=== PATIENT | male | born 1970 | race Hispanic/Latino ===

== ENCOUNTER 2016-12-20 17:57 | Inpatient (IN) | payer MEDICAID ==
--- NOTE | 2016-12-20 19:29 | C.PDOC ---
History Of Present Illness A 46 y/o M who is a heavy alcohol user, is here for ETOH detox. Last drink was a few hours ago. Also c/o blood in stool and chronic right knee pain after a mechanical fall a few weeks prior. Denies fever, chills, chest pain, SOB, lightheadedness, diaphoresis, suicidal ideation, dizziness, or any other complaints. Time Seen by Provider: 12/20/16 19:28 Chief Complaint (Nursing): Substance Abuse History Per: Patient History/Exam Limitations: no limitations Onset/Duration Of Symptoms: Hrs, Persistent (Knee pain) Current Symptoms Are (Timing): Still Present Suicide/Self Injury Attempted (Context): None Modifying Factor(s): Alcohol Severity: Mild Pain Scale Rating Of: 5 Associated Symptoms: Other (Blood in stool). denies: Suicidal Thoughts, Suicidal Plan Involuntary Hold By: None Recent travel outside of the [place]: No Additional History Per: Patient Past Medical History Reviewed: Historical Data, Nursing Documentation, Vital Signs Vital Signs: Last Vital Signs Temp 98.3 F 12/20/16 18:06 Pulse 105 H 12/20/16 18:06 Resp 16 12/20/16 18:06 BP 133/79 12/20/16 18:06 Pulse Ox 99 12/20/16 20:21 - Medical History PMH: Denies: Chronic Kidney Disease - [facility] ALCOHOL DETOXIFICATION (12/31/13) DETOXIFICATION SERVICES FOR SUBSTANCE ABUSE TREATMENT (09/27/15) EXCISION OF STOMACH, ENDO, DIAGN (04/27/15) Family History: States: Unknown Family Hx - Social History Hx Tobacco Use: No Hx Alcohol Use: Yes Hx Substance Use: No - Immunization History Hx Tetanus Toxoid Vaccination: No Hx Influenza Vaccination: Yes Hx Pneumococcal Vaccination: No Review Of Systems Constitutional: Positive for: Other (ETOH intoxicated). Negative for: Fever, Chills, Sweats Cardiovascular: Negative for: Chest Pain, Light Headedness Respiratory: Negative for: Shortness of Breath Gastrointestinal: Positive for: Hematochezia (Blood in stool) Musculoskeletal: Positive for: Leg Pain (Right knee pain) Neurological: Negative for: Dizziness Psych: Negative for: Suicidal ideation Physical Exam - Physical Exam Appears: No Acute Distress Skin: Warm, Dry, Jaundice, Ecchymosis (Numerous ecchymosis all over the body) Head: Atraumatic, Normacephalic Eye(s): bilateral: Other (Sclera is jaundice) Cardiovascular: Rhythm Regular Respiratory: No Rales, No Rhonchi, No Wheezing Gastrointestinal/Abdominal: Soft, Tenderness (Mildly tender to palpation ), Organomegaly (Liver enlarged), Distention, No Guarding, No Rebound Rectal: Other (Dark stool) Extremity: Normal ROM, No Pedal Edema, Capillary Refill (<2secs) Pulses: Left Carotid: Normal, Right Carotid: Normal, Left Radial: Normal, Right Radial: Normal Neurological/Psych: Oriented x3 (Awake and alert), Normal Motor, Normal Sensation, Other (No focal deficit) ED Course And Treatment - Laboratory Results Result Diagrams: 12/20/16 19:29 12/20/16 19:29 O2 Sat by Pulse Oximetry: 99 (RA) Pulse Ox Interpretation: Normal - Radiology CXR: Interpreted by Me, Viewed By Me CXR Interpretation: Yes: Infiltrates, Other (? rll infiltrate). No: Fracture, Pnemothorax Progress Note: spoke with dr hung for icu admission. will come and see the pt Critical Care Time - Critical Care Note Total Time (in mins): 30 Documented critical care: time excludes all time spent performing seperately billable procedures. Disposition Discussed With : Laxmi Lacy Comment: accepted the pt on his service and took over the care at 9:25 PM Doctor Will See Patient In The: ED Counseled Patient/Family Regarding: Studies Performed, Diagnosis - Disposition Disposition: HOSPITALIZED Disposition Time: 19:29 Condition: GUARDED Forms: [facility] (Welsh) - POA Present On Arrival: None - Clinical Impression Clinical Impression: Alcohol dependence, Elevated liver function tests, Abdominal pain, GI bleed, Jaundice, Hyperammonemia - Scribe Statement The provider has reviewed the documentation as recorded by the Yoandyibcoral carreno All medical record entries made by the Yoandyibcoral were at my direction and personally dictated by me. I have reviewed the chart and agree that the record accurately reflects my personal performance of the history, physical exam, medical decision making, and the department course for this patient. I have also personally directed, reviewed, and agree with the discharge instructions and disposition. Decision To Admit - Pt Status Changed To: Hospital Disposition Of: Inpatient - Admit Certification Admit to Inpatient:: After my assessment, the patient will require hospitalization for at least two midnights. This is because of the severity of symptoms shown, intensity of services needed, and/or the medical risk in this patient being treated as an outpatient. - InPatient: Physician Admission Certification: I certify that this patient requires 2 or more midnights of care for the following reason:: After my assessment, the patient will require hospitalization for at least two midnights. This is because of the severity of symptoms shown, intensity of services needed, and/or the medical risk in this patient being treated as an outpatient. - . Bed Request Type: Telemetry Admitting Physician: Laxmi Lacy Patient Diagnosis: Alcohol dependence, Elevated liver function tests, Abdominal pain, GI bleed, Jaundice, Hyperammonemia
[2016-12-20 19:38] LABS: HEMOGLOBIN 8.9 g/dL (12.0-18.0); MEAN CELL VOLUME 100.7 fL (80.0-94.0); MEAN CORPUSCULAR HEMOGLOBIN 35.4 pg (27.0-31.0); MEAN CORPUSCULAR HGB CONC 35.2 g/dL (33.0-37.0); MEAN PLATELET VOLUME 9.7 fL (7.2-11.7); RBC 2.51 Mil/uL (4.40-5.90); RED CELL DISTRIBUTION WIDTH 18.2 % (11.5-14.5); WHITE BLOOD COUNT 7.5 K/uL (4.8-10.8)
[2016-12-20 19:39] LABS: ALBUMIN 3.1 g/dL (3.5-5.0); SQUAMOUS EPITHIAL 2 /hpf (0-5); URINE BACTERIA FEW (<OCC); URINE BILIRUBIN 2+ (NEGATIVE); URINE BLOOD NEGATIVE (NEGATIVE); URINE CLARITY Hazy (Clear); URINE COLOR Amber (YELLOW); URINE GLUCOSE (UA) 1+ mg/dL (Normal); URINE HYALINE CAST 0-2 /lpf (0-2); URINE LEUKOCYTE ESTERASE NEG Leu/uL (Negative); URINE NITRATE NEGATIVE (NEGATIVE); URINE PROTEIN 1+ mg/dL (NEGATIVE)
[2016-12-20 19:42] LABS: GFR AFRICAN-AMERICAN > 60; GFR NON-AFRICAN AMERICAN > 60; PLATELET COUNT 89 K/uL (130-400)
[2016-12-20 19:43] LABS: ALB/GLOB RATIO 0.8 (1.0-2.1); ALT/SGPT 37 U/L (21-72); AST/SGOT 154 U/L (17-59); BLOOD UREA NITROGEN 10 mg/dL (9-20); CALCIUM 8.4 mg/dl (8.6-10.4)
[2016-12-20 19:44] LABS: BARBITURATES, UR NEGATIVE (NEGATIVE)
[2016-12-20 19:45] LABS: BENZODIAZEPINES, UR POSITIVE (NEGATIVE)
[2016-12-20 19:47] LABS: OPIATES, UR NEGATIVE (NEGATIVE)
[2016-12-20 19:48] LABS: PHENCYCLIDINE, UR NEGATIVE (NEGATIVE)
[2016-12-20 20:16] LABS: BANDS 11 % (0-2); BASOPHIL 1 % (0-2); LYMPHOCYTE 11 % (20-40); METAMYELOCYTE 1 % (0-0); MONOCYTE 8 % (0-10); NEUTROPHIL 68 % (50-75); TOTAL CELLS COUNTED 100
[2016-12-20 20:17] LABS: INR 1.3; PROTHROMBIN TIME 15.3 SECONDS (9.7-12.2)
[2016-12-20 20:17] LABS: HYPOCHROMIC SLIGHT; MICROCYTOSIS SLIGHT; PLATELET ESTIMATE DECREASED (NORMAL)
[2016-12-20 20:18] LABS: TARGET CELLS SLIGHT
[2016-12-20] MEDS ORDERED: Multivitamin (MVI) 10 ML, Thiamine 100 MG, Folic Acid 1 MG in Sodium Chloride 0.9% 1,00... IV ONE (20:19)
[2016-12-20 20:39] LABS: VENOUS BLOOD GAS BASE EXCESS 1.3 mmol/L (0.0-2.0); VENOUS BLOOD GAS PCO2 36 mmHg (40-60); VENOUS BLOOD GAS PO2 28 mm/Hg (30-55); VENOUS BLOOD PH 7.45 (7.32-7.43)
--- NOTE | 2016-12-20 21:08 | CP.CCUPN ---
CCU Subjective - Physician Review Events Since Last Encounter (Free Text): 12/21/16 00:45 The Patient was seen and examined at the bedside, Medical records reviewed, and management issues were discussed and formulated. All clinical/lab/hemodynamic/radiographic data were reviewed The Patient is 46 Years old M with PMHx of ETOH abuse who presents to ED requesting alcohol detox, Pt last drink was at 3PM. He also Complaint of dark chaparrita stool for a week, and chronic right knee pain after a mechanical fall a few weeks prior. And start vomiting up with blood clot over the last three days In the ER he was found to be severely jaundiced. Labs with H/H drop 12.2/36 (12/03) 8.9/25 Elevated Jony level to 17 up from 7.9 (12/03), and Bandemia of 11 Denies fever, chills, chest pain, SOB, lightheadedness, diaphoresis, suicidal ideation, dizziness or palpitations H/O upper GI bleeding S/p EGD 04/2015 showing mild gastritis, normal duodenum. No source of active bleeding Ammonia level also elevated MELD score of 20, With estimated 3 month mortality of 19.6 Allergies: NKDA Social hx: Denies smoking, drug history. Heavy drinker for the past 25 years and recently has been drinking a liter of Gin daily, wine occasionally and denies drinking beer H/O detox twice in the past. CCU Objective - Vital Signs / Intake & Output Vital Signs (Last 4 hours): Vital Signs Temp Pulse Resp BP Pulse Ox 12/20/16 20:21 99 12/20/16 18:06 98.3 F 105 H 16 133/79 99 Intake and Output (Last 8hrs): Intake & Output 12/20/16 12/20/16 12/20/16 06:59 14:59 22:59 Weight 190 lb - Physical Exam Physical Exam Limitations: Positive for: Clinical Condition Head: Positive for: Atraumatic, Normocephalic, Ecchymosis. Negative for: Tenderness, Contusion, Swelling, Abrasion, Laceration Pupils: Positive for: PERRL. Negative for: Sluggish, Non-Reactive, Pinpoint Extroacular Muscles: Positive for: EOMI Conjunctiva: Positive for: Normal, Icteric. Negative for: Injected Ears: Positive for: Normal Mouth: Positive for: Dry. Negative for: Drooling Pharnyx: Positive for: Normal Nose (Internal): Positive for: Normal Inspection Neck: Positive for: Normal Range of Motion, Trachea Midline. Negative for: Meningeal Signs, MIDLINE TENDERNESS, Paraspinal Tenderness, JVD, Lymphadenopathy , Bruit, Other Respiratory/Chest: Positive for: Clear to Auscultation, Good Air Exchange. Negative for: Respiratory Distress, Accessory Muscle Use, Wheezes, Decreased Breath Sounds, Rales, Retracting, Rhonchi Cardiovascular: Positive for: Regular Rate and Rhythm, Normal S1, S2, Peripheal Pulses Present. Negative for: Murmurs, Irregular Rhythm, Tachycardic, Bradycardic Abdomen: Positive for: Tenderness, Distention, Normal Bowel Sounds. Negative for: Peritoneal Signs Upper Extremity: Positive for: Normal Inspection, Normal ROM, NORMAL PULSES, Capillary Refill < 2s. Negative for: Cyanosis, Edema, Tenderness Lower Extremity: Positive for: NORMAL PULSES, Swelling (R knee), Capillary Refill < 2 s. Negative for: Edema, CALF TENDERNESS Neurological: Positive for: GCS=15, CN II-XII Intact, Speech Normal, Motor Func Grossly Intact, Normal Sensory Function - Medications Active Medications: Active Medications Generic Name Dose Route Start Last Admin Trade Name Freq PRN Reason Stop Dose Admin Multivitamins/Vitamin C 10 ml/ 1,011.2 mls @ 999 mls/hr 12/20/16 20:19 20:44 Thiamine HCl 100 mg/ Folic IV 12/20/16 21:19 999 mls/hr Acid 1 mg/ Sodium Chloride .Q1H1M ONE Administration - Patient Studies Lab Studies: Lab Studies 12/20/16 12/20/16 12/20/16 Range/Units 20:35 20:12 20:12 WBC (4.8-10.8) K/uL RBC (4.40-5.90) Mil/uL Hgb (12.0-18.0) g/dL Hct (35.0-51.0) % MCV (80.0-94.0) fL MCH (27.0-31.0) pg MCHC (33.0-37.0) g/dL RDW (11.5-14.5) % Plt Count (130-400) K/uL MPV (7.2-11.7) fL Neutrophils % (Manual) (50-75) % Band Neutrophils % (0-2) % Lymphocytes % (Manual) (20-40) % Monocytes % (Manual) (0-10) % Basophils % (Manual) (0-2) % Metamyelocytes % (0-0) % Platelet Estimate (NORMAL) Hypochromasia (manual) Microcytosis (manual) Target Cells PT (9.7-12.2) SECONDS INR pO2 28 L (30-55) mm/Hg VBG pH 7.45 H (7.32-7.43) VBG pCO2 36 L (40-60) mmHg VBG HCO3 24.8 mmol/L VBG Total CO2 26.1 (22-28) mmol/L VBG O2 Sat (Calc) 53.4 (40-65) % VBG Base Excess 1.3 (0.0-2.0) mmol/L VBG Potassium 3.4 L (3.6-5.2) mmol/L Glucose 90 (75-110) mg/dl Lactate 1.6 (0.7-2.1) mmol/L Sodium 142.0 (132-148) mmol/L Potassium (3.6-5.2) mmol/L Chloride 112.0 H (98-107) mmol/L Carbon Dioxide (22-30) mmol/L Anion Gap (10-20) BUN (9-20) mg/dL Creatinine (0.8-1.5) MG/DL Est GFR ( Amer) Est GFR (Non-Af Amer) Random Glucose (75-110) mg/dL Calcium (8.6-10.4) mg/dl Magnesium 1.6 (1.6-2.3) mg/dL Total Bilirubin (0.2-1.3) mg/dL AST (17-59) U/L ALT (21-72) U/L Alkaline Phosphatase (38-126) U/L Ammonia 52 H D (9-33) umol/L Total Protein (6.3-8.3) g/dL Albumin (3.5-5.0) g/dL Globulin (2.2-3.9) gm/dL Albumin/Globulin Ratio (1.0-2.1) Venous Blood Potassium 3.4 L (3.6-5.2) mmol/L Urine Color (YELLOW) Urine Clarity (Clear) Urine pH (5.0-8.0) Ur Specific [place] (1.003-1.030) Urine Protein (NEGATIVE) mg/dL Urine Glucose (UA) (Normal) mg/dL Urine Ketones (NEGATIVE) mg/dL Urine Blood (NEGATIVE) Urine Nitrate (NEGATIVE) Urine Bilirubin (NEGATIVE) Urine Urobilinogen (0.2-1.0) mg/dL Ur Leukocyte Esterase (Negative) Elvis/uL Urine WBC (Auto) (0-5) /hpf Urine RBC (Auto) (0-3) /hpf Ur Squamous Epith Cells (0-5) /hpf Ur Transition Epith Cell (0-3) /hpf Urine Bacteria (<OCC) Hyaline Casts (0-2) /lpf Stool Occult Blood (NEGATIVE) Urine Opiates Screen (NEGATIVE) Urine Methadone Screen (NEGATIVE) Ur Barbiturates Screen (NEGATIVE) Ur Phencyclidine Scrn (NEGATIVE) Ur Amphetamines Screen (NEGATIVE) U Benzodiazepines Scrn (NEGATIVE) U Oth Cocaine Metabols (NEGATIVE) U Cannabinoids Screen (NEGATIVE) Alcohol, Quantitative (0-10) mg/dl 12/20/16 12/20/16 12/20/16 Range/Units 20:09 20:07 19:29 WBC (4.8-10.8) K/uL RBC (4.40-5.90) Mil/uL Hgb (12.0-18.0) g/dL Hct (35.0-51.0) % MCV (80.0-94.0) fL MCH (27.0-31.0) pg MCHC (33.0-37.0) g/dL RDW (11.5-14.5) % Plt Count (130-400) K/uL MPV (7.2-11.7) fL Neutrophils % (Manual) (50-75) % Band Neutrophils % (0-2) % Lymphocytes % (Manual) (20-40) % Monocytes % (Manual) (0-10) % Basophils % (Manual) (0-2) % Metamyelocytes % (0-0) % Platelet Estimate (NORMAL) Hypochromasia (manual) Microcytosis (manual) Target Cells PT 15.3 H (9.7-12.2) SECONDS INR 1.3 pO2 (30-55) mm/Hg VBG pH (7.32-7.43) VBG pCO2 (40-60) mmHg VBG HCO3 mmol/L VBG Total CO2 (22-28) mmol/L VBG O2 Sat (Calc) (40-65) % VBG Base Excess (0.0-2.0) mmol/L VBG Potassium (3.6-5.2) mmol/L Glucose (75-110) mg/dl Lactate (0.7-2.1) mmol/L Sodium (132-148) mmol/L Potassium (3.6-5.2) mmol/L Chloride (98-107) mmol/L Carbon Dioxide (22-30) mmol/L Anion Gap (10-20) BUN (9-20) mg/dL Creatinine (0.8-1.5) MG/DL Est GFR ( Amer) Est GFR (Non-Af Amer) Random Glucose (75-110) mg/dL Calcium (8.6-10.4) mg/dl Magnesium (1.6-2.3) mg/dL Total Bilirubin (0.2-1.3) mg/dL AST (17-59) U/L ALT (21-72) U/L Alkaline Phosphatase (38-126) U/L Ammonia (9-33) umol/L Total Protein (6.3-8.3) g/dL Albumin (3.5-5.0) g/dL Globulin (2.2-3.9) gm/dL Albumin/Globulin Ratio (1.0-2.1) Venous Blood Potassium (3.6-5.2) mmol/L Urine Color (YELLOW) Urine Clarity (Clear) Urine pH (5.0-8.0) Ur Specific [place] (1.003-1.030) Urine Protein (NEGATIVE) mg/dL Urine Glucose (UA) (Normal) mg/dL Urine Ketones (NEGATIVE) mg/dL Urine Blood (NEGATIVE) Urine Nitrate (NEGATIVE) Urine Bilirubin (NEGATIVE) Urine Urobilinogen (0.2-1.0) mg/dL Ur Leukocyte Esterase (Negative) Elvis/uL Urine WBC (Auto) (0-5) /hpf Urine RBC (Auto) (0-3) /hpf Ur Squamous Epith Cells (0-5) /hpf Ur Transition Epith Cell (0-3) /hpf Urine Bacteria (<OCC) Hyaline Casts (0-2) /lpf Stool Occult Blood Positive H (NEGATIVE) Urine Opiates Screen Negative (NEGATIVE) Urine Methadone Screen Negative (NEGATIVE) Ur Barbiturates Screen Negative (NEGATIVE) Ur Phencyclidine Scrn Negative (NEGATIVE) Ur Amphetamines Screen Negative (NEGATIVE) U Benzodiazepines Scrn Positive (NEGATIVE) U Oth Cocaine Metabols Negative (NEGATIVE) U Cannabinoids Screen Negative (NEGATIVE) Alcohol, Quantitative (0-10) mg/dl 12/20/16 12/20/16 12/20/16 Range/Units 19:29 19:29 19:29 WBC 7.5 (4.8-10.8) K/uL RBC 2.51 L (4.40-5.90) Mil/uL Hgb 8.9 L D (12.0-18.0) g/dL Hct 25.3 L (35.0-51.0) % MCV 100.7 H D (80.0-94.0) fL MCH 35.4 H (27.0-31.0) pg MCHC 35.2 (33.0-37.0) g/dL RDW 18.2 H (11.5-14.5) % Plt Count 89 L D (130-400) K/uL MPV 9.7 (7.2-11.7) fL Neutrophils % (Manual) 68 (50-75) % Band Neutrophils % 11 H* (0-2) % Lymphocytes % (Manual) 11 L (20-40) % Monocytes % (Manual) 8 (0-10) % Basophils % (Manual) 1 (0-2) % Metamyelocytes % 1 H (0-0) % Platelet Estimate Decreased L (NORMAL) Hypochromasia (manual) Slight Microcytosis (manual) Slight Target Cells Slight PT (9.7-12.2) SECONDS INR pO2 (30-55) mm/Hg VBG pH (7.32-7.43) VBG pCO2 (40-60) mmHg VBG HCO3 mmol/L VBG Total CO2 (22-28) mmol/L VBG O2 Sat (Calc) (40-65) % VBG Base Excess (0.0-2.0) mmol/L VBG Potassium (3.6-5.2) mmol/L Glucose (75-110) mg/dl Lactate (0.7-2.1) mmol/L Sodium 141 (132-148) mmol/L Potassium 3.5 L (3.6-5.2) mmol/L Chloride 102 (98-107) mmol/L Carbon Dioxide 22 (22-30) mmol/L Anion Gap 21 H (10-20) BUN 10 (9-20) mg/dL Creatinine 0.6 L (0.8-1.5) MG/DL Est GFR ( Amer) > 60 Est GFR (Non-Af Amer) > 60 Random Glucose 94 (75-110) mg/dL Calcium 8.4 L (8.6-10.4) mg/dl Magnesium (1.6-2.3) mg/dL Total Bilirubin 17.1 H (0.2-1.3) mg/dL AST 154 H (17-59) U/L ALT 37 (21-72) U/L Alkaline Phosphatase 333 H D (38-126) U/L Ammonia (9-33) umol/L Total Protein 7.3 (6.3-8.3) g/dL Albumin 3.1 L D (3.5-5.0) g/dL Globulin 4.1 H (2.2-3.9) gm/dL Albumin/Globulin Ratio 0.8 L (1.0-2.1) Venous Blood Potassium (3.6-5.2) mmol/L Urine Color [place] (YELLOW) Urine Clarity Hazy (Clear) Urine pH 5.0 (5.0-8.0) Ur Specific [place] 1.025 (1.003-1.030) Urine Protein 1+ H (NEGATIVE) mg/dL Urine Glucose (UA) 1+ H (Normal) mg/dL Urine Ketones Negative (NEGATIVE) mg/dL Urine Blood Negative (NEGATIVE) Urine Nitrate Negative (NEGATIVE) Urine Bilirubin 2+ H (NEGATIVE) Urine Urobilinogen 4.0 (0.2-1.0) mg/dL Ur Leukocyte Esterase Neg (Negative) Elvis/uL Urine WBC (Auto) 4 (0-5) /hpf Urine RBC (Auto) < 1 (0-3) /hpf Ur Squamous Epith Cells 2 (0-5) /hpf Ur Transition Epith Cell 1 (0-3) /hpf Urine Bacteria Few H (<OCC) Hyaline Casts 0-2 (0-2) /lpf Stool Occult Blood (NEGATIVE) Urine Opiates Screen (NEGATIVE) Urine Methadone Screen (NEGATIVE) Ur Barbiturates Screen (NEGATIVE) Ur Phencyclidine Scrn (NEGATIVE) Ur Amphetamines Screen (NEGATIVE) U Benzodiazepines Scrn (NEGATIVE) U Oth Cocaine Metabols (NEGATIVE) U Cannabinoids Screen (NEGATIVE) Alcohol, Quantitative 225 H (0-10) mg/dl Laboratory Results - last 24 hr 12/20/16 12/20/16 12/20/16 19:29 19:29 19:29 WBC 7.5 RBC 2.51 L Hgb 8.9 L D Hct 25.3 L MCV 100.7 H D MCH 35.4 H MCHC 35.2 RDW 18.2 H Plt Count 89 L D MPV 9.7 Neutrophils % (Manual) 68 Band Neutrophils % 11 H* Lymphocytes % (Manual) 11 L Monocytes % (Manual) 8 Basophils % (Manual) 1 Metamyelocytes % 1 H Platelet Estimate Decreased L Hypochromasia (manual) Slight Microcytosis (manual) Slight Target Cells Slight PT INR pO2 VBG pH VBG pCO2 VBG HCO3 VBG Total CO2 VBG O2 Sat (Calc) VBG Base Excess VBG Potassium Glucose Lactate Sodium 141 Potassium 3.5 L Chloride 102 Carbon Dioxide 22 Anion Gap 21 H BUN 10 Creatinine 0.6 L Est GFR ( Amer) > 60 Est GFR (Non-Af Amer) > 60 Random Glucose 94 Calcium 8.4 L Magnesium Total Bilirubin 17.1 H AST 154 H ALT 37 Alkaline Phosphatase 333 H D Ammonia Total Protein 7.3 Albumin 3.1 L D Globulin 4.1 H Albumin/Globulin Ratio 0.8 L Venous Blood Potassium Urine Color Michelle Urine Clarity Hazy Urine pH 5.0 Ur Specific [place] 1.025 Urine Protein 1+ H Urine Glucose (UA) 1+ H Urine Ketones Negative Urine Blood Negative Urine Nitrate Negative Urine Bilirubin 2+ H Urine Urobilinogen 4.0 Ur Leukocyte Esterase Neg Urine WBC (Auto) 4 Urine RBC (Auto) < 1 Ur Squamous Epith Cells 2 Ur Transition Epith Cell 1 Urine Bacteria Few H Hyaline Casts 0-2 Stool Occult Blood Urine Opiates Screen Urine Methadone Screen Ur Barbiturates Screen Ur Phencyclidine Scrn Ur Amphetamines Screen U Benzodiazepines Scrn U Oth Cocaine Metabols U Cannabinoids Screen Alcohol, Quantitative 225 H 12/20/16 12/20/16 12/20/16 19:29 20:07 20:09 WBC RBC Hgb Hct MCV MCH MCHC RDW Plt Count MPV Neutrophils % (Manual) Band Neutrophils % Lymphocytes % (Manual) Monocytes % (Manual) Basophils % (Manual) Metamyelocytes % Platelet Estimate Hypochromasia (manual) Microcytosis (manual) Target Cells PT 15.3 H INR 1.3 pO2 VBG pH VBG pCO2 VBG HCO3 VBG Total CO2 VBG O2 Sat (Calc) VBG Base Excess VBG Potassium Glucose Lactate Sodium Potassium Chloride Carbon Dioxide Anion Gap BUN Creatinine Est GFR ( Amer) Est GFR (Non-Af Amer) Random Glucose Calcium Magnesium Total Bilirubin AST ALT Alkaline Phosphatase Ammonia Total Protein Albumin Globulin Albumin/Globulin Ratio Venous Blood Potassium Urine Color Urine Clarity Urine pH Ur Specific [place] Urine Protein Urine Glucose (UA) Urine Ketones Urine Blood Urine Nitrate Urine Bilirubin Urine Urobilinogen Ur Leukocyte Esterase Urine WBC (Auto) Urine RBC (Auto) Ur Squamous Epith Cells Ur Transition Epith Cell Urine Bacteria Hyaline Casts Stool Occult Blood Positive H Urine Opiates Screen Negative Urine Methadone Screen Negative Ur Barbiturates Screen Negative Ur Phencyclidine Scrn Negative Ur Amphetamines Screen Negative U Benzodiazepines Scrn Positive U Oth Cocaine Metabols Negative U Cannabinoids Screen Negative Alcohol, Quantitative 12/20/16 12/20/16 12/20/16 20:12 20:12 20:35 WBC RBC Hgb Hct MCV MCH MCHC RDW Plt Count MPV Neutrophils % (Manual) Band Neutrophils % Lymphocytes % (Manual) Monocytes % (Manual) Basophils % (Manual) Metamyelocytes % Platelet Estimate Hypochromasia (manual) Microcytosis (manual) Target Cells PT INR pO2 28 L VBG pH 7.45 H VBG pCO2 36 L VBG HCO3 24.8 VBG Total CO2 26.1 VBG O2 Sat (Calc) 53.4 VBG Base Excess 1.3 VBG Potassium 3.4 L Glucose 90 Lactate 1.6 Sodium 142.0 Potassium Chloride 112.0 H Carbon Dioxide Anion Gap BUN Creatinine Est GFR ( Amer) Est GFR (Non-Af Amer) Random Glucose Calcium Magnesium 1.6 Total Bilirubin AST ALT Alkaline Phosphatase Ammonia 52 H D Total Protein Albumin Globulin Albumin/Globulin Ratio Venous Blood Potassium 3.4 L Urine Color Urine Clarity Urine pH Ur Specific [place] Urine Protein Urine Glucose (UA) Urine Ketones Urine Blood Urine Nitrate Urine Bilirubin Urine Urobilinogen Ur Leukocyte Esterase Urine WBC (Auto) Urine RBC (Auto) Ur Squamous Epith Cells Ur Transition Epith Cell Urine Bacteria Hyaline Casts Stool Occult Blood Urine Opiates Screen Urine Methadone Screen Ur Barbiturates Screen Ur Phencyclidine Scrn Ur Amphetamines Screen U Benzodiazepines Scrn U Oth Cocaine Metabols U Cannabinoids Screen Alcohol, Quantitative Review of Systems - Cardiovascular Cardiovascular: absent: As Per HPI, Acrocyanosis, Chest Pain, Chest Pain at Rest , Chest Pain with Activity, Claudication, Diaphoresis, Dyspnea, Dyspnea on Exertion, Edema, Irregular Heart Rhythm, Pain Radiating to Arm/Neck/Jaw, Leg Edema, Leg Ulcers, Lightheadedness, Orthopnea, Palpitations, Paroxysmal Nocturnal Dyspnea, Pedal Edema, Radiating Pain, Rapid Heart Rate, Slow Heart Rate, Syncope, Other, UNREMARKABLE - Respiratory Respiratory: absent: As Per HPI, Cough, Dyspnea, Hemoptysis, Dyspnea on Exertion , Wheezing, Snoring, Stridor, Pain on Inspiration, Chest Congestion, Excessive Mucous Production, Change in Mucous Color, Pain with Coughing, Other, UNREMARKABLE - Gastrointestinal Gastrointestinal: Abdominal Pain, Bloating, Change in Bowel Habits, Change in Stool Character, Hematemesis, Melena, Vomiting. absent: Hematochezia, Loose Stools, Nausea Critical Care Progress Note - Extremities/Vascular Does the Patient need a Central Venous Catheter?: No Does the Patient have a Rosario Catheter?: No Does the Patient need a Rosario Catheter?: No Assessment/Plan (1) Acute upper gastrointestinal bleeding Current Visit: Yes Status: Acute Comment: - Admit to ICU sec to hemodynamic instability - PANTOPRAZOLE drip - Two large bore peripheral catheters - Suplemental O2 - NPO - Volume resuscitation - Serial CBCs q 8 /HR, RBC transfusions to keep hemoglobin > 7 - Active type and screen sent today - 04/2015: EGD showed mild gastritis and no active bleeding. - GI evaluation called (2) Severe sepsis Current Visit: Yes Status: Acute Comment: Blood C/S sent Will send patient fot ABD CT scan to R/O Acute cholangitis in the sitting for jundice, bilirubin elevated Gi consult, possible need for ERCP IV Zosyn (3) Hyperammonemia Current Visit: Yes Status: Acute Comment: Ammonia level also elevated Start Lactulose MELD score of 20 With estimated 3 month mortality of 19.6 (4) Elevated liver function tests Current Visit: Yes Status: Acute (5) Jaundice Current Visit: Yes Status: Acute Comment: Will send patient fot ABD CT scan to R/O Acute cholangitis in the sitting for jundice, bilirubin elevated (6) Alcoholic fatty liver Current Visit: No Status: Acute (7) Knee injury Current Visit: No Status: Acute (8) Thrombocytopenia Current Visit: No Status: Acute (9) Alcohol withdrawal Current Visit: No Status: Acute Comment: Folic Acid Thiamine IV Hydration Banana bag Librium protocol (10) Prophylactic measure Current Visit: No Status: Acute Comment: SCDs Protonix drip
[2016-12-20] MEDS ORDERED: Piperacillin/Tazobact 3.375 gm 100 ML IVPB STA (21:40)
[2016-12-20] MEDS ORDERED: Oxycodone/Acetaminophen 5/325 mg Tab PO STA (23:34)
[2016-12-20] MEDS ORDERED: Thiamine 100 mg/ml Inj IV ONE (23:35)
[2016-12-20] MEDS ORDERED: Pantoprazole 80 MG in Sodium Chloride 0.9% 100 ML IVP SCH (23:45)
[2016-12-21] MEDS: Dextrose 5%/0.45% NS 1,000 ML IV SCH ×2 (00:19→10:00)
[2016-12-21] MEDS: Piperacill/Tazo 3.375gm in Dex 3.375 GM/50 ML BAG IVPB SCH ×2 (00:26→08:01)
[2016-12-21] MEDS ORDERED: Iohexol 240 (50 ml) PO ONE (00:30)
--- NOTE | 2016-12-21 03:27 | CT ---
EXAM: CT Abdomen and Pelvis With Intravenous Contrast CLINICAL HISTORY: 46 years old, male; Pain; Abdominal pain and other: R/O acute cholangitis; Patient HX: 12-03-16; Additional info: R/O acute cholangitis. R/O acute cholangitis. Gi bleeding , bandemia and jaundice, . oral contrast only TECHNIQUE: Axial computed tomography images of the abdomen and pelvis with intravenous contrast. This CT exam was performed using one or more of the following dose reduction techniques: automated exposure control, adjustment of the mA and/or kV according to patient size, and/or use of iterative reconstruction technique. Coronal and sagittal reformatted images were created and reviewed. CONTRAST: 240 mL of oral administered intravenously. COMPARISON: US - ABDOMEN COMPLETE 04/27/2015 8:15:03 PM FINDINGS: Limitations: Lack of intravenous contrast. Lower thorax: Mild atelectasis/scarring. Mild mural thickening vs underdistention of distal esophagus. ABDOMEN: Liver: Enlarged. Lobulated contour. Fatty infiltration. Gallbladder and bile ducts: Gallstone. No ductal dilation. Pancreas: No ductal dilation. No mass. Spleen: Mild to moderate splenomegaly. Adrenals: No mass. Kidneys and ureters: Mild stranding about kidneys, nonspecific. No renal calculi. No hydronephrosis. Stomach and bowel: Mild mural thickening vs underdistention of ascending colon. No associated inflammatory stranding. No obstruction. Appendix: No findings to suggest acute appendicitis. PELVIS: Bladder: Unremarkable. Reproductive: Calcification of vas deferens. ABDOMEN and PELVIS: Intraperitoneal space: Small free fluid within abdomen. Mild stranding/fascial thickening within abdomen and pelvis. No free air. Bones/joints: No acute fracture. Soft tissues: Unremarkable. Vasculature: Mild varices within upper abdomen. No aneurysm. Lymph nodes: No pathologically enlarged lymph nodes. IMPRESSION: 1. Cirrhosis with portal hypertension. 2. Mild colitis/edema versus underdistention. Clinical correlation is needed. 3. Mild esophagitis versus underdistention. Clinical correlation is needed. 4. Incidental/non-acute findings are described above.
[2016-12-21 06:41] LABS: INR 1.4; PROTHROMBIN TIME 15.3 SECONDS (9.7-12.2)
[2016-12-21 06:46] LABS: ALB/GLOB RATIO 0.8 (1.0-2.1); ALBUMIN 2.7 g/dL (3.5-5.0); ALT/SGPT 32 U/L (21-72); AST/SGOT 148 U/L (17-59); BLOOD UREA NITROGEN 11 mg/dL (9-20); CALCIUM 7.6 mg/dl (8.6-10.4); GFR AFRICAN-AMERICAN > 60; GFR NON-AFRICAN AMERICAN > 60; MAGNESIUM 1.5 mg/dL (1.6-2.3)
[2016-12-21 06:54] LABS: BASO # 0.1 K/uL (0.0-0.2); BASO % 1.6 % (0.0-2.0); EOS # 0.1 K/uL (0.0-0.7); EOS % 1.2 % (0.0-4.0); HEMOGLOBIN 7.5 g/dL (12.0-18.0); LYMPH # 1.2 K/uL (1.0-4.3); MEAN CELL VOLUME 101.9 fL (80.0-94.0); MEAN CORPUSCULAR HEMOGLOBIN 36.1 pg (27.0-31.0); MEAN CORPUSCULAR HGB CONC 35.4 g/dL (33.0-37.0); MONO # 0.6 K/uL (0.0-0.8); MONO % 10.8 % (0.0-10.0); NEUT # 3.4 K/uL (1.8-7.0); NEUT % 63.4 % (50.0-75.0); NRBC % 0.2 % (0.0-2.0); RBC 2.08 Mil/uL (4.40-5.90); RED CELL DISTRIBUTION WIDTH 18.4 % (11.5-14.5); WHITE BLOOD COUNT 5.4 K/uL (4.8-10.8)
--- NOTE | 2016-12-21 08:20 | RAD ---
HISTORY: jaundice COMPARISON: Chest x-ray performed 04/28/15 TECHNIQUE: Chest, one view. FINDINGS: Examination limited by habitus and hypoinflation. LUNGS: Central vascular congestion. No focal consolidation. Please note that chest x-ray has limited sensitivity for the detection of pulmonary masses. PLEURA: No significant pleural effusion identified. No definite pneumothorax . CARDIOVASCULAR: Heart size appears top normal. OSSEOUS STRUCTURES: Degenerative changes. VISUALIZED UPPER ABDOMEN: Unremarkable. OTHER FINDINGS: None. IMPRESSION: Central vascular congestion. Hypoinflation.
[2016-12-21] MEDS ORDERED: Octreotide 500 mcg/ml Inj IV ONE (08:45)
[2016-12-21] MEDS ORDERED: Octreotide 1,250 MCG in Dextrose 5% In Water 250 ML IV PRN (08:45)
[2016-12-21] MEDS ORDERED: Pantoprazole 80 MG in Sodium Chloride 0.9% 100 ML IV SCH (09:45)
[2016-12-21] MEDS ORDERED: Multivitamin (MVI) 10 ML, Thiamine 100 MG, Folic Acid 1 MG in Sodium Chloride 0.9% 1,00... IV ONE (10:50)
--- NOTE | 2016-12-21 10:55 | CP.PCM.PN ---
Subjective - Date & Time of Evaluation Date of Evaluation: 12/21/16 Time of Evaluation: 10:20 - Subjective Subjective: General Surgery Consult- Dr. Morris 46M hx of alcohol dependence initially checked himself to rehab at [facility] and was transferred to [facility] for elevated liver enzymes. Pt fell 10days ago and injured his right leg in which he still complains of pain. Pt states had an episode bright red emesis 2 days ago. Bright red blood in stool one week ago. deneis however no vomiting since being admitted to [facility]. currently denies abdominal N/V F/C CP/SOB. PMH: No relevant PMH PSH: EGD ALL: NKDA SocialHx: 10drinks / day since 2008. No tobacco or illicit drug use Objective - Vital Signs/Intake and Output Vital Signs (last 24 hours): Temp Pulse Resp BP Pulse Ox 98.3 F 88 17 123/74 96 12/21/16 08:00 12/21/16 09:02 12/21/16 09:02 12/21/16 09:02 12/21/16 09:02 Intake and Output: 12/21/16 12/21/16 06:59 18:59 Intake Total 1170 230 Output Total 350 Balance 820 230 - Medications Medications: Current Medications Dextrose/Sodium Chloride (Dextrose 5%/0.45% Ns 1000 Ml) 1,000 mls @ 100 mls/hr IV .Q10H ANTONY Last Admin: 12/21/16 00:19 Dose: 100 mls/hr Folic Acid 1 mg/ Sodium (Chloride) 100.2 mls @ 60 mls/hr IV DAILY ANTONY Last Admin: 12/21/16 10:22 Dose: 60 mls/hr Piperacillin Sod/Tazobactam Sod (Zosyn 3.375 Gm Iv Premix) 3.375 gm in 50 mls @ 100 mls/hr IVPB Q8H ANTONY Last Admin: 12/21/16 08:01 Dose: 100 mls/hr Pantoprazole Sodium 80 mg/ (Sodium Chloride) 100 mls @ 10 mls/hr IV .Q10H ANTONY PRN Reason: 8 MG/HR Last Admin: 12/21/16 10:40 Dose: 10 mls/hr Octreotide Acetate 1,250 mcg/ (Dextrose) 252.5 mls @ 5.05 mls/hr IV .Q24H PRN; Protocol; 25 MCG/HR PRN Reason: TITRATION SCHEDULE Last Admin: 12/21/16 10:21 Dose: 5.05 mls/hr Lactulose (Enulose) 20 gm PO Q8H ANTONY Last Admin: 12/21/16 00:20 Dose: 20 gm Lorazepam (Ativan) 2 mg IVP Q6H PRN PRN Reason: Anxiety Last Admin: 12/21/16 08:02 Dose: 2 mg Ondansetron HCl (Zofran Inj) 4 mg IVP DAILY@ONCE PRN PRN Reason: Nausea/Vomiting Last Admin: 12/21/16 10:26 Dose: 4 mg - Labs Labs: 12/21/16 06:19 12/21/16 06:17 PT 15.3 SECONDS (9.7-12.2) H 12/21/16 06:19 INR 1.4 12/21/16 06:19 APTT 37 SECONDS (21-34) H 12/21/16 06:19 - Constitutional Appears: Well, No Acute Distress - Head Exam Additional comments: Jaundice - Eye Exam Eye Exam: Scleral icterus - ENT Exam Additional comments: sublingual jaundice - Respiratory Exam Respiratory Exam: NORMAL BREATHING PATTERN. absent: Accessory Muscle Use, Rales , Rhonchi, Wheezes - Cardiovascular Exam Cardiovascular Exam: RRR, +S1, +S2 - GI/Abdominal Exam GI & Abdominal Exam: Distended, Soft, Normal Bowel Sounds, Organomegaly. absent : Bruit, Firm, Tenderness, Hernia Additional comments: anterior left bruising. no brad, berman, or diaz-weber signs - Rectal Exam Rectal Exam: absent: Bloody Stool, Hemorrhoids Additional comments: good rectal tone. No signs of external hemorroids, no bright red blood per rectum - Extremities Exam Additional comments: right knee tenderness - Neurological Exam Neurological Exam: Alert, Awake, Oriented x3 - Skin Skin Exam: Normal Color Assessment and Plan - Assessment and Plan (Free Text) Assessment: 46M hx of ETOH dependence consulted for possible cholecystitis Plan: - initial US on 12/03 showed no gallstone or CBD dilitation - repeat US - No acute surgical intervention at this time - c/w Medical management - further recs per Dr. Morris D/W Dr. Arturo Cho PGY1
[2016-12-21 11:23] LABS: AMYLASE 83 U/L (30-110); LIPASE 188 U/L (23-300)
--- NOTE | 2016-12-21 11:44 | US ---
HISTORY: gallstone? jaundice COMPARISON: None. TECHNIQUE: Sonographic evaluation of the right upper quadrant of the abdomen. FINDINGS: LIVER: Measures 25.9 cm in length. Diffuse heterogeneously increased echogenicity of the liver parenchyma. Likely fatty infiltration and hepatocellular disease. No focal mass. No intrahepatic biliary ductal dilatation. Portal venous flow is hepatopetal. However, the duplex Doppler tracing shows pulsatile flow. The Doppler evaluation is limited due to inability of the patient to suspend respiration during the examination. It is possible that the tracing demonstrates hepatic arterial flow. Portal venous pulsatility may be seen with right heart failure. However, this is an atypical pattern for right heart failure. The possibility of cavernous transformation of the portal vein should also be considered. GALLBLADDER: No cholelithiasis. Sludge within gallbladder lumen. Mural thickening up to 9 mm and questionable trace pericholecystic fluid. Negative sonographic Castillo's sign. Findings are nonspecific. COMMON BILE DUCT: Measures 4 mm. No stones. No dilatation. PANCREAS: Limited visualization. Grossly normal. RIGHT KIDNEY: Measures 12.5 cm in length. Normal echogenicity. No calculus, mass, or hydronephrosis. AORTA: No aneurysmal dilatation. IVC: Unremarkable. OTHER FINDINGS: None . IMPRESSION: Marked hepatomegaly with heterogeneously increased echogenicity consistent with fatty infiltration and possible hepatic cellular disease. Thickened gallbladder wall without cholelithiasis. Sludge noted. Trace pericholecystic fluid suspected. No biliary ductal dilatation. Pulsatility noted in portal vein, of uncertain significance. This may reflect registration of arterial and venous signals simultaneously. The possibility of cavernous transformation of the portal vein should be considered on the basis of these images.
[2016-12-21] MEDS ORDERED: Thiamine 100 mg/ml Inj IV ONE ×2 (12:15→14:02)
[2016-12-21] MEDS ORDERED: Magnesium Sulfate 1 gm in D5W 1 GM/100 ML BAG IVPB ONE (12:18)
[2016-12-21] MEDS ORDERED: Propofol 10 mg/ml Inj (20 ML) ONE (12:22)
[2016-12-21] MEDS ORDERED: PrednisoLONE 6 MG/2 ML SYR PO SCH (13:15)
--- NOTE | 2016-12-21 14:07 | CP.PCM.CON ---
<Alejandrina Neville - Last Filed: 12/21/16 14:42> History of Present Illness - History of Present Illness History of Present Illness: Jurgen Mei is a 46M w/ hx of Etoh abuse who presented to the Ed to Detox from EtOh. Pt noted that he was having melena for the past few weeks and reported a few episodes of emesis with blood clots a few days ago. Pt states that he first noticed his eyes and skin becoming yellow about about a few weeks ago and went to [facility] where is was supposedly dischraged and told to follow up with GI. Pt states that he drinks around 8-9 mixed cocktails daily, usually gin and tonic. He reports drinking that quantity for the past 20 + years. Pt states that he observed melena for the past 3 weeks, intermittently. He reports taking x 4 500 naproxen tabs daily for the past 3 weeks. He notes he also has abd pain diffuse, but discribes it as more discomfort. Denies any alleviating or aggravating factors. Pt states other than the few blood clots is saw in his emesis, he never noticed BRB. His last drink was yesterday at 3pm. His hgb on admission was found to be ~ 7.5, which is decreased from ~ 12, 3 weeks ago. Pt was placed in the ICU for acute GI bleed. Pt since admission has had multiple bouts of melena. He is also exhibiting signs of withdrawl and hepatic encephalopathy. Admitted in 2014 for possible upper GI bleed, endoscopy neg for active bleeding or varices PMHx: etoh abuse Allergies: NKDA Social hx: Denies smoking, drug history. Heavy drinker for the past 25 years and recently has been drinking a liter of Gin daily, wine occasionally and denies drinking beer family hx: non-contrib endoscopy hx: 2014 EGD: gastritis, no varices found Past Patient History - Infectious Disease Hx of Infectious Diseases: None - Tetanus Immunizations Tetanus Immunization: Unknown - Past Medical History & Family History Past Medical History?: No - Past Social History Smoking Status: Never Smoked - CARDIAC Hx Cardiac Disorders: No - PULMONARY Hx Respiratory Disorders: No Hx Tuberculosis: No - NEUROLOGICAL Hx Neurological Disorder: No - HEENT Hx HEENT Problems: No - RENAL Hx Chronic Kidney Disease: No - ENDOCRINE/METABOLIC Hx Endocrine Disorders: No - HEMATOLOGICAL/ONCOLOGICAL Hx Blood Disorders: No - INTEGUMENTARY Hx Dermatological Problems: No - MUSCULOSKELETAL/RHEUMATOLOGICAL Hx Falls: No - GASTROINTESTINAL Hx Gastrointestinal Disorders: No - GENITOURINARY/GYNECOLOGICAL Hx Genitourinary Disorders: No - PSYCHIATRIC Hx Substance Use: No - SURGICAL HISTORY Hx Surgeries: No - ANESTHESIA Hx Anesthesia: No Hx Anesthesia Reactions: No Meds Allergies/Adverse Reactions: Allergies Allergy/AdvReac Type Severity Reaction Status Date / Time No Known Allergies Allergy Verified 12/20/16 18:04 - Medications Medications: Current Medications Escitalopram Oxalate (Lexapro) 5 mg PO DAILY ANTONY Dextrose/Sodium Chloride (Dextrose 5%/0.45% Ns 1000 Ml) 1,000 mls @ 100 mls/hr IV .Q10H ANTONY Last Admin: 12/21/16 00:19 Dose: 100 mls/hr Piperacillin Sod/Tazobactam Sod (Zosyn 3.375 Gm Iv Premix) 3.375 gm in 50 mls @ 100 mls/hr IVPB Q8H ANTONY Last Admin: 12/21/16 08:01 Dose: 100 mls/hr Octreotide Acetate 1,250 mcg/ (Dextrose) 252.5 mls @ 5.05 mls/hr IV .Q24H PRN; Protocol; 25 MCG/HR PRN Reason: TITRATION SCHEDULE Last Admin: 12/21/16 10:21 Dose: 5.05 mls/hr Multivitamins/Vitamin C 10 ml/Thiamine HCl 100 mg/ Folic Acid 1 mg/ Sodium Chloride 1,011.2 mls @ 100 mls/hr IV .Q10H7M ONE Stop: 12/22/16 20:06 Sodium Chloride (Sodium Chloride 0.9%) 1,000 mls @ 75 mls/hr IV .[id number] [facility] Ceftriaxone Sodium 2 gm/ (Sodium Chloride) 100 mls @ 100 mls/hr IVPB DAILY [facility] Lactulose (Enulose) 20 gm PO Q8H ANTONY Last Admin: 12/21/16 07:45 Dose: Not Given Lorazepam (Ativan) 1 mg IVP Q3H PRN PRN Reason: Symptoms of alcohol withdrawl Last Admin: 12/21/16 11:36 Dose: 1 mg Lorazepam (Ativan) 2 mg PO .TAPER ANTONY PRN Reason: Taper Stop: 12/25/16 15:59 Ondansetron HCl (Zofran Inj) 4 mg IVP DAILY@ONCE PRN PRN Reason: Nausea/Vomiting Last Admin: 12/21/16 10:26 Dose: 4 mg Pantoprazole Sodium (Protonix Inj) 40 mg IVP Q12H ANTONY Prednisolone (Prednisolone) 40 mg PO DAILY ANTONY Trazodone HCl (Desyrel) 50 mg PO HS PRN PRN Reason: Insomnia Physical Exam - Constitutional Appears: No Acute Distress - Head Exam Head Exam: ATRAUMATIC, NORMOCEPHALIC - Eye Exam Eye Exam: Scleral icterus - ENT Exam ENT Exam: Mucous Membranes Moist, Normal Exam - Respiratory Exam Respiratory Exam: Clear to Auscultation Bilateral, NORMAL BREATHING PATTERN. absent: Rales, Rhonchi, Wheezes - Cardiovascular Exam Cardiovascular Exam: REGULAR RHYTHM, +S1, +S2 - GI/Abdominal Exam GI & Abdominal Exam: Distended, Normal Bowel Sounds, Organomegaly. absent: Firm , Guarding, Rebound, Rigid - Rectal Exam Additional comments: dark stool, melena - Extremities Exam Extremities exam: Positive for: normal inspection - Neurological Exam Neurological exam: Alert, Normal Gait, Oriented x3 - Psychiatric Exam Psychiatric exam: Normal Affect, Normal Mood - Skin Skin Exam: Intact, Warm Additional comments: diaphoretic and juandice Results - Vital Signs Recent Vital Signs: Last Vital Signs Temp 98.3 F 12/21/16 12:30 Pulse 88 12/21/16 12:30 Resp 17 12/21/16 12:30 BP 123/74 12/21/16 12:30 Pulse Ox 96 12/21/16 12:30 - Labs Result Diagrams: 12/21/16 06:19 12/21/16 06:17 Labs: Laboratory Results - last 24 hr 12/21/16 12/21/16 12/21/16 00:52 06:17 06:19 WBC 5.4 RBC 2.08 L Hgb 7.5 L Hct 21.3 L MCV 101.9 H MCH 36.1 H MCHC 35.4 RDW 18.4 H Plt Count 68 L D MPV 10.0 Neut % (Auto) 63.4 Lymph % (Auto) 23.0 Ceiba % (Auto) 10.8 H Eos % (Auto) 1.2 Baso % (Auto) 1.6 Neut # 3.4 Lymph # 1.2 Ceiba # 0.6 Eos # 0.1 Baso # 0.1 ESR 85 H PT INR APTT Sodium 139 Potassium 3.5 L Chloride 104 Carbon Dioxide 22 Anion Gap 17 BUN 11 Creatinine 0.6 L Est GFR ( Amer) > 60 Est GFR (Non-Af Amer) > 60 Random Glucose 84 Calcium 7.6 L Phosphorus 4.4 Magnesium 1.5 L Total Bilirubin 15.5 H AST 148 H ALT 32 Alkaline Phosphatase 257 H D Ammonia 54 H Total Protein 6.3 Albumin 2.7 L Globulin 3.6 Albumin/Globulin Ratio 0.8 L Amylase 83 Lipase 188 Stool Occult Blood 12/21/16 12/21/16 06:19 12:10 WBC RBC Hgb Hct MCV MCH MCHC RDW Plt Count MPV Neut % (Auto) Lymph % (Auto) Ceiba % (Auto) Eos % (Auto) Baso % (Auto) Neut # Lymph # Ceiba # Eos # Baso # ESR PT 15.3 H INR 1.4 APTT 37 H Sodium Potassium Chloride Carbon Dioxide Anion Gap BUN Creatinine Est GFR ( Amer) Est GFR (Non-Af Amer) Random Glucose Calcium Phosphorus Magnesium Total Bilirubin AST ALT Alkaline Phosphatase Ammonia Total Protein Albumin Globulin Albumin/Globulin Ratio Amylase Lipase Stool Occult Blood Positive H Assessment & Plan - Assessment and Plan (Free Text) Assessment: Jurgen Mei is 46M w/ hx of ETOH abuse presents with GI Bleed and hepatitis. His GI bleed is likely 2/2 esophageal and gastric varicies, though no actively bleeding was seen. Pt was also found to have severe distal esophagitis. Pt also presents with acute hepatitis likley Etoh. Acute Alcoholic hepatitis, MELD > 20 DF: 32 Liver cirrohsis 2/2 Etoh GI bleed, likely variceal s/p esophageal banding Severe distal Esophagitis Portal gastropathy ETOh Abuse Plan: _ continue ICU care -started on octreotride 50mcg bolus and 25mcg drip -since DF > 32 started on prednisolone 40mg daily -Continue lactulose, titrate to 2-3 BM daily -Switch PPI to bolus Iv BID 40mg -start ceftriaxone 2g q daily -Advised EtoH cessation -MELD > 20, called [facility] HEP fellow: Shania [phone]. ICU Fellow Edd [phone] for potential transfer, waiting for response -Start clears -Conservative transfusion, transfuse only to keep hgb > 7 or symptomatic Pt has a grave prognosis D/W Dr. Burleson <Sumit Burleson - Last Filed: 12/21/16 16:06> Meds - Medications Medications: Current Medications Escitalopram Oxalate (Lexapro) 5 mg PO DAILY [facility] Last Admin: 12/21/16 14:44 Dose: 5 mg Octreotide Acetate 1,250 mcg/ (Dextrose) 252.5 mls @ 5.05 mls/hr IV .Q24H PRN; Protocol; 25 MCG/HR PRN Reason: TITRATION SCHEDULE Last Admin: 12/21/16 10:21 Dose: 5.05 mls/hr Multivitamins/Vitamin C 10 ml/Thiamine HCl 100 mg/ Folic Acid 1 mg/ Sodium Chloride 1,011.2 mls @ 100 mls/hr IV .Q10H7M ONE Stop: 12/22/16 20:06 Sodium Chloride (Sodium Chloride 0.9%) 1,000 mls @ 75 mls/hr IV .[id number] [facility] Last Admin: 12/21/16 15:53 Dose: 75 mls/hr Ceftriaxone Sodium 2 gm/ (Sodium Chloride) 100 mls @ 200 mls/hr IVPB Q24H [facility] Last Admin: 12/21/16 14:43 Dose: 200 mls/hr Lactulose (Enulose) 20 gm PO Q6 ANTONY Lorazepam (Ativan) 1 mg IVP Q3H PRN PRN Reason: Symptoms of alcohol withdrawl Last Admin: 12/21/16 11:36 Dose: 1 mg Lorazepam (Ativan) 2 mg PO Q6H [facility] PRN Reason: Taper Stop: 12/25/16 15:59 Last Admin: 12/21/16 15:53 Dose: 2 mg Ondansetron HCl (Zofran Inj) 4 mg IVP DAILY@ONCE PRN PRN Reason: Nausea/Vomiting Last Admin: 12/21/16 10:26 Dose: 4 mg Pantoprazole Sodium (Protonix Inj) 40 mg IVP Q12H [facility] Last Admin: 12/21/16 14:44 Dose: 40 mg Prednisolone (Prednisolone) 40 mg PO DAILY ANTONY Trazodone HCl (Desyrel) 50 mg PO HS PRN PRN Reason: Insomnia Results - Vital Signs Recent Vital Signs: Last Vital Signs Temp 98.3 F 12/21/16 12:30 Pulse 88 12/21/16 12:30 Resp 17 12/21/16 12:30 BP 123/74 12/21/16 12:30 Pulse Ox 96 12/21/16 12:30 - Labs Result Diagrams: 12/21/16 06:19 12/21/16 06:17 Labs: Laboratory Results - last 24 hr 12/21/16 12/21/16 12/21/16 00:52 06:17 06:19 WBC 5.4 RBC 2.08 L Hgb 7.5 L Hct 21.3 L MCV 101.9 H MCH 36.1 H MCHC 35.4 RDW 18.4 H Plt Count 68 L D MPV 10.0 Neut % (Auto) 63.4 Lymph % (Auto) 23.0 Ceiba % (Auto) 10.8 H Eos % (Auto) 1.2 Baso % (Auto) 1.6 Neut # 3.4 Lymph # 1.2 Ceiba # 0.6 Eos # 0.1 Baso # 0.1 ESR 85 H PT INR APTT Sodium 139 Potassium 3.5 L Chloride 104 Carbon Dioxide 22 Anion Gap 17 BUN 11 Creatinine 0.6 L Est GFR ( Amer) > 60 Est GFR (Non-Af Amer) > 60 Random Glucose 84 Calcium 7.6 L Phosphorus 4.4 Magnesium 1.5 L Total Bilirubin 15.5 H AST 148 H ALT 32 Alkaline Phosphatase 257 H D Ammonia 54 H Total Protein 6.3 Albumin 2.7 L Globulin 3.6 Albumin/Globulin Ratio 0.8 L Amylase 83 Lipase 188 Stool Occult Blood Hepatitis A IgM Ab Hep Bs Antigen Hep B Core IgM Ab Hepatitis C Antibody 12/21/16 12/21/16 12/21/16 06:19 12:10 14:53 WBC RBC Hgb Hct MCV MCH MCHC RDW Plt Count MPV Neut % (Auto) Lymph % (Auto) Ceiba % (Auto) Eos % (Auto) Baso % (Auto) Neut # Lymph # Ceiba # Eos # Baso # ESR PT 15.3 H INR 1.4 APTT 37 H Sodium Potassium Chloride Carbon Dioxide Anion Gap BUN Creatinine Est GFR ( Amer) Est GFR (Non-Af Amer) Random Glucose Calcium Phosphorus Magnesium Total Bilirubin AST ALT Alkaline Phosphatase Ammonia Total Protein Albumin Globulin Albumin/Globulin Ratio Amylase Lipase Stool Occult Blood Positive H Hepatitis A IgM Ab Negative Hep Bs Antigen Negative Hep B Core IgM Ab Negative Hepatitis C Antibody Negative Attending/Attestation - Attestation I have personally seen and examined this patient.: Yes I have fully participated in the care of the patient.: Yes I have reviewed all pertinent clinical information: Yes Notes (Text): 12/21/16 16:01 46 year old male with h/o ETOH Abuse who presents with melena. 1. Alcoholic hepatitis 2. Esophageal varices 3. Erosive esophagitis 4. Portal hypertensive gastropathy Plan: -s/p urgent EGD with esophageal banding x 2 -continue octreotide -continue PPI BID IV -start abx for SBP proph in the setting of GI bleeding in patient with liver disease -Miguel A DF > 32, consider transfer to transplant center vs initiation of steroids -clear liquid diet -will follow -goal Hgb>7
[2016-12-21] MEDS: cefTRIAXone 2 GM in Sodium Chloride 0.9% 100 ML IVPB SCH (14:43)
--- NOTE | 2016-12-21 15:16 | CP.PCM.CON ---
History of Present Illness - History of Present Illness History of Present Illness: General Surgery Consult- Dr. Morris 46M hx of alcohol dependence initially checked himself to rehab at [facility] and was transferred to [facility] for elevated liver enzymes. Pt fell 10days ago and injured his right leg in which he still complains of pain. Pt states had an episode bright red emesis 2 days ago. Bright red blood in stool one week ago. deneis however no vomiting since being admitted to [facility]. currently denies abdominal N/V F/C CP/SOB. PMH: No relevant PMH PSH: EGD ALL: NKDA SocialHx: 10drinks / day since 2008. No tobacco or illicit drug use Review of Systems - Review of Systems All systems: reviewed and no additional remarkable complaints except Past Patient History - Infectious Disease Hx of Infectious Diseases: None - Tetanus Immunizations Tetanus Immunization: Unknown - Past Medical History & Family History Past Medical History?: No - Past Social History Smoking Status: Never Smoked - CARDIAC Hx Cardiac Disorders: No - PULMONARY Hx Respiratory Disorders: No Hx Tuberculosis: No - NEUROLOGICAL Hx Neurological Disorder: No - HEENT Hx HEENT Problems: No - RENAL Hx Chronic Kidney Disease: No - ENDOCRINE/METABOLIC Hx Endocrine Disorders: No - HEMATOLOGICAL/ONCOLOGICAL Hx Blood Disorders: No - INTEGUMENTARY Hx Dermatological Problems: No - MUSCULOSKELETAL/RHEUMATOLOGICAL Hx Falls: No - GASTROINTESTINAL Hx Gastrointestinal Disorders: No - GENITOURINARY/GYNECOLOGICAL Hx Genitourinary Disorders: No - PSYCHIATRIC Hx Substance Use: No - SURGICAL HISTORY Hx Surgeries: No - ANESTHESIA Hx Anesthesia: No Hx Anesthesia Reactions: No Meds Allergies/Adverse Reactions: Allergies Allergy/AdvReac Type Severity Reaction Status Date / Time No Known Allergies Allergy Verified 12/20/16 18:04 - Medications Medications: Current Medications Escitalopram Oxalate (Lexapro) 5 mg PO DAILY ANTONY Last Admin: 12/21/16 14:44 Dose: 5 mg Octreotide Acetate 1,250 mcg/ (Dextrose) 252.5 mls @ 5.05 mls/hr IV .Q24H PRN; Protocol; 25 MCG/HR PRN Reason: TITRATION SCHEDULE Last Admin: 12/21/16 10:21 Dose: 5.05 mls/hr Multivitamins/Vitamin C 10 ml/Thiamine HCl 100 mg/ Folic Acid 1 mg/ Sodium Chloride 1,011.2 mls @ 100 mls/hr IV .Q10H7M ONE Stop: 12/22/16 20:06 Sodium Chloride (Sodium Chloride 0.9%) 1,000 mls @ 75 mls/hr IV .[id number] [facility] Ceftriaxone Sodium 2 gm/ (Sodium Chloride) 100 mls @ 200 mls/hr IVPB Q24H [facility] Last Admin: 12/21/16 14:43 Dose: 200 mls/hr Lactulose (Enulose) 20 gm PO Q6 [facility] Lorazepam (Ativan) 1 mg IVP Q3H PRN PRN Reason: Symptoms of alcohol withdrawl Last Admin: 12/21/16 11:36 Dose: 1 mg Lorazepam (Ativan) 2 mg PO .TAPER ANTONY PRN Reason: Taper Stop: 12/25/16 15:59 Ondansetron HCl (Zofran Inj) 4 mg IVP DAILY@ONCE PRN PRN Reason: Nausea/Vomiting Last Admin: 12/21/16 10:26 Dose: 4 mg Pantoprazole Sodium (Protonix Inj) 40 mg IVP Q12H [facility] Last Admin: 12/21/16 14:44 Dose: 40 mg Prednisolone (Prednisolone) 40 mg PO DAILY [facility] Trazodone HCl (Desyrel) 50 mg PO HS PRN PRN Reason: Insomnia Physical Exam - Constitutional Appears: Well, No Acute Distress, Agitated - Eye Exam Eye Exam: EOMI, Scleral icterus - ENT Exam Additional comments: Sublingual Jaundice - Respiratory Exam Respiratory Exam: NORMAL BREATHING PATTERN. absent: Accessory Muscle Use, Rales , Rhonchi, Wheezes - Cardiovascular Exam Cardiovascular Exam: REGULAR RHYTHM, +S1, +S2 - GI/Abdominal Exam GI & Abdominal Exam: Distended, Normal Bowel Sounds, Soft. absent: Firm, Rigid , Tenderness Additional comments: bruise on left abdomen. no [place], berman or diaz-weber sign. - Rectal Exam Additional comments: no sign of hemorroids, no bright red blood. abrasion on the right glute - Extremities Exam Extremities exam: Positive for: tenderness. Negative for: pedal edema - Neurological Exam Neurological exam: Alert, Oriented x3 Results - Vital Signs Recent Vital Signs: Last Vital Signs Temp 98.3 F 12/21/16 12:30 Pulse 88 12/21/16 12:30 Resp 17 12/21/16 12:30 BP 123/74 08/04/17 12:30 Pulse Ox 96 12/21/16 12:30 - Labs Result Diagrams: 12/21/16 06:19 12/21/16 06:17 Labs: Laboratory Results - last 24 hr 12/21/16 12/21/16 12/21/16 00:52 06:17 06:19 WBC 5.4 RBC 2.08 L Hgb 7.5 L Hct 21.3 L MCV 101.9 H MCH 36.1 H MCHC 35.4 RDW 18.4 H Plt Count 68 L D MPV 10.0 Neut % (Auto) 63.4 Lymph % (Auto) 23.0 [place] % (Auto) 10.8 H Eos % (Auto) 1.2 Baso % (Auto) 1.6 Neut # 3.4 Lymph # 1.2 [place] # 0.6 Eos # 0.1 Baso # 0.1 ESR 85 H PT INR APTT Sodium 139 Potassium 3.5 L Chloride 104 Carbon Dioxide 22 Anion Gap 17 BUN 11 Creatinine 0.6 L Est GFR ( Amer) > 60 Est GFR (Non-Af Amer) > 60 Random Glucose 84 Calcium 7.6 L Phosphorus 4.4 Magnesium 1.5 L Total Bilirubin 15.5 H AST 148 H ALT 32 Alkaline Phosphatase 257 H D Ammonia 54 H Total Protein 6.3 Albumin 2.7 L Globulin 3.6 Albumin/Globulin Ratio 0.8 L Amylase 83 Lipase 188 Stool Occult Blood 12/21/16 12/21/16 06:19 12:10 WBC RBC Hgb Hct MCV MCH MCHC RDW Plt Count MPV Neut % (Auto) Lymph % (Auto) [place] % (Auto) Eos % (Auto) Baso % (Auto) Neut # Lymph # [place] # Eos # Baso # ESR PT 15.3 H INR 1.4 APTT 37 H Sodium Potassium Chloride Carbon Dioxide Anion Gap BUN Creatinine Est GFR ( Amer) Est GFR (Non-Af Amer) Random Glucose Calcium Phosphorus Magnesium Total Bilirubin AST ALT Alkaline Phosphatase Ammonia Total Protein Albumin Globulin Albumin/Globulin Ratio Amylase Lipase Stool Occult Blood Positive H
--- NOTE | 2016-12-21 15:29 | PCM.PSYCH ---
Addendum entered and electronically signed by Celso Alcaraz 12/21/16 16:08: - Recommended/Plan of Treatment Treatment Recommendations and Plan of Treatment: Lorazepam taper Escitalopram 5mg po daily Trazodone 50mg po hs prn for insomnia As needed meds and vitamins Attend groups and activities MD for abstinence and CBT for relapse prevention Support and psychoeducation Consider and encourage MAT Refer to after care Original Note: Initial Psychiatric Evaluation - Initial Psychiatric Evaluation Chief Complaint (in patient's own words): "I need help with my drinking problem" Patient's Reaction to Hospitalization: cooperative History of Present Illness and Precipitating Events: The patient was seen, the chart was reviewed and the case was discussed. Mr Mei is a 46 year old male who presented to the ED to seek detox for his EtOH abuse with last drink yesterday at 3pm. Pt was seen in ICU as he was transferred there for GI bleed and hepatitis likely 2/2 to EtOh. The patient appeared anxious. He admitted to nausea and vomiting with his last episode of emesis (non-bloody) minutes prior to our arrival. 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 He states he drinks 8-10 glasses of gin/tonic every day and occasionally drinks wine. He stated he drinks immediately upon waking up in the morning to "settle his stomach and suppress my nausea". He's attempted detox 4 times in the past. He's attempted rehab twice, including a stay of 8 weeks and another stay for 4 weeks. He says he was given a naltrexone injection last year but it resulted in adverse effects such as him slurring his words. He was not sure if topamax was administered concurrently with the naltrexone injection. He says his longest period of sobriety was 6 months. He denies a history of delirium tremens, seizures. He admitted to depressive symptoms in the past related to his job loss but has never received treatment. He denies any psychiatric history. He denies any other drug use including tobacco, heroin, cocaine, benzos, lsd, pcp, marijuana. 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 Family Hx: brother with alcohol use disorder Current Medications: Active Medications Generic Name Dose Route Start Last Admin Trade Name Freq PRN Reason Stop Dose Admin Escitalopram Oxalate 5 mg 12/21/16 13:15 12/21/16 14:44 Lexapro PO 5 mg DAILY ANTONY Administration Piperacillin Sod/Tazobactam Sod 3.375 gm in 50 mls @ 100 mls/hr 12/21/16 00: 00 12/21/16 08:01 Zosyn 3.375 Gm Iv Premix IVPB 100 mls/hr Q8H ANTONY Administration Octreotide Acetate 1,250 mcg/ 252.5 mls @ 5.05 mls/hr 12/21/16 08:45 10:21 Dextrose IV 5.05 mls/hr .Q24H PRN Administration TITRATION SCHEDULE Protocol 25 MCG/HR Multivitamins/Vitamin C 10 ml/ 1,011.2 mls @ 100 mls/hr 12/22/16 10:00 Thiamine HCl 100 mg/ Folic IV 12/22/16 20:06 Acid 1 mg/ Sodium Chloride .Q10H7M ONE Sodium Chloride 1,000 mls @ 75 mls/hr 12/21/16 12:30 Sodium Chloride 0.9% IV .[id number] ANTONY Ceftriaxone Sodium 2 gm/ 100 mls @ 200 mls/hr 12/21/16 15:00 12/21/16 14:43 Sodium Chloride IVPB 200 mls/hr Q24H ANTONY Administration Lactulose 20 gm 12/20/16 23:45 12/21/16 07:45 Enulose PO Not Given Q8H ANTONY Lorazepam 1 mg 12/21/16 10:45 12/21/16 11:36 Ativan IVP 1 mg Q3H PRN Administration Symptoms of alcohol withdrawl Lorazepam 2 mg 12/21/16 16:00 Ativan PO 12/25/16 15:59 .TAPER ANTONY Taper Ondansetron HCl 4 mg 12/21/16 10:30 12/21/16 10:26 Zofran Inj IVP 4 mg DAILY@ONCE PRN Administration Nausea/Vomiting Pantoprazole Sodium 40 mg 12/21/16 13:00 12/21/16 14:44 Protonix Inj IVP 40 mg Q12H ANTONY Administration Prednisolone 40 mg 12/21/16 13:15 Prednisolone PO DAILY ANTONY Trazodone HCl 50 mg 12/21/16 12:59 Desyrel PO HS PRN Insomnia Past Psychiatric History - Past Psychiatric History Prior Professional Help: Detox 4x; Rehab 2x History of ETOH/Drug Use: EtOH abuse since 2007 with 8-10 gin/tonics per day. History of Family Illness: Brother with alcohol use disorder Pertinent Medical Hx (Current Medical&Sleep Prob, Allergies): Allergies Allergy/AdvReac Type Severity Reaction Status Date / Time No Known Allergies Allergy Verified 12/20/16 18:04 Gabapentin [Neurontin] 300 mg PO TID #0 cap 10/02/15 Pantoprazole [Protonix EC Tab] 20 mg PO DAILY #0 ect 10/02/15 traZODone [Desyrel] 50 mg PO HS PRN #0 tab 10/02/15 Naproxen [Naprosyn] 500 mg PO Q12 PRN #14 tablet 12/03/16 traMADol [Ultram] 50 mg PO Q8 PRN #6 tab 12/03/16 Review of Systems - Psychiatric Psychiatric: Anxiety, Difficulty Concentrating. absent: Behavioral Changes, Hallucinations Mental Status Examination - Personal Presentation Personal Presentation: Looks stated age - Affect Affect: Constricted - Motor Activity Motor Activity: Calm - Reliability in Providing Information Reliability in Providing Information: Good - Speech Speech: Organized - Mood Mood: Neutral - Formal Thought Process Formal Thought Process: No Impairment - Obsessions/Compulsions Obsessions: No Compulsions: No - Cognitive Functions Orientation: Person, Place, Situation, Time Sensorium: Drowsy Attention/Concentration: Attentive Abstract Thinking: [place] Estimate of Intelligence: Average Judgement: Intact, as evidence by: Insight regarding need for hospitalization Memory: Recent intact, as evidence by: Ability to recall events of the day - Risk Risk: Withdrawal - Strength & Assets Inventory Strength & Assets Inventory: Family support, Education, Cooperative - Limitations Limitations: Other (unemployed) DSM 5 DX - DSM 5 DSM 5 Diagnosis: Alcohol use disorder - severe alcohol withdrawal - Recommended/Plan of Treatment Treatment Recommendations and Plan of Treatment: Lorazepam taper Escitalopram 5mg po daily Trazodone 50mg po hs prn for insomnia As needed meds and vitamins After medical problems resolve: Attend groups and activities MD for abstinence and CBT for relapse prevention Support and psychoeducation Consider and encourage MAT Refer to after care Projected ELOS: currently in ICU for mgmt of GI bleed/cirrohsis/severe distal esophagitis Prognosis: good with treatment - Smoking Cessation Smoking Cessation Initiated: No Reason for not providing: non-smoker
[2016-12-21 15:35] LABS: HEPATITIS B SURFACE AG NEGATIVE (NEGATIVE)
[2016-12-21 15:40] LABS: HEPATITIS A IGM NEGATIVE (NEGATIVE); HEPATITIS B CORE AB NEGATIVE (NEGATIVE)
[2016-12-21 15:52] LABS: HEPATITIS C ANTIBODY NEGATIVE (NEGATIVE)
[2016-12-21] MEDS: Sodium Chloride 0.9% 1,000 ML IV SCH (15:53)
--- NOTE | 2016-12-21 16:48 | CP.CCUPN ---
<Rica HigginsFina - Last Filed: 12/21/16 19:23> CCU Subjective - Physician Review Subjective (Free Text): Patient was seen and examined at bedside in the morning. Patient reports feeling tremors, nauseas, gaseous, and still has right knee pain. He also reports still having dark loose stools. Patient denies having chest pain, abdominal pain, headaches, vomiting, fevers, constipations, and hallucinations. 12/21/16 19:23 CCU Objective - Vital Signs / Intake & Output Vital Signs (Last 4 hours): Vital Signs Pulse Resp BP Pulse Ox 12/21/16 16:06 99 H 16 117/66 98 12/21/16 15:37 98 H 16 133/96 H 12/21/16 14:57 97 H 16 126/84 97 12/21/16 14:28 87 16 136/73 94 L 12/21/16 14:13 137/80 12/21/16 14:00 101 H 20 97 12/21/16 13:58 85 16 124/80 100 12/21/16 13:43 97 H 14 124/85 94 L 12/21/16 13:28 86 17 123/78 100 12/21/16 13:17 90 19 124/76 100 12/21/16 13:09 98 H 128/81 97 Intake and Output (Last 8hrs): Intake & Output 12/21/16 12/21/16 12/21/16 06:59 14:59 22:59 Intake Total 1170 630 Output Total 350 Balance 820 630 Intake: IV 400 Intake, IV Amount 270 230 Left Medial Port Forearm 70 30 Left Proximal Port 200 200 Forearm Oral 900 Output: Urine 350 Urine, Voided 350 Other: # Bowel Movements 1 - Physical Exam Head: Positive for: Atraumatic, Normocephalic. Negative for: Tenderness, Contusion, Swelling, Abrasion, Laceration Pupils: Positive for: PERRL. Negative for: Sluggish, Non-Reactive, Pinpoint Extroacular Muscles: Positive for: EOMI Conjunctiva: Positive for: Icteric. Negative for: Injected Mouth: Positive for: Dry. Negative for: Drooling Neck: Positive for: Normal Range of Motion, Meningeal Signs. Negative for: Lymphadenopathy Respiratory/Chest: Positive for: Clear to Auscultation. Negative for: Respiratory Distress, Accessory Muscle Use, Wheezes, Decreased Breath Sounds, Rales, Retracting, Rhonchi Cardiovascular: Positive for: Regular Rate and Rhythm, Normal S1, S2, Peripheal Pulses Present. Negative for: Murmurs, Tachycardic, Bradycardic Abdomen: Positive for: Distention, Normal Bowel Sounds, Other (Ecchymosis on left abdomen from previous injury) Upper Extremity: Positive for: Normal Inspection, Cyanosis, Normal ROM, NORMAL PULSES. Negative for: Edema, Tenderness Lower Extremity: Positive for: NORMAL PULSES, Swelling (R knee). Negative for: Edema, CALF TENDERNESS Neurological: Positive for: GCS=15, Speech Normal, Motor Func Grossly Intact, Normal Sensory Function, Other (Tremors) Skin: Positive for: Warm, Normal Color Psychiatric: Positive for: Alert, Oriented x 3 - Medications Active Medications: Active Medications Generic Name Dose Route Start Last Admin Trade Name Freq PRN Reason Stop Dose Admin Escitalopram Oxalate 5 mg 12/21/16 13:15 12/21/16 14:44 Lexapro PO 5 mg DAILY ANTONY Administration Octreotide Acetate 1,250 mcg/ 252.5 mls @ 5.05 mls/hr 12/21/16 08:45 10:21 Dextrose IV 5.05 mls/hr .Q24H PRN Administration TITRATION SCHEDULE Protocol 25 MCG/HR Multivitamins/Vitamin C 10 ml/ 1,011.2 mls @ 100 mls/hr 12/22/16 10:00 Thiamine HCl 100 mg/ Folic IV 12/22/16 20:06 Acid 1 mg/ Sodium Chloride .Q10H7M ONE Sodium Chloride 1,000 mls @ 75 mls/hr 12/21/16 12:30 12/21/16 15:53 Sodium Chloride 0.9% IV 75 mls/hr .[id number] ANTONY Administration Ceftriaxone Sodium 2 gm/ 100 mls @ 200 mls/hr 12/21/16 15:00 12/21/16 14:43 Sodium Chloride IVPB 200 mls/hr Q24H ANTONY Administration Lactulose 20 gm 12/21/16 18:00 Enulose PO Q6 ANTONY Lorazepam 1 mg 12/21/16 10:45 12/21/16 11:36 Ativan IVP 1 mg Q3H PRN Administration Symptoms of alcohol withdrawl Lorazepam 2 mg 12/21/16 16:00 12/21/16 15:53 Ativan PO 12/25/16 15:59 2 mg Q6H ANTONY Administration Taper Ondansetron HCl 4 mg 12/21/16 10:30 12/21/16 10:26 Zofran Inj IVP 4 mg DAILY@ONCE PRN Administration Nausea/Vomiting Pantoprazole Sodium 40 mg 12/21/16 13:00 12/21/16 14:44 Protonix Inj IVP 40 mg Q12H ANTONY Administration Prednisolone 40 mg 12/21/16 13:15 Prednisolone PO DAILY ANTONY Trazodone HCl 50 mg 12/21/16 12:59 Desyrel PO HS PRN Insomnia - Patient Studies Lab Studies: Lab Studies 12/21/16 12/21/16 12/21/16 Range/Units 14:53 12:10 06:19 WBC (4.8-10.8) K/uL RBC (4.40-5.90) Mil/uL Hgb (12.0-18.0) g/dL Hct (35.0-51.0) % MCV (80.0-94.0) fL MCH (27.0-31.0) pg MCHC (33.0-37.0) g/dL RDW (11.5-14.5) % Plt Count (130-400) K/uL MPV (7.2-11.7) fL Neut % (Auto) (50.0-75.0) % Lymph % (Auto) (20.0-40.0) % [place] % (Auto) (0.0-10.0) % Eos % (Auto) (0.0-4.0) % Baso % (Auto) (0.0-2.0) % Neut # (1.8-7.0) K/uL Lymph # (1.0-4.3) K/uL [place] # (0.0-0.8) K/uL Eos # (0.0-0.7) K/uL Baso # (0.0-0.2) K/uL ESR (0-15) mm/hr PT 15.3 H (9.7-12.2) SECONDS INR 1.4 APTT 37 H (21-34) SECONDS Sodium (132-148) mmol/L Potassium (3.6-5.2) mmol/L Chloride (98-107) mmol/L Carbon Dioxide (22-30) mmol/L Anion Gap (10-20) BUN (9-20) mg/dL Creatinine (0.8-1.5) MG/DL Est GFR ( Amer) Est GFR (Non-Af Amer) Random Glucose (75-110) mg/dL Calcium (8.6-10.4) mg/dl Phosphorus (2.5-4.5) mg/dL Magnesium (1.6-2.3) mg/dL Total Bilirubin (0.2-1.3) mg/dL AST (17-59) U/L ALT (21-72) U/L Alkaline Phosphatase (38-126) U/L Ammonia (9-33) umol/L Total Protein (6.3-8.3) g/dL Albumin (3.5-5.0) g/dL Globulin (2.2-3.9) gm/dL Albumin/Globulin Ratio (1.0-2.1) Amylase (30-110) U/L Lipase (23-300) U/L Stool Occult Blood Positive H (NEGATIVE) Hepatitis A IgM Ab Negative (NEGATIVE) Hep Bs Antigen Negative (NEGATIVE) Hep B Core IgM Ab Negative (NEGATIVE) Hepatitis C Antibody Negative (NEGATIVE) 12/21/16 12/21/16 12/21/16 Range/Units 06:19 06:17 00:52 WBC 5.4 (4.8-10.8) K/uL RBC 2.08 L (4.40-5.90) Mil/uL Hgb 7.5 L (12.0-18.0) g/dL Hct 21.3 L (35.0-51.0) % MCV 101.9 H (80.0-94.0) fL MCH 36.1 H (27.0-31.0) pg MCHC 35.4 (33.0-37.0) g/dL RDW 18.4 H (11.5-14.5) % Plt Count 68 L D (130-400) K/uL MPV 10.0 (7.2-11.7) fL Neut % (Auto) 63.4 (50.0-75.0) % Lymph % (Auto) 23.0 (20.0-40.0) % [place] % (Auto) 10.8 H (0.0-10.0) % Eos % (Auto) 1.2 (0.0-4.0) % Baso % (Auto) 1.6 (0.0-2.0) % Neut # 3.4 (1.8-7.0) K/uL Lymph # 1.2 (1.0-4.3) K/uL [place] # 0.6 (0.0-0.8) K/uL Eos # 0.1 (0.0-0.7) K/uL Baso # 0.1 (0.0-0.2) K/uL ESR 85 H (0-15) mm/hr PT (9.7-12.2) SECONDS INR APTT (21-34) SECONDS Sodium 139 (132-148) mmol/L Potassium 3.5 L (3.6-5.2) mmol/L Chloride 104 (98-107) mmol/L Carbon Dioxide 22 (22-30) mmol/L Anion Gap 17 (10-20) BUN 11 (9-20) mg/dL Creatinine 0.6 L (0.8-1.5) MG/DL Est GFR ( Amer) > 60 Est GFR (Non-Af Amer) > 60 Random Glucose 84 (75-110) mg/dL Calcium 7.6 L (8.6-10.4) mg/dl Phosphorus 4.4 (2.5-4.5) mg/dL Magnesium 1.5 L (1.6-2.3) mg/dL Total Bilirubin 15.5 H (0.2-1.3) mg/dL AST 148 H (17-59) U/L ALT 32 (21-72) U/L Alkaline Phosphatase 257 H D (38-126) U/L Ammonia 54 H (9-33) umol/L Total Protein 6.3 (6.3-8.3) g/dL Albumin 2.7 L (3.5-5.0) g/dL Globulin 3.6 (2.2-3.9) gm/dL Albumin/Globulin Ratio 0.8 L (1.0-2.1) Amylase 83 (30-110) U/L Lipase 188 (23-300) U/L Stool Occult Blood (NEGATIVE) Hepatitis A IgM Ab (NEGATIVE) Hep Bs Antigen (NEGATIVE) Hep B Core IgM Ab (NEGATIVE) Hepatitis C Antibody (NEGATIVE) Laboratory Results - last 24 hr 12/21/16 12/21/16 12/21/16 00:52 06:17 06:19 WBC 5.4 RBC 2.08 L Hgb 7.5 L Hct 21.3 L MCV 101.9 H MCH 36.1 H MCHC 35.4 RDW 18.4 H Plt Count 68 L D MPV 10.0 Neut % (Auto) 63.4 Lymph % (Auto) 23.0 [place] % (Auto) 10.8 H Eos % (Auto) 1.2 Baso % (Auto) 1.6 Neut # 3.4 Lymph # 1.2 [place] # 0.6 Eos # 0.1 Baso # 0.1 ESR 85 H PT INR APTT Sodium 139 Potassium 3.5 L Chloride 104 Carbon Dioxide 22 Anion Gap 17 BUN 11 Creatinine 0.6 L Est GFR ( Amer) > 60 Est GFR (Non-Af Amer) > 60 Random Glucose 84 Calcium 7.6 L Phosphorus 4.4 Magnesium 1.5 L Total Bilirubin 15.5 H AST 148 H ALT 32 Alkaline Phosphatase 257 H D Ammonia 54 H Total Protein 6.3 Albumin 2.7 L Globulin 3.6 Albumin/Globulin Ratio 0.8 L Amylase 83 Lipase 188 Stool Occult Blood Hepatitis A IgM Ab Hep Bs Antigen Hep B Core IgM Ab Hepatitis C Antibody 12/21/16 12/21/16 12/21/16 06:19 12:10 14:53 WBC RBC Hgb Hct MCV MCH MCHC RDW Plt Count MPV Neut % (Auto) Lymph % (Auto) [place] % (Auto) Eos % (Auto) Baso % (Auto) Neut # Lymph # [place] # Eos # Baso # ESR PT 15.3 H INR 1.4 APTT 37 H Sodium Potassium Chloride Carbon Dioxide Anion Gap BUN Creatinine Est GFR ( Amer) Est GFR (Non-Af Amer) Random Glucose Calcium Phosphorus Magnesium Total Bilirubin AST ALT Alkaline Phosphatase Ammonia Total Protein Albumin Globulin Albumin/Globulin Ratio Amylase Lipase Stool Occult Blood Positive H Hepatitis A IgM Ab Negative Hep Bs Antigen Negative Hep B Core IgM Ab Negative Hepatitis C Antibody Negative EKG/Cardiology Studies: Cardiology / EKG Studies 12/21/16 11:51 EKG [ELECTROCARDIOGRAM] Routine Comment: Mode Of Transportation: PORTABLE Reason For Exam: pre egd Review of Systems - Constitutional Constitutional: absent: Fever - Cardiovascular Cardiovascular: absent: Chest Pain, Dyspnea, Leg Edema, Palpitations - Respiratory Respiratory: absent: Cough, Dyspnea - Gastrointestinal Gastrointestinal: Abdominal Pain, Diarrhea, Loose Stools, Nausea. absent: Constipation, Vomiting - Genitourinary Genitourinary: absent: Dysuria - Integumentary Integumentary: Swelling (right knee) - Neurological Neurological: Tremor. absent: Headaches - Psychiatric Psychiatric: absent: Auditory Hallucinations, Hallucinations, Visual Hallucinations, Tactile Hallucinations Critical Care Progress Note - Nutrition Nutrition: Nutrition Category Date Time Status Liquid Diet [DIET] Diets 12/21/16 Lunch Active Assessment/Plan - Assessment and Plan (Free Text) Assessment: 46 year old male with medical history of alcohol abuse, GI bleed in 2014, and gastritis, was admitted to Psych for alcohol detox. Patient is consulted for bloody dark loose stools. Patient is jaundiced and eyes are icteric. Abdomen/ pelvic CT (12/21/16) showed cirrhosis, portal HTN, colitis, and esophagitis. EGD showed distal esophageal varices, s/p banding, gastritis, portal HTN, and severe esophagitis. Neuro: - Alert, oriented x3 Pulm: - no acute issues - CXR: central venous congestion CV: - EKG: nsr, inferior infarct at unknown age, prolonged QT Endo: - no acute issues GI: - GI consulted: Dr. Burleson, help appreciated - EDG: distal esophageal varices, s/p banding, gastritis, portal HTN, and severe esophagitis - Management as per GI: - Clear liquid diet - Protonix 40mg IV daily - Ceftriaxone IV- prophylaxis for GI bleed + Liver disease - IV bolus of 50mcg Octreotide, followed by infusion of 50mcg per hour for 3 days - Miguel A DF >32, consider transfer to transplant center vs. initiation of steroids - Zofran for nausea Renal: - Monitor electrolytes - Hypomagnesemia- repleated MSK: - right knee pain from previous injury - no acute issues ID: - no acute issues - Blood cx: f/u Psych: - Management as per psychiatrist for alcohol detox - Ativan - Multivitamin and Banana bag Prophylaxis: - DVT: SCDs - GI: protonix 40mg IV daily <Yassine Mace - Last Filed: 12/22/16 14:19> CCU Objective - Vital Signs / Intake & Output Intake and Output (Last 8hrs): Intake & Output 12/21/16 12/22/16 12/22/16 22:59 06:59 14:59 Intake Total 1340 880 80 Output Total 1700 950 Balance -360 -70 80 Intake: Intake, IV Amount 640 640 80 Left Distal Port Forearm 25 Left Forearm 15 40 5 Left Forearm #2 225 600 75 Left Medial Port Forearm 0 Left Proximal Port 375 Forearm Oral 700 240 Output: Urine 1400 900 Urine, Voided 1400 900 Stool 50 Urine/Stool Mix 300 Other: # Voids Urine, Voided 1 1 # Bowel Movements 1 1 - Medications Active Medications: Active Medications Generic Name Dose Route Start Last Admin Trade Name Freq PRN Reason Stop Dose Admin Escitalopram Oxalate 5 mg 12/21/16 13:15 12/22/16 10:05 Lexapro PO 5 mg DAILY ANTONY Administration Octreotide Acetate 1,250 mcg/ 252.5 mls @ 5.05 mls/hr 12/21/16 08:45 10:21 Dextrose IV 5.05 mls/hr .Q24H PRN Administration TITRATION SCHEDULE Protocol 25 MCG/HR Multivitamins/Vitamin C 10 ml/ 1,011.2 mls @ 100 mls/hr 12/22/16 10:00 10:03 Thiamine HCl 100 mg/ Folic IV 12/22/16 20:06 100 mls/hr Acid 1 mg/ Sodium Chloride .Q10H7M ONE Administration Sodium Chloride 1,000 mls @ 75 mls/hr 12/21/16 12:30 12/22/16 05:05 Sodium Chloride 0.9% IV 75 mls/hr .[id number] ANTONY Administration Ceftriaxone Sodium 2 gm/ 100 mls @ 200 mls/hr 12/21/16 15:00 12/21/16 14:43 Sodium Chloride IVPB 200 mls/hr Q24H ANTONY Administration Lactulose 20 gm 12/23/16 10:00 Enulose PO DAILY ANTONY Lorazepam 1 mg 12/21/16 10:45 12/21/16 11:36 Ativan IVP 1 mg Q3H PRN Administration Symptoms of alcohol withdrawl Lorazepam 2 mg 12/21/16 16:00 12/22/16 10:04 Ativan PO 12/25/16 15:59 2 mg Q6H ANTONY Administration Taper Ondansetron HCl 4 mg 12/21/16 10:30 12/22/16 05:20 Zofran Inj IVP 4 mg DAILY@ONCE PRN Administration Nausea/Vomiting Pantoprazole Sodium 40 mg 12/21/16 13:00 12/22/16 12:02 Protonix Inj IVP 40 mg Q12H ANTONY Administration Prednisolone 40 mg 12/22/16 11:00 12/22/16 12:29 Prednisolone PO 40 mg DAILY ANTONY Administration Rifaximin 550 mg 12/22/16 10:00 12/22/16 11:50 Xifaxan PO 550 mg BID ANTONY Administration Trazodone HCl 50 mg 12/21/16 12:59 Desyrel PO HS PRN Insomnia - Patient Studies Lab Studies: Microbiology Studies 12/20/16 23:50 Blood Culture - Preliminary Blood NO GROWTH AFTER 24 HOURS 12/20/16 23:50 Blood Culture - Preliminary Blood NO GROWTH AFTER 24 HOURS Lab Studies 12/22/16 12/22/16 12/22/16 Range/Units 06:19 06:19 06:14 WBC 5.8 (4.8-10.8) K/uL RBC 2.30 L (4.40-5.90) Mil/uL Hgb 8.2 L (12.0-18.0) g/dL Hct 23.6 L (35.0-51.0) % MCV 102.6 H (80.0-94.0) fL MCH 35.8 H (27.0-31.0) pg MCHC 34.9 (33.0-37.0) g/dL RDW 18.3 H (11.5-14.5) % Plt Count 67 L (130-400) K/uL MPV 10.9 (7.2-11.7) fL Neut % (Auto) 61.5 (50.0-75.0) % Lymph % (Auto) 30.9 (20.0-40.0) % [place] % (Auto) 6.3 (0.0-10.0) % Eos % (Auto) 0.1 (0.0-4.0) % Baso % (Auto) 1.1 (0.0-2.0) % Neut # 3.6 (1.8-7.0) K/uL Lymph # 1.8 (1.0-4.3) K/uL [place] # 0.4 (0.0-0.8) K/uL Eos # 0.0 (0.0-0.7) K/uL Baso # 0.1 (0.0-0.2) K/uL PT 15.6 H (9.7-12.2) SECONDS INR 1.4 Sodium 138 (132-148) mmol/L Potassium 3.8 (3.6-5.2) mmol/L Chloride 99 (98-107) mmol/L Carbon Dioxide 25 (22-30) mmol/L Anion Gap 17 (10-20) BUN 8 L (9-20) mg/dL Creatinine 0.6 L (0.8-1.5) MG/DL Est GFR ( Amer) > 60 Est GFR (Non-Af Amer) > 60 Random Glucose 128 H (75-110) mg/dL Calcium 7.9 L (8.6-10.4) mg/dl Phosphorus 3.5 (2.5-4.5) mg/dL Magnesium 1.5 L (1.6-2.3) mg/dL Total Bilirubin 17.3 H (0.2-1.3) mg/dL Direct Bilirubin 14.9 H (0.0-0.4) mg/dL AST 156 H (17-59) U/L ALT 28 (21-72) U/L Alkaline Phosphatase 289 H (38-126) U/L Total Protein 7.2 (6.3-8.3) g/dL Albumin 2.9 L (3.5-5.0) g/dL Globulin 4.2 H (2.2-3.9) gm/dL Albumin/Globulin Ratio 0.7 L (1.0-2.1) Hepatitis A IgM Ab (NEGATIVE) Hep Bs Antigen (NEGATIVE) Hep B Core IgM Ab (NEGATIVE) Hepatitis C Antibody (NEGATIVE) 12/21/16 Range/Units 14:53 WBC (4.8-10.8) K/uL RBC (4.40-5.90) Mil/uL Hgb (12.0-18.0) g/dL Hct (35.0-51.0) % MCV (80.0-94.0) fL MCH (27.0-31.0) pg MCHC (33.0-37.0) g/dL RDW (11.5-14.5) % Plt Count (130-400) K/uL MPV (7.2-11.7) fL Neut % (Auto) (50.0-75.0) % Lymph % (Auto) (20.0-40.0) % [place] % (Auto) (0.0-10.0) % Eos % (Auto) (0.0-4.0) % Baso % (Auto) (0.0-2.0) % Neut # (1.8-7.0) K/uL Lymph # (1.0-4.3) K/uL [place] # (0.0-0.8) K/uL Eos # (0.0-0.7) K/uL Baso # (0.0-0.2) K/uL PT (9.7-12.2) SECONDS INR Sodium (132-148) mmol/L Potassium (3.6-5.2) mmol/L Chloride (98-107) mmol/L Carbon Dioxide (22-30) mmol/L Anion Gap (10-20) BUN (9-20) mg/dL Creatinine (0.8-1.5) MG/DL Est GFR ( Amer) Est GFR (Non-Af Amer) Random Glucose (75-110) mg/dL Calcium (8.6-10.4) mg/dl Phosphorus (2.5-4.5) mg/dL Magnesium (1.6-2.3) mg/dL Total Bilirubin (0.2-1.3) mg/dL Direct Bilirubin (0.0-0.4) mg/dL AST (17-59) U/L ALT (21-72) U/L Alkaline Phosphatase (38-126) U/L Total Protein (6.3-8.3) g/dL Albumin (3.5-5.0) g/dL Globulin (2.2-3.9) gm/dL Albumin/Globulin Ratio (1.0-2.1) Hepatitis A IgM Ab Negative (NEGATIVE) Hep Bs Antigen Negative (NEGATIVE) Hep B Core IgM Ab Negative (NEGATIVE) Hepatitis C Antibody Negative (NEGATIVE) Laboratory Results - last 24 hr 12/21/16 12/22/16 12/22/16 14:53 06:14 06:19 WBC RBC Hgb Hct MCV MCH MCHC RDW Plt Count MPV Neut % (Auto) Lymph % (Auto) [place] % (Auto) Eos % (Auto) Baso % (Auto) Neut # Lymph # [place] # Eos # Baso # PT 15.6 H INR 1.4 Sodium 138 Potassium 3.8 Chloride 99 Carbon Dioxide 25 Anion Gap 17 BUN 8 L Creatinine 0.6 L Est GFR ( Amer) > 60 Est GFR (Non-Af Amer) > 60 Random Glucose 128 H Calcium 7.9 L Phosphorus 3.5 Magnesium 1.5 L Total Bilirubin 17.3 H Direct Bilirubin 14.9 H AST 156 H ALT 28 Alkaline Phosphatase 289 H Total Protein 7.2 Albumin 2.9 L Globulin 4.2 H Albumin/Globulin Ratio 0.7 L Hepatitis A IgM Ab Negative Hep Bs Antigen Negative Hep B Core IgM Ab Negative Hepatitis C Antibody Negative 12/22/16 06:19 WBC 5.8 RBC 2.30 L Hgb 8.2 L Hct 23.6 L MCV 102.6 H MCH 35.8 H MCHC 34.9 RDW 18.3 H Plt Count 67 L MPV 10.9 Neut % (Auto) 61.5 Lymph % (Auto) 30.9 [place] % (Auto) 6.3 Eos % (Auto) 0.1 Baso % (Auto) 1.1 Neut # 3.6 Lymph # 1.8 [place] # 0.4 Eos # 0.0 Baso # 0.1 PT INR Sodium Potassium Chloride Carbon Dioxide Anion Gap BUN Creatinine Est GFR ( Amer) Est GFR (Non-Af Amer) Random Glucose Calcium Phosphorus Magnesium Total Bilirubin Direct Bilirubin AST ALT Alkaline Phosphatase Total Protein Albumin Globulin Albumin/Globulin Ratio Hepatitis A IgM Ab Hep Bs Antigen Hep B Core IgM Ab Hepatitis C Antibody Critical Care Progress Note - Nutrition Nutrition: Nutrition Category Date Time Status Liquid Diet [DIET] Diets 12/21/16 Lunch Active Attending/Attestation - Attestation I have personally seen and examined this patient.: Yes I have fully participated in the care of the patient.: Yes I have reviewed all pertinent clinical information: Yes Notes (Text): 12/22/16 14:17 I have seen and examined the patient. Medical records, lab studies, and imaging were reviewed by me and a management plan was formulated on multidisciplinary rounds with resident Dr. Higgins. I agree with their above documented assessment and plan. Patient is clinically improved. EGD showed esophageal varices with evidence of portal gastropathy. GI consulted and following. Lactulose started. 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 Critical Care Time 35 minutes. Multi-disciplinary rounds were performed with house staff, nursing, speech therapy, respiratory therapy, pharmacy and nutrition with integrated input from the primary team/attending and other consulting services. The documented time is cumulative and includes review of patient data/exams/labs/chart review and examination of the patient on rounds and throughout the day; time is exclusive of any procedures or teaching time.
--- NOTE | 2016-12-21 19:05 | CARD ---
APPROVED REPORT EKG Measurement Heart [id number] <Conclusion> Normal sinus rhythm Inferior infarct, age undetermined Prolonged QT Abnormal ECG
[2016-12-22] MEDS: Sodium Chloride 0.9% 1,000 ML IV SCH ×3 (05:05→22:05)
[2016-12-22 06:32] LABS: INR 1.4; PROTHROMBIN TIME 15.6 SECONDS (9.7-12.2)
[2016-12-22 06:48] LABS: ALBUMIN 2.9 g/dL (3.5-5.0)
[2016-12-22 06:51] LABS: ALB/GLOB RATIO 0.7 (1.0-2.1); ALT/SGPT 28 U/L (21-72); AST/SGOT 156 U/L (17-59); BILIRUBIN,DIRECT 14.9 mg/dL (0.0-0.4); BLOOD UREA NITROGEN 8 mg/dL (9-20); GFR AFRICAN-AMERICAN > 60; GFR NON-AFRICAN AMERICAN > 60
[2016-12-22 06:52] LABS: CALCIUM 7.9 mg/dl (8.6-10.4); MAGNESIUM 1.5 mg/dL (1.6-2.3)
[2016-12-22 07:01] LABS: HEMOGLOBIN 8.2 g/dL (12.0-18.0); MEAN CELL VOLUME 102.6 fL (80.0-94.0); MEAN CORPUSCULAR HEMOGLOBIN 35.8 pg (27.0-31.0); MEAN CORPUSCULAR HGB CONC 34.9 g/dL (33.0-37.0); MEAN PLATELET VOLUME 10.9 fL (7.2-11.7); RBC 2.3 Mil/uL (4.40-5.90); RED CELL DISTRIBUTION WIDTH 18.3 % (11.5-14.5); WHITE BLOOD COUNT 5.8 K/uL (4.8-10.8)
[2016-12-22 09:27] LABS: BASO % 1.1 % (0.0-2.0); EOS % 0.1 % (0.0-4.0); LYMPH # 1.8 K/uL (1.0-4.3); LYMPH % 30.9 % (20.0-40.0); MONO % 6.3 % (0.0-10.0); NEUT # 3.6 K/uL (1.8-7.0); NEUT % 61.5 % (50.0-75.0); NRBC % 0.3 % (0.0-2.0)
[2016-12-22 09:28] LABS: BASO # 0.1 K/uL (0.0-0.2); MONO # 0.4 K/uL (0.0-0.8)
[2016-12-22] MEDS ORDERED: Multivitamin (MVI) 10 ML, Thiamine 100 MG, Folic Acid 1 MG in Sodium Chloride 0.9% 1,00... IV ONE (10:00)
--- NOTE | 2016-12-22 10:27 | CP.PCM.PN ---
<Efraín Sky - Last Filed: 12/22/16 11:01> Subjective - Date & Time of Evaluation Date of Evaluation: 12/22/16 Time of Evaluation: 07:30 - Subjective Subjective: PGY5 GI Fellow Progress Note Patient seen and examined bedside this morning. He states that he now has some low back discomfort. Continues to have loose stool, 1-2 episodes of melena. Notes he is having 4-5BM/day at present. Patient eager to eat. No nausea, vomiting, hematemesis overnight. 12 system ROS performed and negative except where stated. Objective - Vital Signs/Intake and Output Vital Signs (last 24 hours): Temp Pulse Resp BP Pulse Ox 98.9 F 93 H 14 131/80 97 12/22/16 04:00 12/22/16 07:01 12/22/16 07:01 12/22/16 07:01 12/22/16 07:01 Intake and Output: 12/22/16 12/22/16 06:59 18:59 Intake Total 1200 80 Output Total 1500 Balance -300 80 - Medications Medications: Current Medications Escitalopram Oxalate (Lexapro) 5 mg PO DAILY [facility] Last Admin: 12/22/16 10:05 Dose: 5 mg Octreotide Acetate 1,250 mcg/ (Dextrose) 252.5 mls @ 5.05 mls/hr IV .Q24H PRN; Protocol; 25 MCG/HR PRN Reason: TITRATION SCHEDULE Last Admin: 12/21/16 10:21 Dose: 5.05 mls/hr Multivitamins/Vitamin C 10 ml/Thiamine HCl 100 mg/ Folic Acid 1 mg/ Sodium Chloride 1,011.2 mls @ 100 mls/hr IV .Q10H7M ONE Stop: 12/22/16 20:06 Last Admin: 12/22/16 10:03 Dose: 100 mls/hr Sodium Chloride (Sodium Chloride 0.9%) 1,000 mls @ 75 mls/hr IV .[id number] [facility] Last Admin: 12/22/16 05:05 Dose: 75 mls/hr Ceftriaxone Sodium 2 gm/ (Sodium Chloride) 100 mls @ 200 mls/hr IVPB Q24H [facility] Last Admin: 12/21/16 14:43 Dose: 200 mls/hr Lactulose (Enulose) 20 gm PO DAILY [facility] Lorazepam (Ativan) 1 mg IVP Q3H PRN PRN Reason: Symptoms of alcohol withdrawl Last Admin: 12/21/16 11:36 Dose: 1 mg Lorazepam (Ativan) 2 mg PO Q6H [facility] PRN Reason: Taper Stop: 12/25/16 15:59 Last Admin: 12/22/16 10:04 Dose: 2 mg Ondansetron HCl (Zofran Inj) 4 mg IVP DAILY@ONCE PRN PRN Reason: Nausea/Vomiting Last Admin: 12/22/16 05:20 Dose: 4 mg Pantoprazole Sodium (Protonix Inj) 40 mg IVP Q12H [facility] Last Admin: 12/22/16 00:00 Dose: 40 mg Rifaximin (Xifaxan) 550 mg PO BID [facility] Trazodone HCl (Desyrel) 50 mg PO HS PRN PRN Reason: Insomnia - Labs Labs: 12/22/16 06:19 12/22/16 06:14 PT 15.6 SECONDS (9.7-12.2) H 12/22/16 06:19 INR 1.4 12/22/16 06:19 APTT 37 SECONDS (21-34) H 12/21/16 06:19 - Constitutional Appears: No Acute Distress, Chronically Ill - Eye Exam Eye Exam: EOMI, PERRL, Scleral icterus - ENT Exam ENT Exam: Mucous Membranes Dry - Respiratory Exam Respiratory Exam: Clear to Ausculation Bilateral. absent: Rales, Rhonchi, Wheezes - Cardiovascular Exam Cardiovascular Exam: RRR, +S1, +S2 - GI/Abdominal Exam GI & Abdominal Exam: Soft, Normal Bowel Sounds. absent: Distended, Firm, Guarding, Rigid, Tenderness, Organomegaly - Extremities Exam Extremities Exam: Normal Inspection. absent: Pedal Edema - Neurological Exam Neurological Exam: Alert, Awake, Oriented x3 Additional comments: mild asterixis - Psychiatric Exam Psychiatric exam: Normal Affect, Normal Mood - Skin Skin Exam: Dry, Warm Assessment and Plan - Assessment and Plan (Free Text) Assessment: Patient is a 46yo male with PMHx significant for EtOH abuse who presented to [facility] for EtOH detox and was noted to have melena and new onset jaundice -Acute alcoholic hepatitis -Acute EtOH intoxication -Acute EtOH withdrawal -Chronic liver disease - EtOH cirrhosis -Esophageal varices s/p band ligation therapy -Low grade hepatic encephalopathy Plan: -S/P EGD with esophageal variceal band ligation -Continue octreotide gtt for another 24H -Decrease lactulose to 20g PO QD - titrate to 2-3BM/day -Initiate Rifaximin 550mg PO BID -Advance to full liquid diet, 2g low Na -No evidence of ascites on imaging -Continue Prednisolone 40mg PO QD; discussed with Hepatology fellow at [facility] - this will not preclude patient from RIAZ trial if he meets remaining criteria for trial -Treat EtOH withdrawal as needed; avoid over-sedation -Continue to monitor CBC, LFTs, INR -Recommend transfer to [facility] for ongoing care, liver transplant evaluation - discussed with hepatology fellow and patient has been accepted under Dr Burnett -Pt to be stepped down from ICU and does not require ICU bed on transfer *MELD-Na: 22 (7-10% 90-day mortality) *MDF: 43.1 <Sumit Burleson - Last Filed: 12/22/16 11:14> Objective - Vital Signs/Intake and Output Vital Signs (last 24 hours): Temp Pulse Resp BP Pulse Ox 98.9 F 93 H 14 131/80 97 12/22/16 04:00 12/22/16 07:01 12/22/16 07:01 12/22/16 07:01 12/22/16 07:01 Intake and Output: 12/22/16 12/22/16 06:59 18:59 Intake Total 1200 80 Output Total 1500 Balance -300 80 - Medications Medications: Current Medications Escitalopram Oxalate (Lexapro) 5 mg PO DAILY [facility] Last Admin: 12/22/16 10:05 Dose: 5 mg Octreotide Acetate 1,250 mcg/ (Dextrose) 252.5 mls @ 5.05 mls/hr IV .Q24H PRN; Protocol; 25 MCG/HR PRN Reason: TITRATION SCHEDULE Last Admin: 12/21/16 10:21 Dose: 5.05 mls/hr Multivitamins/Vitamin C 10 ml/Thiamine HCl 100 mg/ Folic Acid 1 mg/ Sodium Chloride 1,011.2 mls @ 100 mls/hr IV .Q10H7M ONE Stop: 12/22/16 20:06 Last Admin: 12/22/16 10:03 Dose: 100 mls/hr Sodium Chloride (Sodium Chloride 0.9%) 1,000 mls @ 75 mls/hr IV .[id number] [facility] Last Admin: 12/22/16 05:05 Dose: 75 mls/hr Ceftriaxone Sodium 2 gm/ (Sodium Chloride) 100 mls @ 200 mls/hr IVPB Q24H [facility] Last Admin: 12/21/16 14:43 Dose: 200 mls/hr Lactulose (Enulose) 20 gm PO DAILY [facility] Lorazepam (Ativan) 1 mg IVP Q3H PRN PRN Reason: Symptoms of alcohol withdrawl Last Admin: 12/21/16 11:36 Dose: 1 mg Lorazepam (Ativan) 2 mg PO Q6H [facility] PRN Reason: Taper Stop: 12/25/16 15:59 Last Admin: 12/22/16 10:04 Dose: 2 mg Ondansetron HCl (Zofran Inj) 4 mg IVP DAILY@ONCE PRN PRN Reason: Nausea/Vomiting Last Admin: 12/22/16 05:20 Dose: 4 mg Pantoprazole Sodium (Protonix Inj) 40 mg IVP Q12H [facility] Last Admin: 12/22/16 00:00 Dose: 40 mg Prednisolone (Prednisolone) 40 mg PO DAILY [facility] Rifaximin (Xifaxan) 550 mg PO BID [facility] Trazodone HCl (Desyrel) 50 mg PO HS PRN PRN Reason: Insomnia - Labs Labs: 12/22/16 06:19 12/22/16 06:14 PT 15.6 SECONDS (9.7-12.2) H 12/22/16 06:19 INR 1.4 12/22/16 06:19 APTT 37 SECONDS (21-34) H 12/21/16 06:19 Attending/Attestation - Attestation I have personally seen and examined this patient.: Yes I have fully participated in the care of the patient.: Yes I have reviewed all pertinent clinical information, including history, physical exam and plan: Yes Notes (Text): 12/22/16 11:12 46 year old male with etoh hepatitis admitted with gi bleeding. 1. Alcoholic hepatitis 2. Erosive esophagitis 3. 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
--- NOTE | 2016-12-22 12:12 | PCM.PYCHPN ---
Psychiatric Progress Note - Psychiatric Progress Note Patient seen today, length of contact: 15 min Patient Chief Complaint: "I couldn't sleep" Problems Identified/Issues Discussed: The pt is seen, chart reviewed. Support given, he was also surrounded by his family, ie brother, , sister- inlaws. No new symptoms reported, improving slowly and needs more time No SEs from medications, risks discussed. After care discussed but he will go to [facility] for liver transplant first Medication Change: Yes (detox changes daily) Medical Record Reviewed: Yes Mental Status Examination - Cognitive Function Orientation: Person, Place, Situation, Time Memory: Impaired Attention: Poor Concentration: Poor Association: WNL Fund of Knowledge: WNL - Mood Mood: Depressed - Affect Affect: Constricted - Speech Speech: Appropriate - Formal Thought Process Formal Thought Process: No Impairment - Suicidal Ideation Suicidal Ideation: No - Homicidal Ideation Homicidal Ideation: No Goal/Treatment Plan - Goal/Treatment Plan Need for Continued Stay: Other (medical) Progress Toward Problem(s) and Goals/Treatment Plan: Continue medications Support and psychoeducation daily After care planning is after transfer and possible liver transplant. he may need IOP+AA, plus MAT.
[2016-12-22] MEDS: PrednisoLONE 6 MG/2 ML SYR PO SCH (12:29)
[2016-12-22] MEDS: cefTRIAXone 2 GM in Sodium Chloride 0.9% 100 ML IVPB SCH (14:33)
[2016-12-22 17:52] VITALS: RESP 20
[2016-12-23] MEDS: Sodium Chloride 0.9% 1,000 ML IV SCH (05:25)
[2016-12-23] MEDS: PrednisoLONE 6 MG/2 ML SYR PO SCH (09:58)
[2016-12-23 11:13] LABS: BASO # 0.2 K/uL (0.0-0.2); BASO % 1.5 % (0.0-2.0); EOS # 0.1 K/uL (0.0-0.7); EOS % 0.5 % (0.0-4.0); HEMOGLOBIN 9.3 g/dL (12.0-18.0); LYMPH # 4.5 K/uL (1.0-4.3); LYMPH % 40.4 % (20.0-40.0); MEAN CELL VOLUME 103.9 fL (80.0-94.0); MEAN CORPUSCULAR HEMOGLOBIN 35.4 pg (27.0-31.0); MEAN CORPUSCULAR HGB CONC 34.1 g/dL (33.0-37.0); MEAN PLATELET VOLUME 10.8 fL (7.2-11.7); MONO # 0.4 K/uL (0.0-0.8); MONO % 3.9 % (0.0-10.0); NEUT # 5.9 K/uL (1.8-7.0); NEUT % 53.7 % (50.0-75.0); NRBC % 0.3 % (0.0-2.0); RBC 2.64 Mil/uL (4.40-5.90)
[2016-12-23 11:14] LABS: INR 1.4; PROTHROMBIN TIME 16.3 SECONDS (9.7-12.2)
[2016-12-23 11:18] LABS: ALBUMIN 3.1 g/dL (3.5-5.0)
[2016-12-23 11:21] LABS: ALB/GLOB RATIO 0.7 (1.0-2.1); AST/SGOT 146 U/L (17-59); BLOOD UREA NITROGEN 12 mg/dL (9-20); GFR AFRICAN-AMERICAN > 60; GFR NON-AFRICAN AMERICAN > 60
[2016-12-23 11:22] LABS: ALT/SGPT 37 U/L (21-72)
--- NOTE | 2016-12-23 11:58 | CP.PCM.PN ---
<Efraín Sky - Last Filed: 12/23/16 11:54> Subjective - Date & Time of Evaluation Date of Evaluation: 12/23/16 Time of Evaluation: 08:40 - Subjective Subjective: PGY5 GI fellow Progress Note Patient seen and examined bedside this morning. The patient states that he is feeling better overall. No further episodes of melena/hematochezia per patient. Denies any tremor, anxiety, nausea and does not have any apparent signs of withdrawal at present. He is concerned about his current condition and all questions regarding his liver disease were answered. I spoke at length to his and brother yesterday regarding his condition. 12 system ROS performed and negative except where stated. Objective - Vital Signs/Intake and Output Vital Signs (last 24 hours): Temp Pulse Resp BP Pulse Ox 98.3 F 78 20 132/73 100 12/23/16 08:31 12/23/16 08:31 12/23/16 08:31 12/23/16 08:31 12/23/16 08:31 Intake and Output: 12/23/16 12/23/16 06:59 18:59 Intake Total 740 Output Total 500 Balance 240 - Medications Medications: Current Medications Escitalopram Oxalate (Lexapro) 5 mg PO DAILY [facility] Last Admin: 12/23/16 09:58 Dose: 5 mg Octreotide Acetate 1,250 mcg/ (Dextrose) 252.5 mls @ 5.05 mls/hr IV .Q24H PRN; Protocol; 25 MCG/HR PRN Reason: TITRATION SCHEDULE Last Admin: 12/21/16 10:21 Dose: 5.05 mls/hr Sodium Chloride (Sodium Chloride 0.9%) 1,000 mls @ 75 mls/hr IV .[id number] [facility] Last Admin: 12/23/16 05:25 Dose: 75 mls/hr Ceftriaxone Sodium 2 gm/ (Sodium Chloride) 100 mls @ 200 mls/hr IVPB Q24H [facility] Last Admin: 12/22/16 14:33 Dose: 200 mls/hr Lactulose (Enulose) 20 gm PO DAILY [facility] Last Admin: 12/23/16 09:58 Dose: 20 gm Lorazepam (Ativan) 1 mg IVP Q3H PRN PRN Reason: Symptoms of alcohol withdrawl Last Admin: 12/21/16 11:36 Dose: 1 mg Lorazepam (Ativan) 2 mg PO Q8H [facility] PRN Reason: Taper Stop: 12/25/16 15:59 Last Admin: 12/23/16 08:37 Dose: 2 mg Ondansetron HCl (Zofran Inj) 4 mg IVP DAILY@ONCE PRN PRN Reason: Nausea/Vomiting Last Admin: 12/22/16 05:20 Dose: 4 mg Pantoprazole Sodium (Protonix Inj) 40 mg IVP Q12H [facility] Last Admin: 12/23/16 01:35 Dose: 40 mg Prednisolone (Prednisolone) 40 mg PO DAILY [facility] Last Admin: 12/23/16 09:58 Dose: 40 mg Rifaximin (Xifaxan) 550 mg PO BID [facility] Last Admin: 12/23/16 09:58 Dose: 550 mg Trazodone HCl (Desyrel) 50 mg PO HS PRN PRN Reason: Insomnia Last Admin: 12/23/16 00:50 Dose: 50 mg - Labs Labs: 12/23/16 11:05 12/23/16 11:05 PT 16.3 SECONDS (9.7-12.2) H 12/23/16 11:05 INR 1.4 12/23/16 11:05 APTT 37 SECONDS (21-34) H 12/21/16 06:19 - Constitutional Appears: No Acute Distress, Chronically Ill - Eye Exam Eye Exam: EOMI, PERRL, Scleral icterus - ENT Exam ENT Exam: Mucous Membranes Dry - Respiratory Exam Respiratory Exam: Clear to Ausculation Bilateral. absent: Rales, Rhonchi, Wheezes - Cardiovascular Exam Cardiovascular Exam: RRR, +S1, +S2 - GI/Abdominal Exam GI & Abdominal Exam: Soft, Normal Bowel Sounds. absent: Distended, Firm, Guarding, Rigid, Tenderness, Organomegaly - Extremities Exam Extremities Exam: Normal Inspection. absent: Pedal Edema - Neurological Exam Neurological Exam: Alert, Awake, Oriented x3 - Psychiatric Exam Psychiatric exam: Normal Affect, Normal Mood - Skin Skin Exam: Dry, Warm Additional comments: jaundice Assessment and Plan - Assessment and Plan (Free Text) Assessment: Patient is a 46yo male with PMHx significant for EtOH abuse who presented to [facility] for EtOH detox and was noted to have melena and new onset jaundice -Acute alcoholic hepatitis -Acute EtOH intoxication -Acute EtOH withdrawal -Chronic liver disease - EtOH cirrhosis -Esophageal varices s/p band ligation therapy -Low grade hepatic encephalopathy Plan: -S/P EGD with esophageal variceal band ligation -Discontinue octreotide gtt -Discontinue IVF as ordered -Lactulose 20g PO QD - titrate to 2-3BM/day -Rifaximin 550mg PO BID -Advance diet as tolerated, 2 g low Na -Continue Prednisolone 40mg PO QD -Treat EtOH withdrawal as needed; avoid over-sedation -Continue to monitor CBC, LFTs, INR -Pt to be transferred to [facility] today *MELD-Na: 21 (7-10% 90-day mortality) *MDF > 32 <Sumit Burleson - Last Filed: 12/23/16 13:59> Objective - Vital Signs/Intake and Output Vital Signs (last 24 hours): Temp Pulse Resp BP Pulse Ox 98.3 F 78 20 132/73 100 12/23/16 08:31 12/23/16 08:31 12/23/16 08:31 12/23/16 08:31 12/23/16 08:31 Intake and Output: 12/23/16 12/23/16 06:59 18:59 Intake Total 740 Output Total 500 Balance 240 - Medications Medications: Current Medications Escitalopram Oxalate (Lexapro) 5 mg PO DAILY [facility] Last Admin: 12/23/16 09:58 Dose: 5 mg Ceftriaxone Sodium 2 gm/ (Sodium Chloride) 100 mls @ 200 mls/hr IVPB Q24H [facility] Stop: 12/23/16 23:00 Last Admin: 12/22/16 14:33 Dose: 200 mls/hr Lactulose (Enulose) 20 gm PO DAILY [facility] Last Admin: 12/23/16 09:58 Dose: 20 gm Lorazepam (Ativan) 1 mg IVP Q3H PRN PRN Reason: Symptoms of alcohol withdrawl Last Admin: 12/21/16 11:36 Dose: 1 mg Lorazepam (Ativan) 2 mg PO Q8H [facility] PRN Reason: Taper Stop: 12/25/16 15:59 Last Admin: 12/23/16 08:37 Dose: 2 mg Ondansetron HCl (Zofran Inj) 4 mg IVP DAILY@ONCE PRN PRN Reason: Nausea/Vomiting Last Admin: 12/22/16 05:20 Dose: 4 mg Pantoprazole Sodium (Protonix Inj) 40 mg IVP Q12H [facility] Last Admin: 12/23/16 12:28 Dose: 40 mg Prednisolone (Prednisolone) 40 mg PO DAILY [facility] Last Admin: 12/23/16 09:58 Dose: 40 mg Rifaximin (Xifaxan) 550 mg PO BID [facility] Last Admin: 12/23/16 09:58 Dose: 550 mg Trazodone HCl (Desyrel) 50 mg PO HS PRN PRN Reason: Insomnia Last Admin: 12/23/16 00:50 Dose: 50 mg - Labs Labs: 12/23/16 11:05 12/23/16 11:05 PT 16.3 SECONDS (9.7-12.2) H 12/23/16 11:05 INR 1.4 12/23/16 11:05 APTT 37 SECONDS (21-34) H 12/21/16 06:19 Attending/Attestation - Attestation I have personally seen and examined this patient.: Yes I have fully participated in the care of the patient.: Yes I have reviewed all pertinent clinical information, including history, physical exam and plan: Yes Notes (Text): 12/23/16 13:57 46 year old male with etoh hepatitis admitted with gi bleeding. 1. Alcoholic hepatitis 2. Erosive esophagitis 3. Esophageal varices Plan: -bleeding resolved s/p egd with banding -ok to stop octreotide -transition PPI to oral bid dosing -ok to transfer to transplant hospital -continue steroids for alc hep -continue abx for sbp proph -leukocytosis likely 2/2 steroids -bili decreased slightly -strict etoh abstinence
[2016-12-23] MEDS: cefTRIAXone 2 GM in Sodium Chloride 0.9% 100 ML IVPB SCH (14:18)
--- NOTE | 2016-12-23 14:29 | HP ---
DATE OF SERVICE: 12/21/2016 HISTORY OF PRESENT ILLNESS: A 46-year-old man with history of alcoholic liver disease, chief complaint GI bleeding. The patient has a long history of alcoholism, depression, and . PHYSICAL EXAMINATION: GENERAL: The patient comes from ICU, awake. NECK: Supple. CHEST: Symmetrical. HEART: Regular. ABDOMEN: Distended . IMPRESSION: The patient suffers from gastrointestinal bleeding, hepatic encephalopathy, and alcoholism. At this point, the patient is on Intensive Care Unit monitoring. Venous thromboembolism prophylaxis. Gastroenterology consult. Laxmi Lacy MD
[2016-12-23 17:21] VITALS: BP 116/70; PULSE 74; TEMP 98.5; O2SAT 95
--- NOTE | 2016-12-23 23:37 | DS ---
The patient admitted to the hospital complaining of GI bleeding . The patient has gastrointestinal varices, supportive care. The patient transferred to unit for further management. Laxmi Lacy MD
== END 2016-12-23 18:04 | disposition short-term general hospital (02) | DRG 557 ==
LOC: C.ER 17:57 → C.9I 21:25 → C.3T 12-22 17:36
PROVIDERS: ADMIT Internal Medicine Pulmonary Disease; ATTEND Internal Medicine Pulmonary Disease
PROC: 0W3P8ZZ Control Bleeding in Gastrointestinal Tract, Via Natural or Artificial Opening Endoscopic (ICD-10-PCS; principal; 2016-12-21 12:35)
DX: K70.30 Alcoholic cirrhosis of liver without ascites (principal); I85.11 Secondary esophageal varices with bleeding; A41.9 Sepsis, unspecified organism; K70.10 Alcoholic hepatitis without ascites; R65.20 Severe sepsis without septic shock; K83.0 Cholangitis; D69.59 Other secondary thrombocytopenia; F10.239 Alcohol dependence with withdrawal, unspecified; K76.6 Portal hypertension; K22.10 Ulcer of esophagus without bleeding; E83.42 Hypomagnesemia; K70.40 Alcoholic hepatic failure without coma; F32.9 Major depressive disorder, single episode, unspecified; K29.70 Gastritis, unspecified, without bleeding; K20.8 Other esophagitis; K52.9 Noninfective gastroenteritis and colitis, unspecified; Y90.7 Blood alcohol level of 200-239 mg/100 ml; M25.561 Pain in right knee; G89.21 Chronic pain due to trauma

== ENCOUNTER 2017-01-20 12:50 | Emergency (ER) | payer MEDICAID ==
[2017-01-20 13:00] VITALS: RESP 18; O2SAT 100
[2017-01-20] MEDS ORDERED: Sodium Chloride 0.9% 500 ML IV ONE (13:30)
[2017-01-20 13:59] LABS: BASO % 0.5 % (0.0-2.0); EOS # 0.1 K/uL (0.0-0.7); EOS % 2.5 % (0.0-4.0); HEMATOCRIT 28.3 % (35.0-51.0); LYMPH # 1.3 K/uL (1.0-4.3); LYMPH % 27.6 % (20.0-40.0); MEAN CELL VOLUME 99.3 fL (80.0-94.0); MEAN CORPUSCULAR HGB CONC 33.2 g/dL (33.0-37.0); MEAN PLATELET VOLUME 9.7 fL (7.2-11.7); MONO # 0.4 K/uL (0.0-0.8); MONO % 8.2 % (0.0-10.0); RED CELL DISTRIBUTION WIDTH 15.9 % (11.5-14.5); WHITE BLOOD COUNT 4.8 K/uL (4.8-10.8)
[2017-01-20 14:11] LABS: ALB/GLOB RATIO 0.7 (1.0-2.1); ALKALINE PHOSPHATASE 258 U/L (38-126); ALT/SGPT 47 U/L (21-72); AST/SGOT 103 U/L (17-59); BILIRUBIN,TOTAL 5.8 mg/dL (0.2-1.3); BLOOD UREA NITROGEN 7 mg/dL (9-20); CALCIUM 8.6 mg/dl (8.6-10.4); CARBON DIOXIDE 21 mmol/L (22-30); CHLORIDE 108 mmol/L (98-107); GFR AFRICAN-AMERICAN > 60; GLUCOSE,RANDOM 113 mg/dL (75-110); POTASSIUM 3.9 mmol/L (3.6-5.2); SODIUM 141 mmol/L (132-148)
[2017-01-20 14:25] LABS: INR 1.5
--- NOTE | 2017-01-20 16:08 | C.PDOC ---
History Of Present Illness Pt states he vomited blood last night. Denies any vomiting today. Time Seen by Provider: 01/20/17 13:17 Chief Complaint (Nursing): GI Problem History Per: Patient, Family Onset/Duration Of Symptoms: Hrs (last night) Current Symptoms Are (Timing): Better Number Of Bleeding Episodes: One Amount of Blood Loss: Medium Severity: Moderate Associated Symptoms: Hematemesis Modifying Factors: Other Indicated Below Additional History Per: Prior Records Past Medical History Reviewed: Historical Data, Nursing Documentation, Vital Signs Vital Signs: Last Vital Signs Temp 97.8 F 01/20/17 12:57 Pulse 65 01/20/17 12:57 Resp 18 01/20/17 12:57 BP 107/70 01/20/17 12:57 Pulse Ox 100 01/20/17 12:57 - Medical History PMH: Other PMH: Liver Cirrhosis Surgical History: Endoscopy - [facility] Procedures ALCOHOL DETOXIFICATION (12/31/13) CONTROL BLEEDING IN GASTROINTESTINAL TRACT, ENDO (12/20/16) DETOXIFICATION SERVICES FOR SUBSTANCE ABUSE TREATMENT (09/27/15) EXCISION OF STOMACH, ENDO, DIAGN (04/27/15) Family History: States: Unknown Family Hx - Social History Hx Tobacco Use: No Hx Alcohol Use: Yes Hx Substance Use: No - Immunization History Hx Tetanus Toxoid Vaccination: No Hx Influenza Vaccination: Yes Hx Pneumococcal Vaccination: No Review Of Systems Except As Marked, All Systems Reviewed And Found Negative. Constitutional: Negative for: Fever Cardiovascular: Negative for: Chest Pain Respiratory: Negative for: Shortness of Breath Gastrointestinal: Positive for: Hematemesis. Negative for: Abdominal Pain, Constipation, Melena, Hematochezia Genitourinary: Negative for: Dysuria Musculoskeletal: Negative for: Neck Pain Skin: Positive for: Jaundice Neurological: Negative for: Weakness, Numbness, Seizures Physical Exam - Physical Exam Appears: No Acute Distress, Chronically Ill Skin: Warm, Dry, Jaundice Head: Atraumatic, Normacephalic Eye(s): bilateral: PERRL, EOMI, Scleral Icterus Neck: Normal ROM, Supple Cardiovascular: Rhythm Regular Respiratory: Normal Breath Sounds, No Accessory Muscle Use Gastrointestinal/Abdominal: Soft, No Tenderness Back: No CVA Tenderness Extremity: Normal ROM Neurological/Psych: Oriented x3, Normal Motor, Normal Sensation ED Course And Treatment - Laboratory Results Result Diagrams: 01/20/17 13:50 01/20/17 13:50 O2 Sat by Pulse Oximetry: 100 Pulse Ox Interpretation: Normal Progress Note: I discussed the pt's Case with Dr. Jean-Baptiste from the pt's hepatology team at [facility]. They want pt to be transferred to the Hepatology service at [facility] for further evaluation and treatment. Disposition Counseled Patient/Family Regarding: Studies Performed, Diagnosis - Disposition Disposition: Trans to Other Acute Care Hosp Disposition Time: 16:10 Condition: GUARDED - Clinical Impression Clinical Impression: Hematemesis
[2017-01-20 16:17] VITALS: TEMP 98
[2017-01-20 17:16] VITALS: BP 109/68; PULSE 66
== END 2017-01-20 17:33 | disposition short-term general hospital (02) ==
LOC: C.ER 12:50
DX: K92.0 Hematemesis (principal)
CPT/HCPCS: 80053; 85025; 85610; 85730; 86850; 86900; 96374; 99284; C9113; J7040

== ENCOUNTER 2017-05-01 20:35 | Emergency (ER) | payer MEDICAID ==
[2017-05-01 20:41] VITALS: RESP 18
--- NOTE | 2017-05-01 20:49 | C.PDOC ---
History Of Present Illness The patient presents to the ED stating he has been feeling unwell and has swelling to his bilateral legs after returning from a 17-day trip to [place]. Patient's trip included visits to [place], [place], and [place]. Patient denies fever, chills, chest pain, palpitations, and shortness of breath at this time. Time Seen by Provider: 05/01/17 20:48 Chief Complaint (Nursing): Lower Extremity Problem/Injury History Per: Patient History/Exam Limitations: no limitations Onset/Duration Of Symptoms: Days Current Symptoms Are (Timing): Still Present Severity: Mild Pain Scale Rating Of: 3 Recent travel outside of the [place]: Yes Additional History Per: Patient Past Medical History Reviewed: Historical Data, Nursing Documentation, Vital Signs Vital Signs: Last Vital Signs Temp 98.5 F 05/01/17 20:36 Pulse 85 05/01/17 20:36 Resp 18 05/01/17 20:36 BP 130/75 05/01/17 20:36 Pulse Ox 100 05/01/17 23:36 - Medical History PMH: No Chronic Diseases Surgical History: Endoscopy - [facility] Procedures ALCOHOL DETOXIFICATION (12/31/13) CONTROL BLEEDING IN GASTROINTESTINAL TRACT, ENDO (12/20/16) DETOXIFICATION SERVICES FOR SUBSTANCE ABUSE TREATMENT (09/27/15) EXCISION OF STOMACH, ENDO, DIAGN (04/27/15) Family History: States: Unknown Family Hx - Social History Hx Tobacco Use: No Hx Alcohol Use: Yes Hx Substance Use: No - Immunization History Hx Tetanus Toxoid Vaccination: No Hx Influenza Vaccination: Yes Hx Pneumococcal Vaccination: No Review Of Systems Constitutional: Positive for: Malaise. Negative for: Fever, Chills Cardiovascular: Negative for: Chest Pain, Palpitations Respiratory: Negative for: Cough, Shortness of Breath Gastrointestinal: Negative for: Nausea, Vomiting, Abdominal Pain, Diarrhea, Constipation Musculoskeletal: Positive for: Leg Pain (bilateral ), Other (edema to bilateral lower extremities ) Skin: Negative for: Rash, Lesions, Jaundice, Bruising Neurological: Negative for: Weakness, Numbness Physical Exam - Physical Exam Appears: Non-toxic, No Acute Distress Skin: Warm, Dry, Other (diffuse small insect bites, mostly to bilateral lower extremities. erythematous changes to anterior aspects of bilateral lower extremities ) Head: Normacephalic Eye(s): bilateral: Other (edema to upper eyelids) Oral Mucosa: Moist Neck: Supple Chest: Symmetrical, No Deformity, No Tenderness Cardiovascular: Rhythm Regular Respiratory: No Rales, No Rhonchi, No Wheezing, Other (speaking in complete sentences) Gastrointestinal/Abdominal: Bowel Sounds (normal ), Soft, No Tenderness, No Guarding, No Rebound Extremity: Normal ROM, Capillary Refill (less than 2 seconds ), Other (pitting edema to bilateral lower extremities ) Neurological/Psych: Oriented x3 Gait: Steady ED Course And Treatment - Laboratory Results Result Diagrams: 05/01/17 21:18 05/01/17 21:18 ECG: Interpreted By Me, Viewed By Me ECG Rhythm: Sinus Rhythm (80), Nonspecific Changes O2 Sat by Pulse Oximetry: 100 (on RA) Pulse Ox Interpretation: Normal - Radiology CXR: Interpreted by Me, Viewed By Me CXR Interpretation: Yes: Cardiomegaly, Other (mild chf). No: Infiltrates, Fracture Progress Note: Bloodwork, urinalysis, CXR, EKG ordered. pt does not want hospitalization,. Is aaox3 and competent. at bedside(hipaa compliant)and is aware of all the risks I've explained at length including permanent disability and . Thwy will follow up with their PMD and also look [facility] detox places Disposition Counseled Patient/Family Regarding: Studies Performed, Diagnosis, Need For Followup - Disposition Referrals: [facility] [Outside] [facility] [Outside] Disposition: HOME/ ROUTINE Disposition Time: 20:49 Condition: FAIR Additional Instructions: Please return in am for a doppler study of your legs Instructions: Leg Edema (ED), Alcohol Use Disorder (ED) Forms: [facility] (Georgian) - Clinical Impression Clinical Impression: Alcohol abuse, Leg edema - Scribe Statement The provider has reviewed the documentation as recorded by the Scribe (Tatiana Neville) Provider Attestation: All medical record entries made by the Scribe were at my direction and personally dictated by me. I have reviewed the chart and agree that the record accurately reflects my personal performance of the history, physical exam, medical decision making, and the department course for this patient. I have also personally directed, reviewed, and agree with the discharge instructions and disposition.
[2017-05-01 21:24] LABS: BASO # 0.1 K/uL (0.0-0.2); BASO % 1.2 % (0.0-2.0); EOS # 0.1 K/uL (0.0-0.7); EOS % 2.7 % (0.0-4.0); HEMATOCRIT 29.1 % (35.0-51.0); LYMPH # 1.9 K/uL (1.0-4.3); MEAN CORPUSCULAR HEMOGLOBIN 26.8 pg (27.0-31.0); MEAN CORPUSCULAR HGB CONC 32.3 g/dL (33.0-37.0); MEAN PLATELET VOLUME 7.5 fL (7.2-11.7); MONO # 0.3 K/uL (0.0-0.8); MONO % 7.2 % (0.0-10.0); RED CELL DISTRIBUTION WIDTH 17.1 % (11.5-14.5); WHITE BLOOD COUNT 4.6 K/uL (4.8-10.8)
[2017-05-01 21:36] LABS: ALB/GLOB RATIO 1.3 (1.0-2.1); ALKALINE PHOSPHATASE 182 U/L (38-126); ALT/SGPT 47 U/L (21-72); AST/SGOT 83 U/L (17-59); BILIRUBIN,TOTAL 1.3 mg/dL (0.2-1.3); BLOOD UREA NITROGEN 9 mg/dL (9-20); CARBON DIOXIDE 28 mmol/L (22-30); CHLORIDE 108 mmol/L (98-107); GFR AFRICAN-AMERICAN > 60; GLUCOSE,RANDOM 93 mg/dL (75-110); INR 1.3; MAGNESIUM 1.5 mg/dL (1.6-2.3); POTASSIUM 4.1 mmol/L (3.6-5.2); SODIUM 148 mmol/L (132-148); TOTAL PROTEIN 7.1 g/dL (6.3-8.3)
[2017-05-01] MEDS ORDERED: Enoxaparin 40 mg Syringe SC STA (21:59)
[2017-05-01] MEDS ORDERED: Iodixanol 320 MG/ML 100 ML BOTTLE IV ONE (22:22)
[2017-05-01] MEDS ORDERED: Enoxaparin 100 mg Syringe ONE (22:24)
[2017-05-01 22:41] LABS: PLATELET COUNT 68 K/uL (130-400)
[2017-05-01 22:42] LABS: INTRACELLULAR PARASITE NEGATIVE (NEGATIVE)
--- NOTE | 2017-05-01 23:47 | CT ---
EXAM: CT Angiography Chest With Intravenous Contrast EXAM DATE/TIME: 05/01/2017 9:58 PM CLINICAL HISTORY: 46 years old, male; Signs and symptoms; Other: Elevated d dimer; Additional info: Elevated d dimer. Recent long travel TECHNIQUE: Axial computed tomographic angiography images of the chest with intravenous contrast using pulmonary embolism protocol. All CT scans at this facility use one or more dose reduction techniques, viz.: automated exposure control; ma/kV adjustment per patient size (including targeted exams where dose is matched to indication; i.e. head); or iterative reconstruction technique. MIP reconstructed images were created and reviewed. Coronal and sagittal reformatted images were created and reviewed. CONTRAST: 100 mL of [id number] administered intravenously. COMPARISON: There are no prior studies for comparison. FINDINGS: Artifacts: Motion artifact degrades image quality. Heart, aorta and Pulmonary arteries: Heart size is at the upper limits of normal. There is no pericardial effusion. Aorta is normal in caliber. There is perfusion of the 3 arch vessels. Bolus timing and motion limits evaluation of pulmonary arteries. There is no central pulmonary emboli. Peripheral vessels cannot be adequately evaluated. Lungs and pleural spaces: Trachea and main bronchi are patent.There is no pneumothorax. There asymmetric groundglass opacities bilaterally. There is subsegmental atelectasis in the right lower lobe. There is dependent atelectasis greatest in at the lung bases. There are no effusions. Mediastinum: The esophagus is unremarkable. There is a hiatal hernia. There are multiple small shotty mediastinal nodes. There are no pathologically enlarged mediastinal or hilar nodes. Thyroid: Thyroid is not optimally demonstrated. Bones/joints: There are degenerative changes in the osseus structures. Soft tissues: unremarkable Upper abdomen. There is fatty infiltration of the liver. The liver is incompletely imaged but appears enlarged. Spleen is enlarged. IMPRESSION: Limited by patient motion and bolus timing, no central pulmonary emboli; asymmetric groundglass airspace disease with subsegmental atelectasis and dependent atelectasis at the lung bases, no lobar or segmental consolidation; hepatosplenomegaly; fatty liver Additional findings as described above.
[2017-05-02 00:12] VITALS: BP 116/68; PULSE 102; TEMP 98.4
[2017-05-02 00:13] VITALS: O2SAT 100
--- NOTE | 2017-05-02 08:16 | RAD ---
Chest x-ray single frontal view History: Shortness of breath. Comparison: 12/20/2016 Findings: Mild venous congestion. Right hilar prominence. Patchy increased markings at the left lung base. Mild cardiomegaly. Degenerative changes in the spine. Impression: Mild venous congestion. Right hilar prominence. Patchy increased markings at the left lung base. Mild cardiomegaly.
--- NOTE | 2017-05-02 12:20 | CARD ---
APPROVED REPORT EKG Measurement Heart [id number] <Conclusion> Normal sinus rhythm Normal ECG
== END 2017-05-02 00:19 | disposition home or self-care (01) ==
LOC: C.ER 20:35
DX: R60.0 Localized edema (principal); F10.10 Alcohol abuse, uncomplicated; Y90.8 Blood alcohol level of 240 mg/100 ml or more
CPT/HCPCS: 71010; 71275; 80053; 80320; 82550; 83735; 83880; 84484; 85025; 85378; 85610; 85730; 87040; 87207; 93005; 96372; 96374; 99284; J1650; J2060; Q9967

== ENCOUNTER 2017-05-08 05:39 | Emergency (ER) | payer MEDICAID ==
[2017-05-08 06:13] VITALS: BP 135/81; PULSE 103; RESP 18; TEMP 97.6; O2SAT 96
--- NOTE | 2017-05-08 06:26 | C.PDOC ---
History Of Present Illness 46 year old male with a Hx of chronic ETOH abuse presents to the ER requesting detox from ETOH. Denies physical complaints at this time. Time Seen by Provider: 05/08/17 06:15 Chief Complaint (Nursing): Substance Abuse History Per: Patient History/Exam Limitations: no limitations Onset/Duration Of Symptoms: Days Current Symptoms Are (Timing): Still Present Suicide/Self Injury Attempted (Context): None Modifying Factor(s): None Associated Symptoms: denies: Depression, Suicidal Thoughts, Suicidal Plan Involuntary Hold By: None Recent travel outside of the [place]: No Past Medical History Reviewed: Historical Data, Nursing Documentation, Vital Signs Vital Signs: Last Vital Signs Temp 97.6 F 05/08/17 05:56 Pulse 103 H 05/08/17 05:56 Resp 18 05/08/17 05:56 BP 135/81 05/08/17 05:56 Pulse Ox 96 05/08/17 06:32 - Medical History PMH: No Chronic Diseases Surgical History: Endoscopy - [facility] Procedures ALCOHOL DETOXIFICATION (12/31/13) CONTROL BLEEDING IN GASTROINTESTINAL TRACT, ENDO (12/20/16) DETOXIFICATION SERVICES FOR SUBSTANCE ABUSE TREATMENT (09/27/15) EXCISION OF STOMACH, ENDO, DIAGN (04/27/15) Family History: States: Unknown Family Hx - Social History Hx Tobacco Use: No Hx Alcohol Use: Yes Hx Substance Use: No - Immunization History Hx Tetanus Toxoid Vaccination: No Hx Influenza Vaccination: Yes Hx Pneumococcal Vaccination: No Review Of Systems Constitutional: Negative for: Fever, Chills Gastrointestinal: Negative for: Nausea, Vomiting, Diarrhea Physical Exam - Physical Exam Appears: Non-toxic, No Acute Distress Skin: Warm, Dry Head: Normacephalic, Other (Old area of contusion, and ecchymosis to left facial area with scab and sutured wound to right eyebrow.) Eye(s): bilateral: Normal Inspection, PERRL, EOMI Oral Mucosa: Moist Neck: Supple Chest: Symmetrical Cardiovascular: Rhythm Regular Respiratory: Normal Breath Sounds, No Rales, No Rhonchi, No Wheezing Neurological/Psych: Oriented x3, Normal Speech, Normal Cognition Gait: Steady ED Course And Treatment O2 Sat by Pulse Oximetry: 96 (Room air) Pulse Ox Interpretation: Normal Progress Note: Discussed case with crisis who state there are no detox beds available. Patient left the ER prior to being discharged by nj Disposition - Disposition Disposition: ELOPEMENT - ER ONLY Disposition Time: 06:15 Condition: GOOD Forms: [facility] (Salvadorean) - Clinical Impression Clinical Impression: Alcohol dependence - PA / COGNOS ARCHITECT / Resident Statement MD/DO has reviewed & agrees with the documentation as recorded. - Scribe Statement The provider has reviewed the documentation as recorded by the Scribe Carl Sol All medical record entries made by the Yoandyibe were at my direction and personally dictated by me. I have reviewed the chart and agree that the record accurately reflects my personal performance of the history, physical exam, medical decision making, and the department course for this patient. I have also personally directed, reviewed, and agree with the discharge instructions and disposition.
== END 2017-05-08 06:40 | disposition left against medical advice (07) ==
LOC: C.ER 05:39
DX: F10.20 Alcohol dependence, uncomplicated (principal); Y90.9 Presence of alcohol in blood, level not specified

== ENCOUNTER 2017-05-15 09:56 | Inpatient (IN) | payer MEDICAID ==
--- NOTE | 2017-05-15 10:22 | C.PDOC ---
History Of Present Illness 46-year-old male, PMHx includes Cirrhosis and EtOH abuse, presents to the emergency department requesting detox from alcohol. Patient states that his last drink was last night at 10pm and is feeling very tremulous now. Patient also reports that he has had bilateral lower leg swelling over the past week after coming back from a long flight. Denies trauma, fever, travel, vomiting, diarrhea, Time Seen by Provider: 05/15/17 10:02 Chief Complaint (Nursing): Substance Abuse Past Medical History Reviewed: Historical Data, Nursing Documentation, Vital Signs Vital Signs: Last Vital Signs Temp 98.8 F 05/15/17 14:05 Pulse 104 H 05/15/17 14:05 Resp 20 05/15/17 14:05 BP 120/74 05/15/17 14:05 Pulse Ox 97 05/15/17 14:05 - Medical History PMH: Denies: Chronic Kidney Disease Surgical History: Endoscopy - [facility] Procedures ALCOHOL DETOXIFICATION (12/31/13) CONTROL BLEEDING IN GASTROINTESTINAL TRACT, ENDO (12/20/16) DETOXIFICATION SERVICES FOR SUBSTANCE ABUSE TREATMENT (09/27/15) EXCISION OF STOMACH, ENDO, DIAGN (04/27/15) Family History: States: No Known Family Hx - Social History Hx Tobacco Use: No Hx Alcohol Use: Yes Hx Substance Use: No - Immunization History Hx Tetanus Toxoid Vaccination: No Hx Influenza Vaccination: No Hx Pneumococcal Vaccination: No Physical Exam - Physical Exam Appears: Non-toxic, No Acute Distress ED Course And Treatment - Laboratory Results Result Diagrams: 05/15/17 11:12 05/15/17 11:12 O2 Sat by Pulse Oximetry: 98 Medical Decision Making Medical Decision Making: Venous doppler is negative. Patient was found to have low platelets, anemia, and low WBC, pancytopenia. On re-exam, the patient remains tachycardic and has tremors. Ativan IV continued. . The case was discussed with Dr. Neville (internal medicine oncall) who agrees to admit the patient to his service. Disposition - Disposition Disposition: HOSPITALIZED Disposition Time: 13:19 Condition: GOOD - Clinical Impression Clinical Impression: Alcohol dependence, Alcohol withdrawal, Pancytopenia, Tachycardia - Scribe Statement The provider has reviewed the documentation as recorded by the Scribe (Eulogio Luciano) All medical record entries made by the Scribe were at my direction and personally dictated by me. I have reviewed the chart and agree that the record accurately reflects my personal performance of the history, physical exam, medical decision making, and the department course for this patient. I have also personally directed, reviewed, and agree with the discharge instructions and disposition.
[2017-05-15 11:16] LABS: BASO # 0.1 K/uL (0.0-0.2); EOS # 0.1 K/uL (0.0-0.7); HEMOGLOBIN 8.4 g/dL (12.0-18.0); LYMPH # 0.7 K/uL (1.0-4.3); LYMPH % 25.9 % (20.0-40.0); MEAN CORPUSCULAR HEMOGLOBIN 27.9 pg (27.0-31.0); MONO # 0.4 K/uL (0.0-0.8); NEUT # 1.4 K/uL (1.8-7.0); NRBC % 0.1 % (0.0-2.0); WHITE BLOOD COUNT 2.6 K/uL (4.8-10.8)
[2017-05-15 11:21] LABS: BASO % 2.4 % (0.0-2.0); EOS % 3.8 % (0.0-4.0); MEAN CELL VOLUME 83.7 fL (80.0-94.0); MEAN CORPUSCULAR HGB CONC 33.3 g/dL (33.0-37.0); MEAN PLATELET VOLUME 8.2 fL (7.2-11.7); MONO % 14.3 % (0.0-10.0); NEUT % 53.6 % (50.0-75.0); RBC 3.01 Mil/uL (4.40-5.90); RED CELL DISTRIBUTION WIDTH 17.4 % (11.5-14.5)
[2017-05-15 11:34] LABS: ALBUMIN 3.8 g/dL (3.5-5.0); ALT/SGPT 41 U/L (21-72); AST/SGOT 128 U/L (17-59); BLOOD UREA NITROGEN 9 mg/dL (9-20); CALCIUM 8.1 mg/dl (8.6-10.4); GFR AFRICAN-AMERICAN > 60; GFR NON-AFRICAN AMERICAN > 60
[2017-05-15 12:31] LABS: SQUAMOUS EPITHIAL < 1 /hpf (0-5); URINE BILIRUBIN NEGATIVE (NEGATIVE); URINE BLOOD NEGATIVE (NEGATIVE); URINE CLARITY Clear (Clear); URINE COLOR Amber (YELLOW); URINE GLUCOSE (UA) NORMAL (Normal); URINE LEUKOCYTE ESTERASE NEG Leu/uL (Negative); URINE NITRATE NEGATIVE (NEGATIVE); URINE PROTEIN NEGATIVE (NEGATIVE)
[2017-05-15 12:59] LABS: BARBITURATES, UR NEGATIVE (NEGATIVE); BENZODIAZEPINES, UR NEGATIVE (NEGATIVE); OPIATES, UR NEGATIVE (NEGATIVE); PHENCYCLIDINE, UR NEGATIVE (NEGATIVE)
--- NOTE | 2017-05-15 13:01 | VASCLAB ---
PROCEDURE: Lower Extremity Venous Duplex Exam. HISTORY: swelling and pain to the bilateral legs PRIORS: None. TECHNIQUE: Bilateral common femoral, femoral, popliteal and posterior tibial, peroneal and great saphenous veins were evaluated. Flow was assessed with color Doppler, compressibility, assessment of phasic flow and augmentation response. Report prepared by Carl Milian, RUDDY, RVT FINDINGS: RIGHT: 1. Common Femoral Vein: 1.1. Compressibility - Fully compressible: Thrombus - None : Flow - Phasic: Augmentation -Normal: Reflux - None. 2. Femoral Vein: 2.1. Compressibility - Fully compressible: Thrombus - None : Flow - Phasic: Augmentation -Normal: Reflux - None. 3. Popliteal Vein: 3.1. Compressibility - Fully compressible: Thrombus - None : Flow - Phasic: Augmentation -Normal: Reflux - None. 4. Posterior Tibial Vein: 4.1. Compressibility - Fully compressible: Thrombus - None: Flow - Phasic: Augmentation -Normal: Reflux - None. 5. Peroneal Vein: 5.1. Compressibility - Fully compressible: Thrombus - None: Flow - Phasic: Augmentation -Normal: Reflux - None. 6. Great Saphenous Vein: 6.1. Compressibility - Fully compressible: Thrombus - None: Flow - Phasic: Augmentation - Normal: Reflux - None. LEFT: 1. Common Femoral Vein: 1.1. Compressibility - Fully compressible: Thrombus - None: Flow - Phasic: Augmentation -Normal: Reflux - None. 2. Femoral Vein: 2.1. Compressibility - Fully compressible: Thrombus - None: Flow - Phasic: Augmentation -Normal: Reflux - None. 3. Popliteal Vein: 3.1. Compressibility - Fully compressible: Thrombus - None : Flow - Phasic: Augmentation -Normal: Reflux - None. 4. Posterior Tibial Vein: 4.1. Compressibility - Fully compressible: Thrombus - None: Flow - Phasic: Augmentation -Normal: Reflux - None. 5. Peroneal Vein: 5.1. Compressibility - Fully compressible: Thrombus - None: Flow - Phasic: Augmentation -Normal: Reflux - None. 6. Great Saphenous Vein: 6.1. Compressibility - Fully compressible: Thrombus - None: Flow - Phasic: Augmentation - Normal: Reflux - None. OTHER FINDINGS: Right: None significant. Left: None significant. IMPRESSION: Right: No evidence of deep or superficial vein thrombosis of the right lower extremity. Normal valve function noted of the right side. Left: No evidence of deep or superficial vein thrombosis of the left lower extremity. Normal valve function noted of the left side.
[2017-05-15] MEDS ORDERED: Folic Acid 1 MG, Thiamine 100 MG, Multivitamin (MVI) 10 ML in Dextrose 5% In Water 1,00... IV SCH (14:30)
--- NOTE | 2017-05-15 23:33 | CP.PCM.HP ---
History of Present Illness - History of Present Illness History of Present Illness: CC: shaking HPI: 46-year-old white male, PMHx includes Cirrhosis and EtOH abuse, presents to the emergency department requesting detox from alcohol. He is non complaint drinks daily and came to hospital drunk with shaking, tremmelous and confused Patient states that his last drink was last night at 10pm and is feeling very tremulous now. Patient also reports that he has had bilateral lower leg swelling over the past week after coming back from a long flight. Denies trauma , fever, travel, vomiting, diarrhea, Present on Admission - Present on Admission Any Indicators Present on Admission: Yes Review of Systems - Review of Systems Systems not reviewed;Unavailable: Acuity of Condition, Intoxicated - Constitutional Constitutional: Fatigue, Lethargy, Malaise - EENT Eyes: absent: As Per HPI, Blind Spots, Blurred Vision, Change in Vision, Decreased Night Vision, Diplopia, Discharge, Dry Eye, Exophthalmos, Floaters, Irritation, Itchy Eyes, Loss of Peripheral Vision, Pain, Photophobia, Requires Corrective Lenses, Sees Flashes, Spots in Vision, Tunnel Vision, Other Visual Disturbances, Loss of Vision, Other Nose/Mouth/Throat: Dry Mouth - Cardiovascular Cardiovascular: Rapid Heart Rate. absent: As Per HPI, Acrocyanosis, Chest Pain , Chest Pain at Rest, Chest Pain with Activity, Claudication, Diaphoresis, Dyspnea, Dyspnea on Exertion, Edema, Irregular Heart Rhythm, Pain Radiating to Arm/Neck/Jaw, Leg Edema, Leg Ulcers, Lightheadedness, Orthopnea, Palpitations, Paroxysmal Nocturnal Dyspnea, Pedal Edema, Radiating Pain, Slow Heart Rate, Syncope, Other - Respiratory Respiratory: absent: As Per HPI, Cough, Dyspnea, Hemoptysis, Dyspnea on Exertion , Wheezing, Snoring, Stridor, Pain on Inspiration, Chest Congestion, Excessive Mucous Production, Change in Mucous Color, Pain with Coughing, Other - Gastrointestinal Gastrointestinal: Nausea, Vomiting. absent: As Per HPI, Abdominal Pain, Belching, Bloating, Change in Bowel Habits, Change in Stool Character, Coffee Ground Emesis, Constipation, Cramping, Diarrhea, Dyspepsia, Dysphagia, Early Satiety, Excessive Flatus, Fecal Incontinence, Heartburn, Hematemesis, Hematochezia, Loose Stools, Melena, Odynophagia, Temesmus, Other - Genitourinary Genitourinary: absent: As Per HPI, Change in Urinary Stream, Difficulty Urinating, Dysuria, Flank Pain, Hematuria, Pyuria, Nocturia, Urinary Incontinence, Urinary Frequency, Urinary Hesitance, Urinary Urgency, Voiding Freq/Small Amts, Freq UTI, Hx Renal/Bladder Calculi, Hx /Renal Surgery, Bladder Distension, Other - Neurological Neurological: Behavioral Changes, Lack of Coordination - Psychiatric Psychiatric: Anxiety Additional comments: alcohol abuse Past Patient History - Infectious Disease Hx of Infectious Diseases: None - Tetanus Immunizations Tetanus Immunization: Unknown - Past Medical History & Family History Past Medical History?: No - Past Social History Smoking Status: Never Smoked - PULMONARY Hx Tuberculosis: No - NEUROLOGICAL Hx Neurological Disorder: No - HEENT Hx HEENT Problems: No - RENAL Hx Chronic Kidney Disease: No - ENDOCRINE/METABOLIC Hx Endocrine Disorders: No - HEMATOLOGICAL/ONCOLOGICAL Hx Blood Disorders: No - INTEGUMENTARY Hx Dermatological Problems: No - MUSCULOSKELETAL/RHEUMATOLOGICAL Hx Falls: No - GASTROINTESTINAL Hx Gastrointestinal Disorders: Yes Other/Comment: ESOPHAGEAL VARICES - GENITOURINARY/GYNECOLOGICAL Hx Genitourinary Disorders: No - PSYCHIATRIC Hx Substance Use: No - SURGICAL HISTORY Hx Surgeries: Yes - ANESTHESIA Hx Anesthesia: Yes Hx Anesthesia Reactions: No Hx Malignant Hyperthermia: No Has any member of the family had a problem w/ anesthesia?: No Meds Allergies/Adverse Reactions: Allergies Allergy/AdvReac Type Severity Reaction Status Date / Time No Known Allergies Allergy Verified 05/15/17 10:05 Physical Exam - Constitutional Appears: Toxic, No Acute Distress, Agitated - Eye Exam Eye Exam: EOMI, Normal appearance, PERRL Pupil Exam: NORMAL ACCOMODATION, PERRL - Respiratory Exam Respiratory Exam: Clear to Auscultation Bilateral, NORMAL BREATHING PATTERN - Cardiovascular Exam Cardiovascular Exam: REGULAR RHYTHM - GI/Abdominal Exam GI & Abdominal Exam: Distended, Normal Bowel Sounds, Soft. absent: Tenderness - Extremities Exam Extremities exam: Positive for: pedal edema - Skin Additional comments: bruises all over body two sutures on right amna of head evidence of trauma Results - Vital Signs Recent Vital Signs: Last Vital Signs Temp 98.9 F 05/15/17 18:04 Pulse 102 H 05/15/17 19:16 Resp 20 05/15/17 18:04 BP 127/77 05/15/17 18:04 Pulse Ox 98 05/15/17 18:04 - Labs Result Diagrams: 05/15/17 11:12 05/15/17 11:12 Labs: Laboratory Results - last 24 hr 05/15/17 05/15/17 05/15/17 11:12 11:12 12:20 WBC 2.6 L RBC 3.01 L Hgb 8.4 L Hct 25.2 L MCV 83.7 MCH 27.9 MCHC 33.3 RDW 17.4 H Plt Count 45 L D MPV 8.2 Neut % (Auto) 53.6 Lymph % (Auto) 25.9 [place] % (Auto) 14.3 H Eos % (Auto) 3.8 Baso % (Auto) 2.4 H Neut # 1.4 L Lymph # 0.7 L [place] # 0.4 Eos # 0.1 Baso # 0.1 Sodium 142 Potassium 3.8 Chloride 105 Carbon Dioxide 25 Anion Gap 15 BUN 9 Creatinine 0.5 L Est GFR ( Amer) > 60 Est GFR (Non-Af Amer) > 60 Random Glucose 98 Calcium 8.1 L Total Bilirubin 1.6 H AST 128 H D ALT 41 Alkaline Phosphatase 282 H D Total Protein 7.6 Albumin 3.8 Globulin 3.8 Albumin/Globulin Ratio 1.0 Urine Color Michelle Urine Clarity Clear Urine pH 6.0 Ur Specific [place] 1.018 Urine Protein Negative Urine Glucose (UA) Normal Urine Ketones Negative Urine Blood Negative Urine Nitrate Negative Urine Bilirubin Negative Urine Urobilinogen 4.0 Ur Leukocyte Esterase Neg Urine WBC (Auto) 1 Urine RBC (Auto) 2 Ur Squamous Epith Cells < 1 Urine Opiates Screen Urine Methadone Screen Ur Barbiturates Screen Ur Phencyclidine Scrn Ur Amphetamines Screen U Benzodiazepines Scrn U Oth Cocaine Metabols U Cannabinoids Screen Alcohol, Quantitative 173 H 05/15/17 12:20 WBC RBC Hgb Hct MCV MCH MCHC RDW Plt Count MPV Neut % (Auto) Lymph % (Auto) [place] % (Auto) Eos % (Auto) Baso % (Auto) Neut # Lymph # [place] # Eos # Baso # Sodium Potassium Chloride Carbon Dioxide Anion Gap BUN Creatinine Est GFR ( Amer) Est GFR (Non-Af Amer) Random Glucose Calcium Total Bilirubin AST ALT Alkaline Phosphatase Total Protein Albumin Globulin Albumin/Globulin Ratio Urine Color Urine Clarity Urine pH Ur Specific [place] Urine Protein Urine Glucose (UA) Urine Ketones Urine Blood Urine Nitrate Urine Bilirubin Urine Urobilinogen Ur Leukocyte Esterase Urine WBC (Auto) Urine RBC (Auto) Ur Squamous Epith Cells Urine Opiates Screen Negative Urine Methadone Screen Negative Ur Barbiturates Screen Negative Ur Phencyclidine Scrn Negative Ur Amphetamines Screen Negative U Benzodiazepines Scrn Negative U Oth Cocaine Metabols Negative U Cannabinoids Screen Negative Alcohol, Quantitative Assessment & Plan (1) Alcohol withdrawal Status: Acute (2) Alcohol dependence Status: Chronic Priority: High (3) Leg edema Status: Acute
[2017-05-16 06:37] LABS: BASO # 0.1 K/uL (0.0-0.2); BASO % 2.5 % (0.0-2.0); EOS # 0.1 K/uL (0.0-0.7); EOS % 3.8 % (0.0-4.0); HEMOGLOBIN 8.1 g/dL (12.0-18.0); LYMPH % 32.6 % (20.0-40.0); MEAN CELL VOLUME 83.5 fL (80.0-94.0); MEAN CORPUSCULAR HGB CONC 33.5 g/dL (33.0-37.0); MEAN PLATELET VOLUME 8.9 fL (7.2-11.7); MONO # 0.4 K/uL (0.0-0.8); MONO % 13.3 % (0.0-10.0); NEUT # 1.5 K/uL (1.8-7.0); NEUT % 47.8 % (50.0-75.0); RBC 2.9 Mil/uL (4.40-5.90); RED CELL DISTRIBUTION WIDTH 16.9 % (11.5-14.5)
[2017-05-16 07:49] LABS: BLOOD UREA NITROGEN 9 mg/dL (9-20); CALCIUM 8.1 mg/dl (8.6-10.4); GFR AFRICAN-AMERICAN > 60; GFR NON-AFRICAN AMERICAN > 60
[2017-05-16] MEDS: Multiple Vitamins Tab PO SCH (10:41)
[2017-05-16] MEDS: Potassium Chloride 20 mEq ER Tab PO SCH (10:42)
--- NOTE | 2017-05-16 11:52 | PCM.PSYCH ---
Initial Psychiatric Evaluation - Initial Psychiatric Evaluation Type of Admission: Voluntary Chief Complaint (in patient's own words): " I feel hopeless" Patient's Reaction to Hospitalization: Psychiatric Consult for alcohol withdrawal The patient was seen, the chart was reviewed and the case was discussed. 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 Patient has a past medical history of liver cirrhosis who presented to the hospital for EtOH abuse with last drink yesterday at 10pm (10 glasses of Gin-Tonic). Patient was admitted to medical floor due to elevated heart rate. Psychiatric consult was placed due to patient's history of alcohol use and possible alcohol withdrawal. During the encounter, patient denies nausea, vomiting and being flushed. 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 He states he drinks 8-10 glasses of gin/tonic every day and occasionally drinks a bottle of red wine. He stated he drinks immediately upon waking up in the morning to "settle his stomach and suppress my nausea". Patient stated he relapsed to heavy drinking during his vacation to [facility] [place] in the past 2-3 weeks. Patient has been to detox 4 times in the past. He's attempted rehab twice, including a stay of 8 weeks and another stay for 4 weeks. He says he was given a naltrexone injection last year but it resulted in adverse effects such as him slurring his words. He was not sure if topamax was administered concurrently with the naltrexone injection. Patient has completed 109 days of AA meeting in this year. Patient states that his longest period of sobriety was 6 months. He admits to history of shakiness and tremors but denies a history of seizures. He admitted to depressive symptoms in the past related to his job loss but has never received treatment. He denies any psychiatric history. He denies any other drug use including tobacco, heroin, cocaine, benzos, lsd, pcp, marijuana. Psych Hx: denies Past medical history: Liver cirrhosis Family Hx: brother with alcohol use disorder Current Medications: Active Medications Generic Name Dose Route Start Last Admin Trade Name Freq PRN Reason Stop Dose Admin Acetaminophen 650 mg 05/15/17 17:07 Tylenol 325mg Tab PO Q6 PRN Headache Folic Acid 1 mg 05/16/17 10:00 05/16/17 10:41 Folic Acid PO 1 mg DAILY ANTONY Administration Loperamide HCl 2 mg 05/15/17 22:29 05/15/17 22:53 Imodium PO 2 mg Q4H PRN Administration LOOSE BM Lorazepam 1 mg 05/15/17 17:00 05/16/17 06:13 Ativan IVP 1 mg Q6H PRN Administration Anxiety Lorazepam 1 mg 05/16/17 11:22 Ativan PO Q4H PRN Symptoms of alcohol withdrawl Lorazepam 2 mg 05/16/17 11:30 Ativan PO 05/21/17 11:29 Q4 ANTONY Taper Multivitamins 1 tab 05/16/17 10:00 05/16/17 10:41 Hexavitamin PO 1 tab DAILY ANTONY Administration Pneumococcal Polyvalent Vaccine 0.5 ml 05/17/17 10:00 Pneumovax 23 Vaccine IM 05/17/17 10:01 .ONCE ONE Potassium Chloride 40 meq 05/16/17 10:00 05/16/17 10:42 K-Dur 20 Meq Er Tab PO 05/17/17 10:01 40 meq DAILY ANTONY Administration Thiamine HCl 100 mg 05/16/17 11:30 Vitamin B1 Tab PO DAILY ANTONY Trazodone HCl 50 mg 05/16/17 11:22 Desyrel PO HS PRN Insomnia Past Psychiatric History - Past Psychiatric History Previous Treatment History: Inpatient Pertinent Medical Hx (Current Medical&Sleep Prob, Allergies): Allergies Allergy/AdvReac Type Severity Reaction Status Date / Time No Known Allergies Allergy Verified 05/15/17 10:05 No Known Home Med 05/08/17 Review of Systems - Constitutional Constitutional: Chills - Cardiovascular Cardiovascular: Palpitations - Neurological Neurological: Tremor - Psychiatric Psychiatric: Anxiety, Depression, UNREMARKABLE. absent: Hallucinations, Homicidal Ideation, Suicidal Ideation, Visual Hallucinations, Tactile Hallucinations Mental Status Examination - Personal Presentation Personal Presentation: Looks stated age - Affect Affect: Depressed - Motor Activity Motor Activity: Calm - Reliability in Providing Information Reliability in Providing Information: Good - Speech Speech: Organized - Mood Mood: Depressed, Anxious - Formal Thought Process Formal Thought Process: No Impairment - Obsessions/Compulsions Obsessions: No Compulsions: No - Cognitive Functions Orientation: Person, Place, Situation Sensorium: Alert Attention/Concentration: Attentive Estimate of Intelligence: Average Judgement: Intact, as evidence by: Insight regarding need for hospitalization - Risk Risk: Withdrawal - Strength & Assets Inventory Strength & Assets Inventory: Cooperative DSM 5 DX - DSM 5 DSM 5 Diagnosis: Alcohol withdrawal Alcohol disorder----> Severe Depressed - Recommended/Plan of Treatment Treatment Recommendations and Plan of Treatment: Ativan taper Trazodone 50mg PO daily Zoloft 25mg PO daily As needed medications Supportive therapy and psychoeducation MA for abstinence Refer to rehab or IOP, and self-help groups Prognosis: Good with treatment - Smoking Cessation Smoking Cessation Initiated: No
--- NOTE | 2017-05-16 15:43 | CARD ---
APPROVED REPORT EKG Measurement Heart [id number] <Conclusion> Normal sinus rhythm Nonspecific ST abnormality Abnormal ECG
--- NOTE | 2017-05-16 15:44 | CARD ---
APPROVED REPORT EKG Measurement Heart [id number] <Conclusion> Sinus tachycardia Nonspecific ST and T wave abnormality Abnormal ECG
--- NOTE | 2017-05-16 19:43 | CP.PCM.PN ---
Subjective - Date & Time of Evaluation Date of Evaluation: 05/16/17 Time of Evaluation: 17:55 - Subjective Subjective: Pt seen and examined at bedside, also seen by psychiatry , less shaking, less tremolous on and off ativan and medical management Objective - Vital Signs/Intake and Output Vital Signs (last 24 hours): Temp Pulse Resp BP Pulse Ox 98.6 F 98 H 20 149/76 95 05/16/17 16:00 05/16/17 16:00 05/16/17 16:00 05/16/17 16:00 05/16/17 16:00 - Medications Medications: Current Medications Acetaminophen (Tylenol 325mg Tab) 650 mg PO Q6 PRN PRN Reason: Headache Folic Acid (Folic Acid) 1 mg PO DAILY ANTONY Last Admin: 05/16/17 10:41 Dose: 1 mg Loperamide HCl (Imodium) 2 mg PO Q4H PRN PRN Reason: LOOSE BM Last Admin: 05/15/17 22:53 Dose: 2 mg Lorazepam (Ativan) 1 mg IVP Q6H PRN PRN Reason: Anxiety Last Admin: 05/16/17 06:13 Dose: 1 mg Lorazepam (Ativan) 1 mg PO Q4H PRN PRN Reason: Symptoms of alcohol withdrawl Lorazepam (Ativan) 2 mg PO Q4 ANTONY PRN Reason: Taper Stop: 05/21/17 11:29 Last Admin: 05/16/17 16:17 Dose: 2 mg Multivitamins (Hexavitamin) 1 tab PO DAILY ANTONY Last Admin: 05/16/17 10:41 Dose: 1 tab Pneumococcal Polyvalent Vaccine (Pneumovax 23 Vaccine) 0.5 ml IM .ONCE ONE Stop: 05/17/17 10:01 Potassium Chloride (K-Dur 20 Meq Er Tab) 40 meq PO DAILY ANTONY Stop: 05/17/17 10:01 Last Admin: 05/16/17 10:42 Dose: 40 meq Sertraline HCl (Zoloft) 25 mg PO DAILY ANTONY Last Admin: 05/16/17 14:10 Dose: 25 mg Thiamine HCl (Vitamin B1 Tab) 100 mg PO DAILY ANTONY Last Admin: 05/16/17 12:27 Dose: 100 mg Trazodone HCl (Desyrel) 50 mg PO HS PRN PRN Reason: Insomnia - Labs Labs: 05/16/17 06:30 05/16/17 06:30 - Constitutional Appears: Toxic, No Acute Distress, Confused - Eye Exam Eye Exam: EOMI, Normal appearance, PERRL Pupil Exam: NORMAL ACCOMODATION, PERRL - Respiratory Exam Respiratory Exam: Clear to Ausculation Bilateral, NORMAL BREATHING PATTERN - Cardiovascular Exam Cardiovascular Exam: REGULAR RHYTHM, +S1, +S2. absent: Murmur - GI/Abdominal Exam GI & Abdominal Exam: Soft, Normal Bowel Sounds. absent: Tenderness Assessment and Plan (1) Alcohol withdrawal Assessment & Plan: Ativan taper Trazodone 50mg PO daily Zoloft 25mg PO daily As needed medications Supportive therapy and psychoeducation [place] for abstinence Refer to rehab or IOP, and self-help groups Status: Acute (2) Alcohol dependence Status: Chronic (3) Leg edema Status: Acute
[2017-05-17 08:17] LABS: BLOOD UREA NITROGEN 11 mg/dL (9-20); CALCIUM 8.7 mg/dl (8.6-10.4); GFR AFRICAN-AMERICAN > 60; GFR NON-AFRICAN AMERICAN > 60; MAGNESIUM 1.4 mg/dL (1.6-2.3)
[2017-05-17] MEDS ORDERED: Pneumococcal 23-Valent Vaccine IM ONE (10:00)
[2017-05-17] MEDS: Multiple Vitamins Tab PO SCH (10:19)
[2017-05-17] MEDS: Potassium Chloride 20 mEq ER Tab PO SCH (10:20)
[2017-05-17] MEDS: Magnesium Oxide 400 mg Tab UD PO SCH ×2 (12:40→18:55)
--- NOTE | 2017-05-17 23:08 | CP.PCM.PN ---
Subjective - Date & Time of Evaluation Date of Evaluation: 05/17/17 Time of Evaluation: 19:40 - Subjective Subjective: Patient seen and examined today, is tremoloulous,anxious, recieved ativan Objective - Vital Signs/Intake and Output Vital Signs (last 24 hours): Temp Pulse Resp BP Pulse Ox 97.9 F 84 18 118/75 100 05/17/17 15:12 05/17/17 15:12 05/17/17 15:12 05/17/17 15:12 05/17/17 15:12 Intake and Output: 05/17/17 05/18/17 18:59 06:59 Intake Total 320 Balance 320 - Medications Medications: Current Medications Acetaminophen (Tylenol 325mg Tab) 650 mg PO Q6 PRN PRN Reason: Headache Folic Acid (Folic Acid) 1 mg PO DAILY ANTONY Last Admin: 05/17/17 10:20 Dose: 1 mg Loperamide HCl (Imodium) 2 mg PO Q4H PRN PRN Reason: LOOSE BM Last Admin: 05/15/17 22:53 Dose: 2 mg Lorazepam (Ativan) 1 mg IVP Q6H PRN PRN Reason: Anxiety Last Admin: 05/17/17 21:23 Dose: 1 mg Lorazepam (Ativan) 1 mg PO Q4H PRN PRN Reason: Symptoms of alcohol withdrawl Lorazepam (Ativan) 1 mg PO Q6 ANTONY PRN Reason: Taper Stop: 05/21/17 11:29 Last Admin: 05/17/17 18:55 Dose: 1 mg Magnesium Oxide (Mag-Ox) 400 mg PO BID ANTONY Stop: 05/19/17 12:01 Last Admin: 05/17/17 18:55 Dose: 400 mg Multivitamins (Hexavitamin) 1 tab PO DAILY ANTONY Last Admin: 05/17/17 10:19 Dose: 1 tab Sertraline HCl (Zoloft) 25 mg PO DAILY ANTONY Last Admin: 05/17/17 10:19 Dose: 25 mg Thiamine HCl (Vitamin B1 Tab) 100 mg PO DAILY ANTONY Last Admin: 05/17/17 10:19 Dose: 100 mg Trazodone HCl (Desyrel) 50 mg PO HS PRN PRN Reason: Insomnia Last Admin: 05/17/17 21:23 Dose: 50 mg - Labs Labs: 05/16/17 06:30 05/17/17 07:25 - Constitutional Appears: Toxic, Agitated - Head Exam Head Exam: ATRAUMATIC, NORMAL INSPECTION, NORMOCEPHALIC - Eye Exam Eye Exam: EOMI, Normal appearance, PERRL Pupil Exam: NORMAL ACCOMODATION, PERRL - Respiratory Exam Respiratory Exam: Clear to Ausculation Bilateral, NORMAL BREATHING PATTERN - Cardiovascular Exam Cardiovascular Exam: REGULAR RHYTHM, +S1, +S2. absent: Murmur - GI/Abdominal Exam GI & Abdominal Exam: Soft, Normal Bowel Sounds. absent: Tenderness Assessment and Plan (1) Alcohol withdrawal Status: Acute (2) Alcohol dependence Status: Chronic (3) Leg edema Status: Acute (4) Pancytopenia Status: Acute
[2017-05-18] MEDS: Magnesium Oxide 400 mg Tab UD PO SCH ×2 (10:11→17:25)
[2017-05-18] MEDS: Multiple Vitamins Tab PO SCH (10:11)
--- NOTE | 2017-05-18 13:20 | CP.PCM.PN ---
Subjective - Date & Time of Evaluation Date of Evaluation: 05/18/17 Time of Evaluation: 13:11 - Subjective Subjective: PT SEEN FOR D/C HOME TODAY PER DR. WILBURN AND [facility] AND SORTER MANISHA REQUEST, PT SEEN AT BEDSIDE AND IS RELUCTANT O BE D/C HOME. HE STATES HE STILL FEELS SHAKY AND NOT COMFORTABLE GOING HOME TODAY. HE ALSO STATED THAT HE HAS NOT SEEN PSYCH SINCE INITIAL EVALUATION AND WOULD LIKE DETOX. SUTURES NOTED TO FOREHEAD AND PT STATES THEY WERE PUT IN OVER A WEEK AND A HALF AGO AND HE WOULD LIKE THEM OUT. ON EXAM PT NOTED TO HAVE +TREMORS; IS AOOX3; GAIT STEADY AT THIS TIME. NOTED TO RIGHT FOREHEAD 2 SUTURES AND FULLY HEALED SKIN WOUND. PLAN: CONTINUE PT'S ATIVAN TAPER---STILL HAS SEVERAL DAYS; PSYCH CALLED BY [employer] [facility] AND THEY WILL COME TO RE-EVAL THE PT; 2 SUTURES REMOVED TO RIGHT FOREHEAD AND PT TOLERATED WELL (SKIN HEALED FULLY, NO DRAINAGE OR OPENING NOTED). DR. WILBURN MADE AWARE AND OK WITH PLAN. UPON D/C, PT TO RECEIVE THE FOLLOWING RX PER DR. WILBURN: ZOLOFT 25 MG PO QD; ALDACTONE 25 MG PO TID X5 DAYS; MVI 1 TAB PO QD. Objective - Vital Signs/Intake and Output Vital Signs (last 24 hours): Temp Pulse Resp BP Pulse Ox 98.2 F 94 H 18 106/64 100 05/18/17 07:20 05/18/17 11:26 05/18/17 07:20 05/18/17 11:26 05/18/17 07:20 Intake and Output: 05/18/17 05/18/17 06:59 18:59 Intake Total 320 Balance 320 - Medications Medications: Current Medications Acetaminophen (Tylenol 325mg Tab) 650 mg PO Q6 PRN PRN Reason: Headache Folic Acid (Folic Acid) 1 mg PO DAILY ANTONY Last Admin: 05/18/17 10:11 Dose: 1 mg Loperamide HCl (Imodium) 2 mg PO Q4H PRN PRN Reason: LOOSE BM Last Admin: 05/15/17 22:53 Dose: 2 mg Lorazepam (Ativan) 1 mg IVP Q6H PRN PRN Reason: Anxiety Last Admin: 05/17/17 21:23 Dose: 1 mg Lorazepam (Ativan) 1 mg PO Q4H PRN PRN Reason: Symptoms of alcohol withdrawl Lorazepam (Ativan) 1 mg PO Q6 ANTONY PRN Reason: Taper Stop: 05/21/17 11:29 Last Admin: 05/18/17 11:27 Dose: 1 mg Magnesium Oxide (Mag-Ox) 400 mg PO BID ANTONY Stop: 05/19/17 12:01 Last Admin: 05/18/17 10:11 Dose: 400 mg Multivitamins (Hexavitamin) 1 tab PO DAILY ANTONY Last Admin: 05/18/17 10:11 Dose: 1 tab Sertraline HCl (Zoloft) 25 mg PO DAILY [facility] Last Admin: 05/18/17 10:11 Dose: 25 mg Thiamine HCl (Vitamin B1 Tab) 100 mg PO DAILY [facility] Last Admin: 05/18/17 10:11 Dose: 100 mg Trazodone HCl (Desyrel) 50 mg PO HS PRN PRN Reason: Insomnia Last Admin: 05/17/17 21:23 Dose: 50 mg - Labs Labs: 05/16/17 06:30 05/17/17 07:25
--- NOTE | 2017-05-18 13:53 | CP.PCM.PN ---
Subjective - Date & Time of Evaluation Date of Evaluation: 05/18/17 Time of Evaluation: 14:00 - Subjective Subjective: Pt seen and evaluted at bedside Objective - Vital Signs/Intake and Output Vital Signs (last 24 hours): Temp Pulse Resp BP Pulse Ox 98.2 F 94 H 18 106/64 100 05/18/17 07:20 05/18/17 11:26 05/18/17 07:20 05/18/17 11:26 05/18/17 07:20 Intake and Output: 05/18/17 05/18/17 06:59 18:59 Intake Total 320 Balance 320 - Medications Medications: Current Medications Acetaminophen (Tylenol 325mg Tab) 650 mg PO Q6 PRN PRN Reason: Headache Folic Acid (Folic Acid) 1 mg PO DAILY [facility] Last Admin: 05/18/17 10:11 Dose: 1 mg Loperamide HCl (Imodium) 2 mg PO Q4H PRN PRN Reason: LOOSE BM Last Admin: 05/15/17 22:53 Dose: 2 mg Lorazepam (Ativan) 1 mg IVP Q6H PRN PRN Reason: Anxiety Last Admin: 05/17/17 21:23 Dose: 1 mg Lorazepam (Ativan) 1 mg PO Q4H PRN PRN Reason: Symptoms of alcohol withdrawl Lorazepam (Ativan) 1 mg PO Q6 ANTONY PRN Reason: Taper Stop: 05/21/17 11:29 Last Admin: 05/18/17 11:27 Dose: 1 mg Magnesium Oxide (Mag-Ox) 400 mg PO BID ANTONY Stop: 05/19/17 12:01 Last Admin: 05/18/17 10:11 Dose: 400 mg Multivitamins (Hexavitamin) 1 tab PO DAILY ANTONY Last Admin: 05/18/17 10:11 Dose: 1 tab Sertraline HCl (Zoloft) 25 mg PO DAILY [facility] Last Admin: 05/18/17 10:11 Dose: 25 mg Thiamine HCl (Vitamin B1 Tab) 100 mg PO DAILY ANTONY Last Admin: 05/18/17 10:11 Dose: 100 mg Trazodone HCl (Desyrel) 50 mg PO HS PRN PRN Reason: Insomnia Last Admin: 05/17/17 21:23 Dose: 50 mg - Labs Labs: 05/16/17 06:30 05/17/17 07:25 Assessment and Plan (1) Alcohol withdrawal Status: Acute (2) Alcohol dependence Status: Chronic (3) Leg edema Status: Acute (4) Pancytopenia Status: Acute
--- NOTE | 2017-05-18 17:20 | PCM.PYCHPN ---
Psychiatric Progress Note - Psychiatric Progress Note Patient seen today, length of contact: 15 min Patient Chief Complaint: i need to detox from ativan mi don.t feel ready to go home Problems Identified/Issues Discussed: sobriety relapse prevention after care post acute withdrawal syndrome Medical Problems: increaed liver functions Diagnostic Results: reviewed DSM 5 Symptoms Update: anxious Medication Change: No Medical Record Reviewed: Yes Mental Status Examination - Cognitive Function Orientation: Person, Place, Situation Memory: Intact Attention: WNL Concentration: WNL Association: WNL Fund of Knowledge: WNL - Mood Mood: Depressed, Anxious - Affect Affect: Depressed - Speech Speech: Appropriate - Formal Thought Process Formal Thought Process: No Impairment - Suicidal Ideation Suicidal Ideation: No - Homicidal Ideation Homicidal Ideation: No Goal/Treatment Plan - Goal/Treatment Plan Need for Continued Stay: Remain at risks for inpatient hospitalization, Severe depression anxiety, Discharge may exacerbated symptoms Progress Toward Problem(s) and Goals/Treatment Plan: increased insight and judement in need to stay sober - Smoking Cessation Smoking Cessation Initiated: No
--- NOTE | 2017-05-18 19:50 | PCM.BM ---
<ChristianMoraima - Last Filed: 05/18/17 19:49> Treatment Plan Problems - Problems identified on initial assessmt Potential for alcohol withdrawal Date Initiated: 05/18/17 Time Initiated: 19:49 Assessment reference: NA Status: Active Treatment assets and liabiliti Patient Assests: ADL independent, negotiates basic needs, cognitively intact Patient Liabilities: substance abuse (ETOH), medical problems - Milieu Protocol Maintain good personal hygiene: daily Encourage regular showers, daily Remind patient to perform daily oral care, daily Assist patient to perform ADL's Conduct patient checks and document Observation sheet: Q15 minutes Maintain personal safety: every shift Educate patient to report safety concerns to staff, every shift Monitor environment for contraband/sharps Medication safety: Monitor for expected outcome, potential side effects: every shift, Assess barriers to learning: every shift, Assess readiness for medication education: every shift Milieu Narrative: increased insight and judement in need to stay sober Discharge/Continuing Care - Treatment Team Participation Patient/Family/SO Statement: increased insight and judement in need to stay sober <Lu Luz - Last Filed: 05/23/17 20:00> - Diagnosis (1) Alcohol use disorder, severe, dependence Status: Acute Interventions: 05/23/17 20:00 * Assess 7x/week regarding severity of withdrawal * Educate regarding risks, benefits, side effects and alternatives of medications * Use Motivational Interviewing for abstinence * Use CBT for relapse prevention * Medication management for withdrawal symptoms * Encourage medication assisted treatment *
[2017-05-19] MEDS: Magnesium Oxide 400 mg Tab UD PO SCH (10:13)
[2017-05-19] MEDS: Multiple Vitamins Tab PO SCH (10:14)
--- NOTE | 2017-05-19 20:50 | PCM.PYCHPN ---
Psychiatric Progress Note - Psychiatric Progress Note Patient seen today, length of contact: 15 min Patient Chief Complaint: I AM STILL VERY SHAKY Problems Identified/Issues Discussed: sobriety relapse prevention after care post acute withdrawal syndrom LIVER FUNCTION TESTS Medical Problems: INCREASED LFTS Diagnostic Results: REVIEWED DSM 5 Symptoms Update: ANXIOUS Medication Change: Yes (ATIVAN TAPER) Medical Record Reviewed: Yes Mental Status Examination - Cognitive Function Orientation: Person, Place, Situation, Time Memory: Intact Attention: WNL Concentration: WNL Association: WNL Fund of Knowledge: WNL - Mood Mood: Depressed, Anxious - Affect Affect: Depressed - Speech Speech: Appropriate - Formal Thought Process Formal Thought Process: No Impairment - Suicidal Ideation Suicidal Ideation: No - Homicidal Ideation Homicidal Ideation: No Goal/Treatment Plan - Goal/Treatment Plan Need for Continued Stay: Severe depression anxiety, Discharge may exacerbated symptoms Progress Toward Problem(s) and Goals/Treatment Plan: increased insight and judgement in need to stay sober HOWALCOHOL ISAFFECTING HIS PHYSICAL HEALTH Estimated Date of D/C: 05/22/17 - Smoking Cessation Smoking Cessation Initiated: Yes
--- NOTE | 2017-05-19 21:43 | CP.PCM.PN ---
Subjective - Date & Time of Evaluation Date of Evaluation: 05/19/17 Time of Evaluation: 10:15 - Subjective Subjective: Pt is seen and examined, still shaking, tremulous, on sobriety relapse prevention after care post acute withdrawal syndrom Objective - Vital Signs/Intake and Output Vital Signs (last 24 hours): Temp Pulse Resp BP Pulse Ox 98.3 F 90 18 107/70 98 05/19/17 20:46 05/19/17 20:46 05/19/17 20:46 05/19/17 20:46 05/19/17 20:46 - Medications Medications: Current Medications Acetaminophen (Tylenol 325mg Tab) 650 mg PO Q6 PRN PRN Reason: Headache Folic Acid (Folic Acid) 1 mg PO DAILY [facility] Last Admin: 05/19/17 10:15 Dose: 1 mg Loperamide HCl (Imodium) 2 mg PO Q4H PRN PRN Reason: LOOSE BM Last Admin: 05/15/17 22:53 Dose: 2 mg Lorazepam (Ativan) 1 mg PO Q8 ANTONY Stop: 05/20/17 06:01 Last Admin: 05/19/17 13:29 Dose: 1 mg Lorazepam (Ativan) 1 mg PO Q12 ANTONY Stop: 05/21/17 10:01 Lorazepam (Ativan) 1 mg PO ONCE ONE Stop: 05/21/17 10:01 Lorazepam (Ativan) 0.5 mg PO Q6 PRN PRN Reason: alcohol withdrawal Last Admin: 05/18/17 23:35 Dose: 0.5 mg Multivitamins (Hexavitamin) 1 tab PO DAILY ANTONY Last Admin: 05/19/17 10:14 Dose: 1 tab Sertraline HCl (Zoloft) 25 mg PO DAILY ANTONY Last Admin: 05/19/17 10:15 Dose: 25 mg Thiamine HCl (Vitamin B1 Tab) 100 mg PO DAILY ANTONY Last Admin: 05/19/17 10:14 Dose: 100 mg Trazodone HCl (Desyrel) 50 mg PO HS PRN PRN Reason: Insomnia Last Admin: 05/18/17 20:59 Dose: 50 mg - Labs Labs: 05/16/17 06:30 05/17/17 07:25 Assessment and Plan (1) Alcohol withdrawal Status: Acute (2) Alcohol dependence Status: Chronic (3) Leg edema Status: Acute
--- NOTE | 2017-05-19 23:26 | CP.PCM.PN ---
Subjective - Date & Time of Evaluation Date of Evaluation: 05/18/17 Time of Evaluation: 18:00 - Subjective Subjective: Pt is still shaking, tremulous Objective - Vital Signs/Intake and Output Vital Signs (last 24 hours): Temp Pulse Resp BP Pulse Ox 98.3 F 90 18 107/70 98 05/19/17 20:46 05/19/17 20:46 05/19/17 20:46 05/19/17 20:46 05/19/17 20:46 - Medications Medications: Current Medications Acetaminophen (Tylenol 325mg Tab) 650 mg PO Q6 PRN PRN Reason: Headache Folic Acid (Folic Acid) 1 mg PO DAILY [facility] Last Admin: 05/19/17 10:15 Dose: 1 mg Loperamide HCl (Imodium) 2 mg PO Q4H PRN PRN Reason: LOOSE BM Last Admin: 05/15/17 22:53 Dose: 2 mg Lorazepam (Ativan) 1 mg PO Q8 ANTONY Stop: 05/20/17 06:01 Last Admin: 05/19/17 22:06 Dose: 1 mg Lorazepam (Ativan) 1 mg PO Q12 ANTONY Stop: 05/21/17 10:01 Lorazepam (Ativan) 1 mg PO ONCE ONE Stop: 05/21/17 10:01 Lorazepam (Ativan) 0.5 mg PO Q6 PRN PRN Reason: alcohol withdrawal Last Admin: 05/18/17 23:35 Dose: 0.5 mg Multivitamins (Hexavitamin) 1 tab PO DAILY [facility] Last Admin: 05/19/17 10:14 Dose: 1 tab Sertraline HCl (Zoloft) 25 mg PO DAILY [facility] Last Admin: 05/19/17 10:15 Dose: 25 mg Thiamine HCl (Vitamin B1 Tab) 100 mg PO DAILY ANTONY Last Admin: 05/19/17 10:14 Dose: 100 mg Trazodone HCl (Desyrel) 50 mg PO HS PRN PRN Reason: Insomnia Last Admin: 05/18/17 20:59 Dose: 50 mg - Labs Labs: 05/16/17 06:30 05/17/17 07:25 Assessment and Plan (1) Alcohol withdrawal Status: Acute (2) Alcohol dependence Status: Chronic (3) Leg edema Status: Acute
[2017-05-20] MEDS: Multiple Vitamins Tab PO SCH (09:35)
--- NOTE | 2017-05-20 10:03 | PCM.PYCHPN ---
Psychiatric Progress Note - Psychiatric Progress Note Patient seen today, length of contact: 15 min Patient Chief Complaint: I am feeling much better Problems Identified/Issues Discussed: Patient seen and evaluated, chart reviewed and discussed with the nurse. Pt reports that he is doing much better than before. However he still reports some withdrawal symptoms including nausea, headaches and sweating. He reports improvement in his mood and denies any feelings of hopelessness and helplessness. He denies any SI/HI/AVH. He is taking medications and denies any side effects. He needs more time for stabilization. Supportive therapy and psychoeducation were given. Medication Change: Yes (Ativan taper) Medical Record Reviewed: Yes Mental Status Examination - Cognitive Function Orientation: Person, Place, Situation, Time Memory: Intact Attention: WNL Concentration: WNL Association: WNL Fund of Knowledge: Poor - Mood Mood: Depressed, Anxious - Affect Affect: Depressed - Speech Speech: Appropriate, Soft - Formal Thought Process Formal Thought Process: No Impairment - Suicidal Ideation Suicidal Ideation: No - Homicidal Ideation Homicidal Ideation: No Goal/Treatment Plan - Goal/Treatment Plan Need for Continued Stay: Severe depression anxiety, Discharge may exacerbated symptoms Progress Toward Problem(s) and Goals/Treatment Plan: Alcohol withdrawal Alcohol use disorder Severe Depressed Ativan taper Trazodone 50mg PO daily Zoloft 25mg PO daily As needed medications Supportive therapy and psychoeducation [place] for abstinence Refer to rehab or IOP, and self-help groups Estimated Date of D/C: 05/22/17 - Smoking Cessation Smoking Cessation Initiated: No
[2017-05-20 11:51] LABS: BASO # 0.1 K/uL (0.0-0.2); BASO % 2.4 % (0.0-2.0); EOS # 0.1 K/uL (0.0-0.7); EOS % 2.7 % (0.0-4.0); HEMOGLOBIN 9.4 g/dL (12.0-18.0); LYMPH % 23.3 % (20.0-40.0); MEAN CELL VOLUME 84.9 fL (80.0-94.0); MEAN CORPUSCULAR HEMOGLOBIN 28.1 pg (27.0-31.0); MEAN CORPUSCULAR HGB CONC 33.1 g/dL (33.0-37.0); MEAN PLATELET VOLUME 9.4 fL (7.2-11.7); MONO # 0.5 K/uL (0.0-0.8); MONO % 10.8 % (0.0-10.0); NEUT # 2.7 K/uL (1.8-7.0); NEUT % 60.8 % (50.0-75.0); RBC 3.35 Mil/uL (4.40-5.90); RED CELL DISTRIBUTION WIDTH 17.6 % (11.5-14.5); WHITE BLOOD COUNT 4.4 K/uL (4.8-10.8)
[2017-05-20 12:14] LABS: ALBUMIN 4.1 g/dL (3.5-5.0); ALT/SGPT 43 U/L (21-72); AST/SGOT 84 U/L (17-59); BLOOD UREA NITROGEN 18 mg/dL (9-20); CALCIUM 8.8 mg/dl (8.6-10.4); GFR AFRICAN-AMERICAN > 60; GFR NON-AFRICAN AMERICAN > 60
--- NOTE | 2017-05-20 21:56 | CP.PCM.PN ---
Subjective - Date & Time of Evaluation Date of Evaluation: 05/20/17 Time of Evaluation: 21:00 - Subjective Subjective: Pt seen and evaluated Objective - Vital Signs/Intake and Output Vital Signs (last 24 hours): Temp Pulse Resp BP Pulse Ox 98.4 F 81 18 125/77 99 05/20/17 20:32 05/20/17 20:32 05/20/17 20:32 05/20/17 20:32 05/20/17 20:32 - Medications Medications: Current Medications Acetaminophen (Tylenol 325mg Tab) 650 mg PO Q6 PRN PRN Reason: Headache Folic Acid (Folic Acid) 1 mg PO DAILY [facility] Last Admin: 05/20/17 09:35 Dose: 1 mg Hydroxyzine HCl (Atarax) 25 mg PO Q6H PRN PRN Reason: Anxiety Last Admin: 05/20/17 21:54 Dose: 25 mg Loperamide HCl (Imodium) 2 mg PO Q4H PRN PRN Reason: LOOSE BM Last Admin: 05/15/17 22:53 Dose: 2 mg Lorazepam (Ativan) 1 mg PO Q12 [facility] Stop: 05/21/17 10:01 Last Admin: 05/20/17 21:54 Dose: 1 mg Lorazepam (Ativan) 1 mg PO ONCE ONE Stop: 05/21/17 10:01 Lorazepam (Ativan) 0.5 mg PO Q6 PRN PRN Reason: alcohol withdrawal Last Admin: 05/18/17 23:35 Dose: 0.5 mg Multivitamins (Hexavitamin) 1 tab PO DAILY [facility] Last Admin: 05/20/17 09:35 Dose: 1 tab Sertraline HCl (Zoloft) 25 mg PO DAILY [facility] Last Admin: 05/20/17 09:35 Dose: 25 mg Thiamine HCl (Vitamin B1 Tab) 100 mg PO DAILY [facility] Last Admin: 05/20/17 09:35 Dose: 100 mg Trazodone HCl (Desyrel) 50 mg PO HS PRN PRN Reason: Insomnia Last Admin: 05/20/17 21:54 Dose: 50 mg - Labs Labs: 05/20/17 11:40 05/20/17 11:40 Assessment and Plan (1) Alcohol withdrawal Status: Acute (2) Alcohol dependence Status: Chronic (3) Leg edema Status: Acute
[2017-05-21] MEDS: Multiple Vitamins Tab PO SCH (09:18)
--- NOTE | 2017-05-21 21:36 | CP.PCM.PN ---
Subjective - Date & Time of Evaluation Date of Evaluation: 05/21/17 Time of Evaluation: 19:00 - Subjective Subjective: Pt is for detox, alcohol withdrwal symptoms improving, possible discharge tomorrow Objective - Vital Signs/Intake and Output Vital Signs (last 24 hours): Temp Pulse Resp BP Pulse Ox 97.8 F 77 16 129/83 100 05/21/17 17:00 05/21/17 17:00 05/21/17 17:00 05/21/17 17:00 05/21/17 17:00 - Medications Medications: Current Medications Acetaminophen (Tylenol 325mg Tab) 650 mg PO Q6 PRN PRN Reason: Headache Folic Acid (Folic Acid) 1 mg PO DAILY [facility] Last Admin: 05/21/17 09:18 Dose: 1 mg Hydroxyzine HCl (Atarax) 25 mg PO Q6H PRN PRN Reason: Anxiety Last Admin: 05/20/17 21:54 Dose: 25 mg Loperamide HCl (Imodium) 2 mg PO Q4H PRN PRN Reason: LOOSE BM Last Admin: 05/15/17 22:53 Dose: 2 mg Lorazepam (Ativan) 0.5 mg PO Q6 PRN PRN Reason: alcohol withdrawal Last Admin: 05/18/17 23:35 Dose: 0.5 mg Multivitamins (Hexavitamin) 1 tab PO DAILY [facility] Last Admin: 05/21/17 09:18 Dose: 1 tab Sertraline HCl (Zoloft) 50 mg PO DAILY [facility] Last Admin: 05/21/17 09:19 Dose: 50 mg Thiamine HCl (Vitamin B1 Tab) 100 mg PO DAILY [facility] Last Admin: 05/21/17 09:18 Dose: 100 mg Trazodone HCl (Desyrel) 50 mg PO HS PRN PRN Reason: Insomnia Last Admin: 05/20/17 21:54 Dose: 50 mg - Labs Labs: 05/20/17 11:40 05/20/17 11:40 - Constitutional Appears: No Acute Distress - Head Exam Head Exam: ATRAUMATIC, NORMAL INSPECTION, NORMOCEPHALIC - Eye Exam Eye Exam: EOMI, Normal appearance, PERRL Pupil Exam: NORMAL ACCOMODATION, PERRL - Cardiovascular Exam Cardiovascular Exam: REGULAR RHYTHM, +S1, +S2. absent: Murmur - GI/Abdominal Exam GI & Abdominal Exam: Soft, Normal Bowel Sounds. absent: Tenderness - Neurological Exam Neurological Exam: Alert, Awake, CN II-XII Intact, Normal Gait, Oriented x3 - Psychiatric Exam Psychiatric exam: Normal Affect, Normal Mood Assessment and Plan (1) Alcohol withdrawal Status: Acute (2) Alcohol dependence Status: Chronic (3) Leg edema Status: Acute
[2017-05-21 22:16] VITALS: RESP 18
--- NOTE | 2017-05-22 00:32 | PCM.PYCHPN ---
Psychiatric Progress Note - Psychiatric Progress Note Patient seen today, length of contact: 15 min Patient Chief Complaint: "OK" Problems Identified/Issues Discussed: The pt is seen, chart reviewed, case discussed with staff. The pt is compliant with medications and reports no side-effects. Symptoms are improving but needs more time to stabilize. After care discussed, support and psychoeducation given. Medication Change: Yes (Ativan taper) Medical Record Reviewed: Yes Mental Status Examination - Cognitive Function Orientation: Person, Place, Situation, Time Memory: Intact Attention: WNL Concentration: WNL Association: WNL Fund of Knowledge: Poor - Mood Mood: Depressed, Anxious - Affect Affect: Depressed - Speech Speech: Appropriate, Soft - Formal Thought Process Formal Thought Process: No Impairment - Suicidal Ideation Suicidal Ideation: No - Homicidal Ideation Homicidal Ideation: No Goal/Treatment Plan - Goal/Treatment Plan Need for Continued Stay: Severe depression anxiety, Discharge may exacerbated symptoms Progress Toward Problem(s) and Goals/Treatment Plan: Continue medications Support and psychoeducation daily Attend groups and activities daily After care planning by counselors Estimated Date of D/C: 05/22/17
--- NOTE | 2017-05-22 08:39 | PCM.PYCHDC ---
Mental Status Examination - Mental Status Examination Orientation: Person Discharge Summary - Discharge Note Consultations:: List each consultation separately and include: 1. Reason for request. 2. Findings. 3. Follow-up Summary of Hospital Course include:: 1. Description of specific treatment plan utilized for patients during their course of treatmen. 2. Summarize the time- course for resolution of acute symptoms and/or regressed behaviors. 3. Describe issues identified and worked on during hospitalization. 4. Describe medication utilized. 5. Describe medical problems identified and treated. 6. Reassessment of suicide risk - Final Diagnosis (DSM 5) Condition upon Discharge: GOOD Disposition: HOME/ ROUTINE Prescriptions/Medication Reconciliation: hydrOXYzine HCl [Atarax] 25 mg PO BID PRN #60 tab PRN Reason: Anxiety Magnesium Oxide [Mag-Ox] 400 mg PO DAILY #30 tab Multivitamins [Hexavitamin] 1 tab PO DAILY #30 tab Sertraline [Zoloft] 50 mg PO DAILY #30 tab Topiramate [Topamax] 50 mg PO BID #60 tab traZODone [Desyrel] 100 mg PO HS #30 tab
[2017-05-22 08:42] VITALS: BP 116/77; PULSE 73; TEMP 98.4; O2SAT 99
[2017-05-22] MEDS: Multiple Vitamins Tab PO SCH (09:17)
--- NOTE | 2017-05-23 00:01 | CP.PCM.DIS ---
Provider - Provider Date of Admission: 05/15/17 13:20 Attending physician: Chapis Osullivan MD Diagnosis - Discharge Diagnosis (1) Alcohol withdrawal Status: Acute (2) Alcohol dependence Status: Chronic Priority: High (3) Leg edema Status: Acute Hospital Course - Lab Results Lab Results: Most Recent Lab Values WBC 4.4 K/uL (4.8-10.8) L 05/20/17 11:40 RBC 3.35 Mil/uL (4.40-5.90) L 05/20/17 11:40 Hgb 9.4 g/dL (12.0-18.0) L 05/20/17 11:40 Hct 28.4 % (35.0-51.0) L 05/20/17 11:40 MCV 84.9 fL (80.0-94.0) 05/20/17 11:40 MCH 28.1 pg (27.0-31.0) 05/20/17 11:40 MCHC 33.1 g/dL (33.0-37.0) 05/20/17 11:40 RDW 17.6 % (11.5-14.5) H 05/20/17 11:40 Plt Count 130 K/uL (130-400) 05/20/17 11:40 MPV 9.4 fL (7.2-11.7) 05/20/17 11:40 Neut % (Auto) 60.8 % (50.0-75.0) 05/20/17 11:40 Lymph % (Auto) 23.3 % (20.0-40.0) 05/20/17 11:40 [place] % (Auto) 10.8 % (0.0-10.0) H 05/20/17 11:40 Eos % (Auto) 2.7 % (0.0-4.0) 05/20/17 11:40 Baso % (Auto) 2.4 % (0.0-2.0) H 05/20/17 11:40 Neut # 2.7 K/uL (1.8-7.0) 05/20/17 11:40 Lymph # 1.0 K/uL (1.0-4.3) 05/20/17 11:40 [place] # 0.5 K/uL (0.0-0.8) 05/20/17 11:40 Eos # 0.1 K/uL (0.0-0.7) 05/20/17 11:40 Baso # 0.1 K/uL (0.0-0.2) 05/20/17 11:40 Sodium 137 mmol/L (132-148) 05/20/17 11:40 Potassium 3.9 mmol/L (3.6-5.2) 05/20/17 11:40 Chloride 105 mmol/L (98-107) 05/20/17 11:40 Carbon Dioxide 22 mmol/L (22-30) 05/20/17 11:40 Anion Gap 14 (10-20) 05/20/17 11:40 BUN 18 mg/dL (9-20) 05/20/17 11:40 Creatinine 0.8 mg/dL (0.8-1.5) 05/20/17 11:40 Est GFR ( Amer) > 60 05/20/17 11:40 Est GFR (Non-Af Amer) > 60 05/20/17 11:40 Random Glucose 113 mg/dL (75-110) H 05/20/17 11:40 Calcium 8.8 mg/dl (8.6-10.4) 05/20/17 11:40 Magnesium 1.4 mg/dL (1.6-2.3) L 05/17/17 07:25 Total Bilirubin 1.5 mg/dL (0.2-1.3) H 05/20/17 11:40 AST 84 U/L (17-59) H D 05/20/17 11:40 ALT 43 U/L (21-72) 05/20/17 11:40 Alkaline Phosphatase 247 U/L (38-126) H 05/20/17 11:40 Total Protein 8.0 g/dL (6.3-8.3) 05/20/17 11:40 Albumin 4.1 g/dL (3.5-5.0) 05/20/17 11:40 Globulin 3.9 gm/dL (2.2-3.9) 05/20/17 11:40 Albumin/Globulin Ratio 1.0 (1.0-2.1) 05/20/17 11:40 Urine Color Michelle (YELLOW) 05/15/17 12:20 Urine Clarity Clear (Clear) 05/15/17 12:20 Urine pH 6.0 (5.0-8.0) 05/15/17 12:20 Ur Specific [place] 1.018 (1.003-1.030) 05/15/17 12:20 Urine Protein Negative mg/dL (NEGATIVE) 05/15/17 12:20 Urine Glucose (UA) Normal mg/dL (Normal) 05/15/17 12:20 Urine Ketones Negative mg/dL (NEGATIVE) 05/15/17 12:20 Urine Blood Negative (NEGATIVE) 05/15/17 12:20 Urine Nitrate Negative (NEGATIVE) 05/15/17 12:20 Urine Bilirubin Negative (NEGATIVE) 05/15/17 12:20 Urine Urobilinogen 4.0 mg/dL (0.2-1.0) 05/15/17 12:20 Ur Leukocyte Esterase Neg Elvis/uL (Negative) 05/15/17 12:20 Urine WBC (Auto) 1 /hpf (0-5) 05/15/17 12:20 Urine RBC (Auto) 2 /hpf (0-3) 05/15/17 12:20 Ur Squamous Epith Cells < 1 /hpf (0-5) 05/15/17 12:20 Urine Opiates Screen Negative (NEGATIVE) 05/15/17 12:20 Urine Methadone Screen Negative (NEGATIVE) 05/15/17 12:20 Ur Barbiturates Screen Negative (NEGATIVE) 05/15/17 12:20 Ur Phencyclidine Scrn Negative (NEGATIVE) 05/15/17 12:20 Ur Amphetamines Screen Negative (NEGATIVE) 05/15/17 12:20 U Benzodiazepines Scrn Negative (NEGATIVE) 05/15/17 12:20 U Oth Cocaine Metabols Negative (NEGATIVE) 05/15/17 12:20 U Cannabinoids Screen Negative (NEGATIVE) 05/15/17 12:20 Alcohol, Quantitative 173 mg/dl (0-10) H 05/15/17 11:12 C. difficile Ag & Toxin Negative (NEGATIVE) 05/14/17 Unknown - Hospital Course Hospital Course: Pt is for discharge today, cleared by psychiatry Discharge Exam - Head Exam Head Exam: ATRAUMATIC, NORMAL INSPECTION, NORMOCEPHALIC Discharge Plan - Discharge Medications Prescriptions: hydrOXYzine HCl [Atarax] 25 mg PO BID PRN #60 tab PRN Reason: Anxiety traZODone [Desyrel] 100 mg PO HS #30 tab Multivitamins [Hexavitamin] 1 tab PO DAILY #30 tab Magnesium Oxide [Mag-Ox] 400 mg PO DAILY #30 tab Topiramate [Topamax] 50 mg PO BID #60 tab Sertraline [Zoloft] 50 mg PO DAILY #30 tab - Follow Up Plan Condition: GOOD Disposition: HOME/ ROUTINE Instructions: Supraventricular Tachycardia (DC), Cardioversion (DC), Alcohol Withdrawal (DC), Anxiety (DC), Alcohol Dependence (GEN), Alcohol Use Disorder ( DC) Additional Instructions: Discharge Hotline Numbers: [place] [facility] 24 Hour Hotline: 878-859 HELP (7464) [place] Addictions Services Hotline - AA- Alcoholics Anonymous 24 Hour Hotline: 6-778-142- 7849 NA- Narcotics Anonymous 24 Hour Hotline: [place] Quitline (cigarettes): If needed you can reach the detox unit at Avoid all mood and mind altering substances including alcohol. Make every effort to make 90 meetings in 90 days and obtain a sponsor and get involved in 12 step recovery. Nutrition: Eat balanced meals incorporating fruits, vegetables and protein. Drink plenty of water throughout the day at least 8 to 10 cups. Sleep is extremely important in your recovery. Follow Up Appointments Pt has an appointment on 07-01-17@2pm [facility] [address] [place] [address] Ext [phone] Transportation [employer] Referrals: Matheus Schreiber [Staff Provider] - Sunil Moreno MD [Staff Provider] - Johan Harden MD [Staff Provider] -
== END 2017-05-22 11:45 | disposition home or self-care (01) | DRG 750 ==
LOC: C.ER 09:56 → C.9E 13:20 → UNDOADMIN 13:49 → C.9E 13:49 → C.6T 15:14 → C.7D 05-18 17:45
PROVIDERS: ADMIT Internal Medicine; ATTEND Psychiatry & Neurology Psychiatry
PROC: HZ2ZZZZ Detoxification Services for Substance Abuse Treatment (ICD-10-PCS; principal; 2017-05-15)
PROC: HZ46ZZZ Group Counseling for Substance Abuse Treatment, Psychoeducation (ICD-10-PCS; 2017-05-15)
PROC: HZ59ZZZ Individual Psychotherapy for Substance Abuse Treatment, Supportive (ICD-10-PCS; 2017-05-15)
PROC: GZ3ZZZZ Medication Management (ICD-10-PCS; 2017-05-15)
DX: F10.230 Alcohol dependence with withdrawal, uncomplicated (principal); K70.30 Alcoholic cirrhosis of liver without ascites; D61.818 Other pancytopenia; F32.9 Major depressive disorder, single episode, unspecified; I85.00 Esophageal varices without bleeding; R60.0 Localized edema; Y90.6 Blood alcohol level of 120-199 mg/100 ml

== ENCOUNTER 2017-09-14 23:49 | Inpatient (IN) | payer MEDICAID ==
[2017-09-15 00:36] LABS: BASO # 0.2 K/uL (0.0-0.2); BASO % 2.9 % (0.0-2.0); EOS # 0.2 K/uL (0.0-0.7); EOS % 3.6 % (0.0-4.0); HEMOGLOBIN 11.9 g/dL (12.0-18.0); LYMPH # 2.6 K/uL (1.0-4.3); LYMPH % 41.2 % (20.0-40.0); MEAN CELL VOLUME 85.3 fL (80.0-94.0); MEAN CORPUSCULAR HEMOGLOBIN 28.8 pg (27.0-31.0); MEAN CORPUSCULAR HGB CONC 33.7 g/dL (33.0-37.0); MEAN PLATELET VOLUME 8.4 fL (7.2-11.7); MONO # 0.7 K/uL (0.0-0.8); MONO % 11.2 % (0.0-10.0); NEUT # 2.6 K/uL (1.8-7.0); NEUT % 41.1 % (50.0-75.0); NRBC % 0.1 % (0.0-2.0); RBC 4.15 Mil/uL (4.40-5.90); RED CELL DISTRIBUTION WIDTH 18.7 % (11.5-14.5); WHITE BLOOD COUNT 6.3 K/uL (4.8-10.8)
--- NOTE | 2017-09-15 00:47 | C.PDOC ---
History Of Present Illness 47 year old male presents to the ED as a prescreen for alcohol detox. Patient states his last alcohol use was prior to arrival. Patient states he is asymptomatic at this time and denies any other drug use. Time Seen by Provider: 09/15/17 00:10 Chief Complaint (Nursing): Substance Abuse History Per: Patient History/Exam Limitations: intoxication Onset/Duration Of Symptoms: Hrs Current Symptoms Are (Timing): Still Present Suicide/Self Injury Attempted (Context): None Modifying Factor(s): Alcohol Associated Symptoms: denies: Suicidal Thoughts, Suicidal Plan Involuntary Hold By: None Recent travel outside of the [place]: No Additional History Per: Patient Past Medical History Reviewed: Historical Data, Nursing Documentation, Vital Signs Vital Signs: Last Vital Signs Temp 99 F 09/14/17 23:59 Pulse 99 H 09/14/17 23:59 Resp 20 09/14/17 23:59 BP 139/81 09/14/17 23:59 Pulse Ox 99 09/15/17 01:06 - Medical History PMH: No Chronic Diseases Denies: Chronic Kidney Disease Surgical History: Endoscopy - [facility] Procedures ALCOHOL DETOXIFICATION (12/31/13) CONTROL BLEEDING IN GASTROINTESTINAL TRACT, ENDO (12/20/16) DETOXIFICATION SERVICES FOR SUBSTANCE ABUSE TREATMENT (05/15/17) EXCISION OF STOMACH, ENDO, DIAGN (04/27/15) GROUP BUSINESS SERVICES VICE PRESIDENT FOR SUBSTANCE ABUSE TREATMENT, PSYCHOEDUCATION (05/15/17) INDIV PSYCHOTHERAPY FOR SUBSTANCE ABUSE TREATMENT, SUPPORT (05/15/17) MEDICATION MANAGEMENT (05/15/17) Family History: States: Unknown Family Hx - Social History Hx Tobacco Use: No Hx Alcohol Use: Yes Hx Substance Use: No - Immunization History Hx Tetanus Toxoid Vaccination: No Hx Influenza Vaccination: No Hx Pneumococcal Vaccination: No Review Of Systems Psych: Positive for: Other (EtOH detox ). Negative for: Suicidal ideation Physical Exam - Physical Exam Appears: Non-toxic, No Acute Distress, Other (mildy intoxicated ) Skin: Normal Color, Warm, Dry Head: Atraumatic, Normacephalic Eye(s): bilateral: Normal Inspection Oral Mucosa: Moist Neck: Supple Chest: Symmetrical, No Deformity, No Tenderness Cardiovascular: Rhythm Regular, No Murmur Respiratory: Normal Breath Sounds, No Rales, No Rhonchi, No Wheezing Gastrointestinal/Abdominal: Soft, No Tenderness, No Guarding, No Rebound Extremity: Normal ROM, Capillary Refill (less than 2 seconds ) Neurological/Psych: Oriented x3, Normal Speech, Normal Cognition, Other (calm, cooperative) ED Course And Treatment - Laboratory Results Result Diagrams: 09/15/17 00:30 09/15/17 00:30 O2 Sat by Pulse Oximetry: 99 (on RA) Pulse Ox Interpretation: Normal Progress Note: Bloodwork and urinalysis ordered and reviewed. Reevaluation Time: :49 Reassessment Condition: Unchanged (EXAM UNCH) - Physician Consult Information Time Consulting Physician Contacted: :49 Physician Contacted: Wiliam Neville Disposition Counseled Patient/Family Regarding: Studies Performed, Diagnosis - Disposition Disposition: HOSPITALIZED Disposition Time: 01:50 Condition: STABLE Forms: [facility] (Turkmen) - POA Present On Arrival: None - Clinical Impression Clinical Impression: Hypernatremia, Alcohol dependence - Scribe Statement The provider has reviewed the documentation as recorded by the Scribe (Tatiana Neville) Provider Attestation: All medical record entries made by the Scribe were at my direction and personally dictated by me. I have reviewed the chart and agree that the record accurately reflects my personal performance of the history, physical exam, medical decision making, and the department course for this patient. I have also personally directed, reviewed, and agree with the discharge instructions and disposition. Decision To Admit - Pt Status Changed To: Hospital Disposition Of: Observation - . Bed Request Type: Regular Admitting Physician: Wiliam Neville Patient Diagnosis: Hypernatremia, Alcohol dependence
[2017-09-15 01:12] LABS: ALBUMIN 4.7 g/dL (3.5-5.0); ALT/SGPT 46 U/L (21-72); AST/SGOT 132 U/L (17-59); BLOOD UREA NITROGEN 13 mg/dL (9-20); CALCIUM 9.1 mg/dl (8.6-10.4); GFR AFRICAN-AMERICAN > 60; GFR NON-AFRICAN AMERICAN > 60
[2017-09-15 01:14] LABS: GRANULAR CAST 13 /lpf (0-1); SQUAMOUS EPITHIAL 1 /hpf (0-5); URINE BILIRUBIN NEGATIVE (NEGATIVE); URINE BLOOD NEGATIVE (NEGATIVE); URINE CLARITY Hazy (Clear); URINE COLOR Amber (YELLOW); URINE GLUCOSE (UA) NORMAL (Normal); URINE LEUKOCYTE ESTERASE NEG Leu/uL (Negative); URINE PROTEIN 2+ mg/dL (NEGATIVE); URINE UROBILINOGEN NORMAL mg/dL (0.2-1.0)
[2017-09-15 01:36] LABS: BARBITURATES, UR NEGATIVE (NEGATIVE); BENZODIAZEPINES, UR NEGATIVE (NEGATIVE); OPIATES, UR NEGATIVE (NEGATIVE); PHENCYCLIDINE, UR NEGATIVE (NEGATIVE)
[2017-09-15 03:12] VITALS: RESP 20
--- NOTE | 2017-09-15 08:35 | CP.PCM.PCO ---
Physician Communication Note - Physician Communication Note Physician Communication Note: Pls contact Dr. Osullivan if psych consult needed. However, detox is ordered
--- NOTE | 2017-09-15 08:36 | CP.PCM.PCO ---
Physician Communication Note - Physician Communication Note Physician Communication Note: We will take him to [facility] detox when cleared. Pls call financial writer first.
[2017-09-15 09:21] LABS: BASO # 0.1 K/uL (0.0-0.2); EOS # 0.1 K/uL (0.0-0.7); HEMOGLOBIN 10.7 g/dL (12.0-18.0); LYMPH # 1.5 K/uL (1.0-4.3); MEAN CELL VOLUME 85.3 fL (80.0-94.0); NEUT # 1.7 K/uL (1.8-7.0)
[2017-09-15 09:29] LABS: BASO % 2.9 % (0.0-2.0); EOS % 3.7 % (0.0-4.0); LYMPH % 38.3 % (20.0-40.0); MEAN CORPUSCULAR HEMOGLOBIN 29.3 pg (27.0-31.0); MEAN CORPUSCULAR HGB CONC 34.4 g/dL (33.0-37.0); MEAN PLATELET VOLUME 8.4 fL (7.2-11.7); MONO # 0.4 K/uL (0.0-0.8); MONO % 9.7 % (0.0-10.0); NEUT % 45.4 % (50.0-75.0); RBC 3.65 Mil/uL (4.40-5.90); RED CELL DISTRIBUTION WIDTH 18.3 % (11.5-14.5); WHITE BLOOD COUNT 3.8 K/uL (4.8-10.8)
[2017-09-15 09:42] LABS: ALB/GLOB RATIO 1.1 (1.0-2.1); ALBUMIN 4.2 g/dL (3.5-5.0); ALT/SGPT 45 U/L (21-72); AST/SGOT 123 U/L (17-59); BLOOD UREA NITROGEN 12 mg/dL (9-20); CALCIUM 8.3 mg/dl (8.6-10.4); GFR AFRICAN-AMERICAN > 60; GFR NON-AFRICAN AMERICAN > 60
[2017-09-15] MEDS: Magnesium Oxide 400 mg Tab UD PO SCH (10:34)
[2017-09-15] MEDS: Multiple Vitamins Tab PO SCH (10:35)
--- NOTE | 2017-09-15 15:12 | CP.PCM.PN ---
Subjective - Date & Time of Evaluation Date of Evaluation: 09/15/17 Time of Evaluation: 07:40 - Subjective Subjective: clinically same Objective - Vital Signs/Intake and Output Vital Signs (last 24 hours): Temp Pulse Resp BP Pulse Ox 98.2 F 101 H 20 127/70 97 09/15/17 08:00 09/15/17 08:00 09/15/17 08:00 09/15/17 08:00 09/15/17 08:00 Intake and Output: 09/15/17 09/15/17 06:59 18:59 Intake Total 520 700 Balance 520 700 - Medications Medications: Current Medications Chlordiazepoxide (Librium) 25 mg PO Q4H PRN PRN Reason: Alcohol Withdrawal Last Admin: 09/15/17 14:35 Dose: 25 mg Chlordiazepoxide (Librium) 25 mg PO Q6H [facility] PRN Reason: Taper Stop: 09/21/17 09:59 Last Admin: 09/15/17 10:36 Dose: 25 mg Clonidine HCl (Catapres) 0.1 mg PO Q4H PRN PRN Reason: Symptoms of alcohol withdrawl Folic Acid (Folic Acid) 1 mg PO DAILY [facility] Last Admin: 09/15/17 10:35 Dose: 1 mg Dextrose (Dextrose 5% In Water 1000 Ml) 1,000 mls @ 100 mls/hr IV .Q10H [facility] Last Admin: 09/15/17 14:35 Dose: 100 mls/hr Magnesium Oxide (Mag-Ox) 400 mg PO DAILY [facility] Last Admin: 09/15/17 10:34 Dose: 400 mg Multivitamins (Hexavitamin) 1 tab PO DAILY [facility] Last Admin: 09/15/17 10:35 Dose: 1 tab Nadolol (Corgard) 20 mg PO DAILY [facility] Last Admin: 09/15/17 10:36 Dose: 20 mg Pneumococcal Polyvalent Vaccine (Pneumovax 23 Vaccine) 0.5 ml IM .ONCE ONE Stop: 09/17/17 10:01 Sertraline HCl (Zoloft) 50 mg PO DAILY [facility] Last Admin: 09/15/17 10:35 Dose: 50 mg Thiamine HCl (Vitamin B1 Tab) 100 mg PO DAILY [facility] Last Admin: 09/15/17 10:39 Dose: 100 mg Trazodone HCl (Desyrel) 100 mg PO [facility] - Labs Labs: 09/15/17 09:16 09/15/17 09:16 - Constitutional Appears: Well - Head Exam Head Exam: ATRAUMATIC, NORMAL INSPECTION, NORMOCEPHALIC - Eye Exam Eye Exam: EOMI, Normal appearance, PERRL Pupil Exam: NORMAL ACCOMODATION, PERRL - ENT Exam ENT Exam: Mucous Membranes Moist, Normal Exam - Neck Exam Neck Exam: Full ROM, Normal Inspection. absent: Lymphadenopathy - Respiratory Exam Respiratory Exam: Decreased Breath Sounds - Cardiovascular Exam Cardiovascular Exam: REGULAR RHYTHM, +S1, +S2 - GI/Abdominal Exam GI & Abdominal Exam: Soft, Diminished Bowel Sounds - Rectal Exam Rectal Exam: Deferred
--- NOTE | 2017-09-15 15:13 | CP.PCM.HP ---
Past Patient History - Infectious Disease Hx of Infectious Diseases: None - Tetanus Immunizations Tetanus Immunization: Unknown - Past Medical History & Family History Past Medical History?: No - Past Social History Smoking Status: Never Smoked - PULMONARY Hx Tuberculosis: No - HEENT Hx HEENT Problems: No - RENAL Hx Chronic Kidney Disease: No - ENDOCRINE/METABOLIC Hx Endocrine Disorders: No - INTEGUMENTARY Hx Dermatological Problems: No - MUSCULOSKELETAL/RHEUMATOLOGICAL Hx Falls: No - GASTROINTESTINAL Hx Gastrointestinal Disorders: Yes Other/Comment: ESOPHAGEAL VARICES - PSYCHIATRIC Hx Substance Use: No - SURGICAL HISTORY Hx Surgeries: Yes - ANESTHESIA Hx Anesthesia: Yes Hx Anesthesia Reactions: No Hx Malignant Hyperthermia: No Meds Allergies/Adverse Reactions: Allergies Allergy/AdvReac Type Severity Reaction Status Date / Time No Known Allergies Allergy Verified 09/15/17 00:02 Physical Exam - Constitutional Appears: Well - Head Exam Head Exam: ATRAUMATIC, NORMAL INSPECTION, NORMOCEPHALIC - Eye Exam Eye Exam: EOMI, Normal appearance, PERRL Pupil Exam: NORMAL ACCOMODATION, PERRL - ENT Exam ENT Exam: Mucous Membranes Moist, Normal Exam - Neck Exam Neck exam: Positive for: Normal Inspection - Respiratory Exam Respiratory Exam: Decreased Breath Sounds - Cardiovascular Exam Cardiovascular Exam: REGULAR RHYTHM, +S1, +S2 - GI/Abdominal Exam GI & Abdominal Exam: Diminished Bowel Sounds, Soft - Rectal Exam Rectal Exam: Deferred Results - Vital Signs Recent Vital Signs: Last Vital Signs Temp 98.2 F 09/15/17 08:00 Pulse 101 H 09/15/17 08:00 Resp 20 09/15/17 08:00 BP 127/70 09/15/17 08:00 Pulse Ox 97 09/15/17 08:00 - Labs Result Diagrams: 09/15/17 09:16 09/15/17 09:16 Labs: Laboratory Results - last 24 hr 09/15/17 09/15/17 09/15/17 00:08 00:30 00:30 WBC 6.3 RBC 4.15 L Hgb 11.9 L D Hct 35.4 MCV 85.3 MCH 28.8 MCHC 33.7 RDW 18.7 H Plt Count 89 L D MPV 8.4 Neut % (Auto) 41.1 L Lymph % (Auto) 41.2 H [place] % (Auto) 11.2 H Eos % (Auto) 3.6 Baso % (Auto) 2.9 H Neut # (Auto) 2.6 Lymph # (Auto) 2.6 [place] # (Auto) 0.7 Eos # (Auto) 0.2 Baso # (Auto) 0.2 Differential Comment Sodium Potassium Chloride Carbon Dioxide Anion Gap BUN Creatinine Est GFR ( Amer) Est GFR (Non-Af Amer) POC Glucose (mg/dL) 99 Random Glucose Serum Osmolality Calcium Total Bilirubin AST ALT Alkaline Phosphatase Total Protein Albumin Globulin Albumin/Globulin Ratio Urine Color Michelle Urine Clarity Hazy Urine pH 6.0 Ur Specific [place] 1.024 Urine Protein 2+ H Urine Glucose (UA) Normal Urine Ketones Negative Urine Blood Negative Urine Nitrate Negative Urine Bilirubin Negative Urine Urobilinogen Normal Ur Leukocyte Esterase Neg Urine WBC (Auto) 3 Urine RBC (Auto) 2 Ur Squamous Epith Cells 1 Hyaline Casts 11-20 H Granular Casts (Auto) 13 Urine Opiates Screen Urine Methadone Screen Ur Barbiturates Screen Ur Phencyclidine Scrn Ur Amphetamines Screen U Benzodiazepines Scrn U Oth Cocaine Metabols U Cannabinoids Screen Alcohol, Quantitative 09/15/17 09/15/17 09/15/17 00:30 00:30 09:16 WBC 3.8 L RBC 3.65 L Hgb 10.7 L Hct 31.1 L MCV 85.3 MCH 29.3 MCHC 34.4 RDW 18.3 H Plt Count 68 L D MPV 8.4 Neut % (Auto) 45.4 L Lymph % (Auto) 38.3 [place] % (Auto) 9.7 Eos % (Auto) 3.7 Baso % (Auto) 2.9 H Neut # (Auto) 1.7 L Lymph # (Auto) 1.5 [place] # (Auto) 0.4 Eos # (Auto) 0.1 Baso # (Auto) 0.1 Differential Comment Sodium 155 H Potassium 4.2 Chloride 110 H Carbon Dioxide 22 Anion Gap 27 H BUN 13 Creatinine 0.7 L Est GFR ( Amer) > 60 Est GFR (Non-Af Amer) > 60 POC Glucose (mg/dL) Random Glucose 113 H Serum Osmolality Calcium 9.1 Total Bilirubin 1.3 AST 132 H D ALT 46 Alkaline Phosphatase 191 H D Total Protein 9.4 H Albumin 4.7 Globulin 4.7 H Albumin/Globulin Ratio 1.0 Urine Color Urine Clarity Urine pH Ur Specific [place] Urine Protein Urine Glucose (UA) Urine Ketones Urine Blood Urine Nitrate Urine Bilirubin Urine Urobilinogen Ur Leukocyte Esterase Urine WBC (Auto) Urine RBC (Auto) Ur Squamous Epith Cells Hyaline Casts Granular Casts (Auto) Urine Opiates Screen Negative Urine Methadone Screen Negative Ur Barbiturates Screen Negative Ur Phencyclidine Scrn Negative Ur Amphetamines Screen Negative U Benzodiazepines Scrn Negative U Oth Cocaine Metabols Negative U Cannabinoids Screen Negative Alcohol, Quantitative 446 H 09/15/17 09/15/17 09:16 11:46 WBC RBC Hgb Hct MCV MCH MCHC RDW Plt Count MPV Neut % (Auto) Lymph % (Auto) [place] % (Auto) Eos % (Auto) Baso % (Auto) Neut # (Auto) Lymph # (Auto) [place] # (Auto) Eos # (Auto) Baso # (Auto) Differential Comment Sodium 147 Potassium 4.0 Chloride 108 H Carbon Dioxide 26 Anion Gap 18 BUN 12 Creatinine 0.7 L Est GFR ( Amer) > 60 Est GFR (Non-Af Amer) > 60 POC Glucose (mg/dL) Random Glucose 135 H Serum Osmolality 361 H Calcium 8.3 L Total Bilirubin 1.1 AST 123 H ALT 45 Alkaline Phosphatase 167 H Total Protein 8.1 Albumin 4.2 Globulin 3.9 Albumin/Globulin Ratio 1.1 Urine Color Urine Clarity Urine pH Ur Specific [place] Urine Protein Urine Glucose (UA) Urine Ketones Urine Blood Urine Nitrate Urine Bilirubin Urine Urobilinogen Ur Leukocyte Esterase Urine WBC (Auto) Urine RBC (Auto) Ur Squamous Epith Cells Hyaline Casts Granular Casts (Auto) Urine Opiates Screen Urine Methadone Screen Ur Barbiturates Screen Ur Phencyclidine Scrn Ur Amphetamines Screen U Benzodiazepines Scrn U Oth Cocaine Metabols U Cannabinoids Screen Alcohol, Quantitative
[2017-09-16 08:22] LABS: BASO # 0.1 K/uL (0.0-0.2); BASO % 2.8 % (0.0-2.0); EOS # 0.1 K/uL (0.0-0.7); EOS % 3.4 % (0.0-4.0); HEMOGLOBIN 10.8 g/dL (12.0-18.0); LYMPH % 36.6 % (20.0-40.0); MEAN CORPUSCULAR HEMOGLOBIN 29.3 pg (27.0-31.0); MEAN CORPUSCULAR HGB CONC 34.5 g/dL (33.0-37.0); MEAN PLATELET VOLUME 8.3 fL (7.2-11.7); MONO # 0.3 K/uL (0.0-0.8); NEUT # 1.1 K/uL (1.8-7.0); NEUT % 44.2 % (50.0-75.0); PLATELET COUNT 52 K/uL (130-400); RED CELL DISTRIBUTION WIDTH 17.9 % (11.5-14.5); WHITE BLOOD COUNT 2.6 K/uL (4.8-10.8)
[2017-09-16 08:37] LABS: ALT/SGPT 38 U/L (21-72); AST/SGOT 101 U/L (17-59); BLOOD UREA NITROGEN 11 mg/dL (9-20); CALCIUM 8.5 mg/dl (8.6-10.4); GFR AFRICAN-AMERICAN > 60; GFR NON-AFRICAN AMERICAN > 60
[2017-09-16] MEDS ORDERED: Magnesium Sulfate 1 gm in D5W 1 GM/100 ML BAG IVPB ONE (09:26)
[2017-09-16 09:50] LABS: ANISOCYTOSIS SLIGHT; BANDS 3 % (0-2); EOSINOPHIL 5 % (0-4); LYMPHOCYTE 42 % (20-40); MONOCYTE 10 % (0-10); NEUTROPHIL 39 % (50-75); PLATELET ESTIMATE DECREASED (NORMAL); REACTIVE LYMPHOCYTES 1 % (0-0); TOTAL CELLS COUNTED 100
[2017-09-16] MEDS: Multiple Vitamins Tab PO SCH (09:50)
[2017-09-16] MEDS: Magnesium Oxide 400 mg Tab UD PO SCH (09:50)
[2017-09-16 09:51] LABS: HYPOCHROMIC SLIGHT
--- NOTE | 2017-09-16 14:06 | PCM.PSYCH ---
Initial Psychiatric Evaluation - Initial Psychiatric Evaluation Type of Admission: Voluntary Legal Status: Capacity Chief Complaint (in patient's own words): "I started drinking again" History of Present Illness and Precipitating Events: The patient was seen this morning, the chart was reviewed and the case was discussed. Consultation was requested for his alcohol use. 46 yo male, who is currently unemployed and lives with his , presented to the hospital for alcohol detox. However, he got admitted to medicine for various reasons, ie hypernatremia. Patient began drinking at the age of 17, however, his drinking became a problem in 2007 when he lost job. He states he drinks 8 glasses of gin/tonic every day and occasionally drinks wine. The patient states that he was "dry" for six months, but that he relapsed again two weeks ago after he stopped attending his AA meetings. Patient has been to detox four times in the past and rehab twice. Patient states that his longest period of sobriety was 6 months. He admitted to depressive symptoms in the past related to his job loss, and is taking a low dose of Zoloft. He denies any psychiatric history. He denies any other drug or tobacco use. Psych Hx: Denies Past medical history: Liver cirrhosis Family Hx: Brother has alcohol use disorder Current Medications: Active Medications Generic Name Dose Route Start Last Admin Trade Name Freq PRN Reason Stop Dose Admin Chlordiazepoxide 25 mg 09/15/17 08:30 09/15/17 19:02 Librium PO 25 mg Q4H PRN Administration Alcohol Withdrawal Chlordiazepoxide 25 mg 09/15/17 10:00 09/16/17 09:50 Librium PO 09/21/17 09:59 25 mg Q6H ANTONY Administration Taper Clonidine HCl 0.1 mg 09/15/17 08:30 Catapres PO Q4H PRN Symptoms of alcohol withdrawl Folic Acid 1 mg 09/15/17 10:00 09/16/17 09:49 Folic Acid PO 1 mg DAILY AN[facility]Y Administration Dextrose 1,000 mls @ 100 mls/hr 09/15/17 02:45 09/16/17 13:27 Dextrose 5% In Water 1000 Ml IV 100 mls/hr .Q10H [facility]Y Administration Magnesium Oxide 400 mg 09/15/17 10:00 09/16/17 09:50 Mag-Ox PO 400 mg DAILY [facility]Y Administration Multivitamins 1 tab 09/15/17 10:00 09/16/17 09:50 Hexavitamin PO 1 tab DAILY [facility]Y Administration Nadolol 20 mg 09/15/17 10:00 09/16/17 09:49 Corgard PO 20 mg DAILY [facility]Y Administration Pneumococcal Polyvalent Vaccine 0.5 ml 09/17/17 10:00 Pneumovax 23 Vaccine IM 09/17/17 10:01 .ONCE ONE Sertraline HCl 50 mg 09/15/17 10:00 09/16/17 09:51 Zoloft PO 50 mg DAILY AN[facility]Y Administration Thiamine HCl 100 mg 09/15/17 10:00 09/16/17 09:52 Vitamin B1 Tab PO 100 mg DAILY ANTONY Administration Trazodone HCl 100 mg 09/15/17 22:00 09/15/17 21:36 Desyrel PO 100 mg HS ANTONY Administration Past Psychiatric History - Past Psychiatric History Previous Treatment History: None Pertinent Medical Hx (Current Medical&Sleep Prob, Allergies): Allergies Allergy/AdvReac Type Severity Reaction Status Date / Time No Known Allergies Allergy Verified 09/15/17 00:02 Magnesium Oxide [Mag-Ox] 400 mg PO DAILY #30 tab 05/22/17 Multivitamins [Hexavitamin] 1 tab PO DAILY #30 tab 05/22/17 Sertraline [Zoloft] 50 mg PO DAILY #30 tab 05/22/17 traZODone [Desyrel] 100 mg PO HS #30 tab 05/22/17 Nadolol [Corgard] 20 mg PO DAILY 09/15/17 Review of Systems - Psychiatric Psychiatric: Abnormal Sleep Pattern, Anxiety, Difficulty Concentrating. absent : Hallucinations, Homicidal Ideation, Suicidal Ideation Mental Status Examination - Personal Presentation Personal Presentation: Looks stated age - Affect Affect: Broad - Motor Activity Motor Activity: Calm - Reliability in Providing Information Reliability in Providing Information: Good - Speech Speech: Organized - Mood Mood: Depressed, Anxious - Formal Thought Process Formal Thought Process: No Impairment - Cognitive Functions Orientation: Person, Place, Situation, Time Sensorium: Alert Attention/Concentration: Attentive Judgement: Intact, as evidence by: Insight regarding need for hospitalization Memory: Recent intact, as evidence by: Ability to recall events of the day, Remote intact, as evidenced by: Abilit to recall sig. life events - Risk Risk: Diminished functioning - Strength & Assets Inventory Strength & Assets Inventory: Cooperative - Limitations Limitations: Other DSM 5 DX - DSM 5 DSM 5 Diagnosis: Alcohol use disorder Alcohol withdrawal Depressive d/o - unspecified Anxiety d/o - unspecified - Recommended/Plan of Treatment Treatment Recommendations and Plan of Treatment: Ativan taper Zoloft 50mg PO daily As needed medications All risks, benefits and alternatives of the meds discussed, and the pt agreed and understood. Supportive therapy and psychoeducation [place] for abstinence CBT for relapse prevention Encourage MAT Refer to rehab or IOP, and self-help groups after detox Transfer to detox when medically cleared 34 min Projected ELOS: 4-5 days Prognosis: Good with treatment - Smoking Cessation Smoking Cessation Initiated: No
--- NOTE | 2017-09-16 15:55 | CP.PCM.PN ---
<Karim,Kendra - Last Filed: 09/16/17 15:52> Subjective - Date & Time of Evaluation Date of Evaluation: 09/16/17 Time of Evaluation: 15:52 - Subjective Subjective: PGY [address] Neville Pt seen and examined at bedside. Pt is resting comfortably. Patient does complaining of hand tremors and decreased appetite. Patient states last drink was 2 days ago. Pt denies having any CP, SOB, abd pain, N/V/D/C, F/C. Currently denies having any hallucinations or anxiety. Objective - Vital Signs/Intake and Output Vital Signs (last 24 hours): Temp Pulse Resp BP Pulse Ox 98.5 F 69 20 132/73 96 09/16/17 15:23 09/16/17 15:23 09/16/17 15:23 09/16/17 15:23 09/16/17 15:23 Intake and Output: 09/16/17 09/16/17 06:59 18:59 Intake Total 800 960 Balance 800 960 - Medications Medications: Current Medications Chlordiazepoxide (Librium) 25 mg PO Q4H PRN PRN Reason: Alcohol Withdrawal Last Admin: 09/16/17 14:25 Dose: 25 mg Chlordiazepoxide (Librium) 25 mg PO Q6H LYDIA PRN Reason: Taper Stop: 09/21/17 09:59 Last Admin: 09/16/17 09:50 Dose: 25 mg Clonidine HCl (Catapres) 0.1 mg PO Q4H PRN PRN Reason: Symptoms of alcohol withdrawl Folic Acid (Folic Acid) 1 mg PO DAILY [facility] Last Admin: 09/16/17 09:49 Dose: 1 mg Dextrose (Dextrose 5% In Water 1000 Ml) 1,000 mls @ 100 mls/hr IV .Q10H [facility] Last Admin: 09/16/17 13:27 Dose: 100 mls/hr Magnesium Oxide (Mag-Ox) 400 mg PO DAILY [facility] Last Admin: 09/16/17 09:50 Dose: 400 mg Multivitamins (Hexavitamin) 1 tab PO DAILY [facility] Last Admin: 09/16/17 09:50 Dose: 1 tab Nadolol (Corgard) 20 mg PO DAILY [facility] Last Admin: 09/16/17 09:49 Dose: 20 mg Pneumococcal Polyvalent Vaccine (Pneumovax 23 Vaccine) 0.5 ml IM .ONCE ONE Stop: 09/17/17 10:01 Sertraline HCl (Zoloft) 50 mg PO DAILY [facility] Last Admin: 09/16/17 09:51 Dose: 50 mg Thiamine HCl (Vitamin B1 Tab) 100 mg PO DAILY [facility] Last Admin: 09/16/17 09:52 Dose: 100 mg Trazodone HCl (Desyrel) 100 mg PO HS [facility] Last Admin: 09/15/17 21:36 Dose: 100 mg - Labs Labs: 09/16/17 08:12 09/16/17 08:12 - Constitutional Appears: Non-toxic, No Acute Distress - Head Exam Head Exam: ATRAUMATIC - ENT Exam ENT Exam: Mucous Membranes Moist - Respiratory Exam Respiratory Exam: Clear to Ausculation Bilateral. absent: Rales, Rhonchi, Wheezes - Cardiovascular Exam Cardiovascular Exam: REGULAR RHYTHM, +S1, +S2. absent: Gallop, Rubs, Murmur - GI/Abdominal Exam GI & Abdominal Exam: Soft, Normal Bowel Sounds. absent: Distended, Firm, Guarding, Rigid, Tenderness, Organomegaly - Extremities Exam Extremities Exam: absent: Pedal Edema, Tenderness - Neurological Exam Neurological Exam: Alert, Awake, Oriented x3 Additional comments: slight hand tremors noted - Psychiatric Exam Psychiatric exam: Normal Affect, Normal Mood - Skin Skin Exam: Dry, Intact, Normal Color, Warm Assessment and Plan - Assessment and Plan (Free Text) Assessment: 47 year old male with past medical history of liver cirrhosis 2/2 ETOH abuse is admitted for ETOH detox. Liver cirrhosis - AST elevated on presentation. ALT WNL. Presentation likely due to chronic ETOH abuse - LFTs are improving - Avoid hepatotoxic meds ETOH abuse - Serum ETOH level on presentation was 446 - Pt is currently on Librium 25 mg po q6 lydia and librium 25 mg po q4 prn - continue thiamine, folic acid and multivitamin - [facility] protocol - Psych, Dr. Luz is consulted. Patient is interested in inpt detox once medically cleared. Pancytopenia - Likely 2/2 liver cirrhosis - Blood smear ordered - will check HIV Prophylaxis - lovenox -SCDs - No GI prophylaxis indicated Case discussed with attending, Dr. Neville. All orders and management per Dr. Neville <Wiliam Neville - Last Filed: 09/20/17 11:43> Objective - Vital Signs/Intake and Output Vital Signs (last 24 hours): Temp Pulse Resp BP Pulse Ox 97.5 F L 97 H 20 113/77 96 09/20/17 08:07 09/20/17 09:42 09/20/17 08:07 09/20/17 09:42 09/20/17 08:07 Intake and Output: 09/20/17 09/20/17 06:59 18:59 Intake Total 1090 Output Total 400 Balance 690 - Labs Labs: 09/20/17 07:59 09/20/17 07:59 Attending/Attestation - Attestation I have personally seen and examined this patient.: Yes I have fully participated in the care of the patient.: Yes I have reviewed all pertinent clinical information, including history, physical exam and plan: Yes Notes (Text): case seen and d.w staff and resident, concurred with finding and management..
--- NOTE | 2017-09-16 16:12 | CP.PCM.PN ---
Subjective - Date & Time of Evaluation Date of Evaluation: 09/16/17 Time of Evaluation: 07:40 - Subjective Subjective: clinically same Objective - Vital Signs/Intake and Output Vital Signs (last 24 hours): Temp Pulse Resp BP Pulse Ox 98.5 F 69 20 132/73 96 09/16/17 15:23 09/16/17 15:23 09/16/17 15:23 09/16/17 15:23 09/16/17 15:23 Intake and Output: 09/16/17 09/16/17 06:59 18:59 Intake Total 800 960 Balance 800 960 - Medications Medications: Current Medications Chlordiazepoxide (Librium) 25 mg PO Q4H PRN PRN Reason: Alcohol Withdrawal Last Admin: 09/16/17 14:25 Dose: 25 mg Chlordiazepoxide (Librium) 25 mg PO Q6H ANTONY PRN Reason: Taper Stop: 09/21/17 09:59 Last Admin: 09/16/17 09:50 Dose: 25 mg Clonidine HCl (Catapres) 0.1 mg PO Q4H PRN PRN Reason: Symptoms of alcohol withdrawl Folic Acid (Folic Acid) 1 mg PO DAILY [facility] Last Admin: 09/16/17 09:49 Dose: 1 mg Dextrose (Dextrose 5% In Water 1000 Ml) 1,000 mls @ 100 mls/hr IV .Q10H [facility] Last Admin: 09/16/17 13:27 Dose: 100 mls/hr Magnesium Oxide (Mag-Ox) 400 mg PO DAILY [facility] Last Admin: 09/16/17 09:50 Dose: 400 mg Multivitamins (Hexavitamin) 1 tab PO DAILY [facility] Last Admin: 09/16/17 09:50 Dose: 1 tab Nadolol (Corgard) 20 mg PO DAILY [facility] Last Admin: 09/16/17 09:49 Dose: 20 mg Pneumococcal Polyvalent Vaccine (Pneumovax 23 Vaccine) 0.5 ml IM .ONCE ONE Stop: 09/17/17 10:01 Sertraline HCl (Zoloft) 50 mg PO DAILY [facility] Last Admin: 09/16/17 09:51 Dose: 50 mg Thiamine HCl (Vitamin B1 Tab) 100 mg PO DAILY [facility] Last Admin: 09/16/17 09:52 Dose: 100 mg Trazodone HCl (Desyrel) 100 mg PO [facility] Last Admin: 09/15/17 21:36 Dose: 100 mg - Labs Labs: 09/16/17 08:12 09/16/17 08:12 - Constitutional Appears: Well - Head Exam Head Exam: ATRAUMATIC, NORMAL INSPECTION, NORMOCEPHALIC - Eye Exam Eye Exam: EOMI, Normal appearance, PERRL Pupil Exam: NORMAL ACCOMODATION, PERRL - ENT Exam ENT Exam: Mucous Membranes Moist, Normal Exam - Neck Exam Neck Exam: Full ROM, Normal Inspection. absent: Lymphadenopathy - Respiratory Exam Respiratory Exam: Decreased Breath Sounds - Cardiovascular Exam Cardiovascular Exam: REGULAR RHYTHM, +S1, +S2 - GI/Abdominal Exam GI & Abdominal Exam: Soft, Diminished Bowel Sounds - Rectal Exam Rectal Exam: Deferred
--- NOTE | 2017-09-16 17:35 | CP.PCM.PN ---
Subjective - Date & Time of Evaluation Date of Evaluation: 09/16/17 Time of Evaluation: 08:00 - Subjective Subjective: clinically same Objective - Vital Signs/Intake and Output Vital Signs (last 24 hours): Temp Pulse Resp BP Pulse Ox 98.5 F 69 20 132/73 96 09/16/17 15:23 09/16/17 15:23 09/16/17 15:23 09/16/17 15:23 09/16/17 15:23 Intake and Output: 09/16/17 09/16/17 06:59 18:59 Intake Total 800 960 Balance 800 960 - Medications Medications: Current Medications Chlordiazepoxide (Librium) 25 mg PO Q4H PRN PRN Reason: Alcohol Withdrawal Last Admin: 09/16/17 14:25 Dose: 25 mg Chlordiazepoxide (Librium) 25 mg PO Q6H ANTONY PRN Reason: Taper Stop: 09/21/17 09:59 Last Admin: 09/16/17 16:33 Dose: 25 mg Clonidine HCl (Catapres) 0.1 mg PO Q4H PRN PRN Reason: Symptoms of alcohol withdrawl Folic Acid (Folic Acid) 1 mg PO DAILY [facility] Last Admin: 09/16/17 09:49 Dose: 1 mg Dextrose (Dextrose 5% In Water 1000 Ml) 1,000 mls @ 100 mls/hr IV .Q10H [facility] Last Admin: 09/16/17 13:27 Dose: 100 mls/hr Magnesium Oxide (Mag-Ox) 400 mg PO DAILY [facility] Last Admin: 09/16/17 09:50 Dose: 400 mg Multivitamins (Hexavitamin) 1 tab PO DAILY [facility] Last Admin: 09/16/17 09:50 Dose: 1 tab Nadolol (Corgard) 20 mg PO DAILY [facility] Last Admin: 09/16/17 09:49 Dose: 20 mg Pneumococcal Polyvalent Vaccine (Pneumovax 23 Vaccine) 0.5 ml IM .ONCE ONE Stop: 09/17/17 10:01 Sertraline HCl (Zoloft) 50 mg PO DAILY [facility] Last Admin: 09/16/17 09:51 Dose: 50 mg Thiamine HCl (Vitamin B1 Tab) 100 mg PO DAILY [facility] Last Admin: 09/16/17 09:52 Dose: 100 mg Trazodone HCl (Desyrel) 100 mg PO [facility] Last Admin: 09/15/17 21:36 Dose: 100 mg - Labs Labs: 09/16/17 08:12 09/16/17 08:12 - Constitutional Appears: Well - Head Exam Head Exam: ATRAUMATIC, NORMAL INSPECTION, NORMOCEPHALIC - Eye Exam Eye Exam: EOMI, Normal appearance, PERRL Pupil Exam: NORMAL ACCOMODATION, PERRL - ENT Exam ENT Exam: Mucous Membranes Moist, Normal Exam - Neck Exam Neck Exam: Full ROM, Normal Inspection. absent: Lymphadenopathy - Respiratory Exam Respiratory Exam: Decreased Breath Sounds - Cardiovascular Exam Cardiovascular Exam: REGULAR RHYTHM, +S1, +S2 - GI/Abdominal Exam GI & Abdominal Exam: Soft, Diminished Bowel Sounds - Rectal Exam Rectal Exam: Deferred
[2017-09-17 07:42] LABS: BASO # 0.1 K/uL (0.0-0.2); BASO % 1.8 % (0.0-2.0); EOS # 0.1 K/uL (0.0-0.7); EOS % 4.7 % (0.0-4.0); HEMOGLOBIN 11.4 g/dL (12.0-18.0); LYMPH # 0.9 K/uL (1.0-4.3); LYMPH % 31.4 % (20.0-40.0); MEAN CELL VOLUME 85.8 fL (80.0-94.0); MEAN CORPUSCULAR HEMOGLOBIN 29.3 pg (27.0-31.0); MEAN CORPUSCULAR HGB CONC 34.1 g/dL (33.0-37.0); MEAN PLATELET VOLUME 8.8 fL (7.2-11.7); MONO # 0.4 K/uL (0.0-0.8); MONO % 15.1 % (0.0-10.0); NEUT # 1.4 K/uL (1.8-7.0); RBC 3.91 Mil/uL (4.40-5.90); RED CELL DISTRIBUTION WIDTH 18.1 % (11.5-14.5); WHITE BLOOD COUNT 2.9 K/uL (4.8-10.8)
[2017-09-17 08:19] LABS: ALBUMIN 4.2 g/dL (3.5-5.0); ALT/SGPT 48 U/L (21-72); AST/SGOT 116 U/L (17-59); BLOOD UREA NITROGEN 10 mg/dL (9-20); CALCIUM 8.9 mg/dl (8.6-10.4); GFR AFRICAN-AMERICAN > 60; GFR NON-AFRICAN AMERICAN > 60
[2017-09-17] MEDS: Multiple Vitamins Tab PO SCH (09:44)
[2017-09-17] MEDS: Magnesium Oxide 400 mg Tab UD PO SCH (09:45)
[2017-09-17] MEDS ORDERED: Pneumococcal 23-Valent Vaccine IM ONE (10:00)
--- NOTE | 2017-09-17 12:47 | PCM.PYCHPN ---
Psychiatric Progress Note - Psychiatric Progress Note Patient seen today, length of contact: 15 min Patient Chief Complaint: "I feel better" Problems Identified/Issues Discussed: The pt is seen, chart reviewed, case discussed with staff. Support given, CBT and NH used briefly he is improving slowly and needs more time, still shaky No SEs from medications, risks discussed. After care discussed He is NOT medically cleared yet - ie wbc dropping He will likely complete his detox on the medical floor Medication Change: Yes (detox changes daily) Medical Record Reviewed: Yes Mental Status Examination - Cognitive Function Orientation: Person, Place, Situation, Time Memory: Intact Attention: WNL Concentration: Poor Association: WNL Fund of Knowledge: WNL - Mood Mood: Anxious - Affect Affect: Broad - Speech Speech: Appropriate - Formal Thought Process Formal Thought Process: No Impairment - Suicidal Ideation Suicidal Ideation: No - Homicidal Ideation Homicidal Ideation: No Goal/Treatment Plan - Goal/Treatment Plan Need for Continued Stay: Severe functional impairment, Other (medical) Progress Toward Problem(s) and Goals/Treatment Plan: Ativan taper Zoloft 50mg PO daily As needed medications All risks, benefits and alternatives of the meds discussed, and the pt agreed and understood. Supportive therapy and psychoeducation [place] for abstinence CBT for relapse prevention Encourage MAT Refer to rehab or IOP, and self-help groups after detox
--- NOTE | 2017-09-17 15:21 | CP.PCM.PN ---
Subjective - Date & Time of Evaluation Date of Evaluation: 09/17/17 Time of Evaluation: 07:20 - Subjective Subjective: clinically same Objective - Vital Signs/Intake and Output Vital Signs (last 24 hours): Temp Pulse Resp BP Pulse Ox 97.8 F 65 20 111/71 96 09/17/17 07:58 09/17/17 07:58 09/17/17 07:58 09/17/17 07:58 09/17/17 07:58 Intake and Output: 09/17/17 09/17/17 06:59 18:59 Intake Total 1800 1080 Balance 1800 1080 - Medications Medications: Current Medications Chlordiazepoxide (Librium) 25 mg PO Q4H PRN PRN Reason: Alcohol Withdrawal Last Admin: 09/16/17 14:25 Dose: 25 mg Chlordiazepoxide (Librium) 25 mg PO Q8H ANTONY PRN Reason: Taper Stop: 09/21/17 09:59 Last Admin: 09/17/17 09:44 Dose: 25 mg Clonidine HCl (Catapres) 0.1 mg PO Q4H PRN PRN Reason: Symptoms of alcohol withdrawl Folic Acid (Folic Acid) 1 mg PO DAILY [facility] Last Admin: 09/17/17 09:44 Dose: 1 mg Dextrose (Dextrose 5% In Water 1000 Ml) 1,000 mls @ 100 mls/hr IV .Q10H [facility] Last Admin: 09/17/17 15:03 Dose: 100 mls/hr Magnesium Oxide (Mag-Ox) 400 mg PO DAILY [facility] Last Admin: 09/17/17 09:45 Dose: 400 mg Multivitamins (Hexavitamin) 1 tab PO DAILY [facility] Last Admin: 09/17/17 09:44 Dose: 1 tab Nadolol (Corgard) 20 mg PO DAILY [facility] Last Admin: 09/17/17 09:42 Dose: 20 mg Sertraline HCl (Zoloft) 50 mg PO DAILY [facility] Last Admin: 09/17/17 09:45 Dose: 50 mg Thiamine HCl (Vitamin B1 Tab) 100 mg PO DAILY [facility] Last Admin: 09/17/17 09:45 Dose: 100 mg Trazodone HCl (Desyrel) 100 mg PO [facility] Last Admin: 09/16/17 21:42 Dose: 100 mg - Labs Labs: 09/17/17 07:32 09/17/17 07:32 - Constitutional Appears: Well - Head Exam Head Exam: ATRAUMATIC, NORMAL INSPECTION, NORMOCEPHALIC - Eye Exam Eye Exam: EOMI, Normal appearance, PERRL Pupil Exam: NORMAL ACCOMODATION, PERRL - ENT Exam ENT Exam: Mucous Membranes Moist, Normal Exam - Neck Exam Neck Exam: Full ROM, Normal Inspection. absent: Lymphadenopathy - Respiratory Exam Respiratory Exam: Decreased Breath Sounds - Cardiovascular Exam Cardiovascular Exam: REGULAR RHYTHM, +S2 - GI/Abdominal Exam GI & Abdominal Exam: Soft, Diminished Bowel Sounds - Rectal Exam Rectal Exam: Deferred
[2017-09-18] MEDS: Magnesium Oxide 400 mg Tab UD PO SCH (10:05)
[2017-09-18] MEDS: Multiple Vitamins Tab PO SCH (10:05)
[2017-09-18] MEDS: Dextrose 5%/0.45% NS 1,000 ML IV SCH (13:54)
--- NOTE | 2017-09-18 15:11 | CP.PCM.PN ---
Subjective - Date & Time of Evaluation Date of Evaluation: 09/18/17 Time of Evaluation: 07:20 - Subjective Subjective: clinically same Objective - Vital Signs/Intake and Output Vital Signs (last 24 hours): Temp Pulse Resp BP Pulse Ox 98 F 62 20 107/67 95 09/18/17 08:00 09/18/17 10:12 09/18/17 08:00 09/18/17 10:12 09/18/17 08:00 Intake and Output: 09/18/17 09/18/17 06:59 18:59 Intake Total 800 2240 Balance 800 2240 - Medications Medications: Current Medications Chlordiazepoxide (Librium) 25 mg PO Q4H PRN PRN Reason: Alcohol Withdrawal Last Admin: 09/17/17 21:58 Dose: 25 mg Chlordiazepoxide (Librium) 25 mg PO Q8H ANTONY PRN Reason: Taper Stop: 09/21/17 09:59 Last Admin: 09/18/17 10:05 Dose: 25 mg Clonidine HCl (Catapres) 0.1 mg PO Q4H PRN PRN Reason: Symptoms of alcohol withdrawl Folic Acid (Folic Acid) 1 mg PO DAILY [facility] Last Admin: 09/18/17 10:05 Dose: 1 mg Dextrose/Sodium Chloride (Dextrose 5%/0.45% Ns 1000 Ml) 1,000 mls @ 80 mls/hr IV .[id number] [facility] Last Admin: 09/18/17 13:54 Dose: 80 mls/hr Magnesium Oxide (Mag-Ox) 400 mg PO DAILY [facility] Last Admin: 09/18/17 10:05 Dose: 400 mg Multivitamins (Hexavitamin) 1 tab PO DAILY [facility] Last Admin: 09/18/17 10:05 Dose: 1 tab Nadolol (Corgard) 20 mg PO DAILY [facility] Last Admin: 09/18/17 10:11 Dose: 20 mg Sertraline HCl (Zoloft) 50 mg PO DAILY [facility] Last Admin: 09/18/17 10:05 Dose: 50 mg Thiamine HCl (Vitamin B1 Tab) 100 mg PO DAILY [facility] Last Admin: 09/18/17 10:05 Dose: 100 mg Trazodone HCl (Desyrel) 100 mg PO [facility] Last Admin: 09/17/17 21:53 Dose: 100 mg - Labs Labs: 09/17/17 07:32 09/17/17 07:32 - Constitutional Appears: Well - Head Exam Head Exam: ATRAUMATIC, NORMAL INSPECTION, NORMOCEPHALIC - Eye Exam Eye Exam: EOMI, Normal appearance, PERRL Pupil Exam: NORMAL ACCOMODATION, PERRL - ENT Exam ENT Exam: Mucous Membranes Moist, Normal Exam - Neck Exam Neck Exam: Full ROM, Normal Inspection. absent: Lymphadenopathy - Respiratory Exam Respiratory Exam: Decreased Breath Sounds - Cardiovascular Exam Cardiovascular Exam: REGULAR RHYTHM, +S1, +S2 - GI/Abdominal Exam GI & Abdominal Exam: Soft, Diminished Bowel Sounds - Rectal Exam Rectal Exam: Deferred
[2017-09-19] MEDS: Dextrose 5%/0.45% NS 1,000 ML IV SCH ×2 (02:45→13:59)
[2017-09-19 07:16] LABS: BASO # 0.1 K/uL (0.0-0.2); EOS # 0.2 K/uL (0.0-0.7); EOS % 4.4 % (0.0-4.0); HEMOGLOBIN 11.2 g/dL (12.0-18.0); LYMPH # 1.4 K/uL (1.0-4.3); LYMPH % 32.3 % (20.0-40.0); MEAN CELL VOLUME 86.5 fL (80.0-94.0); MEAN CORPUSCULAR HEMOGLOBIN 28.8 pg (27.0-31.0); MEAN CORPUSCULAR HGB CONC 33.3 g/dL (33.0-37.0); MEAN PLATELET VOLUME 9.7 fL (7.2-11.7); MONO # 0.6 K/uL (0.0-0.8); MONO % 14.1 % (0.0-10.0); NEUT # 2.1 K/uL (1.8-7.0); NEUT % 47.2 % (50.0-75.0); NRBC % 0.2 % (0.0-2.0); RBC 3.91 Mil/uL (4.40-5.90); RED CELL DISTRIBUTION WIDTH 18.4 % (11.5-14.5)
[2017-09-19 07:18] LABS: WHITE BLOOD COUNT 4.4 K/uL (4.8-10.8)
[2017-09-19 08:00] LABS: ALBUMIN 3.9 g/dL (3.5-5.0); ALT/SGPT 63 U/L (21-72); AST/SGOT 108 U/L (17-59); BLOOD UREA NITROGEN 12 mg/dL (9-20); CALCIUM 8.9 mg/dl (8.6-10.4); GFR AFRICAN-AMERICAN > 60; GFR NON-AFRICAN AMERICAN > 60
[2017-09-19] MEDS: Magnesium Oxide 400 mg Tab UD PO SCH (10:37)
[2017-09-19] MEDS: Multiple Vitamins Tab PO SCH (10:37)
--- NOTE | 2017-09-19 13:48 | CP.PCM.PN ---
<Tara Varma - Last Filed: 09/19/17 15:58> Subjective - Date & Time of Evaluation Date of Evaluation: 09/19/17 Time of Evaluation: 07:00 - Subjective Subjective: PGY [address] Neville Pt seen and examined at bedside. Pt is resting comfortably. Patient does complaining of hand tremors and decreased appetite. Patient states last drink was 2 days ago. Pt denies having any CP, SOB, abd pain, N/V/D/C, F/C. Currently denies having any hallucinations or anxiety. Objective - Vital Signs/Intake and Output Vital Signs (last 24 hours): Temp Pulse Resp BP Pulse Ox 97.5 F L 61 20 96/60 L 96 09/19/17 08:02 09/19/17 08:02 09/19/17 08:02 09/19/17 08:02 09/19/17 08:02 Intake and Output: 09/19/17 09/19/17 06:59 18:59 Intake Total 640 880 Balance 640 880 - Medications Medications: Current Medications Chlordiazepoxide (Librium) 25 mg PO Q4H PRN PRN Reason: Alcohol Withdrawal Last Admin: 09/18/17 22:12 Dose: 25 mg Chlordiazepoxide (Librium) 25 mg PO Q12H [facility] PRN Reason: Taper Stop: 09/21/17 09:59 Last Admin: 09/19/17 10:39 Dose: 25 mg Clonidine HCl (Catapres) 0.1 mg PO Q4H PRN PRN Reason: Symptoms of alcohol withdrawl Folic Acid (Folic Acid) 1 mg PO DAILY [facility] Last Admin: 09/19/17 10:38 Dose: 1 mg Dextrose/Sodium Chloride (Dextrose 5%/0.45% Ns 1000 Ml) 1,000 mls @ 80 mls/hr IV .[id number] [facility] Last Admin: 09/19/17 02:45 Dose: 80 mls/hr Magnesium Oxide (Mag-Ox) 400 mg PO DAILY [facility] Last Admin: 09/19/17 10:37 Dose: 400 mg Multivitamins (Hexavitamin) 1 tab PO DAILY [facility] Last Admin: 09/19/17 10:37 Dose: 1 tab Nadolol (Corgard) 20 mg PO DAILY [facility] Last Admin: 09/19/17 10:38 Dose: 20 mg Sertraline HCl (Zoloft) 50 mg PO DAILY [facility] Last Admin: 09/19/17 10:38 Dose: 50 mg Thiamine HCl (Vitamin B1 Tab) 100 mg PO DAILY [facility] Last Admin: 09/19/17 10:38 Dose: 100 mg Trazodone HCl (Desyrel) 100 mg PO HS [facility] Last Admin: 09/18/17 22:06 Dose: 100 mg - Labs Labs: 09/19/17 07:01 09/19/17 07:01 - Constitutional Appears: Non-toxic, No Acute Distress - Head Exam Head Exam: NORMAL INSPECTION - Eye Exam Eye Exam: EOMI Pupil Exam: NORMAL ACCOMODATION - ENT Exam ENT Exam: Mucous Membranes Moist - Respiratory Exam Respiratory Exam: Clear to Ausculation Bilateral, NORMAL BREATHING PATTERN. absent: Respiratory Distress - Cardiovascular Exam Cardiovascular Exam: REGULAR RHYTHM, +S1, +S2 - GI/Abdominal Exam GI & Abdominal Exam: Soft, Normal Bowel Sounds. absent: Distended, Firm, Guarding, Tenderness - Extremities Exam Additional comments: slight hand tremors noted improved - Back Exam Back Exam: NORMAL INSPECTION. absent: CVA tenderness (L), CVA tenderness (R), paraspinal tenderness - Neurological Exam Neurological Exam: Alert, Awake, CN II-XII Intact, Normal Gait, Oriented x3 - Psychiatric Exam Psychiatric exam: Normal Affect, Normal Mood - Skin Skin Exam: Intact, Normal Color Assessment and Plan - Assessment and Plan (Free Text) Assessment: Assessment: 47 year old male with past medical history of liver cirrhosis 2/2 ETOH abuse is admitted for ETOH detox. Liver cirrhosis - AST elevated on presentation. ALT WNL. Presentation likely due to chronic ETOH abuse - LFTs are improving - Avoid hepatotoxic meds- Nadolol 20mg PO daily ETOH abuse - Serum ETOH level on presentation was 446 - Librium taoer to complete 5/5 - continue thiamine, folic acid and multivitamin - [facility] protocol - Psych, Dr. Luz is consulted: Supportive therapy and psychoeducation [place] for abstinence CBT for relapse prevention Encourage MAT Refer to rehab or IOP, and self-help groups after detox - Zoloft 50mg PO daily Pancytopenia - Likely 2/2 liver cirrhosis - Blood smear ordered - HIV negative - Dr Rosado consulted - help appreciated Insomnia Trazodone 100mg PO HS Prophylaxis - lovenox -SCDs - No GI prophylaxis indicated - Mag OX 400mg PO daily Case discussed with attending, Dr. Neville. All orders and management per Dr. Neville <Wiliam Neville - Last Filed: 09/20/17 11:44> Objective - Vital Signs/Intake and Output Vital Signs (last 24 hours): Temp Pulse Resp BP Pulse Ox 97.5 F L 97 H 20 113/77 96 09/20/17 08:07 09/20/17 09:42 09/20/17 08:07 09/20/17 09:42 09/20/17 08:07 Intake and Output: 09/20/17 09/20/17 06:59 18:59 Intake Total 1090 Output Total 400 Balance 690 - Labs Labs: 09/20/17 07:59 09/20/17 07:59 Attending/Attestation - Attestation I have personally seen and examined this patient.: Yes I have fully participated in the care of the patient.: Yes I have reviewed all pertinent clinical information, including history, physical exam and plan: Yes Notes (Text): case seen and d.w staff and resident, concurred with finding and management..
--- NOTE | 2017-09-19 14:58 | PCM.PYCHPN ---
Psychiatric Progress Note - Psychiatric Progress Note Patient seen today, length of contact: 16 min Patient Chief Complaint: "I am feeling good" Problems Identified/Issues Discussed: The pt is seen, chart reviewed, case discussed with staff. The pt is compliant with medications and reports no side-effects. Symptoms are improving but needs more time to stabilize. After care discussed, support and psychoeducation given. Pt appeared to be doing better, stated he slept well and is feeling fine Psych will sign off Medication Change: Yes (detox changes daily) Medical Record Reviewed: Yes Mental Status Examination - Cognitive Function Orientation: Person, Place, Situation, Time Memory: Intact Attention: WNL Concentration: Poor Association: WNL Fund of Knowledge: WNL - Mood Mood: Anxious - Affect Affect: Broad - Speech Speech: Appropriate - Formal Thought Process Formal Thought Process: No Impairment - Suicidal Ideation Suicidal Ideation: No - Homicidal Ideation Homicidal Ideation: No Goal/Treatment Plan - Goal/Treatment Plan Need for Continued Stay: Severe functional impairment, Other (medical) Progress Toward Problem(s) and Goals/Treatment Plan: Ativan Taper Zoloft 50mg PO daily As needed medications All risks, benefits and alternatives of the meds discussed, and the pt agreed and understood. Supportive therapy and psychoeducation [place] for abstinence CBT for relapse prevention Encourage MAT Refer to rehab or IOP, and self-help groups after detox
--- NOTE | 2017-09-19 19:05 | CP.PCM.PN ---
Subjective - Date & Time of Evaluation Date of Evaluation: 09/19/17 Time of Evaluation: 07:00 - Subjective Subjective: clinically same Objective - Vital Signs/Intake and Output Vital Signs (last 24 hours): Temp Pulse Resp BP Pulse Ox 97.9 F 61 20 109/67 97 09/19/17 15:26 09/19/17 15:26 09/19/17 15:26 09/19/17 15:26 09/19/17 15:26 Intake and Output: 09/19/17 09/20/17 18:59 06:59 Intake Total 1880 Balance 1880 - Medications Medications: Current Medications Chlordiazepoxide (Librium) 25 mg PO Q4H PRN PRN Reason: Alcohol Withdrawal Last Admin: 09/18/17 22:12 Dose: 25 mg Chlordiazepoxide (Librium) 25 mg PO Q12H [facility] PRN Reason: Taper Stop: 09/21/17 09:59 Last Admin: 09/19/17 10:39 Dose: 25 mg Clonidine HCl (Catapres) 0.1 mg PO Q4H PRN PRN Reason: Symptoms of alcohol withdrawl Folic Acid (Folic Acid) 1 mg PO DAILY [facility] Last Admin: 09/19/17 10:38 Dose: 1 mg Dextrose/Sodium Chloride (Dextrose 5%/0.45% Ns 1000 Ml) 1,000 mls @ 80 mls/hr IV .[id number] [facility] Last Admin: 09/19/17 13:59 Dose: Not Given Magnesium Oxide (Mag-Ox) 400 mg PO DAILY [facility] Last Admin: 09/19/17 10:37 Dose: 400 mg Multivitamins (Hexavitamin) 1 tab PO DAILY [facility] Last Admin: 09/19/17 10:37 Dose: 1 tab Nadolol (Corgard) 20 mg PO DAILY [facility] Last Admin: 09/19/17 10:38 Dose: 20 mg Sertraline HCl (Zoloft) 50 mg PO DAILY [facility] Last Admin: 09/19/17 10:38 Dose: 50 mg Thiamine HCl (Vitamin B1 Tab) 100 mg PO DAILY [facility] Last Admin: 09/19/17 10:38 Dose: 100 mg Trazodone HCl (Desyrel) 100 mg PO HS [facility] Last Admin: 09/18/17 22:06 Dose: 100 mg - Labs Labs: 09/19/17 07:09/19/17 07:01 - Constitutional Appears: Well - Head Exam Head Exam: ATRAUMATIC, NORMAL INSPECTION, NORMOCEPHALIC - Eye Exam Eye Exam: EOMI, Normal appearance, PERRL Pupil Exam: NORMAL ACCOMODATION, PERRL - ENT Exam ENT Exam: Mucous Membranes Moist, Normal Exam - Neck Exam Neck Exam: Full ROM, Normal Inspection. absent: Lymphadenopathy - Respiratory Exam Respiratory Exam: Decreased Breath Sounds - Cardiovascular Exam Cardiovascular Exam: REGULAR RHYTHM, +S1, +S2 - GI/Abdominal Exam GI & Abdominal Exam: Soft, Diminished Bowel Sounds - Rectal Exam Rectal Exam: Deferred
[2017-09-20] MEDS: Dextrose 5%/0.45% NS 1,000 ML IV SCH ×2 (03:00→06:17)
[2017-09-20 08:09] VITALS: TEMP 97.5; O2SAT 96
[2017-09-20 08:12] LABS: BASO # 0.1 K/uL (0.0-0.2); BASO % 1.4 % (0.0-2.0); EOS # 0.2 K/uL (0.0-0.7); EOS % 3.9 % (0.0-4.0); HEMOGLOBIN 11.4 g/dL (12.0-18.0); LYMPH # 1.3 K/uL (1.0-4.3); LYMPH % 29.5 % (20.0-40.0); MEAN CELL VOLUME 86.6 fL (80.0-94.0); MEAN CORPUSCULAR HEMOGLOBIN 29.1 pg (27.0-31.0); MEAN CORPUSCULAR HGB CONC 33.6 g/dL (33.0-37.0); MEAN PLATELET VOLUME 9.9 fL (7.2-11.7); MONO # 0.5 K/uL (0.0-0.8); MONO % 11.8 % (0.0-10.0); NEUT # 2.3 K/uL (1.8-7.0); NEUT % 53.4 % (50.0-75.0); NRBC % 0.1 % (0.0-2.0); RBC 3.91 Mil/uL (4.40-5.90); RED CELL DISTRIBUTION WIDTH 18.8 % (11.5-14.5); WHITE BLOOD COUNT 4.3 K/uL (4.8-10.8)
[2017-09-20 08:26] LABS: ALBUMIN 3.9 g/dL (3.5-5.0); ALT/SGPT 64 U/L (21-72); AST/SGOT 101 U/L (17-59); BLOOD UREA NITROGEN 10 mg/dL (9-20); CALCIUM 8.8 mg/dl (8.6-10.4); GFR AFRICAN-AMERICAN > 60; GFR NON-AFRICAN AMERICAN > 60
[2017-09-20 09:42] VITALS: BP 113/77; PULSE 97
[2017-09-20] MEDS: Magnesium Oxide 400 mg Tab UD PO SCH (09:43)
[2017-09-20] MEDS: Multiple Vitamins Tab PO SCH (09:43)
--- NOTE | 2017-09-20 10:06 | CP.PCM.PN ---
<Kendra Casey - Last Filed: 09/20/17 10:03> Subjective - Date & Time of Evaluation Date of Evaluation: 09/20/17 Time of Evaluation: 10:03 - Subjective Subjective: PGY2 progress note for Dr. Neville Pt seen and examined at bedside. No acute events overnight. Patient is eager to leave hospital because he has an appointment scheduled at GI clinic for later today. Patient denies having any CP, SOB, abd pain, N/V/D/C, F/C, tremors , anxiety, agitation. Objective - Vital Signs/Intake and Output Vital Signs (last 24 hours): Temp Pulse Resp BP Pulse Ox 97.5 F L 97 H 20 113/77 96 09/20/17 08:07 09/20/17 09:42 09/20/17 08:07 09/20/17 09:42 09/20/17 08:07 Intake and Output: 09/20/17 09/20/17 06:59 18:59 Intake Total 1090 Output Total 400 Balance 690 - Medications Medications: Current Medications Chlordiazepoxide (Librium) 25 mg PO Q4H PRN PRN Reason: Alcohol Withdrawal Last Admin: 09/18/17 22:12 Dose: 25 mg Chlordiazepoxide (Librium) 25 mg PO Q24H [facility] PRN Reason: Taper Stop: 09/21/17 09:59 Last Admin: 09/20/17 09:43 Dose: 25 mg Clonidine HCl (Catapres) 0.1 mg PO Q4H PRN PRN Reason: Symptoms of alcohol withdrawl Folic Acid (Folic Acid) 1 mg PO DAILY [facility] Last Admin: 09/20/17 09:43 Dose: 1 mg Dextrose/Sodium Chloride (Dextrose 5%/0.45% Ns 1000 Ml) 1,000 mls @ 80 mls/hr IV .[id number] [facility] Last Admin: 09/20/17 06:17 Dose: 80 mls/hr Magnesium Oxide (Mag-Ox) 400 mg PO DAILY [facility] Last Admin: 09/20/17 09:43 Dose: 400 mg Multivitamins (Hexavitamin) 1 tab PO DAILY [facility] Last Admin: 09/20/17 09:43 Dose: 1 tab Nadolol (Corgard) 20 mg PO DAILY [facility] Last Admin: 09/20/17 09:43 Dose: 20 mg Sertraline HCl (Zoloft) 50 mg PO DAILY [facility] Last Admin: 09/20/17 09:43 Dose: 50 mg Thiamine HCl (Vitamin B1 Tab) 100 mg PO DAILY [facility] Last Admin: 09/20/17 09:43 Dose: 100 mg Trazodone HCl (Desyrel) 100 mg PO HS [facility] Last Admin: 09/19/17 21:19 Dose: 100 mg - Labs Labs: 09/20/17 07:59 09/20/17 07:59 - Constitutional Appears: Non-toxic, No Acute Distress - Head Exam Head Exam: ATRAUMATIC - ENT Exam ENT Exam: Mucous Membranes Moist - Respiratory Exam Respiratory Exam: Clear to Ausculation Bilateral. absent: Accessory Muscle Use , Rales, Rhonchi, Wheezes, Respiratory Distress - Cardiovascular Exam Cardiovascular Exam: REGULAR RHYTHM, +S1, +S2. absent: Gallop, Rubs, Murmur - GI/Abdominal Exam GI & Abdominal Exam: Soft, Normal Bowel Sounds. absent: Distended, Firm, Guarding, Rigid, Tenderness, Organomegaly - Extremities Exam Extremities Exam: absent: Pedal Edema, Tenderness - Neurological Exam Neurological Exam: Alert, Awake, CN II-XII Intact, Normal Gait, Oriented x3 Additional comments: patient seen walking around the room without difficulty, steady gait - Psychiatric Exam Psychiatric exam: Normal Affect, Normal Mood - Skin Skin Exam: Dry, Intact, Normal Color, Warm Assessment and Plan - Assessment and Plan (Free Text) Assessment: 47 year old male with past medical history of liver cirrhosis 2/2 ETOH abuse is admitted for ETOH detox. Liver cirrhosis - AST elevated on presentation. ALT WNL. Presentation likely due to chronic ETOH abuse - LFTs are improving - Avoid hepatotoxic meds- Nadolol 20mg PO daily - Patient follows up with GI clinic outpt. He has appointment today ETOH abuse - Serum ETOH level on presentation was 446 - Librium taper to complete 5/5 - continue thiamine, folic acid and multivitamin - [facility] protocol - Psych, Dr. Luz is consulted: Supportive therapy and psychoeducation [place] for abstinence CBT for relapse prevention Encourage MAT Refer to rehab or IOP, and self-help groups after detox - Zoloft 50mg PO daily Pancytopenia - Likely 2/2 liver cirrhosis - Blood smear ordered - HIV negative - Dr Rosado consulted - help appreciated Insomnia Trazodone 100mg PO HS Prophylaxis - lovenox - SCDs - No GI prophylaxis indicated Case discussed with attending, Dr. Neville. All orders and management per Dr. Neville Patient is stable for discharge home per Dr. Neville. Patient is to follow up with PMD upon discharge. Patient is also to follow up with digital solution architect upon discharge. Patient has an appointment scheduled for today 09/20/17 Discussed the risks of ETOH abuse and recommended cessation. Patient is discharged on the following medications: Multivitamin 30 tabs, Folic acid 1 mg po daily #30 tabs, Thiamine 100 mg po daily #30 tabs. Please return to ED if symptoms worsen. <Wiliam Neville S - Last Filed: 09/20/17 11:44> Objective - Vital Signs/Intake and Output Vital Signs (last 24 hours): Temp Pulse Resp BP Pulse Ox 97.5 F L 97 H 20 113/77 96 09/20/17 08:07 09/20/17 09:42 09/20/17 08:07 09/20/17 09:42 09/20/17 08:07 Intake and Output: 09/20/17 09/20/17 06:59 18:59 Intake Total 1090 Output Total 400 Balance 690 - Labs Labs: 09/20/17 07:59 09/20/17 07:59 Attending/Attestation - Attestation I have personally seen and examined this patient.: Yes I have fully participated in the care of the patient.: Yes I have reviewed all pertinent clinical information, including history, physical exam and plan: Yes Notes (Text): case seen and d.w staff and resident, concurred with finding and management..
== END 2017-09-20 11:11 | disposition home or self-care (01) | DRG 296 ==
LOC: C.ER 23:49 → C.3T 09-15 01:50 → OBSVTOIN 09-17 18:16 → C.3T 09-17 22:01
PROVIDERS: ADMIT Internal Medicine Nephrology; ATTEND Internal Medicine Nephrology
PROC: HZ2ZZZZ Detoxification Services for Substance Abuse Treatment (ICD-10-PCS; principal; 2017-09-17)
PROC: HZ52ZZZ Individual Psychotherapy for Substance Abuse Treatment, Cognitive-Behavioral (ICD-10-PCS; 2017-09-17)
PROC: HZ59ZZZ Individual Psychotherapy for Substance Abuse Treatment, Supportive (ICD-10-PCS; 2017-09-17)
PROC: HZ56ZZZ Individual Psychotherapy for Substance Abuse Treatment, Psychoeducation (ICD-10-PCS; 2017-09-17)
PROC: HZ42ZZZ Group Counseling for Substance Abuse Treatment, Cognitive-Behavioral (ICD-10-PCS; 2017-09-17)
PROC: HZ46ZZZ Group Counseling for Substance Abuse Treatment, Psychoeducation (ICD-10-PCS; 2017-09-17)
DX: E87.0 Hyperosmolality and hypernatremia (principal); F10.239 Alcohol dependence with withdrawal, unspecified; D61.818 Other pancytopenia; K70.30 Alcoholic cirrhosis of liver without ascites; F41.9 Anxiety disorder, unspecified; G47.00 Insomnia, unspecified; I85.10 Secondary esophageal varices without bleeding; Y90.8 Blood alcohol level of 240 mg/100 ml or more; I85.00 Esophageal varices without bleeding; F32.9 Major depressive disorder, single episode, unspecified

== ENCOUNTER 2017-11-25 19:48 | Inpatient (IN) | payer MEDICAID ==
[2017-11-25] MEDS ORDERED: Sodium Chloride 0.9% 1,000 ML IV ONE (20:37)
[2017-11-25 20:51] LABS: BASO # 0.1 K/uL (0.0-0.2); EOS # 0.1 K/uL (0.0-0.7); EOS % 2.4 % (0.0-4.0); HEMOGLOBIN 11.2 g/dL (12.0-18.0); LYMPH % 30.5 % (20.0-40.0); MEAN CELL VOLUME 85.1 fL (80.0-94.0); MEAN CORPUSCULAR HEMOGLOBIN 28.6 pg (27.0-31.0); MEAN CORPUSCULAR HGB CONC 33.6 g/dL (33.0-37.0); MONO # 0.3 K/uL (0.0-0.8); MONO % 9.5 % (0.0-10.0); NEUT # 1.7 K/uL (1.8-7.0); NEUT % 54.1 % (50.0-75.0); RBC 3.94 Mil/uL (4.40-5.90); RED CELL DISTRIBUTION WIDTH 19.7 % (11.5-14.5); WHITE BLOOD COUNT 3.2 K/uL (4.8-10.8)
--- NOTE | 2017-11-25 20:53 | C.PDOC ---
History Of Present Illness 47 y/o male presents to ED for complaints of Palpitations. Patient admits to drinking and states last drink was this morning. Denies any other physical complaints. Time Seen by Provider: 11/25/17 20:25 Chief Complaint (Nursing): Chest Pain History Per: Patient History/Exam Limitations: no limitations Onset/Duration Of Symptoms: Hrs Current Symptoms Are (Timing): Still Present Associated Symptoms: denies: Nausea, Dyspnea, Diaphoresis, Syncope Modifying Factors: None Exacerbating Factors: None Alleviating Factors: None Recent travel outside of the [place]: No Past Medical History Reviewed: Historical Data, Nursing Documentation, Vital Signs Vital Signs: Last Vital Signs Temp 98.1 F 11/28/17 04:10 Pulse 72 11/28/17 04:10 Resp 20 11/28/17 04:10 BP 127/84 11/28/17 04:10 Pulse Ox 98 11/28/17 07:35 - Medical History PMH: No Chronic Diseases Surgical History: Endoscopy - [facility] Procedures ALCOHOL DETOXIFICATION (12/31/13) CONTROL BLEEDING IN GASTROINTESTINAL TRACT, ENDO (12/20/16) DETOXIFICATION SERVICES FOR SUBSTANCE ABUSE TREATMENT (09/17/17) EXCISION OF STOMACH, ENDO, DIAGN (04/27/15) GROUP CUSTOMER SALES CONSULTANT FOR SUBSTANCE ABUSE TREATMENT, PSYCHOEDUCATION (09/17/17) GROUP CUSTOMER SALES CONSULTANT FOR SUBSTANCE ABUSE, COGNITIVE BEHAVIORAL (09/17/17) INDIV PSYCHOTHERAPY FOR SUBSTANCE ABUSE TREATMENT, SUPPORT (09/17/17) INDIV PSYCHOTHERAPY FOR SUBSTANCE ABUSE, COGNITIV BEHAVIORAL (09/17/17) INDIV PSYCHOTHERAPY FOR SUBSTANCE ABUSE, PSYCHOEDUCATION (09/17/17) MEDICATION MANAGEMENT (05/15/17) Family History: States: Unknown Family Hx - Social History Hx Tobacco Use: No Hx Alcohol Use: Yes Hx Substance Use: No - Immunization History Hx Tetanus Toxoid Vaccination: No Hx Influenza Vaccination: No Hx Pneumococcal Vaccination: No Review Of Systems Except As Marked, All Systems Reviewed And Found Negative. Cardiovascular: Positive for: Palpitations Physical Exam - Physical Exam Appears: Well, Non-toxic, No Acute Distress Skin: Normal Color, Warm, Dry Head: Atraumatic, Normacephalic Eye(s): bilateral: Normal Inspection, PERRL, EOMI Oral Mucosa: Moist Neck: Supple Chest: Symmetrical, No Tenderness Cardiovascular: Rhythm Regular Respiratory: Normal Breath Sounds, No Decreased Breath Sounds, No Rales, No Rhonchi, No Wheezing Gastrointestinal/Abdominal: Soft, No Tenderness Extremity: Normal ROM, No Deformity Extremity: Bilateral: Atraumatic, Normal Color And Temperature, Normal ROM Neurological/Psych: Oriented x3, Normal Speech (Speaking in full sentences ), Other (No focal deficits ) Gait: Steady ED Course And Treatment - Laboratory Results Result Diagrams: 11/25/17 20:45 11/25/17 20:45 O2 Sat by Pulse Oximetry: 98 (RA) Pulse Ox Interpretation: Normal Medical Decision Making Medical Decision Making: Administered IV fluids and Librium. Ordered blood work, CXR, EKG, and urinalysis. accepted by dr sadiq flores to tele for etoh w/d and chest pain. pt tremors improving. Disposition - Disposition Disposition: HOSPITALIZED Disposition Time: 01:00 Condition: FAIR - Clinical Impression Clinical Impression: Chest pain, Alcohol abuse, Alcohol withdrawal - Scribe Statement The provider has reviewed the documentation as recorded by the Scribe Cristin Laguna All medical record entries made by the Scribe were at my direction and personally dictated by me. I have reviewed the chart and agree that the record accurately reflects my personal performance of the history, physical exam, medical decision making, and the department course for this patient. I have also personally directed, reviewed, and agree with the discharge instructions and disposition. Decision To Admit - Pt Status Changed To: Hospital Disposition Of: Observation - . Bed Request Type: Telemetry Admitting Physician: Wiliam Flores Patient Diagnosis: Chest pain, Alcohol abuse, Alcohol withdrawal
[2017-11-25 20:58] LABS: INR 1.3; PROTHROMBIN TIME 14.2 SECONDS (9.7-12.2)
[2017-11-25 21:05] LABS: ALB/GLOB RATIO 1.3 (1.0-2.1); ALBUMIN 4.5 g/dL (3.5-5.0); ALT/SGPT 78 U/L (21-72); AST/SGOT 248 U/L (17-59); BLOOD UREA NITROGEN 12 mg/dL (9-20); CALCIUM 8.5 mg/dl (8.6-10.4); GFR AFRICAN-AMERICAN > 60; GFR NON-AFRICAN AMERICAN > 60
[2017-11-25 21:06] LABS: BASO % 2.4 % (0.0-2.0)
[2017-11-25 22:14] LABS: SQUAMOUS EPITHIAL < 1 /hpf (0-5); URINE BILIRUBIN 1+ (NEGATIVE); URINE BLOOD NEGATIVE (NEGATIVE); URINE CLARITY Clear (Clear); URINE COLOR Amber (YELLOW); URINE GLUCOSE (UA) NORMAL (Normal); URINE LEUKOCYTE ESTERASE NEG Leu/uL (Negative); URINE PROTEIN 2+ mg/dL (NEGATIVE)
[2017-11-25 22:31] LABS: BARBITURATES, UR NEGATIVE (NEGATIVE); BENZODIAZEPINES, UR NEGATIVE (NEGATIVE); OPIATES, UR NEGATIVE (NEGATIVE); PHENCYCLIDINE, UR NEGATIVE (NEGATIVE)
[2017-11-25] MEDS ORDERED: Folic Acid 1 MG, Thiamine 100 MG, Multivitamin (MVI) 10 ML in Dextrose 5% In Water 1,00... IV SCH (23:15)
--- NOTE | 2017-11-25 23:37 | CP.PCM.HP ---
Past Patient History - Infectious Disease Hx of Infectious Diseases: None - Tetanus Immunizations Tetanus Immunization: Unknown - Past Medical History & Family History Past Medical History?: No - Past Social History Smoking Status: Never Smoked - PULMONARY Hx Tuberculosis: No - HEENT Hx HEENT Problems: No - RENAL Hx Chronic Kidney Disease: No - ENDOCRINE/METABOLIC Hx Endocrine Disorders: No - INTEGUMENTARY Hx Dermatological Problems: No - MUSCULOSKELETAL/RHEUMATOLOGICAL Hx Falls: No - GASTROINTESTINAL Hx Gastrointestinal Disorders: Yes Hx Liver Failure: Yes Other/Comment: ESOPHAGEAL VARICES - PSYCHIATRIC Hx Substance Use: No - SURGICAL HISTORY Hx Surgeries: Yes - ANESTHESIA Hx Anesthesia: Yes Hx Anesthesia Reactions: No Hx Malignant Hyperthermia: No Meds Allergies/Adverse Reactions: Allergies Allergy/AdvReac Type Severity Reaction Status Date / Time No Known Allergies Allergy Verified 11/25/17 20:11 Results - Vital Signs Recent Vital Signs: Last Vital Signs Temp 98.7 F 11/25/17 22:46 Pulse 87 11/25/17 22:46 Resp 13 11/25/17 22:46 BP 98/56 L 11/25/17 22:46 Pulse Ox 97 11/25/17 22:46 - Labs Result Diagrams: 11/25/17 20:45 11/25/17 20:45 Labs: Laboratory Results - last 24 hr 11/25/17 11/25/17 11/25/17 20:45 20:45 20:45 WBC 3.2 L RBC 3.94 L Hgb 11.2 L Hct 33.5 L MCV 85.1 MCH 28.6 MCHC 33.6 RDW 19.7 H Plt Count 31 L D MPV 9.0 Neut % (Auto) 54.1 Lymph % (Auto) 30.5 Waldo % (Auto) 9.5 Eos % (Auto) 2.4 Baso % (Auto) 2.4 H Neut # (Auto) 1.7 L Lymph # (Auto) 1.0 Waldo # (Auto) 0.3 Eos # (Auto) 0.1 Baso # (Auto) 0.1 Differential Comment PT 14.2 H INR 1.3 APTT 42 H Sodium 144 Potassium 3.8 Chloride 105 Carbon Dioxide 23 Anion Gap 20 BUN 12 Creatinine 0.7 L Est GFR ( Amer) > 60 Est GFR (Non-Af Amer) > 60 Random Glucose 108 Calcium 8.5 L Total Bilirubin 3.3 H AST 248 H D ALT 78 H D Alkaline Phosphatase 338 H D Troponin I < 0.0120 Total Protein 8.1 Albumin 4.5 Globulin 3.5 Albumin/Globulin Ratio 1.3 Urine Color Urine Clarity Urine pH Ur Specific [place] Urine Protein Urine Glucose (UA) Urine Ketones Urine Blood Urine Nitrate Urine Bilirubin Urine Urobilinogen Ur Leukocyte Esterase Urine WBC (Auto) Urine RBC (Auto) Ur Squamous Epith Cells Urine Opiates Screen Urine Methadone Screen Ur Barbiturates Screen Ur Phencyclidine Scrn Ur Amphetamines Screen U Benzodiazepines Scrn U Oth Cocaine Metabols U Cannabinoids Screen Alcohol, Quantitative 224 H 11/25/17 11/25/17 22:06 22:06 WBC RBC Hgb Hct MCV MCH MCHC RDW Plt Count MPV Neut % (Auto) Lymph % (Auto) [place] % (Auto) Eos % (Auto) Baso % (Auto) Neut # (Auto) Lymph # (Auto) Wal[place] # (Auto) Eos # (Auto) Baso # (Auto) Differential Comment PT INR APTT Sodium Potassium Chloride Carbon Dioxide Anion Gap BUN Creatinine Est GFR ( Amer) Est GFR (Non-Af Amer) Random Glucose Calcium Total Bilirubin AST ALT Alkaline Phosphatase Troponin I Total Protein Albumin Globulin Albumin/Globulin Ratio Urine Color Michelle Urine Clarity Clear Urine pH 6.0 Ur Specific [place] 1.019 Urine Protein 2+ H Urine Glucose (UA) Normal Urine Ketones Negative Urine Blood Negative Urine Nitrate Negative Urine Bilirubin 1+ H Urine Urobilinogen 4.0 Ur Leukocyte Esterase Neg Urine WBC (Auto) 1 Urine RBC (Auto) 1 Ur Squamous Epith Cells < 1 Urine Opiates Screen Negative Urine Methadone Screen Negative Ur Barbiturates Screen Negative Ur Phencyclidine Scrn Negative Ur Amphetamines Screen Negative U Benzodiazepines Scrn Negative U Oth Cocaine Metabols Negative U Cannabinoids Screen Negative Alcohol, Quantitative
[2017-11-26 05:29] LABS: CK-MB 0.57 ng/mL (0.0-3.38)
[2017-11-26] MEDS ORDERED: Enoxaparin 40 mg Syringe SC SCH (10:00)
--- NOTE | 2017-11-26 11:53 | CP.PCM.PN ---
Subjective - Date & Time of Evaluation Date of Evaluation: 11/26/17 Time of Evaluation: 11:30 - Subjective Subjective: clinically same Objective - Vital Signs/Intake and Output Vital Signs (last 24 hours): Temp Pulse Resp BP Pulse Ox 98.6 F 78 20 138/73 100 11/26/17 08:08 11/26/17 08:45 11/26/17 08:08 11/26/17 08:08 11/26/17 08:08 - Medications Medications: Current Medications Enoxaparin Sodium (Lovenox) 40 mg SC DAILY [facility] Last Admin: 11/26/17 10:08 Dose: 40 mg Folic Acid (Folic Acid) 1 mg PO DAILY [facility] Folic Acid 1 mg/ Thiamine HCl 100 mg/ Multivitamins/Vitamin C 10 ml/ Dextrose 1 ,011.2 mls @ 100 mls/hr IV Q24H [facility] Lorazepam (Ativan) 1 mg PO Q4H PRN PRN Reason: Symptoms of alcohol withdrawl Lorazepam (Ativan) 0 mg PO .TAPER [facility] PRN Reason: Taper Stop: 11/30/17 11:59 Multivitamins (Hexavitamin) 1 tab PO DAILY [facility] Pantoprazole Sodium (Protonix Inj) 40 mg IVP DAILY [facility] Last Admin: 11/26/17 10:08 Dose: 40 mg Thiamine HCl (Vitamin B1 Tab) 100 mg PO DAILY [facility] Trazodone HCl (Desyrel) 50 mg PO HS PRN PRN Reason: Insomnia - Labs Labs: 11/25/17 20:45 11/25/17 20:45 PT 14.2 SECONDS (9.7-12.2) H 11/25/17 20:45 INR 1.3 11/25/17 20:45 APTT 42 SECONDS (21-34) H 11/25/17 20:45 - Constitutional Appears: Well - Head Exam Head Exam: ATRAUMATIC, NORMAL INSPECTION, NORMOCEPHALIC - Eye Exam Eye Exam: EOMI, Normal appearance, PERRL Pupil Exam: NORMAL ACCOMODATION, PERRL - ENT Exam ENT Exam: Mucous Membranes Moist, Normal Exam - Neck Exam Neck Exam: Full ROM, Normal Inspection. absent: Lymphadenopathy - Respiratory Exam Respiratory Exam: Decreased Breath Sounds - Cardiovascular Exam Cardiovascular Exam: REGULAR RHYTHM, +S1, +S2 - GI/Abdominal Exam GI & Abdominal Exam: Soft, Diminished Bowel Sounds - Rectal Exam Rectal Exam: Deferred Assessment and Plan - Assessment and Plan (Free Text) Plan: Lovenox folic acid lorazepam multivitamin pantoprazole thiamine trazodone monitor hemoglobin electrolytes banana bag and continues
--- NOTE | 2017-11-26 11:59 | RAD ---
Date of service: 11/25/2017 PROCEDURE: CHEST RADIOGRAPH, 1 VIEW HISTORY: chest pain COMPARISON: Chest radiograph dated 05/01/2017. FINDINGS: LUNGS: Clear. PLEURA: No pneumothorax or pleural fluid seen. CARDIOVASCULAR: Normal. OSSEOUS STRUCTURES: Unchanged. VISUALIZED UPPER ABDOMEN: Normal. OTHER FINDINGS: None. IMPRESSION: No active disease.
--- NOTE | 2017-11-26 13:11 | PCM.PSYCH ---
Initial Psychiatric Evaluation - Initial Psychiatric Evaluation Type of Admission: Voluntary Legal Status: Capacity Chief Complaint (in patient's own words): "I am here for detox" History of Present Illness and Precipitating Events: Patient is a 46 yr old male with a history of chronic alcohol abuse and liver cirrhosis that presented to the ED requesting detox. The patient was brought into the ED by his . He states that one of his closest friends committed suicide four weeks ago and that is when he started drinking heavily again. He drinks about 6-8 gin and tonics in 8 ounce glasses daily. He had drunk 3-4 8 ounce glasses of the same today before he decided to come the the ED. After drinking he noticed that he was shaking, had dilated pupils, and leg edema leading to him deciding to come to the hospital. The longest period of sobriety for the patient is 6 months. He has been admitted three times at this hospital for detox. The patient did attend AA meetings consistently in the past but notes that whenever he stops attending the meetings he relapses into drinking again. He has been to rehab twice in the last four years. He requests help to reach sobriety again as he acknowledges the alcoholic cirrhosis is getting worse. The patient complains of nausea, tremors, and diaphoresis. Past medical history: Cirrhosis of the liver Family Hx: brother is alcoholic as well Social Hx: lives at home with , is unemployed, of note started to drink heavily after he lost his job in 2007. Medications: Trazodone 100 mg PO daily Sertraline 50 mg PO daily Nadolol 20 mg PO daily Magnesium Oxide 400 mg PO daily Folic Acid 1 mg PO daily Current Medications: Active Medications Generic Name Dose Route Start Last Admin Trade Name Stoneq PRN Reason Stop Dose Admin Enoxaparin Sodium 40 mg 11/26/17 10:00 11/26/17 10:08 Lovenox SC 40 mg DAILY [facility] Administration Folic Acid 1 mg 11/26/17 12:00 Folic Acid PO DAILY [facility] Folic Acid 1 mg/ Thiamine HCl 1,011.2 mls @ 100 mls/hr 11/27/17 01:00 100 mg/ Multivitamins/Vitamin IV C 10 ml/ Dextrose Q24H [facility] Lorazepam 1 mg 11/26/17 11:46 Ativan PO Q4H PRN Symptoms of alcohol withdrawl Lorazepam 2 mg 11/26/17 12:00 11/26/17 12:12 Ativan PO 11/30/17 11:59 2 mg Q4 [facility] Administration Taper Multivitamins 1 tab 11/26/17 12:00 Hexavitamin PO DAILY [facility] Pantoprazole Sodium 40 mg 11/26/17 10:00 11/26/17 10:08 Protonix Inj IVP 40 mg DAILY [facility] Administration Thiamine HCl 100 mg 11/26/17 12:00 Vitamin B1 Tab PO DAILY [facility] Trazodone HCl 50 mg 11/26/17 11:46 Desyrel PO HS PRN Insomnia Past Psychiatric History - Past Psychiatric History Previous Treatment History: Inpatient History of ETOH/Drug Use: Alcohol abuse History of Family Illness: Brother is also an alcoholic Pertinent Medical Hx (Current Medical&Sleep Prob, Allergies): Allergies Allergy/AdvReac Type Severity Reaction Status Date / Time No Known Allergies Allergy Verified 11/25/17 20:11 Magnesium Oxide [Mag-Ox] 400 mg PO DAILY #30 tab 05/22/17 Sertraline [Zoloft] 50 mg PO DAILY #30 tab 05/22/17 traZODone [Desyrel] 100 mg PO HS #30 tab 05/22/17 Nadolol [Corgard] 20 mg PO DAILY 09/15/17 Folic Acid 1 mg PO DAILY #30 tab 09/20/17 Multivitamins [Hexavitamin] 1 tab PO DAILY #30 tab 09/20/17 Thiamine [Vitamin B1 Tab] 100 mg PO DAILY #30 tab 09/20/17 Review of Systems - EENT Eyes: Other (dilated pupils ) - Gastrointestinal Gastrointestinal: Cramping - Musculoskeletal Musculoskeletal: Muscle Cramps Mental Status Examination - Motor Activity Motor Activity: Calm - Reliability in Providing Information Reliability in Providing Information: Good - Speech Speech: Organized - Mood Mood: Neutral - Formal Thought Process Formal Thought Process: No Impairment - Obsessions/Compulsions Obsessions: No Compulsions: No - Cognitive Functions Orientation: Person, Place, Situation, Time Sensorium: Alert Estimate of Intelligence: Above Average - Risk Risk: Seizure DSM 5 DX - DSM 5 DSM 5 Diagnosis: Alcohol Abuse Disorder - Recommended/Plan of Treatment Treatment Recommendations and Plan of Treatment: Taper with Ativan 1mg Q4 Gabapentin for augmentation if needed As needed medications All risks, benefits and alternatives of the meds discussed, and the pt agreed and understood. Attend groups and activities Supportive therapy and psychoeducation [place] for abstinence CBT for relapse prevention Encourage MAT Refer to rehab or IOP, and self-help groups
[2017-11-26 13:48] LABS: CK-MB 0.61 ng/mL (0.0-3.38)
[2017-11-26] MEDS: Multiple Vitamins Tab PO SCH (15:29)
[2017-11-27] MEDS: Folic Acid 1 MG, Thiamine 100 MG, Multivitamin (MVI) 10 ML in Dextrose 5% In Water 1,00... IV SCH (00:26)
--- NOTE | 2017-11-27 01:06 | CARD ---
APPROVED REPORT Date of service: 11/25/2017 EKG Measurement Heart [id number] <Conclusion> Normal sinus rhythm Normal ECG
[2017-11-27] MEDS: Multiple Vitamins Tab PO SCH (10:53)
--- NOTE | 2017-11-27 20:49 | CP.PCM.PN ---
Subjective - Date & Time of Evaluation Date of Evaluation: 11/27/17 Time of Evaluation: 10:40 - Subjective Subjective: clinically same Objective - Vital Signs/Intake and Output Vital Signs (last 24 hours): Temp Pulse Resp BP Pulse Ox 98.7 F 78 20 121/77 97 11/27/17 15:00 11/27/17 16:00 11/27/17 15:00 11/27/17 15:00 11/27/17 15:00 - Medications Medications: Current Medications Folic Acid (Folic Acid) 1 mg PO DAILY [facility] Last Admin: 11/27/17 10:53 Dose: 1 mg Folic Acid 1 mg/ Thiamine HCl 100 mg/ Multivitamins/Vitamin C 10 ml/ Dextrose 1 ,011.2 mls @ 100 mls/hr IV Q24H [facility] Last Admin: 11/27/17 00:26 Dose: 100 mls/hr Lorazepam (Ativan) 1 mg PO Q4H PRN PRN Reason: Symptoms of alcohol withdrawl Last Admin: 11/27/17 05:59 Dose: 1 mg Lorazepam (Ativan) 1 mg PO Q6 [facility] PRN Reason: Taper Stop: 11/30/17 11:59 Last Admin: 11/27/17 17:15 Dose: 1 mg Multivitamins (Hexavitamin) 1 tab PO DAILY [facility] Last Admin: 11/27/17 10:53 Dose: 1 tab Ondansetron HCl (Zofran Inj) 4 mg IVP Q6 PRN PRN Reason: Nausea/Vomiting Pantoprazole Sodium (Protonix Inj) 40 mg IVP DAILY [facility] Last Admin: 11/27/17 10:53 Dose: 40 mg Thiamine HCl (Vitamin B1 Tab) 100 mg PO DAILY [facility] Last Admin: 11/27/17 10:53 Dose: 100 mg Trazodone HCl (Desyrel) 50 mg PO HS PRN PRN Reason: Insomnia Last Admin: 11/26/17 21:37 Dose: 50 mg - Labs Labs: 11/25/17 20:45 11/25/17 20:45 PT 14.2 SECONDS (9.7-12.2) H 11/25/17 20:45 INR 1.3 11/25/17 20:45 APTT 42 SECONDS (21-34) H 11/25/17 20:45 - Constitutional Appears: Well - Head Exam Head Exam: ATRAUMATIC, NORMAL INSPECTION, NORMOCEPHALIC - Eye Exam Eye Exam: EOMI, Normal appearance, PERRL Pupil Exam: NORMAL ACCOMODATION, PERRL - ENT Exam ENT Exam: Mucous Membranes Moist, Normal Exam - Neck Exam Neck Exam: Full ROM, Normal Inspection. absent: Lymphadenopathy - Respiratory Exam Respiratory Exam: Decreased Breath Sounds - Cardiovascular Exam Cardiovascular Exam: REGULAR RHYTHM, +S1, +S2 - GI/Abdominal Exam GI & Abdominal Exam: Soft, Diminished Bowel Sounds - Rectal Exam Rectal Exam: Deferred
[2017-11-28] MEDS: Folic Acid 1 MG, Thiamine 100 MG, Multivitamin (MVI) 10 ML in Dextrose 5% In Water 1,00... IV SCH (00:06)
[2017-11-28] MEDS: Multiple Vitamins Tab PO SCH (09:29)
[2017-11-28] MEDS: Magnesium Oxide 400 mg Tab UD PO SCH (09:29)
[2017-11-28] MEDS ORDERED: Multiple Vitamins Tab PO SCH (10:00)
--- NOTE | 2017-11-28 12:43 | CARD ---
APPROVED REPORT Date of service: 11/26/2017 EKG Measurement Heart [id number] <Conclusion> Normal sinus rhythm Normal ECG
--- NOTE | 2017-11-28 14:28 | CP.PCM.PN ---
Subjective - Date & Time of Evaluation Date of Evaluation: 11/28/17 Time of Evaluation: 11:15 - Subjective Subjective: clinically same Objective - Vital Signs/Intake and Output Vital Signs (last 24 hours): Temp Pulse Resp BP Pulse Ox 98 F 77 18 128/80 98 11/28/17 07:30 11/28/17 09:00 11/28/17 07:30 11/28/17 07:30 11/28/17 07:36 Intake and Output: 11/28/17 11/28/17 06:59 18:59 Intake Total 250 Balance 250 - Medications Medications: Current Medications Folic Acid (Folic Acid) 1 mg PO DAILY [facility] Last Admin: 11/28/17 09:29 Dose: 1 mg Folic Acid 1 mg/ Thiamine HCl 100 mg/ Multivitamins/Vitamin C 10 ml/ Dextrose 1 ,011.2 mls @ 100 mls/hr IV Q24H [facility] Last Admin: 11/28/17 00:06 Dose: 100 mls/hr Lorazepam (Ativan) 1 mg PO Q4H PRN PRN Reason: Symptoms of alcohol withdrawl Last Admin: 11/27/17 21:11 Dose: 1 mg Lorazepam (Ativan) 1 mg PO Q8 [facility] PRN Reason: Taper Stop: 11/30/17 11:59 Last Admin: 11/28/17 14:13 Dose: 1 mg Magnesium Oxide (Mag-Ox) 400 mg PO DAILY [facility] Last Admin: 11/28/17 09:29 Dose: 400 mg Multivitamins (Hexavitamin) 1 tab PO DAILY [facility] Last Admin: 11/28/17 09:29 Dose: 1 tab Ondansetron HCl (Zofran Inj) 4 mg IVP Q6 PRN PRN Reason: Nausea/Vomiting Pantoprazole Sodium (Protonix Inj) 40 mg IVP DAILY [facility] Last Admin: 11/28/17 09:29 Dose: 40 mg Sertraline HCl (Zoloft) 50 mg PO DAILY [facility] Last Admin: 11/28/17 09:29 Dose: 50 mg Thiamine HCl (Vitamin B1 Tab) 100 mg PO DAILY [facility] Last Admin: 11/28/17 09:29 Dose: 100 mg Trazodone HCl (Desyrel) 50 mg PO HS PRN PRN Reason: Insomnia Last Admin: 11/26/17 21:37 Dose: 50 mg Trazodone HCl (Desyrel) 100 mg PO HS [facility] Last Admin: 11/27/17 22:37 Dose: 100 mg - Labs Labs: 11/25/17 20:45 11/25/17 20:45 PT 14.2 SECONDS (9.7-12.2) H 11/25/17 20:45 INR 1.3 11/25/17 20:45 APTT 42 SECONDS (21-34) H 11/25/17 20:45 - Constitutional Appears: Well - Head Exam Head Exam: ATRAUMATIC, NORMAL INSPECTION, NORMOCEPHALIC - Eye Exam Eye Exam: EOMI, Normal appearance, PERRL Pupil Exam: NORMAL ACCOMODATION, PERRL - ENT Exam ENT Exam: Mucous Membranes Moist, Normal Exam - Neck Exam Neck Exam: Full ROM, Normal Inspection. absent: Lymphadenopathy - Respiratory Exam Respiratory Exam: Decreased Breath Sounds - Cardiovascular Exam Cardiovascular Exam: REGULAR RHYTHM, +S1, +S2 - GI/Abdominal Exam GI & Abdominal Exam: Soft, Diminished Bowel Sounds - Rectal Exam Rectal Exam: Deferred
[2017-11-29] MEDS: Folic Acid 1 MG, Thiamine 100 MG, Multivitamin (MVI) 10 ML in Dextrose 5% In Water 1,00... IV SCH (00:52)
[2017-11-29] MEDS: Magnesium Oxide 400 mg Tab UD PO SCH (09:47)
[2017-11-29] MEDS: Multiple Vitamins Tab PO SCH (09:47)
[2017-11-29 14:24] LABS: BASO # 0.1 K/uL (0.0-0.2); BASO % 2.3 % (0.0-2.0); EOS # 0.2 K/uL (0.0-0.7); HEMOGLOBIN 11.7 g/dL (12.0-18.0); LYMPH # 0.7 K/uL (1.0-4.3); LYMPH % 16.8 % (20.0-40.0); MEAN CELL VOLUME 86.7 fL (80.0-94.0); MEAN CORPUSCULAR HEMOGLOBIN 29.3 pg (27.0-31.0); MEAN CORPUSCULAR HGB CONC 33.8 g/dL (33.0-37.0); MEAN PLATELET VOLUME 10.2 fL (7.2-11.7); MONO # 0.6 K/uL (0.0-0.8); MONO % 14.1 % (0.0-10.0); NEUT # 2.6 K/uL (1.8-7.0); NEUT % 62.8 % (50.0-75.0); NRBC % 0.1 % (0.0-2.0); RBC 4.01 Mil/uL (4.40-5.90); RED CELL DISTRIBUTION WIDTH 19.4 % (11.5-14.5); WHITE BLOOD COUNT 4.1 K/uL (4.8-10.8)
[2017-11-29 14:31] LABS: BLOOD UREA NITROGEN 15 mg/dL (9-20); CALCIUM 8.7 mg/dl (8.6-10.4); GFR AFRICAN-AMERICAN > 60; GFR NON-AFRICAN AMERICAN > 60
[2017-11-29 17:53] LABS: ALB/GLOB RATIO 1.1 (1.0-2.1); ALBUMIN 4.4 g/dL (3.5-5.0); BILIRUBIN,DIRECT 3.4 mg/dL (0.0-0.4)
--- NOTE | 2017-11-29 20:43 | CP.PCM.PN ---
Subjective - Date & Time of Evaluation Date of Evaluation: 11/29/17 Time of Evaluation: 12:00 - Subjective Subjective: clinically same Objective - Vital Signs/Intake and Output Vital Signs (last 24 hours): Temp Pulse Resp BP Pulse Ox 98.5 F 68 20 117/73 98 11/29/17 15:00 11/29/17 15:00 11/29/17 15:00 11/29/17 15:00 11/29/17 15:00 Intake and Output: 11/29/17 11/30/17 18:59 06:59 Intake Total 400 Balance 400 - Medications Medications: Current Medications Folic Acid (Folic Acid) 1 mg PO DAILY [facility] Last Admin: 11/29/17 09:47 Dose: 1 mg Folic Acid 1 mg/ Thiamine HCl 100 mg/ Multivitamins/Vitamin C 10 ml/ Dextrose 1 ,011.2 mls @ 100 mls/hr IV Q24H [facility] Last Admin: 11/29/17 00:52 Dose: 100 mls/hr Lorazepam (Ativan) 1 mg PO Q4H PRN PRN Reason: Symptoms of alcohol withdrawl Last Admin: 11/29/17 01:23 Dose: 1 mg Lorazepam (Ativan) 1 mg PO Q24H [facility] PRN Reason: Taper Stop: 11/30/17 11:59 Last Admin: 11/29/17 11:07 Dose: 1 mg Magnesium Oxide (Mag-Ox) 400 mg PO DAILY [facility] Last Admin: 11/29/17 09:47 Dose: 400 mg Multivitamins (Hexavitamin) 1 tab PO DAILY [facility] Last Admin: 11/29/17 09:47 Dose: 1 tab Ondansetron HCl (Zofran Inj) 4 mg IVP Q6 PRN PRN Reason: Nausea/Vomiting Pantoprazole Sodium (Protonix Inj) 40 mg IVP DAILY [facility] Last Admin: 11/29/17 09:48 Dose: 40 mg Sertraline HCl (Zoloft) 50 mg PO DAILY [facility] Last Admin: 11/29/17 09:47 Dose: 50 mg Thiamine HCl (Vitamin B1 Tab) 100 mg PO DAILY [facility] Last Admin: 11/29/17 09:46 Dose: 100 mg Trazodone HCl (Desyrel) 50 mg PO HS PRN PRN Reason: Insomnia Last Admin: 11/26/17 21:37 Dose: 50 mg Trazodone HCl (Desyrel) 100 mg PO HS [facility] Last Admin: 11/28/17 21:18 Dose: 100 mg - Labs Labs: 11/29/17 14:01 11/29/17 14:01 PT 14.2 SECONDS (9.7-12.2) H 11/25/17 20:45 INR 1.3 11/25/17 20:45 APTT 42 SECONDS (21-34) H 11/25/17 20:45
[2017-11-30] MEDS: Folic Acid 1 MG, Thiamine 100 MG, Multivitamin (MVI) 10 ML in Dextrose 5% In Water 1,00... IV SCH (01:18)
[2017-11-30] MEDS: Multiple Vitamins Tab PO SCH (09:04)
[2017-11-30] MEDS: Magnesium Oxide 400 mg Tab UD PO SCH (09:05)
[2017-11-30 14:18] LABS: ALB/GLOB RATIO 1.2 (1.0-2.1); ALBUMIN 4.4 g/dL (3.5-5.0); ALT/SGPT 92 U/L (21-72); AST/SGOT 162 U/L (17-59); BLOOD UREA NITROGEN 12 mg/dL (9-20); GFR AFRICAN-AMERICAN > 60; GFR NON-AFRICAN AMERICAN > 60
--- NOTE | 2017-11-30 15:01 | CP.PCM.PN ---
Subjective - Date & Time of Evaluation Date of Evaluation: 11/30/17 Time of Evaluation: 10:45 - Subjective Subjective: clinically same Objective - Vital Signs/Intake and Output Vital Signs (last 24 hours): Temp Pulse Resp BP Pulse Ox 98.5 F 80 18 109/64 97 11/30/17 07:25 11/30/17 07:25 11/30/17 07:25 11/30/17 07:25 11/30/17 07:25 Intake and Output: 11/30/17 11/30/17 06:59 18:59 Intake Total 1075 Balance 1075 - Medications Medications: Current Medications Folic Acid (Folic Acid) 1 mg PO DAILY [facility] Last Admin: 11/30/17 09:04 Dose: 1 mg Lorazepam (Ativan) 1 mg PO Q4H PRN PRN Reason: Symptoms of alcohol withdrawl Last Admin: 11/29/17 22:53 Dose: 1 mg Magnesium Oxide (Mag-Ox) 400 mg PO DAILY [facility] Last Admin: 11/30/17 09:05 Dose: 400 mg Multivitamins (Hexavitamin) 1 tab PO DAILY [facility] Last Admin: 11/30/17 09:04 Dose: 1 tab Ondansetron HCl (Zofran Inj) 4 mg IVP Q6 PRN PRN Reason: Nausea/Vomiting Pantoprazole Sodium (Protonix Inj) 40 mg IVP DAILY [facility] Last Admin: 11/30/17 09:04 Dose: 40 mg Sertraline HCl (Zoloft) 50 mg PO DAILY [facility] Last Admin: 11/30/17 09:05 Dose: 50 mg Thiamine HCl (Vitamin B1 Tab) 100 mg PO DAILY [facility] Last Admin: 11/30/17 09:05 Dose: 100 mg Trazodone HCl (Desyrel) 50 mg PO HS PRN PRN Reason: Insomnia Last Admin: 11/30/17 00:38 Dose: 50 mg Trazodone HCl (Desyrel) 100 mg PO HS [facility] Last Admin: 11/29/17 22:53 Dose: 100 mg - Labs Labs: 11/29/17 14:01 11/30/17 13:54 PT 14.2 SECONDS (9.7-12.2) H 11/25/17 20:45 INR 1.3 11/25/17 20:45 APTT 42 SECONDS (21-34) H 11/25/17 20:45 - Constitutional Appears: Well - Head Exam Head Exam: ATRAUMATIC, NORMAL INSPECTION, NORMOCEPHALIC - Eye Exam Eye Exam: EOMI, Normal appearance, PERRL Pupil Exam: NORMAL ACCOMODATION, PERRL - ENT Exam ENT Exam: Mucous Membranes Moist, Normal Exam - Neck Exam Neck Exam: Full ROM, Normal Inspection. absent: Lymphadenopathy - Respiratory Exam Respiratory Exam: Decreased Breath Sounds - Cardiovascular Exam Cardiovascular Exam: REGULAR RHYTHM, +S1, +S2 - GI/Abdominal Exam GI & Abdominal Exam: Soft, Diminished Bowel Sounds - Rectal Exam Rectal Exam: Deferred
[2017-12-01] MEDS: Magnesium Oxide 400 mg Tab UD PO SCH (09:26)
[2017-12-01] MEDS: Multiple Vitamins Tab PO SCH (09:26)
--- NOTE | 2017-12-01 17:20 | CP.PCM.PN ---
Subjective - Date & Time of Evaluation Date of Evaluation: 12/01/17 Time of Evaluation: 17:17 - Subjective Subjective: CHART REVIEWED. PT SEEN AND EXAMINED, COVERING DR Rahel STERN PT ALERT, FEELS BETTER., NOTES REDNESS FACE. ROS; OTHERWISE NEG. Objective - Vital Signs/Intake and Output Vital Signs (last 24 hours): Temp Pulse Resp BP Pulse Ox 98.2 F 70 20 115/69 98 12/01/17 15:00 12/01/17 15:00 12/01/17 15:00 12/01/17 15:00 12/01/17 15:00 Intake and Output: 12/01/17 12/01/17 06:59 18:59 Intake Total 1200 Balance 1200 - Medications Medications: Current Medications Diphenhydramine HCl (Benadryl) 25 mg PO Q6 PRN PRN Reason: Itching / Pruritus Last Admin: 12/01/17 15:03 Dose: 25 mg Folic Acid (Folic Acid) [address] [facility] Last Admin: 12/01/17 09:26 Dose: 1 mg Lorazepam (Ativan) 1 mg PO Q4H PRN PRN Reason: Symptoms of alcohol withdrawl Last Admin: 12/01/17 15:02 Dose: 1 mg Magnesium Oxide (Mag-Ox) [address] [facility] Last Admin: 12/01/17 09:26 Dose: 400 mg Multivitamins (Hexavitamin) 1 tab PO DAILY [facility] Last Admin: 12/01/17 09:26 Dose: 1 tab Ondansetron HCl (Zofran Inj) 4 mg IVP Q6 PRN PRN Reason: Nausea/Vomiting Pantoprazole Sodium (Protonix Inj) 40 mg IVP DAILY [facility] Last Admin: 12/01/17 09:26 Dose: 40 mg Sertraline HCl (Zoloft) 50 mg PO DAILY [facility] Last Admin: 12/01/17 09:26 Dose: 50 mg Thiamine HCl (Vitamin B1 Tab) 100 mg PO DAILY [facility] Last Admin: 12/01/17 09:26 Dose: 100 mg Trazodone HCl (Desyrel) 50 mg PO HS PRN PRN Reason: Insomnia Last Admin: 11/30/17 00:38 Dose: 50 mg Trazodone HCl (Desyrel) [address] [facility] Last Admin: 11/30/17 23:55 Dose: 100 mg - Labs Labs: 11/29/17 14:01 11/30/17 13:54 PT 14.2 SECONDS (9.7-12.2) H 11/25/17 20:45 INR 1.3 11/25/17 20:45 APTT 42 SECONDS (21-34) H 11/25/17 20:45 - Constitutional Appears: No Acute Distress, Chronically Ill - Head Exam Head Exam: ATRAUMATIC, NORMOCEPHALIC - Eye Exam Eye Exam: EOMI, Normal appearance - ENT Exam ENT Exam: Mucous Membranes Moist - Neck Exam Neck Exam: Normal Inspection - Respiratory Exam Respiratory Exam: absent: Wheezes, Respiratory Distress - Cardiovascular Exam Cardiovascular Exam: RRR, +S1, +S2 - GI/Abdominal Exam GI & Abdominal Exam: Soft. absent: Tenderness - Rectal Exam Rectal Exam: Deferred - Extremities Exam Extremities Exam: absent: Pedal Edema - Back Exam Back Exam: absent: CVA tenderness (L), CVA tenderness (R) - Neurological Exam Neurological Exam: Alert, Awake, CN II-XII Intact, Oriented x3 - Psychiatric Exam Psychiatric exam: Normal Mood - Skin Skin Exam: Rash Additional comments: FACIAL ERYTHEMA Assessment and Plan (1) Cirrhosis of liver Status: Acute (2) Alcohol abuse Status: Acute (3) Alcohol withdrawal Status: Acute (4) Alcohol dependence Status: Chronic - Assessment and Plan (Free Text) Assessment: RESP STATUS COMFORTABLE AT REST. CONT IVF HYDRATION., DT PROTOCOL. BENADRYL FOR SKIN RASH. CXR REVIEWED. MONITOR CBC. PSYCH EVAL. PROG POOR. DISCUSSED WITH STAFF AT LENGTH.
[2017-12-02 07:25] LABS: BASO # 0.1 K/uL (0.0-0.2); BASO % 2.4 % (0.0-2.0); EOS # 0.1 K/uL (0.0-0.7); EOS % 3.1 % (0.0-4.0); HEMOGLOBIN 11.9 g/dL (12.0-18.0); LYMPH # 1.4 K/uL (1.0-4.3); LYMPH % 34.1 % (20.0-40.0); MEAN CORPUSCULAR HEMOGLOBIN 29.6 pg (27.0-31.0); MEAN CORPUSCULAR HGB CONC 33.1 g/dL (33.0-37.0); MEAN PLATELET VOLUME 9.9 fL (7.2-11.7); MONO # 0.7 K/uL (0.0-0.8); MONO % 16.3 % (0.0-10.0); NEUT # 1.8 K/uL (1.8-7.0); NEUT % 44.1 % (50.0-75.0); RBC 4.02 Mil/uL (4.40-5.90); RED CELL DISTRIBUTION WIDTH 20.3 % (11.5-14.5); WHITE BLOOD COUNT 4.1 K/uL (4.8-10.8)
[2017-12-02 07:31] LABS: MEAN CELL VOLUME 89.3 fL (80.0-94.0)
[2017-12-02 07:37] LABS: ALB/GLOB RATIO 1.1 (1.0-2.1); ALBUMIN 4.3 g/dL (3.5-5.0); ALT/SGPT 84 U/L (21-72); AST/SGOT 119 U/L (17-59); BLOOD UREA NITROGEN 14 mg/dL (9-20); CALCIUM 9.5 mg/dl (8.6-10.4); GFR AFRICAN-AMERICAN > 60; GFR NON-AFRICAN AMERICAN > 60
[2017-12-02] MEDS: Magnesium Oxide 400 mg Tab UD PO SCH (11:10)
[2017-12-02] MEDS: Multiple Vitamins Tab PO SCH (11:10)
--- NOTE | 2017-12-02 13:31 | CP.PCM.PN ---
Subjective - Date & Time of Evaluation Date of Evaluation: 12/02/17 Time of Evaluation: 13:29 - Subjective Subjective: COVERING DR Rahel STERN PT ALERT, FEELS BETTER., ROS; OTHERWISE NEG. Objective - Vital Signs/Intake and Output Vital Signs (last 24 hours): Temp Pulse Resp BP Pulse Ox 98.0 F 66 18 106/66 98 12/02/17 07:25 12/02/17 07:25 12/02/17 07:25 12/02/17 07:25 12/02/17 07:25 Intake and Output: 12/02/17 12/02/17 06:59 18:59 Intake Total 600 Balance 600 - Medications Medications: Current Medications Diphenhydramine HCl (Benadryl) 25 mg PO Q6 PRN PRN Reason: Itching / Pruritus Last Admin: 12/02/17 11:31 Dose: 25 mg Folic Acid (Folic Acid) 1 mg PO DAILY [facility] Last Admin: 12/02/17 11:10 Dose: 1 mg Lorazepam (Ativan) 1 mg PO Q4H PRN PRN Reason: Symptoms of alcohol withdrawl Last Admin: 12/02/17 11:32 Dose: 1 mg Magnesium Oxide (Mag-Ox) 400 mg PO DAILY [facility] Last Admin: 12/01/17 09:26 Dose: 400 mg Multivitamins (Hexavitamin) 1 tab PO DAILY [facility] Last Admin: 12/02/17 11:10 Dose: 1 tab Ondansetron HCl (Zofran Inj) 4 mg IVP Q6 PRN PRN Reason: Nausea/Vomiting Pantoprazole Sodium (Protonix Inj) 40 mg IVP DAILY [facility] Last Admin: 12/02/17 11:10 Dose: 40 mg Sertraline HCl (Zoloft) 50 mg PO DAILY [facility] Last Admin: 12/02/17 11:10 Dose: 50 mg Thiamine HCl (Vitamin B1 Tab) 100 mg PO DAILY [facility] Last Admin: 12/02/17 11:10 Dose: 100 mg Trazodone HCl (Desyrel) 50 mg PO HS PRN PRN Reason: Insomnia Last Admin: 12/01/17 23:43 Dose: 50 mg Trazodone HCl (Desyrel) 100 mg PO HS [facility] Last Admin: 12/01/17 23:43 Dose: 100 mg - Labs Labs: 12/02/17 06:43 12/02/17 06:43 PT 14.2 SECONDS (9.7-12.2) H 11/25/17 20:45 INR 1.3 11/25/17 20:45 APTT 42 SECONDS (21-34) H 11/25/17 20:45 - Constitutional Appears: Non-toxic, No Acute Distress - Head Exam Head Exam: ATRAUMATIC, NORMOCEPHALIC - Eye Exam Eye Exam: EOMI, Normal appearance - ENT Exam ENT Exam: Mucous Membranes Moist - Neck Exam Neck Exam: Normal Inspection - Respiratory Exam Respiratory Exam: absent: Wheezes, Respiratory Distress - Cardiovascular Exam Cardiovascular Exam: RRR, +S1, +S2 - GI/Abdominal Exam GI & Abdominal Exam: Soft. absent: Tenderness - Rectal Exam Rectal Exam: Deferred - Extremities Exam Extremities Exam: absent: Calf Tenderness, Pedal Edema - Back Exam Back Exam: absent: CVA tenderness (L), CVA tenderness (R) - Neurological Exam Neurological Exam: Alert, Awake, CN II-XII Intact, Oriented x3 - Psychiatric Exam Psychiatric exam: Normal Mood - Skin Skin Exam: absent: Rash Assessment and Plan (1) Cirrhosis of liver Status: Acute (2) Alcohol abuse Status: Acute (3) Alcohol withdrawal Status: Acute (4) Alcohol dependence Status: Chronic - Assessment and Plan (Free Text) Assessment: RESP STATUS COMFORTABLE., AFEBRILE., PLTS IMPROVED., CXR REVIEWED. ON IVF, ENCOURAGE PO INTAKE., INCREASE OOB. FOR PSYCH F/U. PROG POOR. DISCUSSED WITH STAFF.
[2017-12-02 16:15] VITALS: BP 107/70; PULSE 64; RESP 20; TEMP 97.9; O2SAT 96
--- NOTE | 2017-12-02 16:45 | CP.PCM.PN ---
Subjective - Date & Time of Evaluation Date of Evaluation: 12/02/17 Time of Evaluation: 11:00 - Subjective Subjective: ALERT, orientedx3, denies pain or tremors, NAD. Objective - Vital Signs/Intake and Output Vital Signs (last 24 hours): Temp Pulse Resp BP Pulse Ox 97.9 F 64 20 107/70 96 12/02/17 15:00 12/02/17 15:00 12/02/17 15:00 12/02/17 15:00 12/02/17 15:00 Intake and Output: 12/02/17 12/02/17 06:59 18:59 Intake Total 600 Balance 600 - Medications Medications: Current Medications Diphenhydramine HCl (Benadryl) 25 mg PO Q6 PRN PRN Reason: Itching / Pruritus Last Admin: 12/02/17 11:31 Dose: 25 mg Folic Acid (Folic Acid) 1 mg PO DAILY [facility] Last Admin: 12/02/17 11:10 Dose: 1 mg Lorazepam (Ativan) 1 mg PO Q4H PRN PRN Reason: Symptoms of alcohol withdrawl Last Admin: 12/02/17 11:32 Dose: 1 mg Magnesium Oxide (Mag-Ox) 400 mg PO DAILY [facility] Last Admin: 12/02/17 11:10 Dose: 400 mg Multivitamins (Hexavitamin) 1 tab PO DAILY [facility] Last Admin: 12/02/17 11:10 Dose: 1 tab Ondansetron HCl (Zofran Inj) 4 mg IVP Q6 PRN PRN Reason: Nausea/Vomiting Pantoprazole Sodium (Protonix Ec Tab) 40 mg PO DAILY [facility] Sertraline HCl (Zoloft) 50 mg PO DAILY [facility] Last Admin: 12/02/17 11:10 Dose: 50 mg Thiamine HCl (Vitamin B1 Tab) 100 mg PO DAILY [facility] Last Admin: 12/02/17 11:10 Dose: 100 mg Trazodone HCl (Desyrel) 50 mg PO HS PRN PRN Reason: Insomnia Last Admin: 12/01/17 23:43 Dose: 50 mg Trazodone HCl (Desyrel) 100 mg PO HS [facility] Last Admin: 12/01/17 23:43 Dose: 100 mg - Labs Labs: 12/02/17 06:43 12/02/17 06:43 PT 14.2 SECONDS (9.7-12.2) H 11/25/17 20:45 INR 1.3 11/25/17 20:45 APTT 42 SECONDS (21-34) H 11/25/17 20:45 Assessment and Plan - Assessment and Plan (Free Text) Assessment: 47 year old male admitted with alcohol withdrawal symptoms, seen and examined. Alert and orientedx3, denies any tremors, nausea or vomiting. Discussed with DR Resendez, plan to discharge home today, advised to follow up with AA meetings and outpatient rehab. Advised to follow up with PMD in 1 week.
[2017-12-03] MEDS ORDERED: Pantoprazole 40 mg EC Tab PO SCH (10:00)
== END 2017-12-02 16:15 | disposition home or self-care (01) | DRG 202 ==
LOC: C.ER 19:48 → C.9E 21:27 → C.6T 11-26 16:39
PROVIDERS: ADMIT Internal Medicine Nephrology; ATTEND Internal Medicine Nephrology
DX: K70.30 Alcoholic cirrhosis of liver without ascites (principal); F10.230 Alcohol dependence with withdrawal, uncomplicated; F10.220 Alcohol dependence with intoxication, uncomplicated; Y90.7 Blood alcohol level of 200-239 mg/100 ml; I85.00 Esophageal varices without bleeding

== ENCOUNTER 2018-06-18 14:56 | Inpatient (IN) | payer MEDICAID ==
[2018-06-18] MEDS ORDERED: Multivitamin (MVI) 10 ML, Thiamine 100 MG, Folic Acid 1 MG in Sodium Chloride 0.9% 1,00... IV STA (15:59)
[2018-06-18 16:21] LABS: RBC 3.45 Mil/uL (4.40-5.90); WHITE BLOOD COUNT 2.8 K/uL (4.8-10.8)
[2018-06-18 16:27] LABS: INR 1.4
[2018-06-18 16:28] LABS: HEMOGLOBIN 11.7 g/dL (12.0-18.0); MEAN CORPUSCULAR HGB CONC 33.7 g/dL (33.0-37.0); MEAN PLATELET VOLUME 9.6 fL (7.2-11.7)
[2018-06-18 16:31] LABS: PLATELET COUNT 28 K/uL (130-400)
[2018-06-18 16:32] LABS: VENOUS BLOOD GAS BASE EXCESS -0.2 mmol/L (0.0-2.0); VENOUS BLOOD GAS PCO2 31 mmHg (40-60); VENOUS BLOOD GAS PO2 33 mm/Hg (30-55); VENOUS BLOOD PH 7.47 (7.32-7.43)
[2018-06-18 16:32] LABS: MEAN CELL VOLUME 100.8 fL (80.0-94.0)
[2018-06-18 16:33] LABS: ALB/GLOB RATIO 0.8 (1.0-2.1); ALBUMIN 3.8 g/dL (3.5-5.0); ALT/SGPT 58 U/L (21-72); AST/SGOT 667 U/L (17-59); BLOOD UREA NITROGEN 10 mg/dL (9-20); CALCIUM 7.8 mg/dl (8.6-10.4); GFR NON-AFRICAN AMERICAN > 60
--- NOTE | 2018-06-18 16:41 | RAD ---
Date of service: 06/18/2018 HISTORY: productive cough COMPARISON: 11/25/2017 TECHNIQUE: Chest PA and lateral FINDINGS: LUNGS: No active pulmonary disease. PLEURA: No significant pleural effusion identified. No pneumothorax apparent. CARDIOVASCULAR: No aortic atherosclerotic calcification present. Normal cardiac size. No pulmonary vascular congestion. OSSEOUS STRUCTURES: No significant abnormalities. VISUALIZED UPPER ABDOMEN: Normal. OTHER FINDINGS: None. IMPRESSION: No active disease.
--- NOTE | 2018-06-18 16:48 | C.PDOC ---
History Of Present Illness 47 year old male presents to ED with complaint of "feeling shaky". Patient also complains of a productive cough and looks jaundiced. Patient is requesting a detox and has a long history of alcohol abuse and liver complications. Patient denies any nausea, vomiting, diarrhea, or abdominal pain. Additionally patient complains of bleeding from the nares, now resolved. Time Seen by Provider: 06/18/18 15:34 Chief Complaint (Nursing): Flu-like Symptoms History Per: Patient History/Exam Limitations: no limitations Current Symptoms Are (Timing): Still Present Past Medical History Reviewed: Historical Data, Nursing Documentation, Vital Signs Vital Signs: Last Vital Signs Temp 98.5 F 06/18/18 15:07 Pulse 84 06/18/18 15:07 Resp 16 06/18/18 15:07 BP 143/83 06/18/18 15:07 Pulse Ox 98 06/18/18 15:07 - Medical History PMH: Fractures (nose) Denies: Chronic Kidney Disease Surgical History: Endoscopy - [facility] Procedures ALCOHOL DETOXIFICATION (12/31/13) CONTROL BLEEDING IN GASTROINTESTINAL TRACT, ENDO (12/20/16) DETOXIFICATION SERVICES FOR SUBSTANCE ABUSE TREATMENT (09/17/17) EXCISION OF STOMACH, ENDO, DIAGN (04/27/15) GROUP APPRAISER IRRIGATION TAX FOR SUBSTANCE ABUSE TREATMENT, PSYCHOEDUCATION (09/17/17) GROUP APPRAISER IRRIGATION TAX FOR SUBSTANCE ABUSE, COGNITIVE BEHAVIORAL (09/17/17) INDIV PSYCHOTHERAPY FOR SUBSTANCE ABUSE TREATMENT, SUPPORT (09/17/17) INDIV PSYCHOTHERAPY FOR SUBSTANCE ABUSE, COGNITIV BEHAVIORAL (09/17/17) INDIV PSYCHOTHERAPY FOR SUBSTANCE ABUSE, PSYCHOEDUCATION (09/17/17) MEDICATION MANAGEMENT (05/15/17) Family History: States: Unknown Family Hx - Social History Hx Tobacco Use: No Hx Alcohol Use: Yes Hx Substance Use: No - Immunization History Hx Tetanus Toxoid Vaccination: No Hx Influenza Vaccination: No Hx Pneumococcal Vaccination: No Review Of Systems Constitutional: Positive for: Other (Shakiness). Negative for: Fever, Chills ENT: Positive for: Other (Nosebleed) Gastrointestinal: Negative for: Nausea, Vomiting, Abdominal Pain, Diarrhea Skin: Positive for: Jaundice Neurological: Negative for: Numbness, Dizziness Physical Exam - Physical Exam Appears: Non-toxic, No Acute Distress Skin: Jaundice (throughout entire body) Head: Atraumatic, Normacephalic Eye(s): bilateral: PERRL, EOMI, Scleral Icterus Nose: Epistaxis (dried blood in the left nare, no active bleeding ) Chest: Symmetrical, No Deformity Cardiovascular: Rhythm Regular, No Murmur Respiratory: No Decreased Breath Sounds, No Rales, No Rhonchi, No Wheezing Gastrointestinal/Abdominal: Tenderness (localized over the liver), Organomegaly (hepatomegaly) Extremity: Capillary Refill (< 2 seconds), Other (tremors noted) Extremity: Bilateral: Atraumatic Pulses: Left Radial: Normal, Right Radial: Normal Neurological/Psych: Oriented x3, Normal Speech, Normal Cognition ED Course And Treatment - Laboratory Results Result Diagrams: 06/18/18 16:14 06/18/18 16:14 Lab Results: pO2 33 mm/Hg (30-55) 06/18/18 16:25 VBG pH 7.47 (7.32-7.43) H 06/18/18 16:25 VBG pCO2 31 mmHg (40-60) L 06/18/18 16:25 VBG HCO3 24.0 mmol/L 06/18/18 16:25 VBG Total CO2 23.6 mmol/L (22-28) 06/18/18 16:25 VBG O2 Sat (Calc) 69.4 % (40-65) H 06/18/18 16:25 VBG Base Excess -0.2 mmol/L (0.0-2.0) L 06/18/18 16:25 VBG Potassium 2.7 mmol/L (3.6-5.2) L 06/18/18 16:25 Sodium 139.0 mmol/l (132-148) 06/18/18 16:25 Chloride 106.0 mmol/L (98-107) 06/18/18 16:25 Glucose 93 mg/dl (75-110) 06/18/18 16:25 Lactate 2.2 mmol/L (0.7-2.1) H 06/18/18 16:25 FiO2 21.0 % 06/18/18 16:25 PT 15.0 SECONDS (9.7-12.2) H 06/18/18 16:14 INR 1.4 06/18/18 16:14 APTT 39 SECONDS (21-34) H 06/18/18 16:14 Total Bilirubin > 27.0 mg/dL (0.2-1.3) H 06/18/18 16:14 AST 667 U/L (17-59) H D 06/18/18 16:14 ALT 58 U/L (21-72) 06/18/18 16:14 Alkaline Phosphatase 570 U/L (38-126) H D 06/18/18 16:14 Total Protein 8.4 g/dL (6.3-8.3) H 06/18/18 16:14 Albumin 3.8 g/dL (3.5-5.0) 06/18/18 16:14 Globulin 4.6 gm/dL (2.2-3.9) H 06/18/18 16:14 Albumin/Globulin Ratio 0.8 (1.0-2.1) L 06/18/18 16:14 O2 Sat by Pulse Oximetry: 98 (RA) Pulse Ox Interpretation: Normal - Radiology CXR: Interpreted by Me CXR Interpretation: Yes: No Acute Disease Progress Note: Chest X-Ray two views taken and labs ordered and reviewed. Banana bag IV infusing at 125 mL/hr. 50 mg librium PO, and 1 mg Ativan IVP given to patient. Patient's CXR is clear. Patient is positive for flu type A. Platelets are 28, labs also show elevated biliruben and low potassium. Patient given Tamiflu PO and KCl PO and IV. Case was d/w who accepted patient telemetry for observation. 18:30 attempted to reach 2 times, waiting for call back. Disposition - Disposition Disposition: HOSPITALIZED Disposition Time: 18:43 Condition: FAIR Forms: [facility] (Sinhala) - Clinical Impression Clinical Impression: Influenza A, Elevated liver function tests, Jaundice, Hyperammonemia, Thrombocytopenia, Alcohol withdrawal - PA / [employer] INSPECTOR / Resident Statement MD/DO has reviewed & agrees with the documentation as recorded. - Scribe Statement The provider has reviewed the documentation as recorded by the Yoandyibcoral Gonzalez All medical record entries made by the Scribe were at my direction and personally dictated by me. I have reviewed the chart and agree that the record accurately reflects my personal performance of the history, physical exam, medical decision making, and the department course for this patient. I have also personally directed, reviewed, and agree with the discharge instructions and disposition. Decision To Admit - Pt Status Changed To: Hospital Disposition Of: Observation - . Bed Request Type: Telemetry Admitting Physician: Johan Harden Patient Diagnosis: Influenza A, Elevated liver function tests, Jaundice, Hyperammonemia, Thrombocytopenia, Alcohol withdrawal
[2018-06-18] MEDS ORDERED: Potassium Chloride 20 mEq/15 ml LIQ UD PO STA (17:03)
[2018-06-18] MEDS ORDERED: Potassium Chloride 20 mEq ER Tab PO ONE (17:26)
[2018-06-18 18:40] LABS: SQUAMOUS EPITHIAL 2 /hpf (0-5); URINE BACTERIA RARE (<OCC); URINE BILIRUBIN 2+ (NEGATIVE); URINE BLOOD NEGATIVE (NEGATIVE); URINE CALCIUM OXALATE CRYSTALS RARE /hpf (<OCC); URINE CLARITY Clear (Clear); URINE COLOR Amber (YELLOW); URINE GLUCOSE (UA) NORMAL (Normal); URINE HYALINE CAST 0-2 /lpf (0-2); URINE LEUKOCYTE ESTERASE NEG Leu/uL (Negative); URINE PROTEIN 2+ mg/dL (NEGATIVE)
[2018-06-18 18:41] LABS: GRANULAR CAST 0-2 /lpf (0-1)
[2018-06-18 19:02] LABS: BARBITURATES, UR NEGATIVE (NEGATIVE); BENZODIAZEPINES, UR NEGATIVE (NEGATIVE); OPIATES, UR NEGATIVE (NEGATIVE); PHENCYCLIDINE, UR NEGATIVE (NEGATIVE)
[2018-06-18 19:23] LABS: LYMPH # 0.3 K/uL (1.0-4.3); MONO # 0.3 K/uL (0.0-0.8); NEUT # 2.3 K/uL (1.8-7.0)
[2018-06-18 19:28] LABS: BANDS 19 % (0-2); EOSINOPHIL 1 % (0-4); LYMPHOCYTE 10 % (20-40); MONOCYTE 8 % (0-10); NEUTROPHIL 62 % (50-75); TOTAL CELLS COUNTED 100
[2018-06-18 19:29] LABS: PLATELET ESTIMATE MARKEDLY DECREASED (NORMAL)
[2018-06-18 19:31] LABS: HYPOCHROMIC SLIGHT; LARGE PLATELETS PRESENT; MICROCYTOSIS SLIGHT; TARGET CELLS SLIGHT
[2018-06-18] MEDS ORDERED: Folic Acid 1 MG, Thiamine 100 MG, Multivitamin (MVI) 10 ML in Dextrose 5% In Water 1,00... IV SCH ×2 (21:00→21:15)
[2018-06-19] MEDS ORDERED: Folic Acid 1 MG, Thiamine 100 MG, Multivitamin (MVI) 10 ML in Dextrose 5% In Water 1,00... IV SCH (08:30)
[2018-06-19] MEDS ORDERED: Enoxaparin 40 mg Syringe SC SCH (10:00)
[2018-06-19] MEDS: Multiple Vitamins Tab PO SCH (10:23)
[2018-06-19] MEDS: Magnesium Oxide 400 mg Tab UD PO SCH (10:23)
--- NOTE | 2018-06-19 10:29 | US ---
Date of service: 06/19/2018 HISTORY: cholelithiasis COMPARISON: None. TECHNIQUE: Sonographic evaluation of the abdomen. FINDINGS: LIVER: Measures 23 cm. Diffuse increased echogenicity of the liver parenchyma. No mass. No intrahepatic bile duct dilatation. GALLBLADDER: The gallbladder is contracted limiting its assessment. Is unclear if this is contracted due to recent ingestion or not. No shadowing stones here noted. No positive sonographic Castillo sign is elicited. On some of the images there is question of some pericholecystic fluid present. Assessment for gallbladder wall thickening and edema is limited with this a contracted state. COMMON BILE DUCT: Measures 5 mm. No stones. No dilatation. PANCREAS: Limited exam due to obscuring bowel gas. RIGHT KIDNEY: Measures 13.4 x 5.9 x 5.8cm. Normal echogenicity. No calculus, mass, or hydronephrosis. LEFT KIDNEY: Measures 12.6 x 5.9 x 6.2cm. Normal echogenicity. No calculus, mass, or hydronephrosis. SPLEEN: Spleen is borderline prominent at 13.4 cm x 5.9 x 5.8 cm No mass. AORTA: No aneurysmal dilatation. IVC: Unremarkable. OTHER FINDINGS: None. IMPRESSION: Contracted gallbladder without shadowing stones appreciated. Contracted state indeterminate in etiology-recent ingestion versus fasting state status pathology are considerations. No sonographic Castillo sign elicited. With the contracted state assessment for gallbladder wall thickening and gallbladder wall edema are limited. Nevertheless there is some perception of trace fluid in the gallbladder fossa apparent. Consider verifying fasting state and if needed rechecking with a limited right upper quadrant right gallbladder study after confirm fasting state status is documented. Continued clinical follow-up advised. No dilated ducts noted Hepatomegaly. Diffuse increased echogenicity-compatible with hepatic steatosis most likely. Hepatopetal portal flow incidentally noted no dilated ducts. No liver masses Limited pancreatic visualization and hence its assessment. History of jaundice clinical [id number] assessment recommended.
--- NOTE | 2018-06-19 10:35 | PCM.PSYCH ---
Initial Psychiatric Evaluation - Initial Psychiatric Evaluation Type of Admission: Voluntary Legal Status: Capacity Chief Complaint (in patient's own words): "I feel shakey" History of Present Illness and Precipitating Events: Patient is a 47 year old male that presented to the [facility] ED on 06/18 and was admitted for jaundice and productive cough. Psychiatry was consulted for evaluation of alcohol abuse disorder. On examination patient appeared jaundiced, with yellowing of his skin and conjunctiva, and generally unwell, with latent shaking in upper extremities. Patient has no prior psychiatric illnesses or previous psychiatric hospitalizations. When questioned, patient revealed that he has been drinking 8 gin and tonics a day for the past 2 months, relapsing after a period of 5 months sober after having a glass of wine at a family event. Patient comments that his last drink was 2 days ago and that his longest period sober was 6 months. He comments that he had previously enrolled himself in a detox program after he had become jaundice, leading to his most recent 5 month period of sobriety. Patient has attempted multiple times to stay sober but has had repeated relapses since he began drinking in 1997. He comments that he wants to stop drinking but that he has a shakey relationship with alcoholics anonymous due to his multiple relapses. 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 He reports depressed mood, poor sleep but denies any feelings of hopelessness or helplessness. He has no suicidal ideations, no homicidal ideations, no visual hallucinations, and no auditory hallucinations. Current Medications: Active Medications Generic Name Dose Route Start Last Admin Trade Name Mona PRN Reason Stop Dose Admin Chlordiazepoxide 25 mg 06/19/18 12:00 Librium PO 06/23/18 11:59 Q6 ANTONY Taper Enoxaparin Sodium 40 mg 06/19/18 10:00 06/19/18 10:25 Lovenox SC Not Given DAILY ANTONY Folic Acid 1 mg 06/19/18 10:00 Folic Acid PO DAILY [facility] Folic Acid 1 mg/ Thiamine HCl 1,011.2 mls @ 125 mls/hr 06/19/18 08:30 100 mg/ Multivitamins/Vitamin IV 06/19/18 16:35 C 10 ml/ Dextrose .Q8H6M [facility] Magnesium Oxide 400 mg 06/19/18 10:00 06/19/18 10:23 Mag-Ox PO 400 mg DAILY ANTONY Administration Multivitamins 1 tab 06/19/18 10:00 06/19/18 10:23 Hexavitamin PO 1 tab DAILY ANTONY Administration Nadolol 20 mg 06/19/18 10:00 06/19/18 10:23 Corgard PO 20 mg DAILY ANTONY Administration Oseltamivir Phosphate 75 mg 06/19/18 10:00 06/19/18 10:23 Tamiflu Cap PO 06/23/18 20:47 75 mg BID ANTONY Administration Protocol Sertraline HCl 50 mg 06/19/18 10:00 06/19/18 10:22 Zoloft PO 50 mg DAILY ANTONY Administration Thiamine HCl 100 mg 06/19/18 10:00 06/19/18 10:23 Vitamin B1 Tab PO 100 mg DAILY ANTONY Administration Past Psychiatric History - Past Psychiatric History Previous Treatment History: None Pertinent Medical Hx (Current Medical&Sleep Prob, Allergies): Allergies Allergy/AdvReac Type Severity Reaction Status Date / Time No Known Allergies Allergy Verified 06/18/18 15:06 Magnesium Oxide [Mag-Ox] 400 mg PO DAILY #30 tab 05/22/17 Sertraline [Zoloft] 50 mg PO DAILY #30 tab 05/22/17 traZODone [Desyrel] 100 mg PO HS #30 tab 05/22/17 Nadolol [Corgard] 20 mg PO DAILY 09/15/17 Folic Acid 1 mg PO DAILY #30 tab 09/20/17 Multivitamins [Hexavitamin] 1 tab PO DAILY #30 tab 09/20/17 Thiamine [Vitamin B1 Tab] 100 mg PO DAILY #30 tab 09/20/17 Review of Systems - Review of Systems All systems: reviewed and no additional remarkable complaints except - Psychiatric Psychiatric: Anxiety, Irritability. absent: Suicidal Ideation Mental Status Examination - Personal Presentation Personal Presentation: Looks stated age - Affect Affect: Constricted - Motor Activity Motor Activity: Calm - Reliability in Providing Information Reliability in Providing Information: Fair - Speech Speech: Organized - Mood Mood: Anxious - Formal Thought Process Formal Thought Process: No Impairment - Obsessions/Compulsions Obsessions: No Compulsions: No - Cognitive Functions Orientation: Person, Place, Situation, Time Sensorium: Alert Attention/Concentration: Attentive Abstract Thinking: Sunbright Estimate of Intelligence: Below average Judgement: Imparied, as evidence by: Poor judgement, Intact, as evidence by: Insight regarding need for hospitalization - Risk Risk: Withdrawal, Diminished functioning - Limitations Limitations: Living alone DSM 5 DX - DSM 5 DSM 5 Diagnosis: Alcohol use disorder severe Alcohol withdrawal Depressive disorder NOS - Recommended/Plan of Treatment Treatment Recommendations and Plan of Treatment: Supportive therapy Ativan taper Withdrawal protocol Zoloft for depression Patient psychiatrically stable and cleared.
[2018-06-19 14:09] LABS: INR 1.4; PROTHROMBIN TIME 15.3 SECONDS (9.7-12.2)
[2018-06-19 15:07] LABS: ALB/GLOB RATIO 0.8 (1.0-2.1); ALBUMIN 3.5 g/dL (3.5-5.0); ALT/SGPT 56 U/L (21-72); AST/SGOT 527 U/L (17-59); BLOOD UREA NITROGEN 11 mg/dL (9-20); CALCIUM 7.9 mg/dl (8.6-10.4); GFR NON-AFRICAN AMERICAN > 60
[2018-06-19] MEDS: Magnesium Sulfate 1 gm in D5W 1 GM/100 ML BAG IVPB SCH ×7 (17:08→20:30)
--- NOTE | 2018-06-19 21:11 | CP.PCM.HP ---
Present on Admission - Present on Admission Any Indicators Present on Admission: No Past Patient History - Infectious Disease Hx of Infectious Diseases: None - Tetanus Immunizations Tetanus Immunization: Unknown - Past Medical History & Family History Past Medical History?: No - Past Social History Smoking Status: Never Smoked - PULMONARY Hx Tuberculosis: No - HEENT Hx HEENT Problems: No - RENAL Hx Chronic Kidney Disease: No - ENDOCRINE/METABOLIC Hx Endocrine Disorders: No - INTEGUMENTARY Hx Dermatological Problems: No - MUSCULOSKELETAL/RHEUMATOLOGICAL Hx Fractures: Yes (nose) - GASTROINTESTINAL Hx Gastrointestinal Disorders: Yes Hx Liver Failure: Yes Other/Comment: ESOPHAGEAL VARICES - PSYCHIATRIC Hx Substance Use: No - SURGICAL HISTORY Hx Surgeries: Yes - ANESTHESIA Hx Anesthesia: Yes Hx Anesthesia Reactions: No Hx Malignant Hyperthermia: No Meds Allergies/Adverse Reactions: Allergies Allergy/AdvReac Type Severity Reaction Status Date / Time No Known Allergies Allergy Verified 06/18/18 15:06 Results - Vital Signs Recent Vital Signs: Last Vital Signs Temp 97.9 F 06/19/18 16:00 Pulse 74 06/19/18 16:00 Resp 20 06/19/18 16:00 BP 116/78 06/19/18 16:00 Pulse Ox 95 06/19/18 16:00 - Labs Result Diagrams: 06/18/18 16:14 06/19/18 13:56 Labs: Laboratory Results - last 24 hr 06/19/18 06/19/18 13:56 13:56 PT 15.3 H INR 1.4 APTT 38 H Sodium 136 Potassium 3.0 L Chloride 104 Carbon Dioxide 21 L Anion Gap 15 BUN 11 Creatinine 0.8 Est GFR ( Amer) > 60 Est GFR (Non-Af Amer) > 60 Random Glucose 93 Calcium 7.9 L Magnesium 1.4 L Total Bilirubin 26.7 H AST 527 H D ALT 56 Alkaline Phosphatase 501 H Total Protein 7.9 Albumin 3.5 Globulin 4.4 H Albumin/Globulin Ratio 0.8 L
[2018-06-19] MEDS: Potassium Chloride 20 mEq/15 ml LIQ UD PO SCH (21:22)
[2018-06-20] MEDS: Potassium Chloride 20 mEq/15 ml LIQ UD PO SCH ×4 (00:25→20:41)
--- NOTE | 2018-06-20 04:05 | HP ---
CHIEF COMPLAINT: Feeling shaky for one day. HISTORY OF PRESENT ILLNESS: This is a 47-year-old white male, who has known case of alcoholic liver disease and he drinks heavily, he drinks daily, and as soon as he attempts to stop, he starts feeling shaky and the patient has been getting increasingly jaundiced over last one week and the patient has been getting sicker and sicker. He is sick on the stomach, he had nausea. He denies any vomiting. He has change in color of urine and feces. He has generalized weakness, tiredness, anorexia, malaise, and fatigue. He is shaky, he is tremulous, and he is withdrawn. Finally, the patient quit or stopped drinking and he came to emergency room. He is deeply jaundiced and he denies any fever. He has chills and rigors. He denies any history of polyuria, polydipsia, or polyphagia. He also started recently for last few days nasal congestion, body aches, chills, rigors, anorexia, malaise, and fatigue. He has cough, which is productive of whitish sputum. He has generalized aches and pains. There is no history of polyuria. There is no history of dysuria or hematuria. There is no history of joint pain, hip pain, and the patient has a lot of malaise and fatigue. ALLERGIES: UNKNOWN. CURRENT MEDICATIONS: At home, he is on trazodone, thiamine, Zoloft, Corgard, hexavitamin, magnesium oxide, folic acid. SOCIAL HISTORY: He is alcoholic. No drug abuse. PHYSICAL EXAMINATION: GENERAL: This is a middle-aged male in distress. He is shaking, he is tremulous, and he is deeply jaundiced. VITAL SIGNS: Blood pressure 136/79, pulse 79, respiratory rate 20, temperature 99.9. SKIN: Deeply yellow discoloration. HEENT: Atraumatic, normocephalic. Negative pallor. Positive jaundice. Extraocular movements are intact. NECK: Supple. No JVD. No lymph nodes. No thyromegaly. No carotid bruit. CHEST WALL: Bilateral symmetrical expansion. No tenderness. No deformity. LUNGS: Bilaterally clear. No rales or rhonchi. CVS: PMI in fifth intercostal space. S1 and S2. Regular. ABDOMEN: Soft and nontender. Bowel sounds are positive. RECTAL: No masses. No bleeding. EXTREMITIES: No clubbing, cyanosis, or edema. WINDING OPERATOR: Awake, alert and oriented x3. Cranial nerves II through XII are normal. ASSESSMENT: 1. Flu. The patient is positive for flu and type A. 2. Alcoholic liver disease and the patient has elevated liver function tests. 3. Anemia due to alcoholic liver disease. PLAN: Admit. Detailed orders are written. Seen and examined. Johan Harden MD
[2018-06-20 08:35] LABS: HEMOGLOBIN 11.6 g/dL (12.0-18.0); MEAN CELL VOLUME 102.2 fL (80.0-94.0); MEAN CORPUSCULAR HEMOGLOBIN 35.6 pg (27.0-31.0); MEAN CORPUSCULAR HGB CONC 34.8 g/dL (33.0-37.0); RBC 3.25 Mil/uL (4.40-5.90); RED CELL DISTRIBUTION WIDTH 17.1 % (11.5-14.5); WHITE BLOOD COUNT 3.3 K/uL (4.8-10.8)
[2018-06-20 08:54] LABS: ALB/GLOB RATIO 0.8 (1.0-2.1); ALBUMIN 3.5 g/dL (3.5-5.0); ALT/SGPT 54 U/L (21-72); AST/SGOT 383 U/L (17-59); BLOOD UREA NITROGEN 10 mg/dL (9-20); CALCIUM 8.1 mg/dl (8.6-10.4); GFR NON-AFRICAN AMERICAN > 60
[2018-06-20 09:25] LABS: EOS # 0.1 K/uL (0.0-0.7); LYMPH # 0.6 K/uL (1.0-4.3); MONO # 0.5 K/uL (0.0-0.8); NEUT # 2.2 K/uL (1.8-7.0)
--- NOTE | 2018-06-20 09:48 | CP.PCM.CON ---
History of Present Illness - History of Present Illness History of Present Illness: GI Consult Note for Dr. Schreiber HPI: 47 y/o male with PMHx of EtOH liver disease was admitted on 06/18 for flu symptoms and also endorsed EtOH sx at that time. GI being consulted because of EtOH hepatitis. Patient seen and examined this morning at bedside. Patient states his last drink was the day before he was admitted, on 06/17. He admits to withdrawal sx and has been on ativan 1mg q4h standing and folate, thiamine, and MVI. Patient also admitted with chills and diagnosed w/ positive influenza type A. He is scheduled to be on tamiflu 06/19-06/23. Patient still with chills and shakes. Of note, patient states his only medical hx is EtOH liver disease, which has been diagnosed for a while, an unspecified time; patient is not able to recall. He endorses being a regular patient of the liver clinic in [place]. He gets a treatment "through an IV in the neck" when he goes there and is unsure of the details. The last time he was present in the clinic was 6 months ago. He was supposed to go a month ago but patient was on vacation and missed his appointment. Today patient denies fevers, night sweats, abdominal pain, chest pain, SOB, nausea, vomiting. Has been having some chills/shaking and diarrhea but not concerned about it; possibly from withdrawal of EtOH. GI history: -Endoscopy 05/03 Dr Agrawal: medium hiatus hernia, no esophageal or gastric varices, antrum erythema and edema, inflamed mucosa and cardia, normal duodenum -Endoscopy 01/03 Dr. Burleson: lower third of esophagus w/ LA grade D esophagitis and varices. Moderate portal hypertensive gastropathy in gastric fundus. Moderate erythema of antrum. ROS: as per HPI PMHx: as stated above PSHx: denies FHx: denies SocHx: EtOH, drinks daily of unspecified amount Meds: see EMR Allergies: NKDA Past Patient History - Infectious Disease Hx of Infectious Diseases: None - Tetanus Immunizations Tetanus Immunization: Unknown - Past Medical History & Family History Past Medical History?: No - Past Social History Smoking Status: Never Smoked - PULMONARY Hx Tuberculosis: No - HEENT Hx HEENT Problems: No - RENAL Hx Chronic Kidney Disease: No - ENDOCRINE/METABOLIC Hx Endocrine Disorders: No - INTEGUMENTARY Hx Dermatological Problems: No - MUSCULOSKELETAL/RHEUMATOLOGICAL Hx Falls: No - GASTROINTESTINAL Hx Gastrointestinal Disorders: Yes Hx Liver Failure: Yes Other/Comment: ESOPHAGEAL VARICES - PSYCHIATRIC Hx Substance Use: No - SURGICAL HISTORY Hx Surgeries: Yes - ANESTHESIA Hx Anesthesia: Yes Hx Anesthesia Reactions: No Hx Malignant Hyperthermia: No Meds Allergies/Adverse Reactions: Allergies Allergy/AdvReac Type Severity Reaction Status Date / Time No Known Allergies Allergy Verified 06/18/18 15:06 - Medications Medications: Current Medications Clonidine HCl (Catapres) 0.1 mg PO Q4H PRN PRN Reason: Symptoms of alcohol withdrawl Famotidine (Pepcid) 20 mg IVP Q12 ANTONY Folic Acid (Folic Acid) 1 mg PO DAILY [facility] Last Admin: 06/19/18 11:47 Dose: 1 mg Lorazepam (Ativan) 1 mg PO Q4H PRN PRN Reason: Symptoms of alcohol withdrawl Lorazepam (Ativan) 1 mg PO Q4 [facility]; Taper Stop: 06/24/18 10:44 Last Admin: 06/20/18 08:42 Dose: 1 mg Magnesium Oxide (Mag-Ox) 400 mg PO DAILY [facility] Last Admin: 06/19/18 10:23 Dose: 400 mg Multivitamins (Hexavitamin) 1 tab PO DAILY [facility] Last Admin: 06/19/18 10:23 Dose: 1 tab Nadolol (Corgard) 20 mg PO DAILY [facility] Last Admin: 06/19/18 10:23 Dose: 20 mg Neomycin Sulfate (Neomycin Tab) 500 mg PO Q6H [facility] Oseltamivir Phosphate (Tamiflu Cap) 75 mg PO BID ANTONY; Protocol Stop: 06/23/18 20:47 Last Admin: 06/19/18 17:09 Dose: 75 mg Sertraline HCl (Zoloft) 50 mg PO DAILY [facility] Last Admin: 06/19/18 10:22 Dose: 50 mg Thiamine HCl (Vitamin B1 Tab) 100 mg PO DAILY [facility] Last Admin: 06/19/18 10:23 Dose: 100 mg Physical Exam - Constitutional Appears: In Acute Distress (having chills), Other (lethargic) - Head Exam Head Exam: ATRAUMATIC, NORMAL INSPECTION - Eye Exam Eye Exam: EOMI, Scleral icterus. absent: Normal appearance - Neck Exam Neck exam: Positive for: Normal Inspection - Respiratory Exam Respiratory Exam: Clear to Auscultation Bilateral, NORMAL BREATHING PATTERN - Cardiovascular Exam Cardiovascular Exam: REGULAR RHYTHM - GI/Abdominal Exam GI & Abdominal Exam: Distended (ascites), Soft. absent: Guarding, Tenderness - Extremities Exam Extremities exam: Negative for: calf tenderness, tenderness - Back Exam Back exam: NORMAL INSPECTION - Neurological Exam Neurological exam: Alert, Oriented x3 Additional comments: +asterixis patient also slow to speak - Psychiatric Exam Psychiatric exam: Normal Affect, Normal Mood - Skin Skin Exam: Dry, Intact (jaundice), Warm Results - Vital Signs Recent Vital Signs: Last Vital Signs Temp 98.3 F 06/20/18 08:00 Pulse 88 06/20/18 08:00 Resp 20 06/20/18 08:00 BP 106/66 06/20/18 08:00 Pulse Ox 96 06/20/18 08:00 - Labs Result Diagrams: 06/20/18 08:28 06/20/18 08:28 Labs: Laboratory Results - last 24 hr 06/19/18 06/19/18 06/20/18 13:56 13:56 08:28 WBC 3.3 L RBC 3.25 L Hgb 11.6 L Hct 33.2 L MCV 102.2 H MCH 35.6 H MCHC 34.8 RDW 17.1 H Plt Count 37 L MPV 11.0 Neut % (Auto) 66.0 Lymph % (Auto) 17.0 L [place] % (Auto) 15.0 H Eos % (Auto) 2.0 Baso % (Auto) 0.0 Neut # (Auto) 2.2 Lymph # (Auto) 0.6 L [place] # (Auto) 0.5 Eos # (Auto) 0.1 Baso # (Auto) 0.0 PT 15.3 H INR 1.4 APTT 38 H Sodium 136 Potassium 3.0 L Chloride 104 Carbon Dioxide 21 L Anion Gap 15 BUN 11 Creatinine 0.8 Est GFR ( Amer) > 60 Est GFR (Non-Af Amer) > 60 Random Glucose 93 Calcium 7.9 L Magnesium 1.4 L Total Bilirubin 26.7 H AST 527 H D ALT 56 Alkaline Phosphatase 501 H Total Protein 7.9 Albumin 3.5 Globulin 4.4 H Albumin/Globulin Ratio 0.8 L 06/20/18 08:28 WBC RBC Hgb Hct MCV MCH MCHC RDW Plt Count MPV Neut % (Auto) Lymph % (Auto) [place] % (Auto) Eos % (Auto) Baso % (Auto) Neut # (Auto) Lymph # (Auto) [place] # (Auto) Eos # (Auto) Baso # (Auto) PT INR APTT Sodium 136 Potassium 3.4 L Chloride 105 Carbon Dioxide 19 L Anion Gap 15 BUN 10 Creatinine 0.8 Est GFR ( Amer) > 60 Est GFR (Non-Af Amer) > 60 Random Glucose 89 Calcium 8.1 L Magnesium Total Bilirubin > 27.0 H AST 383 H D ALT 54 Alkaline Phosphatase 522 H Total Protein 7.8 Albumin 3.5 Globulin 4.4 H Albumin/Globulin Ratio 0.8 L Assessment & Plan - Assessment and Plan (Free Text) Assessment: 47 y/o male with PMHx of EtOH liver disease was admitted on 06/18 for flu symptoms and also endorsed EtOH sx at that time. GI being consulted because of EtOH hepatitis. EtOH hepatitis -Patient w/ known EtOH abuse and established at liver clinic in [place]. MELD score: 24 points. 19.6% estimated 3 month mortality. -06/19 abdominal US: hepatomegaly, increased echogenicity of liver, most likely hepatic steatosis. No dilated ducts, no liver masses. Limited pancreatic visualization due to bowel gas obstructing view. No gallstones, trace fluid gallbladder fossa. Limited assessment of gallbladder wall thickening. No sonographic velazquez's sign -screen for hepatocellular carcinoma ordered w/ serum AFP, pending results -also f/u CEA, lipase, amylase, ammonia -started patient on famotidine 20 mg IV q12h -started patient on neomycin 500 mg q6h -trend LFTs and lab markers stated above Hepatic encephalopathy -likely as patient slow to speak, lethargic, AMS -if ammonia level elevated, consider lactulose 30cc BID case discussed with Dr. Abdoul Cheema PGY1
[2018-06-20] MEDS: Magnesium Oxide 400 mg Tab UD PO SCH (11:00)
[2018-06-20] MEDS: Multiple Vitamins Tab PO SCH (11:01)
[2018-06-20 11:35] LABS: AMYLASE 102 U/L (30-110); LIPASE 308 U/L (23-300)
[2018-06-20] MEDS ORDERED: Gadodiamide 287 mg/ml 20 ml IV ONE (14:30)
[2018-06-20] MEDS ORDERED: Potassium Chloride 20 mEq ER Tab PO ONE (20:00)
[2018-06-21 08:55] LABS: HEMOGLOBIN 12.3 g/dL (12.0-18.0); MEAN CELL VOLUME 103.7 fL (80.0-94.0); MEAN CORPUSCULAR HEMOGLOBIN 35.8 pg (27.0-31.0); MEAN CORPUSCULAR HGB CONC 34.6 g/dL (33.0-37.0); MEAN PLATELET VOLUME 11.1 fL (7.2-11.7); RBC 3.44 Mil/uL (4.40-5.90); RED CELL DISTRIBUTION WIDTH 17.1 % (11.5-14.5); WHITE BLOOD COUNT 4.7 K/uL (4.8-10.8)
[2018-06-21 08:57] LABS: PLATELET COUNT 63 K/uL (130-400)
[2018-06-21 09:18] LABS: ALB/GLOB RATIO 0.8 (1.0-2.1); ALBUMIN 3.6 g/dL (3.5-5.0); ALT/SGPT 43 U/L (21-72); AST/SGOT 285 U/L (17-59); BLOOD UREA NITROGEN 14 mg/dL (9-20); CALCIUM 8.5 mg/dl (8.6-10.4); GFR NON-AFRICAN AMERICAN > 60
[2018-06-21 11:06] LABS: BANDS 3 % (0-2); BASOPHIL 2 % (0-2); EOSINOPHIL 1 % (0-4); LYMPHOCYTE 11 % (20-40); MONOCYTE 9 % (0-10); NEUTROPHIL 74 % (50-75); TOTAL CELLS COUNTED 100
[2018-06-21 11:07] LABS: ANISOCYTOSIS SLIGHT; MICROCYTOSIS SLIGHT; PLATELET ESTIMATE DECREASED (NORMAL); POIKILOCYTOSIS SLIGHT
[2018-06-21 11:08] LABS: OVALOCYTES SLIGHT; POLYCHROMIC SLIGHT; TEARDROP CELLS SLIGHT
[2018-06-21] MEDS: Magnesium Oxide 400 mg Tab UD PO SCH (11:28)
[2018-06-21] MEDS: Multiple Vitamins Tab PO SCH (11:28)
--- NOTE | 2018-06-21 12:48 | PN ---
DATE: 06/21/2018 LOCATION: 562. SUBJECTIVE: This 56-year-old male seen initially for GI consultation on 06/20/2018, reexamined again today without significant clinical changes, but with upper extremities tremors, on Ativan. No reported chest pain, palpitation, or significant shortness of breath. LABORATORY DATA: Today's lab results showed low white blood cells of 4.7 with thrombocytopenia of 64, but normal hemoglobin and hematocrit with increased PT and PTT initially with CO2 content of 15, calcium 8.5, total bilirubin 34, AST 285 with normal ALT, alkaline phosphatase 515. Ammonia level is still elevated to 58 with lipase as per yesterday was 308. Most recently done abdominal ultrasound, official report is seen. PHYSICAL EXAMINATION: GENERAL: A 47-year-old male. VITAL SIGNS: Afebrile with pulse of 80, respiratory rate 20-22, blood pressure of 112/70. HEENT: Showed pale dry oral mucous membrane. Bilateral icteric sclerae. LUNGS: Few scattered crepitation. Decreased air entry at bases. HEART: Positive S1 and S2. ABDOMEN: Soft with mild generalized tenderness, but mainly in the midepigastric and right upper quadrant area. No mass or organomegaly. No rebound tenderness or guarding. EXTREMITIES: With tremors bilaterally of the upper extremities. IMPRESSION: 1. Acute alcoholic hepatitis. 2. Jaundice secondary to above. 3. Re-exacerbation of peptic ulcer disease. 4. The patient in a status of an early stage of hepatic failure due to the excessive increased total bilirubin and AST. 5. Known history of nasal fracture. 6. Thrombocytopenia secondary to above. 7. Coagulopathy secondary to above. 8. Acute pancreatitis with elevated lipase level due to alcoholism. 9. Recent history of influenza A infection. SUGGESTIONS: 1. Continue current management. 2. Neomycin p.o. 3. Antireflux measure. The patient may need Inderal 10 mg 1 tablet p.o. daily due to a questionable esophageal varices by an upper endoscopy done several months ago by another corral boss. Further recommendation to follow. Matheus Vines MD
[2018-06-21] MEDS ORDERED: Folic Acid 1 MG, Thiamine 100 MG, Multivitamin (MVI) 10 ML in Dextrose 5% In Water 1,00... IV SCH (21:30)
--- NOTE | 2018-06-21 22:28 | PN ---
DATE: 06/20/2018 SUBJECTIVE: The patient is still jaundiced. He is feeling better. He is afebrile. He is tolerating p.o. I discussed as per patient's instruction his situation with his who understands the patient's condition and prognosis. ASSESSMENT: 1. Flu. The patient is afebrile. He is tolerating oral intake. 2. Alcoholic liver disease with severe cholestasis. 3. Hypokalemia. 4. Alcoholism. PLAN: Respiratory isolation. Monitor patient. GI evaluation. Potassium supplementation. Johan Harden MD
[2018-06-22 08:38] LABS: ALB/GLOB RATIO 0.8 (1.0-2.1); ALBUMIN 3.4 g/dL (3.5-5.0); ALT/SGPT 42 U/L (21-72); BLOOD UREA NITROGEN 14 mg/dL (9-20); CALCIUM 8.4 mg/dl (8.6-10.4); GFR NON-AFRICAN AMERICAN > 60
[2018-06-22 08:51] LABS: AST/SGOT 207 U/L (17-59)
[2018-06-22] MEDS: Magnesium Oxide 400 mg Tab UD PO SCH (09:20)
[2018-06-22] MEDS: Multiple Vitamins Tab PO SCH (09:21)
[2018-06-22] MEDS: Potassium Chloride 20 mEq/15 ml LIQ UD PO SCH ×2 (13:57→16:45)
[2018-06-22] MEDS: Folic Acid 1 MG, Thiamine 100 MG, Multivitamin (MVI) 10 ML in Dextrose 5% In Water 1,00... IV SCH (21:10)
--- NOTE | 2018-06-22 22:20 | CP.PCM.PN ---
Subjective - Date & Time of Evaluation Date of Evaluation: 06/22/18 Time of Evaluation: 14:55 - Subjective Subjective: dictated Objective - Vital Signs/Intake and Output Vital Signs (last 24 hours): Temp Pulse Resp BP Pulse Ox 98.0 F 77 18 108/70 99 06/22/18 16:00 06/22/18 16:00 06/22/18 16:00 06/22/18 16:00 06/22/18 16:00 - Medications Medications: Current Medications Clonidine HCl (Catapres) 0.1 mg PO Q4H PRN PRN Reason: Symptoms of alcohol withdrawl Famotidine (Pepcid) 20 mg IVP Q12 [facility] Last Admin: 06/22/18 09:16 Dose: 20 mg Folic Acid (Folic Acid) 1 mg PO DAILY [facility] Last Admin: 06/22/18 09:20 Dose: 1 mg Folic Acid 1 mg/ Thiamine HCl 100 mg/ Multivitamins/Vitamin C 10 ml/ Dextrose 1,011.2 mls @ 100 mls/hr IV Q24H [facility] Lactulose (Enulose) 30 gm PO BID [facility] Last Admin: 06/22/18 18:59 Dose: 30 gm Lorazepam (Ativan) 1 mg PO Q4H PRN PRN Reason: Symptoms of alcohol withdrawl Last Admin: 06/21/18 03:23 Dose: 1 mg Lorazepam (Ativan) 1 mg PO Q8 [facility]; Taper Stop: 06/24/18 10:44 Last Admin: 06/22/18 13:56 Dose: 1 mg Magnesium Oxide (Mag-Ox) 400 mg PO DAILY [facility] Last Admin: 06/22/18 09:20 Dose: 400 mg Multivitamins (Hexavitamin) 1 tab PO DAILY [facility] Last Admin: 06/22/18 09:21 Dose: 1 tab Nadolol (Corgard) 20 mg PO DAILY [facility] Last Admin: 06/22/18 11:00 Dose: Not Given Neomycin Sulfate (Neomycin Tab) 500 mg PO Q6H [facility] Last Admin: 06/22/18 18:59 Dose: 500 mg Sertraline HCl (Zoloft) 50 mg PO DAILY [facility] Last Admin: 06/22/18 09:21 Dose: 50 mg Thiamine HCl (Vitamin B1 Tab) 100 mg PO DAILY [facility] Last Admin: 06/22/18 09:21 Dose: 100 mg - Labs Labs: 06/21/18 08:24 02/03/19 08:02 PT 15.3 SECONDS (9.7-12.2) H 06/19/18 13:56 INR 1.4 06/19/18 13:56 APTT 38 SECONDS (21-34) H 06/19/18 13:56
--- NOTE | 2018-06-22 22:21 | CP.PCM.PN ---
Subjective - Date & Time of Evaluation Date of Evaluation: 06/20/18 Time of Evaluation: 07:00 - Subjective Subjective: dictated Objective - Vital Signs/Intake and Output Vital Signs (last 24 hours): Temp Pulse Resp BP Pulse Ox 98.0 F 77 18 108/70 99 06/22/18 16:00 06/22/18 16:00 06/22/18 16:00 06/22/18 16:00 06/22/18 16:00 - Medications Medications: Current Medications Clonidine HCl (Catapres) 0.1 mg PO Q4H PRN PRN Reason: Symptoms of alcohol withdrawl Famotidine (Pepcid) 20 mg IVP Q12 COUNT INCLUDES THE [facility] Last Admin: 06/22/18 09:16 Dose: 20 mg Folic Acid (Folic Acid) 1 mg PO DAILY COUNT INCLUDES THE [facility] Last Admin: 06/22/18 09:20 Dose: 1 mg Folic Acid 1 mg/ Thiamine HCl 100 mg/ Multivitamins/Vitamin C 10 ml/ Dextrose 1,011.2 mls @ 100 mls/hr IV Q24H COUNT INCLUDES THE [facility] Lactulose (Enulose) 30 gm PO BID COUNT INCLUDES THE [facility] Last Admin: 06/22/18 18:59 Dose: 30 gm Lorazepam (Ativan) 1 mg PO Q4H PRN PRN Reason: Symptoms of alcohol withdrawl Last Admin: 06/21/18 03:23 Dose: 1 mg Lorazepam (Ativan) 1 mg PO Q8 COUNT INCLUDES THE [facility]; Taper Stop: 06/24/18 10:44 Last Admin: 06/22/18 13:56 Dose: 1 mg Magnesium Oxide (Mag-Ox) 400 mg PO DAILY COUNT INCLUDES THE [facility] Last Admin: 06/22/18 09:20 Dose: 400 mg Multivitamins (Hexavitamin) 1 tab PO DAILY COUNT INCLUDES THE [facility] Last Admin: 06/22/18 09:21 Dose: 1 tab Nadolol (Corgard) 20 mg PO DAILY COUNT INCLUDES THE [facility] Last Admin: 06/22/18 11:00 Dose: Not Given Neomycin Sulfate (Neomycin Tab) 500 mg PO Q6H COUNT INCLUDES THE [facility] Last Admin: 06/22/18 18:59 Dose: 500 mg Sertraline HCl (Zoloft) 50 mg PO DAILY COUNT INCLUDES THE [facility] Last Admin: 06/22/18 09:21 Dose: 50 mg Thiamine HCl (Vitamin B1 Tab) 100 mg PO DAILY COUNT INCLUDES THE [facility] Last Admin: 06/22/18 09:21 Dose: 100 mg - Labs Labs: 06/21/18 08:24 02/03/19 08:02 PT 15.3 SECONDS (9.7-12.2) H 06/19/18 13:56 INR 1.4 06/19/18 13:56 APTT 38 SECONDS (21-34) H 06/19/18 13:56
[2018-06-23 00:40] VITALS: RESP 20
--- NOTE | 2018-06-23 01:52 | PN ---
DATE: 06/22/2018 SUBJECTIVE: The patient was requesting transfer to [facility]. The patient is improving. He is less ectatic. No fever. He is more alert. Vital signs are stable. No fever. PHYSICAL EXAMINATION: VITAL SIGNS: Blood pressure is 108/70, pulse 77, respiratory rate 15, and temperature 98. LUNGS: Clear. CVS: S1, S2, regular. ABDOMEN: Enlarged liver. ASSESSMENT: 1. Flu. 2. Alcoholic liver disease with elevated liver function test with cholestasis. 3. Hypokalemia. PLAN: Await transfer to [facility] pending bed availability. In the meantime, we will supplement the patient with potassium. Monitor patient. Johan Harden MD
[2018-06-23] MEDS: Multiple Vitamins Tab PO SCH (10:21)
[2018-06-23] MEDS: Magnesium Oxide 400 mg Tab UD PO SCH (10:21)
--- NOTE | 2018-06-23 13:08 | PN ---
DATE: 06/23/2018 LOCATION: 566. SUBJECTIVE: This is a 47-year-old male seen and examined in rounds without significant clinical changes as the patient is to be transferred to [facility] as soon. No reported active bleeding. Lab results for today is still pending, but the patient has persistently elevated total bilirubin and increased AST and alkaline phosphatase, but normal ALT with lipase, the latest is 308. Ammonia level is still pending. PHYSICAL EXAMINATION: GENERAL: A 47-year-old male. VITAL SIGNS: Afebrile with pulse of 72, respiratory rate 20-22, blood pressure of 110/64. HEENT: Showed pale dry oral mucous membrane. Nonicteric sclerae. LUNGS: Few scattered crepitation. Decreased air entry at bases. HEART: Positive S1 and S2. ABDOMEN: Soft with mild generalized tenderness with mild distention. No mass or organomegaly. No rebound tenderness or guarding. EXTREMITIES: Without significant clubbing, cyanosis or edema. No reported new neurological deficits, sensory or motor. The patient has generalized jaundice. IMPRESSION: 1. Acute alcoholic hepatitis with early stage of liver failure. 2. Jaundice secondary to above. 3. Peptic ulcer disease. 4. Known history of nasal . 5. Anemia secondary to above. 6. Thrombocytopenia secondary to above. 7. Recent history of influenza A infection. SUGGESTIONS: 1. Continue current management. 2. The patient to be transferred to [facility] as per the record. Matheus Vines MD
[2018-06-23] MEDS ORDERED: Potassium Chloride 20 mEq ER Tab PO SCH ×2 (14:30→18:00)
[2018-06-23] MEDS ORDERED: Potassium Chloride 20 mEq ER Tab PO ONE (14:45)
--- NOTE | 2018-06-23 17:50 | MRI ---
Date of service: 06/23/2018 PROCEDURE: Magnetic Resonance Cholangiopancreatography HISTORY: COMPARISON: None available. TECHNIQUE: Multiplanar, multisequence MR images of the abdomen were obtained, including heavily T2 weighted MRCP images of the biliary system. Rotating maximum intensity projection images of the biliary system were generated. The examination was performed both with and without intravenous gadolinium administration. Please note that post-gadolinium images were limited by patient motion artifact. FINDINGS: MRCP: The common bile duct is of a normal caliber. No evidence of choledocholithiasis. No intrahepatic biliary ductal dilatation. LIVER: The liver is enlarged, measuring approximately 22.2 cm craniocaudal. Smooth contour. No mass. No biliary dilatation. Moderate diffuse hepatic steatosis. GALLBLADDER: Unremarkable. SPLEEN: Splenomegaly. The spleen measures approximately 15.3 cm in greatest dimension. No mass. PANCREAS: Unremarkable. ADRENALS: Unremarkable. KIDNEYS: Left lower pole renal cortical cyst, 1.4 cm diameter. AORTA: No aneurysm. ASCITES: None. OTHER FINDINGS: None. IMPRESSION: Hepatosplenomegaly. Hepatic steatosis. Left lower pole renal cortical cyst. No evidence of biliary obstruction.
[2018-06-23] MEDS: Potassium Chloride 20 mEq ER Tab PO SCH (20:22)
[2018-06-23] MEDS: Folic Acid 1 MG, Thiamine 100 MG, Multivitamin (MVI) 10 ML in Dextrose 5% In Water 1,00... IV SCH (20:22)
--- NOTE | 2018-06-23 22:43 | CP.PCM.PN ---
Subjective - Date & Time of Evaluation Date of Evaluation: 06/23/18 Time of Evaluation: 07:41 - Subjective Subjective: dictated Objective - Vital Signs/Intake and Output Vital Signs (last 24 hours): Temp Pulse Resp BP Pulse Ox 97.7 F 73 20 106/68 97 06/23/18 15:00 06/23/18 22:08 06/23/18 15:00 06/23/18 15:00 06/23/18 15:00 Intake and Output: 06/23/18 06/24/18 18:59 06:59 Intake Total 760 Balance 760 - Medications Medications: Current Medications Clonidine HCl (Catapres) 0.1 mg PO Q4H PRN PRN Reason: Symptoms of alcohol withdrawl Famotidine (Pepcid) 20 mg IVP Q12 [facility] Last Admin: 06/23/18 22:02 Dose: 20 mg Folic Acid (Folic Acid) 1 mg PO DAILY [facility] Last Admin: 06/23/18 10:21 Dose: 1 mg Folic Acid 1 mg/ Thiamine HCl 100 mg/ Multivitamins/Vitamin C 10 ml/ Dextrose 1,011.2 mls @ 100 mls/hr IV Q24H [facility] Last Admin: 06/23/18 20:22 Dose: 100 mls/hr Lactulose (Enulose) 30 gm PO TID [facility] Last Admin: 06/23/18 19:03 Dose: 30 gm Lorazepam (Ativan) 1 mg PO Q4H PRN PRN Reason: Symptoms of alcohol withdrawl Last Admin: 06/23/18 20:21 Dose: 1 mg Lorazepam (Ativan) 1 mg PO Q24H [facility]; Taper Stop: 06/24/18 10:44 Last Admin: 06/23/18 10:22 Dose: 1 mg Magnesium Oxide (Mag-Ox) 400 mg PO DAILY [facility] Last Admin: 06/23/18 10:21 Dose: 400 mg Multivitamins (Hexavitamin) 1 tab PO DAILY [facility] Last Admin: 06/23/18 10:21 Dose: 1 tab Nadolol (Corgard) 20 mg PO DAILY [facility] Last Admin: 06/23/18 10:21 Dose: 20 mg Neomycin Sulfate (Neomycin Tab) 500 mg PO Q6H [facility] Last Admin: 06/23/18 22:02 Dose: 500 mg Potassium Chloride (K-Dur 20 Meq Er Tab) 20 meq PO BID [facility] Last Admin: 06/23/18 20:22 Dose: 20 meq Sertraline HCl (Zoloft) 50 mg PO DAILY [facility] Last Admin: 06/23/18 10:21 Dose: 50 mg Thiamine HCl (Vitamin B1 Tab) 100 mg PO DAILY [facility] Last Admin: 06/23/18 10:21 Dose: 100 mg - Labs Labs: 06/21/18 08:24 06/22/18 08:02 PT 15.3 SECONDS (9.7-12.2) H 06/19/18 13:56 INR 1.4 06/19/18 13:56 APTT 38 SECONDS (21-34) H 06/19/18 13:56
--- NOTE | 2018-06-23 23:24 | CARD ---
APPROVED REPORT Date of service: 06/18/2018 EKG Measurement Heart [id number] <Conclusion> Normal sinus rhythm Prolonged QT Abnormal ECG
--- NOTE | 2018-06-23 23:24 | CARD ---
APPROVED REPORT Date of service: 06/18/2018 EKG Measurement Heart [id number] <Conclusion> Normal sinus rhythm Nonspecific ST abnormality Prolonged QT Abnormal ECG
--- NOTE | 2018-06-24 03:56 | PN ---
DATE: 06/23/2018 SUBJECTIVE: I had discussion with the patient's who prefers to take him to [facility]. She does not want to take her to any other hospital. The patient is waiting for to be transferred to [facility]. He has elevated LFTs with elevated bilirubin. PHYSICAL EXAMINATION: GENERAL: The patient is afebrile. No nausea or vomiting. VITAL SIGNS: Blood pressure 106/68, pulse 65, respiratory rate 20, temperature 97.7. LUNGS: Clear. No rales. No rhonchi. CARDIOVASCULAR SYSTEM: S1 and S2 regular. ABDOMEN: Soft. ASSESSMENT: 1. Alcoholic liver disease with hepatitis C with elevated total bilirubin. 2. Flu, resolved. 3. Dehydration. 4. Hypokalemia. PLAN: Potassium supplementation and pending transfer to [facility]. In the meantime, we will obtain MRCP of the abdomen and MRCP of abdomen was done and MRCP of the abdomen showed hepatosplenomegaly, hepatic steatosis. No evidence of biliary obstruction. The patient will be managed conservatively. Johan Harden MD
[2018-06-24] MEDS: Magnesium Oxide 400 mg Tab UD PO SCH (10:03)
[2018-06-24] MEDS: Potassium Chloride 20 mEq ER Tab PO SCH ×2 (10:04→18:19)
[2018-06-24] MEDS: Multiple Vitamins Tab PO SCH (10:04)
[2018-06-24] MEDS: Folic Acid 1 MG, Thiamine 100 MG, Multivitamin (MVI) 10 ML in Dextrose 5% In Water 1,00... IV SCH (21:30)
[2018-06-25] MEDS: Dextrose 5%/0.45% NS 1,000 ML IV SCH ×3 (07:13→16:24)
[2018-06-25 08:54] LABS: HEMOGLOBIN 12.8 g/dL (12.0-18.0); MEAN CELL VOLUME 105.5 fL (80.0-94.0); MEAN CORPUSCULAR HEMOGLOBIN 35.9 pg (27.0-31.0); MEAN CORPUSCULAR HGB CONC 34.1 g/dL (33.0-37.0); MEAN PLATELET VOLUME 10.4 fL (7.2-11.7); RBC 3.57 Mil/uL (4.40-5.90); RED CELL DISTRIBUTION WIDTH 17.1 % (11.5-14.5); WHITE BLOOD COUNT 5.3 K/uL (4.8-10.8)
[2018-06-25 09:17] LABS: ALB/GLOB RATIO 0.7 (1.0-2.1); ALBUMIN 3.5 g/dL (3.5-5.0); CALCIUM 8.7 mg/dl (8.6-10.4)
[2018-06-25] MEDS: Multiple Vitamins Tab PO SCH (10:26)
[2018-06-25] MEDS: Magnesium Oxide 400 mg Tab UD PO SCH (10:26)
[2018-06-25] MEDS: Potassium Chloride 20 mEq ER Tab PO SCH ×2 (10:26→17:58)
[2018-06-25 12:49] LABS: EOS # 0.1 K/uL (0.0-0.7); LYMPH # 0.7 K/uL (1.0-4.3); MONO # 0.7 K/uL (0.0-0.8); NEUT # 3.8 K/uL (1.8-7.0)
[2018-06-25 12:50] LABS: BASO # 0.1 K/uL (0.0-0.2)
[2018-06-25 16:42] VITALS: BP 102/68; TEMP 98.3; O2SAT 97
[2018-06-25 17:25] LABS: VENOUS BLOOD GAS BASE EXCESS -14.4 mmol/L (0.0-2.0); VENOUS BLOOD GAS PCO2 23 mmHg (40-60); VENOUS BLOOD GAS PO2 49 mm/Hg (30-55); VENOUS BLOOD PH 7.27 (7.32-7.43)
[2018-06-25] MEDS ORDERED: Dextrose 5%/0.45% NS 1,000 ML IV SCH (19:30)
[2018-06-25 20:26] VITALS: PULSE 66
--- NOTE | 2018-06-25 21:36 | CP.PCM.PCO ---
Physician Communication Note - Physician Communication Note Physician Communication Note: I was called to see the pt because he and want to leave.
--- NOTE | 2018-06-25 21:59 | CP.PCM.PN ---
Subjective - Date & Time of Evaluation Date of Evaluation: 06/24/18 Time of Evaluation: 07:00 - Subjective Subjective: dictated Objective - Vital Signs/Intake and Output Vital Signs (last 24 hours): Temp Pulse Resp BP Pulse Ox 98.3 F 66 20 102/68 97 06/25/18 16:41 06/25/18 20:26 06/25/18 16:41 06/25/18 16:41 06/25/18 16:41 Intake and Output: 06/25/18 06/26/18 18:59 06:59 Intake Total 1280 Balance 1280 - Labs Labs: 06/25/18 08:36 06/25/18 08:36 PT 15.3 SECONDS (9.7-12.2) H 06/19/18 13:56 INR 1.4 06/19/18 13:56 APTT 38 SECONDS (21-34) H 06/19/18 13:56
--- NOTE | 2018-06-25 21:59 | CP.PCM.DIS ---
Provider - Provider Date of Admission: 06/19/18 18:04 Attending physician: Johan Harden MD Consults: 06/19/18 08:32 Psychiatry Consult Routine Comment: etoh Consulting Provider: Sunil Moreno Consulting Physician: Sunil Moreno Reason for Consult: etoh 06/19/18 21:43 Gastroenterology Consult Routine Comment: Consulting Provider: Matheus Schreiber Consulting Physician: Matheus Schreiber Reason for Consult: hepatitis 06/25/18 18:55 Nephrology Consult Routine Comment: Consulting Provider: Refugio Greene Consulting Physician: Refugio Greene Reason for Consult: magno Time Spent in preparation of Discharge (in minutes): 15 Hospital Course - Lab Results Lab Results: Most Recent Lab Values WBC 5.3 K/uL (4.8-10.8) 06/25/18 08:36 RBC 3.57 Mil/uL (4.40-5.90) L 06/25/18 08:36 Hgb 12.8 g/dL (12.0-18.0) 06/25/18 08:36 Hct 37.6 % (35.0-51.0) 06/25/18 08:36 MCV 105.5 fL (80.0-94.0) H 06/25/18 08:36 MCH 35.9 pg (27.0-31.0) H 06/25/18 08:36 MCHC 34.1 g/dL (33.0-37.0) 06/25/18 08:36 RDW 17.1 % (11.5-14.5) H 06/25/18 08:36 Plt Count 128 K/uL (130-400) L D 06/25/18 08:36 MPV 10.4 fL (7.2-11.7) 06/25/18 08:36 Neut % (Auto) 72.0 % (50.0-75.0) 06/25/18 08:36 Lymph % (Auto) 13.0 % (20.0-40.0) L 06/25/18 08:36 [place] % (Auto) 13.0 % (0.0-10.0) H 06/25/18 08:36 Eos % (Auto) 2.0 % (0.0-4.0) 06/25/18 08:36 Baso % (Auto) 1.0 % (0.0-2.0) 06/25/18 08:36 Neut # (Auto) 3.8 K/uL (1.8-7.0) 06/25/18 08:36 Lymph # (Auto) 0.7 K/uL (1.0-4.3) L 06/25/18 08:36 [place] # (Auto) 0.7 K/uL (0.0-0.8) 06/25/18 08:36 Eos # (Auto) 0.1 K/uL (0.0-0.7) 06/25/18 08:36 Baso # (Auto) 0.1 K/uL (0.0-0.2) 06/25/18 08:36 Neutrophils % (Manual) 74 % (50-75) 06/21/18 08:24 Band Neutrophils % 3 % (0-2) H 06/21/18 08:24 Lymphocytes % (Manual) 11 % (20-40) L 06/21/18 08:24 Monocytes % (Manual) 9 % (0-10) 06/21/18 08:24 Eosinophils % (Manual) 1 % (0-4) 06/21/18 08:24 Basophils % (Manual) 2 % (0-2) 06/21/18 08:24 Platelet Estimate Decreased (NORMAL) L 06/21/18 08:24 Large Platelets Present 06/18/18 16:14 Polychromasia Slight 06/21/18 08:24 Hypochromasia (manual) Slight 06/18/18 16:14 Poikilocytosis (manual Slight 06/21/18 08:24 Anisocytosis (manual) Slight 06/21/18 08:24 Microcytosis (manual) Slight 06/21/18 08:24 Target Cells Slight 06/18/18 16:14 Tear Drop Cells Slight 06/21/18 08:24 Ovalocytes Slight 06/21/18 08:24 PT 15.3 SECONDS (9.7-12.2) H 06/19/18 13:56 INR 1.4 06/19/18 13:56 APTT 38 SECONDS (21-34) H 06/19/18 13:56 pO2 49 mm/Hg (30-55) 06/25/18 17:21 VBG pH 7.27 (7.32-7.43) L 06/25/18 17:21 VBG pCO2 23 mmHg (40-60) L 06/25/18 17:21 VBG HCO3 13.2 mmol/L 06/25/18 17:21 VBG Total CO2 11.3 mmol/L (22-28) L 06/25/18 17:21 VBG O2 Sat (Calc) 90.1 % (40-65) H 06/25/18 17:21 VBG Base Excess -14.4 mmol/L (0.0-2.0) L 06/25/18 17:21 VBG Potassium 3.8 mmol/L (3.6-5.2) 06/25/18 17:21 Sodium 137.0 mmol/l (132-148) 06/25/18 17:21 Chloride 113.0 mmol/L (98-107) H 06/25/18 17:21 Glucose 105 mg/dl (75-110) 06/25/18 17:21 Lactate 1.1 mmol/L (0.7-2.1) 06/25/18 17:21 FiO2 21.0 % 06/18/18 16:25 Sodium 134 mmol/L (132-148) 06/25/18 08:36 Potassium 3.7 mmol/L (3.6-5.2) 06/25/18 08:36 Chloride 110 mmol/L (98-107) H 06/25/18 08:36 Carbon Dioxide 11 mmol/L (22-30) L* D 06/25/18 08:36 Anion Gap 17 (10-20) 06/25/18 08:36 BUN 35 mg/dL (9-20) H 06/25/18 08:36 Creatinine 3.0 mg/dL (0.8-1.5) H 06/25/18 08:36 Est GFR ( Amer) 28 06/25/18 08:36 Est GFR (Non-Af Amer) 23 06/25/18 08:36 POC Glucose (mg/dL) 135 mg/dL (65-110) H 06/25/18 10:51 Random Glucose 101 mg/dL (75-110) 06/25/18 08:36 Calcium 8.7 mg/dl (8.6-10.4) 06/25/18 08:36 Phosphorus 5.8 mg/dL (2.5-4.5) H 06/25/18 08:36 Magnesium 2.3 mg/dL (1.6-2.3) 06/25/18 08:36 Total Bilirubin 41.7 mg/dL (0.2-1.3) H 06/25/18 08:36 AST 185 U/L (17-59) H 06/25/18 08:36 ALT 39 U/L (21-72) 06/25/18 08:36 Alkaline Phosphatase 387 U/L (38-126) H 06/25/18 08:36 Ammonia 66 umol/L (9-33) H 06/25/18 08:36 Total Protein 8.4 g/dL (6.3-8.3) H 06/25/18 08:36 Albumin 3.5 g/dL (3.5-5.0) 06/25/18 08:36 Globulin 4.9 gm/dL (2.2-3.9) H 06/25/18 08:36 Albumin/Globulin Ratio 0.7 (1.0-2.1) L 06/25/18 08:36 Amylase 102 U/L (30-110) 06/20/18 11:08 Lipase 308 U/L (23-300) H 06/20/18 11:08 Alpha Fetoprotein 2.2 ng/mL (0.0-7.5) 06/20/18 11:08 Carcinoembryonic Ag 6.0 ng/mL (0-3.0) H 06/23/18 10:58 Venous Blood Potassium 3.8 mmol/L (3.6-5.2) 06/25/18 17:21 Urine Color Michelle (YELLOW) 06/18/18 18:32 Urine Clarity Clear (Clear) 06/18/18 18:32 Urine pH 7.0 (5.0-8.0) 06/18/18 18:32 Ur Specific [place] 1.017 (1.003-1.030) 06/18/18 18:32 Urine Protein 2+ mg/dL (NEGATIVE) H 06/18/18 18:32 Urine Glucose (UA) Normal mg/dL (Normal) 06/18/18 18:32 Urine Ketones Negative mg/dL (NEGATIVE) 06/18/18 18:32 Urine Blood Negative (NEGATIVE) 06/18/18 18:32 Urine Nitrate Negative (NEGATIVE) 06/18/18 18:32 Urine Bilirubin 2+ (NEGATIVE) H 06/18/18 18:32 Urine Urobilinogen 4.0 mg/dL (0.2-1.0) 06/18/18 18:32 Ur Leukocyte Esterase Neg Elvis/uL (Negative) 06/18/18 18:32 Urine WBC (Auto) 3 /hpf (0-5) 06/18/18 18:32 Urine RBC (Auto) 1 /hpf (0-3) 06/18/18 18:32 Ur Squamous Epith Cells 2 /hpf (0-5) 06/18/18 18:32 Calcium Oxalate Crystal Rare /hpf (<OCC) 06/18/18 18:32 Urine Bacteria Rare (<OCC) 06/18/18 18:32 Hyaline Casts 0-2 /lpf (0-2) 06/18/18 18:32 Granular Casts (Auto) 0-2 /lpf (0-1) 06/18/18 18:32 Urine Opiates Screen Negative (NEGATIVE) 06/18/18 18:32 Urine Methadone Screen Negative (NEGATIVE) 06/18/18 18:32 Ur Barbiturates Screen Negative (NEGATIVE) 06/18/18 18:32 Ur Phencyclidine Scrn Negative (NEGATIVE) 06/18/18 18:32 Ur Amphetamines Screen Negative (NEGATIVE) 06/18/18 18:32 U Benzodiazepines Scrn Negative (NEGATIVE) 06/18/18 18:32 U Oth Cocaine Metabols Negative (NEGATIVE) 06/18/18 18:32 U Cannabinoids Screen Negative (NEGATIVE) 06/18/18 18:32 Alcohol, Quantitative 102 mg/dl (0-10) H 06/18/18 16:14 Influenza Typ A,B (EIA) Pos for influenza a (NEGATIVE) H 06/18/18 16:14 Discharge Exam - Head Exam Head Exam: ATRAUMATIC, NORMAL INSPECTION Discharge Plan - Follow Up Plan Condition: FAIR Disposition: AGAINST MEDICAL ADVICE Instructions: Flu, Adult (DC), Jaundice, Adult (DC), Alcohol Withdrawal, Bleeding Precautions Referrals: Matheus Schreiber [Staff Provider] - Johan Harden MD [Staff Provider] -
--- NOTE | 2018-06-26 23:12 | DS ---
DISCHARGE DIAGNOSES: 1. Alcoholic liver disease with elevated abnormal liver function tests. 2. Alcoholism. 3. Anxiety and depression. 4. Acute kidney injury. 5. Hypokalemia. HISTORY OF PRESENT ILLNESS: This is a 47-year-old white male with history of alcoholism. He drinks heavily. He has hepatitis C chronic associated with multiple problems, frequent hospitalizations, frequent alcohol and alcohol-related ER visits, came in because of elevated liver function tests. The patient was admitted to the floor, started on IV fluids, banana bag, potassium supplementation, multivitamin, thiamine, folic acid. GI evaluation was requested. The patient underwent an MRCP of the abdomen, which was done because of extremely elevated total bilirubin. MRCP did not show any obstructive disease. The patient continued to be icteric and the patient was evaluated. The patient's family requested transfer to [facility] where his liver specialist is located and the patient was for transfer, but beds could not be available and the patient signed out against medical advice. PHYSICAL EXAMINATION: VITAL SIGNS: Blood pressure 102/68, pulse 61, respiratory rate 20, temperature 98.3. LABORATORY DATA: WBC , hemoglobin 12.8, hematocrit 37.8, platelets 128. The patient's condition is guarded upon discharge. He signed out against medical advice. Johan Harden MD
== END 2018-06-25 21:42 | disposition left against medical advice (07) | DRG 557 ==
LOC: C.ER 14:56 → C.9E 18:47 → C.5S 19:10 → OBSVTOIN 06-19 18:04 → C.5S 06-19 19:33
PROVIDERS: ADMIT Internal Medicine; ATTEND Internal Medicine
DX: K70.10 Alcoholic hepatitis without ascites (principal); J10.1 Influenza due to other identified influenza virus with other respiratory manifestations; K72.90 Hepatic failure, unspecified without coma; K85.90 Acute pancreatitis without necrosis or infection, unspecified; E86.0 Dehydration; D69.59 Other secondary thrombocytopenia; F10.239 Alcohol dependence with withdrawal, unspecified; E87.6 Hypokalemia; B19.20 Unspecified viral hepatitis C without hepatic coma; D63.8 Anemia in other chronic diseases classified elsewhere; D68.9 Coagulation defect, unspecified; E72.20 Disorder of urea cycle metabolism, unspecified; F32.9 Major depressive disorder, single episode, unspecified; K27.9 Peptic ulcer, site unspecified, unspecified as acute or chronic, without hemorrhage or perforation; K76.6 Portal hypertension; K31.89 Other diseases of stomach and duodenum; K44.9 Diaphragmatic hernia without obstruction or gangrene; K83.1 Obstruction of bile duct; Y90.5 Blood alcohol level of 100-119 mg/100 ml